=== PATIENT | female | born 1955 | race Caucasian/White ===

== ENCOUNTER 2017-05-15 13:04 | Emergency (ER) | payer MEDICARE, MEDICAID ==
--- NOTE | 2017-05-15 15:28 | RAD ---
LEFT FEMUR 2 VIEWS: Date: 05/15/17 HISTORY: Patient drank vodka and six beers and then fell on the stairs. Pain. COMPARISON: None. FINDINGS: Left hip arthroplasty. There is lucency along the lateral aspect of the cement used to affix the arth roplasty in the femoral diaphysis. Significance is uncertain. Definite fracture is not appreciated. L ucency is unchanged. Remainder of the left femur is unremarkable. IMPRESSION: No fracture. POS: [facility]
--- NOTE | 2017-05-15 15:29 | RAD ---
LEFT HIP 2 VIEWS: Date: 05/15/17 INDICATION: Injury. FINDINGS: There is a left hip prosthesis. There is a stable mild linear degree of lucency adjacent to the packi ng cement of the proximal left femur. No significant interval change identified. IMPRESSION: 1. No interval acute fracture of the postoperative left hip. 2. Stable linear density adjacent packing cement of proximal left femur. POS: [facility]
== END 2017-05-15 15:20 | disposition home or self-care (01) ==
LOC: ERS 13:04
DX: M25.552 Pain in left hip (principal); I10 Essential (primary) hypertension; F32.9 Major depressive disorder, single episode, unspecified; F41.9 Anxiety disorder, unspecified; F17.210 Nicotine dependence, cigarettes, uncomplicated; J44.9 Chronic obstructive pulmonary disease, unspecified; Z79.899 Other long term (current) drug therapy; W10.9XXA Fall (on) (from) unspecified stairs and steps, initial encounter

== ENCOUNTER 2017-06-16 16:24 | Emergency (ER) | payer MEDICARE, MEDICAID ==
--- NOTE | 2017-06-16 17:38 | RAD ---
LEFT HIP 2 VIEWS: Date: 06/16/17 HISTORY: Left hip pain. FINDINGS/IMPRESSION: Comparison made with exam of 05/15/17. A femoral head prosthesis in the left hip remains in place, in good position and alignment. No fractu re, dislocation, or bony destruction is seen. No periprosthetic lucency is noted suggest loosening. POS: [facility]
[2017-06-16 19:15] LABS: ALT (SGPT) 28 U/L (8-55); AST (SGOT) 38 U/L (5-34); Albumin 4.1 g/dL (3.4-4.8); Alkaline Phosphatase 92 U/L (40-150); Anion Gap 20 mmol/L (10-20); BUN (Urea Nitrogen) 4 mg/dL (9.8-20.1); Bilirubin, Total 0.6 mg/dL (0.2-1.2); Calc. Creatinine Clearance 0 mL/min (70-130); Calcium 9.5 mg/dL (7.8-10.44); Carbon Dioxide 18 mmol/L (23-31); Chloride 102 mmol/L (98-107); Estimated GFR-MDRD 70; Globulin 4.8 g/dL (2.4-3.5); Glucose 164 mg/dL (80-115); Protein, Total 8.9 g/dL (6.0-8.3); Sodium 136 mmol/L (136-145)
[2017-06-16 20:06] LABS: #Basophils 0.1 thou/uL (0.0-0.2); #Eosinphils 0.1 thou/uL (0.0-0.7); #Lymphocytes 4.3 thou/uL (1.20-3.40); #Monocytes 0.8 thou/uL (0.11-0.59); %Eosinophils 1.2 % (0.0-10.0); %Lymphocytes 38.1 % (21.0-51.0); %Monocytes 6.8 % (0.0-10.0); %Neutrophils 52.9 % (42.0-75.0); Hemoglobin 17.3 g/dL (12.0-16.0); Mean Corpuscular HGB CONC 35.5 g/dL (32.0-36.0); Mean Corpuscular Hemoglobin 37.1 pg (27.0-31.0); Mean Platelet Volume 6.2 fL (7.4-10.4); Platelet Count 366 thou/uL (130-400); RBC Distribution Width 13.1 % (11.5-14.5); Red Blood Cell (RBC) Count 4.65 mill/uL (4.20-5.40); White Blood Cell (WBC) Count 11.3 thou/uL (4.8-10.8)
[2017-06-16 20:17] LABS: INR-International Normal Ratio 0.9; Prothrombin Time 12.6 SEC (12.0-14.7)
[2017-06-16 20:18] LABS: PTT 29.8 SEC (22.9-36.1)
== END 2017-06-16 20:30 | disposition home or self-care (01) ==
LOC: ERS 16:24
DX: S70.02XA Contusion of left hip, initial encounter (principal); I10 Essential (primary) hypertension; J44.9 Chronic obstructive pulmonary disease, unspecified; F32.9 Major depressive disorder, single episode, unspecified; F41.9 Anxiety disorder, unspecified; F17.210 Nicotine dependence, cigarettes, uncomplicated; W10.9XXA Fall (on) (from) unspecified stairs and steps, initial encounter; Y92.009 Unspecified place in unspecified non-institutional (private) residence as the place of occurrence of the external cause
CPT/HCPCS: 36415; 80053; 85025; 85610; 85730

== ENCOUNTER 2017-10-19 15:28 | Observation (INO) | payer MEDICARE, MEDICAID ==
[2017-10-19 16:23] LABS: #Basophils 0.1 thou/uL (0.0-0.2); #Eosinphils 0.3 thou/uL (0.0-0.7); #Lymphocytes 4.4 thou/uL (1.20-3.40); #Monocytes 0.9 thou/uL (0.11-0.59); #Neutrophils 7.5 thou/uL (1.40-6.50); %Basophils 0.8 % (0.0-1.0); %Eosinophils 1.9 % (0.0-10.0); %Lymphocytes 33.4 % (21.0-51.0); %Monocytes 6.9 % (0.0-10.0); Hemoglobin 15.2 g/dL (12.0-16.0); Mean Corpuscular HGB CONC 35.8 g/dL (32.0-36.0); Mean Corpuscular Hemoglobin 38.6 pg (27.0-31.0); Mean Platelet Volume 6.9 fL (7.4-10.4); Platelet Count 305 thou/uL (130-400); Red Blood Cell (RBC) Count 3.94 mill/uL (4.20-5.40); White Blood Cell (WBC) Count 13.2 thou/uL (4.8-10.8)
[2017-10-19 16:41] LABS: ALT (SGPT) 71 U/L (8-55); AST (SGOT) 109 U/L (5-34); Albumin 3.9 g/dL (3.4-4.8); Alkaline Phosphatase 64 U/L (40-150); Anion Gap 15 mmol/L (10-20); BUN (Urea Nitrogen) 20 mg/dL (9.8-20.1); Bilirubin, Total 0.7 mg/dL (0.2-1.2); CK (CPK) 82 U/L (29-168); Calc. Creatinine Clearance 0 mL/min (70-130); Calcium 9.2 mg/dL (7.8-10.44); Carbon Dioxide 22 mmol/L (23-31); Chloride 99 mmol/L (98-107); Estimated GFR-MDRD 30; Globulin 3.4 g/dL (2.4-3.5); Glucose 103 mg/dL (80-115); Potassium 3.8 mmol/L (3.5-5.1); Protein, Total 7.3 g/dL (6.0-8.3); Sodium 132 mmol/L (136-145)
[2017-10-19 16:45] LABS: CKMB 1.8 ng/mL (0-6.6); Troponin I Less than 0.010 ng/mL (< 0.028)
[2017-10-19] MEDS ORDERED: Ondansetron ODT 4 MG TAB ONE (17:04)
--- NOTE | 2017-10-19 17:09 | RAD ---
PORTABLE CHEST ONE VIEW: 10/19/17 at 3:40 p.m. HISTORY: Left upper quadrant pain. Comparison made with exam of 02/04/17. The heart size is prominent but stable. The lungs are well expanded without confluent areas of consol idation, pneumothorax, rica pulmonary edema, or pleural effusions. IMPRESSION: No acute process. POS: [facility]
--- NOTE | 2017-10-19 17:15 | RAD ---
ABDOMEN ONE VIEW: 10/19/17 HISTORY: Left upper quadrant abdominal pain. FINDINGS/IMPRESSION: The bowel gas pattern is unremarkable. No suspicious calcifications are seen. There are degenerative changes in the spine. A left femoral head prosthesis is present. POS: [facility]
--- NOTE | 2017-10-19 19:12 | PDOC.FPRHP ---
- History of Present Illness Chief Complaint: abdominal pain, dehydration, constipation History of Present Illness: 62 yo F w/ pmh of htn, tobacco abuse, alcoholism and copd presents for evaluation of acute onset LUQ abdominal pain. She reports the pain occured suddenyl and was described as sharp. She has had a few episodes like this in the past 2 weeks; however, today the painful episodes occurred 3 times at which point she decided to present to the ED for evaluation. She denied associated pleuritic pain, sob, cp, nvd, diaphoresis, fever, chills, nights sweats. Does report some constipation, last BM was approx 2 days ago. Denies exacerbating or remitting factors. Currently reports her pain is resolved. . She reports she has not had anything to drink today although her blood alcohol level in the ED was found to be 129. Additionally, in the ed pt was found to have mild swati and transaminitis. Her ck was wnl. ED Course: NS @ 250mls/hr, zofran - Allergies/Adverse Reactions Allergies Allergy/AdvReac Type Severity Reaction Status Date / Time No Known Allergies Allergy Verified 07/14/16 21:11 - Home Medications Medication Instructions Recorded Confirmed Type Lisinopril/Hydrochlorothiazide 1 tablet PO DAILY 04/14/13 10/19/17 History [Lisinopril-Hctz 20-25 mg Tab] Amlodipine [Norvasc] 5 mg PO HS 10/19/17 10/19/17 History Gabapentin [Neurontin] 100 mg PO TID PRN 10/19/17 10/19/17 History Hydrochlorothiazide 25 mg PO DAILY 10/19/17 10/19/17 History traMADol HCl [Tramadol HCl] 50 mg PO Q4HR PRN 10/19/17 10/19/17 History - History PMHx: HTN, COPD, Depression, chronic pain, transaminitis, tobacco abuse, alcohol abuse PSHx: Lt hip ORIF w/ 2 hardware exchanges 2/2 infection FHx:NA Social: Current 1/2 ppd smoker for 38 years, 19pack year history, current everyday drinker of 4 12oz beers/day, denies drug use - Review of Systems General: denies: fever/chills, weight/appetite/sleep changes, night sweats, fatigue Eyes: denies: eye pain, vision changes ENT: denies: nasal congestion, rhinorrhea Respiratory: denies: cough, congestion, shortness of breath Cardiovascular: reports: edema. denies: chest pain, palpitation Gastrointestinal: reports: abdominal pain. denies: nausea, vomiting, diarrhea, constipation Genitourinary: denies: incontinence, dysuria, polyuria, discharge Skin: denies: rashes, jaundice Musculoskeletal: reports: pain, arthritis/arthralgias Neurological: denies: numbness, syncope, weakness - Vital signs BP: 91/57 HR: 94 RR: 18 Tmax: 98.9 Pox: 91% on RA Wt: 98 Kg - Physical Exam Constitutional: NAD, awake, alert and oriented HEENT: normocephalic and atraumatic, PERRLA, EOMI, grossly normal vision, TM's clear and intact, grossly normal hearing, MMM, oropharynx clear, other ( conjunctival injection b/l, jere complexion) Neck: supple, trachea midline, no LAD, no JVD, no thyromegaly Chest: no-tender to palpation Heart: RRR, normal S1/S2, no murmurs/rubs/gallops, pulses present, other (trace , non-pitting edema b/l LE) Lungs: no respiratory distress, good air movement, no retractions, other ( diffuse expiratory wheezes and scattered rhonchi) Abdomen: soft, non-tender, bowel sounds present, no hernias, other (protuberant abdomen) Musculoskeletal: normal tone Neurological: no focal deficit Skin: no rash/lesions, good turgor, capillary refill <2 seconds, no jaundice Heme/Lymphatic: no unusual bruising or bleeding, no petechia Psychiatric: normal mood and affect FMR H&P: Results - Labs Result Diagrams: 10/19/17 16:07 10/19/17 16:07 Lab results: WBC 13.2 thou/uL (4.8-10.8) H 10/19/17 16:07 Hgb 15.2 g/dL (12.0-16.0) 10/19/17 16:07 Hct 42.6 % (36.0-47.0) 10/19/17 16:07 MCV 108.0 fl (81.0-99.0) H 10/19/17 16:07 Plt Count 305 thou/uL (130-400) 10/19/17 16:07 Neutrophils % 57.0 % (42.0-75.0) 10/19/17 16:07 Sodium 132 mmol/L (136-145) L 10/19/17 16:07 Potassium 3.8 mmol/L (3.5-5.1) 10/19/17 16:07 Chloride 99 mmol/L (98-107) 10/19/17 16:07 Carbon Dioxide 22 mmol/L (23-31) L 10/19/17 16:07 BUN 20 mg/dL (9.8-20.1) 10/19/17 16:07 Creatinine 1.70 mg/dL (0.6-1.1) H 10/19/17 16:07 Glucose 103 mg/dL (80-115) 10/19/17 16:07 Calcium 9.2 mg/dL (7.8-10.44) 10/19/17 16:07 Total Bilirubin 0.7 mg/dL (0.2-1.2) 10/19/17 16:07 AST 109 U/L (5-34) H 10/19/17 16:07 ALT 71 U/L (8-55) H 10/19/17 16:07 Alkaline Phosphatase 64 U/L (40-150) 10/19/17 16:07 Creatine Kinase 82 U/L (29-168) 10/19/17 16:07 CK-MB (CK-2) 1.8 ng/mL (0-6.6) 10/19/17 16:07 Serum Total Protein 7.3 g/dL (6.0-8.3) 10/19/17 16:07 Albumin 3.9 g/dL (3.4-4.8) 10/19/17 16:07 - EKG Interpretation EKG: NSR, rate 94, no axis deviation - Radiology Interpretation Chest x-ray Status: report reviewed by me (No acute intratoracic process) Abdominal x-ray Status: report reviewed by me (Normal bowel gas pattern, no acute process) FMR H&P: A/P - Problem List (1) Abdominal pain Current Visit: Yes Status: Acute Code(s): R10.9 - UNSPECIFIED ABDOMINAL PAIN (2) Dehydration Current Visit: Yes Status: Acute Code(s): E86.0 - DEHYDRATION (3) SWATI (acute kidney injury) Current Visit: Yes Status: Acute Code(s): N17.9 - ACUTE KIDNEY FAILURE, UNSPECIFIED (4) Alcohol intoxication Current Visit: Yes Status: Acute (5) Constipation Current Visit: Yes Status: Acute Code(s): K59.00 - CONSTIPATION, UNSPECIFIED (6) Leukocytosis Current Visit: Yes Status: Acute Code(s): D72.829 - ELEVATED WHITE BLOOD CELL COUNT, UNSPECIFIED (7) Chronic obstructive pulmonary disease (COPD) Current Visit: No Status: Acute Qualifiers: COPD type: COPD with acute exacerbation Qualified Code(s): J44.1 - Chronic obstructive pulmonary disease with (acute) exacerbation (8) Hypertension Current Visit: No Status: Chronic Code(s): I10 - ESSENTIAL (PRIMARY) HYPERTENSION Qualifiers: Hypertension type: essential hypertension Qualified Code(s): I10 - Essential (primary) hypertension (9) Macrocytosis Current Visit: Yes Status: Acute Code(s): D75.89 - OTHER SPECIFIED DISEASES OF BLOOD AND BLOOD-FORMING ORGANS (10) Hyponatremia Current Visit: No Status: Acute Code(s): E87.1 - HYPO-OSMOLALITY AND HYPONATREMIA - Plan 1) Abd pain: Admit medical floor for observation. Pain control with prn tylenol in addition to home medications. Colace bid and miralax one time dose. Pain possibly 2/2 constipation. Exam benign and abd xray normal. 2) Dehydration: w/ associated swati. Repat am bmp and give IVF NS @ 200mls/hr. 3) SWATI: likely 2/2 #2, repeat am bmp and give IVF 4) Alcohol intoxication: ASE protocol, IVF NS @ 200mls/hr, monitor for s/s of withdraw. Last alcohol intake today. Thiamine 100mg daily. 5) Constipation: Possibly cause for #1, will give colace 100mg bid and miralax prn for constipation. If no BM by tomorrow, one time dose of miralax. 6) Leukocytosis: likely 2/2 heme concentration, repeat am cbc and continue IVF NS @ 200mls/hr 7) Hyponatremia: possibly 2/2 beer potomania, repeat am cbc, cont IVF with NS @ 200mls/hr 8) Macrocytosis: likely 2/2 malnutrition and chronic alcohol abuse. Thiamine. recommend op workup with rbc folate and b12. 9) COPD: Albuterol nebs q4hr prn in addition to duonebs q4hr prn for sob/ wheezing. currently denies any sob or wheezing. will monitor. O2 prn for sats > 90%. 10) HTN: Cont home medications, hold michael-i 2/2 swati 11) PPX: Lovenox, pepcid for dvt and GI ppx, respectively 12) Code status: Full. Pt asked about code status on admission, pt wants to be full code. Disposition/LOS: stable, </= 2 days FMR H&P: Upper Level - Pertinent history 62 yo CF with PMHx alcohol abuse, chronic transaminitis, HTN, and COPD presented to ED with c/o LUQ pain. Present intermittently over last 2 weeks with 3 episodes of pain today. Denies fever/chills. Endorses constipation with last BM 2 days ago. Pts pain resolved in ED. Pt denied alcohol use today but had blood alcohol of 129. SWATI as well so pt to be observed overnight. - Pertinent findings Gen: NAD, obese, poor hygiene, intoxicated HEENT: dry MMM CV: RRR, no m/r/g Lungs: scattered rales, diffuse expiratory wheezes, no increased WOB Abd: NT/ND Skin: Flushed complexion - Plan Date/Time: 10/19/171911 1. SWATI. Likely 2/2 dehydration. Cr 1.7 compared to baseline around 0.8. IV fluids and recheck in AM. Observation overnight with repeat BMP in AM. 2. Mild dehydration. See above. IV fluids. 3. Acute alcohol intoxication. Pt able to answer most questions appropriately although appears intoxicated with alcohol level 129. IV fluids and monitor overnight. Thiamine and multivitamin to supplement folate and pyridoxine. 4. Transaminitis. Persistent in past likely 2/2 chronic alcohol abuse. F/u outpatient in our clinic. 5. LUQ pain. Resolved. No findings on imaging. Bowel regimen in case constipation an issue. 6. Macrocytosis. F/u outpt. Likely 2/2 alcohol abuse. Vitamins. 7. HTN. Home meds. 8. Leukocytosis. Likely hemoconcentrated. No evidence of infection. I, Faisal Oconnor, have evaluated this patient and agree with findings/plan as outlined by internist medical doctor md resident. Pertinent changes/additions are listed here. Attending Addendum - Attending Addendum Date/Time: 10/19/17 3850 I personally evaluated the patient and discussed the management with Dr. Chavarria I agree with the History, Examination, Assessment and Plan documented above with any addition or exceptions noted below- Briefly this is a 62 year old female with h/o HTN, COPD presented c/o LUQ pain. States that symptoms began 2 weeks ago but increased in frequency over last 2 days. Describes pain as a sharp , catching type pain. Occurred 3 times over last 1-2 days. Denies any N/V. Last BM 2 days ago. PMH/PSH/Meds/All/ SH/ ROS reviewed and agree with resident's documentation. Afebrile P94 RR 22 BP 137/63 Exam repeated by me and agree with resident's findings. Labs: WBC 13.2 Hgb 15.2 Hct 42.6 PLt 3045 Cr 1.70 ALT 109 AST 71 ETOH 129 A/P: 1) SWATI secondary to dehydration- continue IVF; recheck BMP in AM. 2) ETOH intoxication- continue IVF; thiamine and folate. 3) Transaminitis- most likely secondary to alcohol; continue to monitor
[2017-10-19] MEDS ORDERED: Ondansetron ODT 4 MG TAB SL PRN (21:08)
[2017-10-19] MEDS ORDERED: Ondansetron HCl/PF 4 MG/2 ML Vial IVP PRN ×2 (21:08→21:50)
[2017-10-19] MEDS ORDERED: Sodium Chloride 0.9% 1,000 ML IV SCH (21:15)
[2017-10-19 21:49] VITALS: BMI 35.9
[2017-10-19] MEDS ORDERED: Acetaminophen 325 MG TAB PO PRN (21:50)
[2017-10-19] MEDS ORDERED: Ondansetron ODT 4 MG TAB PO PRN (21:50)
[2017-10-19] MEDS ORDERED: Milk Of Magnesia 30 ML UDCUP PO PRN (21:50)
[2017-10-19] MEDS ORDERED: Polyethylene Glycol 3350 17 GM Packet PO PRN (23:09)
[2017-10-19] MEDS: Sodium Chloride 0.9% 1,000 ML IV SCH (23:32)
[2017-10-19] MEDS ORDERED: Albuterol Sulfate 1.25 MG/3 ML NEB NEB PRN (23:41)
[2017-10-20] MEDS ORDERED: Gabapentin 100 MG CAP PO PRN (02:13)
[2017-10-20] MEDS ORDERED: traMADol HCl 50 MG TAB PO PRN (02:13)
[2017-10-20] MEDS: Sodium Chloride 0.9% 1,000 ML IV SCH ×3 (04:36→13:57)
[2017-10-20 05:50] LABS: #Basophils 0.1 thou/uL (0.0-0.2); #Eosinphils 0.3 thou/uL (0.0-0.7); #Lymphocytes 2.5 thou/uL (1.20-3.40); #Monocytes 0.8 thou/uL (0.11-0.59); #Neutrophils 5.7 thou/uL (1.40-6.50); %Basophils 0.8 % (0.0-1.0); %Eosinophils 3.6 % (0.0-10.0); %Lymphocytes 26.4 % (21.0-51.0); %Monocytes 8.5 % (0.0-10.0); %Neutrophils 60.7 % (42.0-75.0); Hemoglobin 13.6 g/dL (12.0-16.0); Mean Corpuscular Hemoglobin 38.4 pg (27.0-31.0); Mean Platelet Volume 7.3 fL (7.4-10.4); Platelet Count 246 thou/uL (130-400); RBC Distribution Width 12.1 % (11.5-14.5); Red Blood Cell (RBC) Count 3.54 mill/uL (4.20-5.40); White Blood Cell (WBC) Count 9.5 thou/uL (4.8-10.8)
[2017-10-20 06:05] LABS: ALT (SGPT) 57 U/L (8-55); AST (SGOT) 82 U/L (5-34); Albumin 3.3 g/dL (3.4-4.8); Alkaline Phosphatase 54 U/L (40-150); Anion Gap 9 mmol/L (10-20); BUN (Urea Nitrogen) 16 mg/dL (9.8-20.1); Bilirubin, Total 1.1 mg/dL (0.2-1.2); Calc. Creatinine Clearance 79 mL/min (70-130); Calcium 8.2 mg/dL (7.8-10.44); Carbon Dioxide 24 mmol/L (23-31); Chloride 105 mmol/L (98-107); Estimated GFR-MDRD 49; Globulin 2.8 g/dL (2.4-3.5); Glucose 97 mg/dL (80-115); Potassium 4.1 mmol/L (3.5-5.1); Protein, Total 6.1 g/dL (6.0-8.3)
[2017-10-20 06:08] LABS: Sodium 134 mmol/L (136-145)
--- NOTE | 2017-10-20 06:19 | PDOC.FM ---
- Subjective Subjective: Patient had a good night. Patient states the pain she had in her LUQ that brought her to the ED is completely resolved. She states that she is ready to go home. She is counseled on the importance of staying well hydrated as well as the importance of smoking cessation. No other complaints this morning. - Objective Vital Signs & Weight: Vital Signs (12 hours) Temp Pulse Resp BP BP Pulse Ox 10/20/17 04:15 98.4 F 83 22 H 104/53 L 96 10/20/17 00:47 83 18 95 10/20/17 00:42 98.3 F 83 20 10/19/17 23:14 98.3 F 83 20 110/56 L 95 10/19/17 21:54 97 10/19/17 20:57 98.0 F 94 22 H 137/63 96 Weight Weight 98.021 kg I&O: 10/18/17 10/19/17 10/20/17 06:59 06:59 06:59 Intake Total 1197 Output Total 800 Balance 397 Result Diagrams: 10/20/17 04:56 10/20/17 04:56 Phys Exam - Physical Examination HEENT: moist MMs Neck: no nodes Respiratory: wheezing present Cardiovascular: RRR, no significant murmur Gastrointestinal: soft, non-tender, no distention, positive bowel sounds Musculoskeletal: no edema, pulses present Neurological: non-focal, normal sensation, moves all 4 limbs Lymphatic: no nodes Psychiatric: normal affect, A&O x 3 Skin: no rash Dx/Plan (1) SWATI (acute kidney injury) Code(s): N17.9 - ACUTE KIDNEY FAILURE, UNSPECIFIED Status: Acute (2) Abdominal pain Code(s): R10.9 - UNSPECIFIED ABDOMINAL PAIN Status: Acute (3) Alcohol intoxication Status: Acute (4) Constipation Code(s): K59.00 - CONSTIPATION, UNSPECIFIED Status: Acute (5) Dehydration Code(s): E86.0 - DEHYDRATION Status: Acute (6) Leukocytosis Code(s): D72.829 - ELEVATED WHITE BLOOD CELL COUNT, UNSPECIFIED Status: Acute (7) Macrocytosis Code(s): D75.89 - OTHER SPECIFIED DISEASES OF BLOOD AND BLOOD-FORMING ORGANS Status: Acute (8) Chronic obstructive pulmonary disease (COPD) Status: Acute Qualifiers: COPD type: COPD with acute exacerbation Qualified Code(s): J44.1 - Chronic obstructive pulmonary disease with (acute) exacerbation (9) Hyponatremia Code(s): E87.1 - HYPO-OSMOLALITY AND HYPONATREMIA Status: Acute (10) Macrocytic anemia Code(s): D53.9 - NUTRITIONAL ANEMIA, UNSPECIFIED Status: Acute (11) Hypertension Code(s): I10 - ESSENTIAL (PRIMARY) HYPERTENSION Status: Chronic Qualifiers: Hypertension type: essential hypertension Qualified Code(s): I10 - Essential (primary) hypertension - Plan Plan: 1) Abdominal pain - Resolved - Likely related to GERD - Recommend outpatient follow up 2) Dehydration - Improved - IVF - Cr improved to 1.11 today 3) SWATI - Improved overnight - Encourage PO intake 4) Alcohol intoxication - ASE protocol - IVF NS @ 200mls/hr - monitor for s/s of withdraw - Last alcohol intake today - Thiamine 100mg daily. 5) Constipation - Possibly cause for #1 - Colace 100mg bid and miralax prn for constipation. - Encourage stool softener as outpatient. 6) Leukocytosis - resolved 7) Hyponatremia - Improved this AM to 134 - Could be due to beer drinking potomania - Outpatient follow up 8) Macrocytosis - likely 2/2 malnutrition and chronic alcohol abuse. - 9) COPD - Current smoking - Albuterol nebs q4hr prn in addition to duonebs q4hr prn for sob/wheezing. - currently denies any sob or wheezing. - will monitor. - O2 prn for sats >90%. 10) HTN: - Cont home medications - Will resume EMELY-inhibitor on discharge Disposition: Stable, patient is ready for discharge.
[2017-10-20] MEDS ORDERED: Enoxaparin Sodium 40 MG/0.4 ML SYRINGE SC SCH (09:00)
[2017-10-20] MEDS ORDERED: Folic Acid/Vit B Comp W-C PO SCH (09:00)
[2017-10-20] MEDS ORDERED: Famotidine 20 MG TAB PO SCH (09:00)
[2017-10-20] MEDS ORDERED: Hydrochlorothiazide 25 MG TAB PO SCH (09:00)
[2017-10-20] MEDS ORDERED: Docusate 100 MG CAP PO SCH (09:00)
[2017-10-20 11:55] LABS: HBCM Index 0.05 S/CO (0-0.79); HBSAB Concentration 0.63 mIU/mL; Hep B Surf AB Non-Reactive (NonReactive); Hep B Surf Ag Non-Reactive S/CO (NonReactive); Hep C IgG Ab Non-Reactive (NonReactive); Hep C Index 0.06 S/CO (0-0.79); Hepatitis B Core IGM Abs Non-Reactive (NonReactive)
[2017-10-20 12:11] VITALS: BP 143/74; TEMP 97.8
--- NOTE | 2017-10-20 13:07 | ADD-PRG ---
DATE OF SERVICE: 10/20/2017 This is an addendum to the note of Dr. Francesco Prince. HISTORY OF PRESENT ILLNESS: Ms. Harvey is an obese 62-year-old lady who was admitted with abdominal p ain and probable chronic alcoholism. This morning she feels much better, although she initially had some left upper quadrant abdominal pain which have since resolved. Her MCV is elevated and likely du e to her alcohol. We need to check B12 and RBC and folate levels. Also, she has slight elevations o f her liver function test and although this also may be due to alcohol, we need to check her for fatt y liver, particularly given her body habitus. These tests will be ordered and subsequent to that Ms Ethel Harvey is likely ready for discharge.
[2017-10-20] MEDS ORDERED: Amlodipine 5 MG TAB PO SCH (21:00)
--- NOTE | 2017-10-21 15:04 | DIS-2 ---
DATE OF ADMISSION: 10/19/2017 DATE OF DISCHARGE: 10/20/2017 RESIDENT: Francesco Prince M.D. ADMITTING ATTENDING: Shreya Greer M.D. DISCHARGE ATTENDING: Norman Vergara M.D. CONSULTS: None. PROCEDURES: The patient underwent a chest x-ray on 10/19/2017 that showed no acute process. The patient underwent an abdominal x-ray on 10/19/2017 that showed the bowel gas pattern is unremarkable. No suspicious calcifications are seen. There are degenerative changes in the spine. A left femoral head prosthesis is present. PRIMARY DIAGNOSES: 1. Acute kidney injury. 2. Abdominal pain. 3. Alcohol intoxication. 4. Constipation. 5. Dehydration. 6. Leukocytosis. 7. Microcytosis. 8. Macrocytic anemia. 9. Chronic obstructive pulmonary disease. 10. Hyponatremia. 11. Hypertension. DISCHARGE MEDICATIONS: 1. Lisinopril/HCTZ 20/25 mg 1 tab p.o. daily. 2. Tramadol 50 mg p.o. q.4. hour p.r.n. 3. Amlodipine 5 mg p.o. at bedtime. 4. Gabapentin 100 mg p.o. t.i.d. 5. Folic acid 1 mg p.o. daily. 6. Thiamine 100 mg p.o. daily. 7. Vitamin B12 of 2500 mcg p.o. daily. DISCONTINUED MEDICATIONS: None. HISTORY OF PRESENT ILLNESS AND HOSPITAL COURSE: This is a 62-year-old female with past medical history of hypertension, tobacco abuse, alcoholism, and COPD, who presents for evaluation of acute onset of left upper quadrant abdominal pain. She reports the pain occurred suddenly and was described as sharp. She has had a few episodes like this in the past 2 weeks; however, today the painful episodes occur 3 times, at which point she decided to present to the ED for evaluation. She denied associated pleuritic pain or shortness of breath, chest pain, nausea, vomiting, diarrhea, diaphoresis, fever, chills, night sweats. The patient does report some constipation. Last bowel movement was approximately 2 days ago. She denies exacerbating or relieving factors. Currently reports her pain is resolved. She reports that she had not had anything to drink today, although her blood alcohol level in the ED was found to be 129. Initially in the ED, the patient was found to have a mild SWATI and transaminitis. Her CK was within normal limits. In the ED, she was put on normal saline at 250 mL per hour and given Zofran. During this hospitalization, the patient had normal lab values of a creatinine of 1.7 on the day of admission, that trended down to 1.11 on day of discharge, her creatinine at baseline usually runs in the 0.8 to 0.9. She did have a sodium of 132 on admission, it trended up to 134 on day of discharge, but looking back at past records that is apparently her baseline. The patient did undergo hepatitis screening and her hepatitis B antigen was negative as well as her hepatitis C screen was negative. Patient had a slight transaminitis to AST of 109, ALT 71. It trended down to 82 and 57 respectively during hospitalization. Again, going back to her other hospitalization, she has had mild elevations of her transaminases in the past. The patient was afebrile during this hospitalization, otherwise within normal limits of vital signs and normotensive. Patient was counseled extensively on diet and exercise to improve her overall health as well as smoking cessation as the patient does smoke and current every day smoker. The patient is also counseled on alcohol cessation; however, she was not ready to quit and does not seem to be willing to quit at this time. Patient otherwise had no further complications during this hospitalization and was discharged on appropriate condition. DISPOSITION: Stable. DISCHARGE INSTRUCTIONS: 1. The patient will be discharged home in the care of herself. 2. Diet will be a heart healthy diet. 3. Activity will be as tolerated with no restrictions. 4. Follow up will be with her primary care provider, Dr. Laureano Mercado at [facility] in 3 to 7 days to further discuss her chronic conditions and treatment going forward. [facility]
[2017-10-21 15:27] LABS: Folate,Hemolysate 292.6 ng/mL (Not Estab.); Hematocrit 41.7 % (34.0-46.6); RBC Folate Test Component 702 ng/mL (>498)
== END 2017-10-20 14:27 | disposition home or self-care (01) ==
LOC: ERS 15:28 → 2SW 17:00
PROVIDERS: ADMIT Family Medicine; ATTEND Family Medicine
DX: R10.12 Left upper quadrant pain (principal); N17.9 Acute kidney failure, unspecified; F10.129 Alcohol abuse with intoxication, unspecified; K59.00 Constipation, unspecified; E86.0 Dehydration; D72.829 Elevated white blood cell count, unspecified; D53.9 Nutritional anemia, unspecified; J44.1 Chronic obstructive pulmonary disease with (acute) exacerbation; I10 Essential (primary) hypertension; E87.1 Hypo-osmolality and hyponatremia; F17.210 Nicotine dependence, cigarettes, uncomplicated; E66.9 Obesity, unspecified; Z68.36 Body mass index [BMI] 36.0-36.9, adult; Y90.6 Blood alcohol level of 120-199 mg/100 ml; Z79.899 Other long term (current) drug therapy
CPT/HCPCS: 71045; 74018; 80053 ×2; 80307; 82550; 82553; 82607; 82747; 83690; 84484; 85014; 85025 ×2; 86705; 86706; 86803; 87340; 93005; 94640 ×2; 96361 ×2; 96365; 96372; 99285; G0378; 36415; 96360; J1650; J3411; J7050; J7620; Q0162

== ENCOUNTER 2017-10-21 20:08 | Observation (INO) | payer MEDICARE, MEDICAID ==
--- NOTE | 2017-10-21 20:52 | RAD ---
CHEST ONE VIEW: 10/21/17 HISTORY: Not feeling well. Blood pressure issues. COMPARISON: Chest radiograph 10/19/17. FINDINGS: Abnormal nodular density of the peripheral aspect of the right middle lobe. Heart size is upper limit s of normal. No focal air space consolidation, pneumothorax or effusion. Moderate degenerative diseas e of the right acromioclavicular joint. IMPRESSION: Nodular density of the peripheral aspect right middle lobe. Nonemergent followup CT of the chest is recommended. Possibility exists that this is sequela of prior rib fracture. POS: [facility]
[2017-10-21 20:53] LABS: #Basophils 0.1 thou/uL (0.0-0.2); #Eosinphils 0.3 thou/uL (0.0-0.7); #Lymphocytes 2.9 thou/uL (1.20-3.40); #Neutrophils 7.9 thou/uL (1.40-6.50); %Basophils 1.1 % (0.0-1.0); %Eosinophils 2.2 % (0.0-10.0); %Lymphocytes 23.6 % (21.0-51.0); %Neutrophils 65.1 % (42.0-75.0); Hemoglobin 15.5 g/dL (12.0-16.0); Mean Corpuscular HGB CONC 35.6 g/dL (32.0-36.0); Mean Corpuscular Hemoglobin 39.1 pg (27.0-31.0); Mean Platelet Volume 7.4 fL (7.4-10.4); Platelet Count 326 thou/uL (130-400); Red Blood Cell (RBC) Count 3.97 mill/uL (4.20-5.40); White Blood Cell (WBC) Count 12.1 thou/uL (4.8-10.8)
[2017-10-21 21:17] LABS: CKMB 1.4 ng/mL (0-6.6); Troponin I Less than 0.010 ng/mL (< 0.028)
[2017-10-21 21:22] LABS: Bilirubin Negative (Negative); Blood, Urine Large (Negative); Clarity CLOUDY (Clear); Glucose, Urine (Dipstick) Negative (Negative); Leukocyte Large (Negative); Nitrite Negative (Negative); Protein, Urine (Dipstick) Negative (Neg-Trace); Specific Gravity, Urine 1.008 (1.002-1.036); Yeast-AUWi Flag 15.7 (0-25.0)
[2017-10-21 21:24] LABS: Pathc Cast-AUWi Flag 14.82 (0-2.49)
[2017-10-21 21:30] LABS: Bacteria/HPF None Seen HPF (None Seen); Transitional Epithelial 0-3 HPF (0-3)
[2017-10-21 21:31] LABS: Hyaline Casts/LPF 4-6 HYALINE CAST LPF (0-3 Hyaline); Other Microscopic Description Less than 2 mL rec'd
[2017-10-21 21:38] LABS: ALT (SGPT) 95 U/L (8-55); AST (SGOT) 141 U/L (5-34); Albumin 4.1 g/dL (3.4-4.8); Alkaline Phosphatase 67 U/L (40-150); Anion Gap 16 mmol/L (10-20); BUN (Urea Nitrogen) 8 mg/dL (9.8-20.1); Bilirubin, Total 0.9 mg/dL (0.2-1.2); CK (CPK) 76 U/L (29-168); Calc. Creatinine Clearance 0 mL/min (70-130); Calcium 9.7 mg/dL (7.8-10.44); Carbon Dioxide 23 mmol/L (23-31); Chloride 98 mmol/L (98-107); Estimated GFR-MDRD 31; Globulin 3.6 g/dL (2.4-3.5); Glucose 128 mg/dL (80-115); Lipase 95 U/L (8-78); Magnesium 2.2 mg/dL (1.6-2.6); Potassium 4.1 mmol/L (3.5-5.1); Protein, Total 7.7 g/dL (6.0-8.3); Sodium 133 mmol/L (136-145)
[2017-10-21] MEDS ORDERED: Fentanyl 100 MCG/2 ML VIAL ONE (21:44)
[2017-10-21] MEDS ORDERED: cefTRIAXone\\ROCEPHIN 2 GM VIAL ONE (21:54)
--- NOTE | 2017-10-21 23:43 | PDOC.FPRHP ---
- History of Present Illness Chief Complaint: weakness History of Present Illness: 62 yo F w/ pmh of alcohol abuse, htn, copd, tobacco abuse, transaminitis presents for cc of generalized weakness for 1 day. She was recently admitted for luq pain and at that time was found to be intoxicated and dehydrated in addition to being hemoconcentrated. Today she reports her symptoms had been present since this AM. She states she has only had 1/2 a beer today although her plasma alcohol level would indicate otherwise. She had a UA done in the ER that was concerning for a UTI and she was treated empirically, although she denies frequency, urgency, and dysuria. She has no localizing complaints other than feeling weak. She had BPs in the 80s/40s on initial presentation to the ED that responded to IV fluids. She has a slight leukocytosis, although looking at her previous labs this appears to be hemoconcentration 2/2 severe dehydration. Otherwise she denies cp, sob, nvdc. ED Course: 1g rocephin, 2 LNS - Allergies/Adverse Reactions Allergies Allergy/AdvReac Type Severity Reaction Status Date / Time No Known Allergies Allergy Verified 10/22/17 03:28 - Home Medications Medication Instructions Recorded Confirmed Type Lisinopril/Hydrochlorothiazide 1 tablet PO DAILY 04/14/13 10/22/17 History [Lisinopril-Hctz 20-25 mg Tab] Amlodipine [Norvasc] 5 mg PO HS 10/19/17 10/22/17 History Gabapentin [Neurontin] 100 mg PO TID PRN 10/19/17 10/22/17 History Hydrochlorothiazide 25 mg PO DAILY 10/19/17 10/22/17 History traMADol HCl [Tramadol HCl] 50 mg PO Q4HR PRN 10/19/17 10/22/17 History Cyanocobalamin (Vitamin B-12) 2,500 mcg PO DAILY #30 tablet 10/20/17 10/22/17 Rx [Vitamin B12] Folic Acid 1 mg PO DAILY #30 tablet 10/20/17 10/22/17 Rx Thiamine 100 mg PO DAILY #30 tab 10/20/17 10/22/17 Rx - History PMHx: Alcohol abuse, tobacco abuse, copd, htn PSHx: Left hip X4 FHx: NA Social: Current everyday drinker "4 beers/day" and 6 shots of vodka. Current ppd smoker. Denies drug use. - Review of Systems General: reports: fatigue. denies: fever/chills, weight/appetite/sleep changes Eyes: denies: eye pain, vision changes ENT: denies: nasal congestion, rhinorrhea Respiratory: denies: cough, congestion, shortness of breath Cardiovascular: denies: chest pain, palpitation, edema Gastrointestinal: denies: nausea, vomiting, diarrhea, constipation, abdominal pain Genitourinary: denies: incontinence, polyuria Skin: denies: rashes, jaundice Musculoskeletal: denies: pain, tenderness, stiffness, arthritis/arthralgias Neurological: reports: weakness. denies: numbness, syncope, seizure - Vital signs BP: 64/56 HR: 93 RR: 14 Tmax: 98.5 Pox: 93% on RA Wt: 117Kg - Physical Exam Constitutional: NAD, awake, alert and oriented HEENT: normocephalic and atraumatic, PERRLA, EOMI, grossly normal hearing, oropharynx clear, other (dry mucus membranes) Neck: supple, trachea midline, no LAD, no JVD, no thyromegaly Chest: no-tender to palpation Heart: RRR, normal S1/S2, no murmurs/rubs/gallops, pulses present Lungs: no respiratory distress, good air movement, no retractions, other ( expiratory wheezes and scattered rhonchi throughout) Abdomen: soft, bowel sounds present, other (mildly distended, no rebound/ guarding or ttp) Musculoskeletal: normal structure, ROM grossly normal Neurological: no focal deficit, normal sensation Skin: no rash/lesions, capillary refill <2 seconds, other Heme/Lymphatic: no unusual bruising or bleeding, no petechia Psychiatric: other (intoxicated, slurred speech) FMR H&P: Results - Labs Result Diagrams: 10/22/17 04:15 10/22/17 04:15 Lab results: WBC 12.1 thou/uL (4.8-10.8) H 10/21/17 20:37 Hgb 15.5 g/dL (12.0-16.0) 10/21/17 20:37 Hct 43.7 % (36.0-47.0) 10/21/17 20:37 MCV 110.0 fl (81.0-99.0) H 10/21/17 20:37 Plt Count 326 thou/uL (130-400) 10/21/17 20:37 Neutrophils % 65.1 % (42.0-75.0) 10/21/17 20:37 Sodium 133 mmol/L (136-145) L 10/21/17 20:37 Potassium 4.1 mmol/L (3.5-5.1) 10/21/17 20:37 Chloride 98 mmol/L (98-107) 10/21/17 20:37 Carbon Dioxide 23 mmol/L (23-31) 10/21/17 20:37 BUN 8 mg/dL (9.8-20.1) L 10/21/17 20:37 Creatinine 1.67 mg/dL (0.6-1.1) H 10/21/17 20:37 Glucose 128 mg/dL (80-115) H 10/21/17 20:37 Lactic Acid 2.7 mmol/L (0.5-2.2) H 10/21/17 20:29 Calcium 9.7 mg/dL (7.8-10.44) 10/21/17 20:37 Total Bilirubin 0.9 mg/dL (0.2-1.2) 10/21/17 20:37 AST 141 U/L (5-34) H 10/21/17 20:37 ALT 95 U/L (8-55) H 10/21/17 20:37 Alkaline Phosphatase 67 U/L (40-150) 10/21/17 20:37 Creatine Kinase 76 U/L (29-168) 10/21/17 20:37 CK-MB (CK-2) 1.4 ng/mL (0-6.6) 10/21/17 20:37 B-Natriuretic Peptide 40.4 pg/mL (0-100) 10/21/17 20:31 Serum Total Protein 7.7 g/dL (6.0-8.3) 10/21/17 20:37 Albumin 4.1 g/dL (3.4-4.8) 10/21/17 20:37 Lipase 95 U/L (8-78) H 10/21/17 20:37 Urine Ketones Negative mg/dL (Negative) 10/21/17 21:00 Urine Blood Large (Negative) H 10/21/17 21:00 Urine Nitrite Negative (Negative) 10/21/17 21:00 Ur Leukocyte Esterase Large (Negative) H 10/21/17 21:00 Urine RBC 11-20 HPF (0-3) H 10/21/17 21:00 Urine WBC Greater Than 50-TNTC HPF (0-3) H 10/21/17 21:00 Ur Squamous Epith Cells 7-10 HPF (0-3) H 10/21/17 21:00 Urine Bacteria None Seen HPF (None Seen) 10/21/17 21:00 - EKG Interpretation EKG: prolonged qtc, rate 94, NSR - Radiology Interpretation Chest x-ray Status: report reviewed by me (Nodular density rt perihilar region. No focal airspace consolidation/effusion.) FMR H&P: A/P - Problem List (1) Dehydration Current Visit: No Status: Acute Code(s): E86.0 - DEHYDRATION (2) SWATI (acute kidney injury) Current Visit: No Status: Acute Code(s): N17.9 - ACUTE KIDNEY FAILURE, UNSPECIFIED (3) Alcohol intoxication Current Visit: No Status: Acute (4) Chronic obstructive pulmonary disease (COPD) Current Visit: No Status: Acute Qualifiers: COPD type: COPD with acute exacerbation Qualified Code(s): J44.1 - Chronic obstructive pulmonary disease with (acute) exacerbation (5) Hyponatremia Current Visit: No Status: Acute Code(s): E87.1 - HYPO-OSMOLALITY AND HYPONATREMIA (6) Leukocytosis Current Visit: No Status: Acute Code(s): D72.829 - ELEVATED WHITE BLOOD CELL COUNT, UNSPECIFIED (7) Hypertension Current Visit: No Status: Chronic Code(s): I10 - ESSENTIAL (PRIMARY) HYPERTENSION Qualifiers: Hypertension type: essential hypertension Qualified Code(s): I10 - Essential (primary) hypertension - Plan 1) Dehydration: @LNS bpolus given in ED. Continue IVF @ 175mls/hr. Recheck @ cbc and CMP. 2) SWATI, 2/2 # 1 IVFNS @ 175, recheck am CMP 3) Leukocytosis: likely 2/2 hemoconcentration. IVF NS @ 175, repeat am CBC 4)COPD: Home meds 5) Alcohol intoxication: IVF NS @ 175. Hedis Specialist on cessation. 6) HTN: hypotensive on admission, hold home medications for now. 7) PPX: SCDs and Pepcid for dvt and GI ppx respectively 8) Code status: Full, pt wishes to be full code In regard to the sterile pyuria and + leuks on the UA, unlikely infection. Urine has been sent for culture. Will not continue treatment at this time as the pts symptoms are likely 2/2 hemoconcentration. Will give IVF and recheck am cbc/cmp. Her WBC are less than her previous admission and Her hgb and hct are slightly above previous admission. Disposition/LOS: stable, </=2 days FMR H&P: Upper Level - Pertinent history 62 yo CF with PMHx alcohol abuse, chronic transaminitis, HTN, and COPD presented to ED for feeling unwell with general weakness. Just released from hospital yesterday and has been drinking alcohol since discharge. Alcohol level 129 on admission earlier in week with IV fluids improving her SWATI. Pt states only drank can beer today but family disagrees with this and suspects heavy vodka use. Denies fever/chills. Endorses constipation although last BM yesterday. Denies any abd pain. Pts labs reflected another SWATI along with hypotension in ED. Pt to be observed overnight. - Pertinent findings Gen: NAD, obese, poor hygiene, intoxicated HEENT: dry MMM, flushed complexion CV: RRR, no m/r/g Lungs: scattered rales, diffuse expiratory wheezes, no increased WOB Abd: NT/ND - Plan Date/Time: 10/21/17 0959 1. SWATI. Likely 2/2 dehydration from decreased water intake and likely heavy alcohol abuse. Cr 1.67 compared to baseline around 0.8. Had improved to 1.11 after IV fluids earlier in week. Received 2.5L fluids in ED Continue IV fluids and recheck BMP in AM. Observation overnight. 2. Moderate dehydration. See above. Hypotensive initially with mildly elevated lactate 2/2 hypoperfusion. Heavy IV fluids. More stable after initial fluids 3. Acute alcohol intoxication. Pt able to answer most questions appropriately although appears somewhat intoxicated. Recheck alcohol level. IV fluids and monitor overnight. Thiamine and multivitamin to supplement folate and pyridoxine. Appears alcohol is contributing factor to need for recent admissions. 4. Transaminitis. Persistent in past likely 2/2 chronic alcohol abuse. F/u outpatient. 5. Euthyroid sick syndrome. TSH mildly elevated although currently hospitalized due to dehydration. Recheck in clinic. 6. Macrocytosis. F/u outpt. Likely 2/2 alcohol abuse. Vitamins. 7. HTN. Hold for hypotension. 8. Leukocytosis. Likely hemoconcentrated again. No evidence of infection. Given rocephin in ED for possible UTI although not convincing study with contamination. Pt has no urinary symptoms. Hold abx and await UCx. I, Faisal Oconnor, have evaluated this patient and agree with findings/plan as outlined by manager intern resident. Pertinent changes/additions are listed here. Attending Addendum - Attending Addendum Date/Time: 10/22/17 0634 I personally evaluated the patient and discussed the management with Dr. Smith on 10/21/17 I agree with the History, Examination, Assessment and Plan documented above with any addition or exceptions noted below- 62 yo CF with PMHx alcohol abuse, chronic transaminitis, HTN, and COPD presented to ED for feeling unwell with general weakness. Alcohol level 129 on admission earlier in week with IV fluids improving her SWATI. Pt states only drank can beer today but family disagrees with this and suspects heavy vodka use. PMH/PSH/All/Meds/SH/ROS reviewed and agree with resident's documentation. Afebrile BP112/74 P90 RR17 T98.2 Exam repeated by me and agree with resident's findings. Labs: Vu=142 K=4.1 BUN=8 Cr= 1.67 JKP=290 ALT=95 lactic acid=2.7 WvvD=628 U/A (+) blood (+) leuk esterase (- ) bacteria >50 WBC 11-20 RBC A/P: 1) SWATI secondary to dehydration- continue IVF ; recheck labs in AM, 2) Hypotension- improved with IVF; continue to monitor, 3 ) ETOH abuse- need to encourage cessation
[2017-10-21 23:47] LABS: Acetaminophen Less than 6.0 mcg/mL (10.0-30.0); Alcohol 197 mg/dL (Less than 10); Salicylate Less than 8.0 mg/dL (15.0-30.0)
[2017-10-22] MEDS ORDERED: Albuterol Sulfate 2.5 mg/3 ml Neb NEB PRN (00:37)
[2017-10-22] MEDS ORDERED: Ondansetron ODT 4 MG TAB PO PRN (00:37)
[2017-10-22] MEDS ORDERED: Ondansetron HCl/PF 4 MG/2 ML Vial IVP PRN (00:37)
[2017-10-22] MEDS ORDERED: Milk Of Magnesia 30 ML UDCUP PO PRN (00:37)
[2017-10-22 01:22] LABS: Lactic Acid 1.7 mmol/L (0.5-2.2)
[2017-10-22] MEDS: Acetaminophen 325 MG TAB PO PRN ×2 (02:56→07:19)
[2017-10-22] MEDS: Sodium Chloride 0.9% 1,000 ML IV SCH ×2 (03:04→07:21)
[2017-10-22 05:16] LABS: #Basophils 0.1 thou/uL (0.0-0.2); #Eosinphils 0.2 thou/uL (0.0-0.7); #Lymphocytes 2.9 thou/uL (1.20-3.40); #Monocytes 0.6 thou/uL (0.11-0.59); #Neutrophils 4.1 thou/uL (1.40-6.50); %Basophils 0.8 % (0.0-1.0); %Eosinophils 2.9 % (0.0-10.0); %Lymphocytes 36.7 % (21.0-51.0); %Monocytes 7.8 % (0.0-10.0); %Neutrophils 51.8 % (42.0-75.0); Hemoglobin 13.8 g/dL (12.0-16.0); Mean Corpuscular HGB CONC 34.8 g/dL (32.0-36.0); Mean Corpuscular Hemoglobin 38.3 pg (27.0-31.0); Mean Platelet Volume 7.5 fL (7.4-10.4); Platelet Count 253 thou/uL (130-400); RBC Distribution Width 12.2 % (11.5-14.5); Red Blood Cell (RBC) Count 3.59 mill/uL (4.20-5.40); White Blood Cell (WBC) Count 7.9 thou/uL (4.8-10.8)
[2017-10-22 05:27] LABS: ALT (SGPT) 77 U/L (8-55); AST (SGOT) 104 U/L (5-34); Albumin 3.6 g/dL (3.4-4.8); Alkaline Phosphatase 59 U/L (40-150); Anion Gap 12 mmol/L (10-20); BUN (Urea Nitrogen) 8 mg/dL (9.8-20.1); Bilirubin, Total 0.6 mg/dL (0.2-1.2); Calc. Creatinine Clearance 90 mL/min (70-130); Calcium 8.3 mg/dL (7.8-10.44); Carbon Dioxide 22 mmol/L (23-31); Chloride 106 mmol/L (98-107); Estimated GFR-MDRD 58; Glucose 96 mg/dL (80-115); Potassium 3.9 mmol/L (3.5-5.1); Protein, Total 6.6 g/dL (6.0-8.3); Sodium 136 mmol/L (136-145)
--- NOTE | 2017-10-22 06:11 | PDOC.FM ---
- Subjective Subjective: Patient had an OK night. She states that she has an extensive alcohol history. She also notes that since her 3 months ago that she has been drinking more heavily. She notes that she still eats, but her diet isn't great. She also notes that she has some chronic leg pain from past surgeries. She states that she isn't willing to stop drinking. She is having some increased depressive symptoms from grieving her . She is not willing to change her ways at this time. No other complaints. - Objective Vital Signs & Weight: Vital Signs (12 hours) Temp Pulse Resp BP BP Pulse Ox 10/22/17 04:21 98.1 F 92 22 H 146/72 H 96 10/22/17 02:32 98.3 F 86 22 H 146/68 H 97 Weight Weight 96.842 kg I&O: 10/20/17 10/21/17 10/22/17 06:59 06:59 06:59 Output Total 275 Balance -275 Result Diagrams: 10/22/17 04:15 10/22/17 04:15 <Francesco Prince - Last Filed: 10/22/17 07:57> - Objective Vital Signs & Weight: Vital Signs (12 hours) Temp Pulse Resp BP BP Pulse Ox 10/22/17 09:16 93 10/22/17 07:36 98.6 F 93 20 150/68 H 95 10/22/17 07:34 98.1 F 90 16 10/22/17 06:49 90 16 10/22/17 04:21 98.1 F 92 22 H 146/72 H 96 10/22/17 02:32 98.3 F 86 22 H 146/68 H 97 Weight Weight 96.842 kg I&O: 10/21/17 10/22/17 10/23/17 06:59 06:59 06:59 Intake Total 842 Output Total 775 Balance 67 Result Diagrams: 10/22/17 04:15 10/22/17 04:15 <Sheldon Epps - Last Filed: 10/22/17 10:47> Phys Exam - Physical Examination Constitutional: NAD HEENT: moist MMs Neck: no nodes Respiratory: wheezing present, clear to auscultation bilateral Cardiovascular: RRR, no significant murmur Gastrointestinal: soft, non-tender, no distention, positive bowel sounds Musculoskeletal: no edema, pulses present Neurological: non-focal, moves all 4 limbs Lymphatic: no nodes Psychiatric: normal affect, A&O x 3 Skin: no rash <Francesco Prince - Last Filed: 10/22/17 07:57> Dx/Plan (1) SWATI (acute kidney injury) Code(s): N17.9 - ACUTE KIDNEY FAILURE, UNSPECIFIED Status: Acute (2) Alcohol intoxication Status: Acute (3) Chronic obstructive pulmonary disease (COPD) Status: Acute QualifierTitle: COPD type: COPD with acute exacerbation Qualified Code(s) : J44.1 - Chronic obstructive pulmonary disease with (acute) exacerbation (4) Dehydration Code(s): E86.0 - DEHYDRATION Status: Acute (5) Hyponatremia Code(s): E87.1 - HYPO-OSMOLALITY AND HYPONATREMIA Status: Acute (6) Leukocytosis Code(s): D72.829 - ELEVATED WHITE BLOOD CELL COUNT, UNSPECIFIED Status: Acute (7) Hypertension Code(s): I10 - ESSENTIAL (PRIMARY) HYPERTENSION Status: Chronic QualifierTitle: Hypertension type: essential hypertension Qualified Code( s): I10 - Essential (primary) hypertension (8) Alcohol abuse Code(s): F10.10 - ALCOHOL ABUSE, UNCOMPLICATED Status: Acute (9) Transaminitis Code(s): R74.0 - NONSPEC ELEV OF LEVELS OF TRANSAMNS & LACTIC ACID DEHYDRGNSE Status: Acute (10) Bereavement Code(s): Z63.4 - DISAPPEARANCE AND OF FAMILY MEMBER Status: Acute - Plan Plan: (1) Dehydration - resolved s/p fluids - Continue fluids until tolerating PO - Encourage PO intake (2) SWATI (acute kidney injury) - Creatine 0.97 this AM - resolved after IVF (3) Alcohol intoxication - care home abuse - recommend cessation - May need rehab program (4) Chronic obstructive pulmonary disease (COPD) - Not in acute exacerbation - Maintaining O2 on own without supplementation - Continue home meds (5) Hyponatremia - Beer drinker's potomania - resolved this AM (6) Leukocytosis - Hemoconcentration - Resolved this AM (7) Hypertension - Will continue home meds this morning as her BP responded (8) Elevated AST & ALT - Likely secondary to Alcohol vs Fatty liver - RUQ pending - Alcohol cessation and weight loss - Outpatient follow up is appropriate as well. (9) Bereavement - Consider [facility] consult before discharge for safety plan and counseling resource. Disposition: Stable, Will encourage patient to discontinue alcohol use. <Francesco Prince - Last Filed: 10/22/17 07:57> Attending Addendum - Attending Addendum Date/Time: 10/22/17 4134 I personally evaluated the patient and discussed the management with Dr. Prince. I agree with the History, Examination, Assessment and Plan documented above with any addition or exceptions noted below. Patient here with metabolic and renal derangements as a result of her alcoholic intoxication. Her values have normalized and she is feeling well. She has reported that she "wants to be with her " who recently, and there would be concern of her alcohol consumption is part of a suicidal plan. Will constult [facility] and if they are able to clear her for discharge, she can go home today. When we specifically ask her if she has plans to harm or kill herself, she reports "no, because I've work too hard to be where I am now". <Sheldon Epps - Last Filed: 10/22/17 10:47>
[2017-10-22] MEDS: Famotidine 20 MG TAB PO SCH ×2 (07:19→07:21)
[2017-10-22] MEDS ORDERED: traMADol HCl 50 MG TAB PO PRN (08:05)
[2017-10-22] MEDS ORDERED: Gabapentin 100 MG CAP PO PRN (08:05)
[2017-10-22] MEDS ORDERED: Cyanocobalamin (Vitamin B-12) 1,000 MCG TAB PO SCH (09:00)
[2017-10-22] MEDS ORDERED: Lisinopril/Hydrochlorothiazide 20/25 mg Tablet PO SCH (09:00)
[2017-10-22] MEDS ORDERED: Folic Acid 1 MG TAB PO SCH (09:00)
[2017-10-22] MEDS ORDERED: Docusate 100 MG CAP PO SCH (09:00)
--- NOTE | 2017-10-22 09:54 | ULT ---
GALLBLADDER ULTRASOUND: HISTORY: Transaminitis. FINDINGS: The liver echotexture is increased and coarse without focal mass or extrahepatic biliary dilatation. There are shadowing gallstones without evidence of gallbladder wall thickening or pericholecystic fl uid. The common duct measures 6 mm in diameter. The pancreas is not well visualized due to overlyin g bowel gas. There is an 8 mm echogenic focus in the right kidney. No hydronephrosis is seen. No f ree fluid is seen in Morison's pouch. IMPRESSION: 1. Fatty liver. 2. Cholelithiasis. 3. Probable nonobstructing right renal calculus. POS: [facility]
[2017-10-22 12:37] VITALS: BP 164/71; TEMP 98.1
[2017-10-22] MEDS ORDERED: Amlodipine 5 MG TAB PO SCH (21:00)
[2017-10-22] MEDS ORDERED: cefTRIAXone\\ROCEPHIN 1 GM in Sodium Chloride 0.9% 100 ML IVPB SCH (22:00)
--- NOTE | 2017-10-22 23:12 | DIS-2 ---
DATE OF ADMISSION: 10/21/2017 DATE OF DISCHARGE: 10/22/2017 RESIDENT: Dr. Prince. ADMITTING ATTENDING: Dr. Greer. DISCHARGE ATTENDING: Dr. Epps. CONSULTS: [facility]. PROCEDURES: Patient underwent a chest x-ray on 10/21/2017 that showed nodular density of peripheral aspect of the right middle lobe. Nonemergent followup CT of the chest recommended possible exist dylon t the sequelae of prior rib fracture. Patient also underwent an abdominal ultrasound on 10/22/2017 that showed a fatty liver, cholelithiasi s and a probable nonobstructing right renal calculus. PRIMARY DIAGNOSES: 1. Acute kidney injury. 2. Alcohol intoxication. 3. Chronic obstructive pulmonary disease. 4. Dehydration. 5. Hyponatremia. 6. Hypertension. 7. Alcohol abuse. 8. Bereavement. 9. Fatty liver disease with transaminitis. DISCHARGE MEDICATIONS: 1. Lisinopril/hydrochlorothizide 20/25 mg 1 tab p.o. daily. 2. Tramadol 50 mg p.o. q.4 hours p.r.n. 3. Amlodipine 5 mg p.o. at bedtime. 4. Gabapentin 100 mg p.o. t.i.d. 5. Folic acid 1 mg p.o. daily. 6. Thiamine 100 mg p.o. daily. 7. Vitamin B12 of 2500 mcg p.o. daily. DISCONTINUED MEDICATIONS: Hydrochlorothiazide 25 mg p.o. daily. HISTORY OF PRESENT ILLNESS AND HOSPITAL COURSE: This is a 62-year-old female with past medical histo ry of alcohol abuse, hypertension, COPD, tobacco abuse, transaminitis presents for a chief complaint of generalized weakness for 1 day. She was recently admitted for left upper quadrant abdominal pain and at that time was found to be intoxicated and dehydrated in addition to being hemoconcentrated. T philipp, she reports the symptoms have been present since this a.m. She states she had only half a beer today, although her plasma alcohol level would indicate otherwise. She had a UA done in the ER that was concerning for UTI and she was treated empirically, although she denies frequency, urgency and d ysuria. She has no localizing complaints other than feeling weak. She had blood pressures in the 80 s/40s on initial presentation at the ED and responded to IV fluids. She has a slight leukocytosis, a lthough looking at her previous labs, this appears to be hemoconcentration secondary to severe dehydr ation. Otherwise, she denies chest pain, shortness of breath, nausea, vomiting, diarrhea, constipati on. In the ER, she was given 1 gram of Rocephin and 2 liter normal saline bolus. During this hospitalization, the patient was counseled extensively on the need to reduce her alcohol consumption with the end goal of complete alcohol cessation as now she has had a proven liver damage per ultrasound that was completed showing a fatty liver disease. Her notable lab values include an A ST ranging from 141-104 during this hospitalization as well as ALT ranged from 95-75. Patient did ortiz ve a troponin of less than 0.01. Sodium on admission of 133 and on day of discharge 136. The patien t's creatinine on day of admission was 1.67 with a GFR of 31, then improved to 0.97 and GFR 58 with I V fluids. The patient did have a urinalysis that showed urine blood, leukocyte esterase, red blood c ells, white blood cells, squamous epithelium and hyaline casts, although she has no significant clini marjorie signs or symptoms. Patient is decided that she would not clinically be treated unless she become s symptomatic. Her plasma alcohol level was 197 and previously on 10/19/2017 when she was admitted, her alcohol level was 129. Patient otherwise had no other abnormal lab values. Patient was afebrile during this hospitalization and normotensive to borderline hypertensive during her time here. She w as satting 95-99% on room air, breathing easily and no respiratory distress. The patient was counselor education professor ed extensively on the need to see a counselor to do with her grieving to decrease her alcohol consump tion and to get better control of her overall health. The patient was seen by [facility] to be cleared for safety going home by herself with good family support and they recommended that with the support sys tem at home. Otherwise, patient had no further complications in this hospitalization and was dischar ged and appropriate. DISPOSITION: Stable. DISCHARGE INSTRUCTIONS: 1. Location: The patient will be discharged home in the care of herself. 2. Diet will be a heart healthy diet. 3. Activity will be as tolerated with no restrictions. 4. Follow up will be with her primary care provider, Dr. Laureano Mercado over at [facility] in 3 days to further discuss management of her fatty liver disease as well as her bereavement.
--- NOTE | 2017-10-27 14:53 | EKG ---
Test Reason : Blood Pressure : / mmHG Vent. Rate : 094 BPM Atrial Rate : 094 BPM P-R Int : 156 ms QRS Dur : 082 ms QT Int : 386 ms P-R-T Axes : 028 038 060 degrees QTc Int : 482 ms Normal sinus rhythm Prolonged QT Abnormal ECG Confirmed by GIANFRANCO MOSQUERA M.D. ([id number]), editor index RUSTY ROBLES ([id number]) on 10/27/2017 2:52:36 PM Referred By: Confirmed By:GIANFRANCO MOSQUERA M.D.
== END 2017-10-22 13:13 | disposition home or self-care (01) ==
LOC: ERS 20:08 → INTOOBSV 22:41 → ERHOLD 22:41 → 2SW 10-22 02:58
PROVIDERS: ADMIT Family Medicine; ATTEND Family Medicine
DX: N17.9 Acute kidney failure, unspecified (principal); J44.1 Chronic obstructive pulmonary disease with (acute) exacerbation; D72.829 Elevated white blood cell count, unspecified; I10 Essential (primary) hypertension; F17.210 Nicotine dependence, cigarettes, uncomplicated; F10.129 Alcohol abuse with intoxication, unspecified; K76.0 Fatty (change of) liver, not elsewhere classified; E86.0 Dehydration; E87.1 Hypo-osmolality and hyponatremia; R74.0 Nonspecific elevation of levels of transaminase and lactic acid dehydrogenase [LDH]; Z79.899 Other long term (current) drug therapy; Z63.4 Disappearance and death of family member; Y90.6 Blood alcohol level of 120-199 mg/100 ml
CPT/HCPCS: 51701; 71045; 76705; 80053; 80307; 82550; 82553; 83605 ×2; 83690; 83735; 83880; 84484; 85025; 87040; 87086; 87149 ×2; 93005; 94640 ×2; 96361 ×2; 96365; 96374; 99285; G0378 ×2; 36415; 81003; 81015; 84443; A4216; A4353; J0696; J3010; J7620

== ENCOUNTER 2017-11-18 17:19 | Emergency (ER) | payer MEDICARE, OTHER ==
--- NOTE | 2017-11-18 18:15 | RAD ---
AP PELVIS: 11/18/17 HISTORY: Fall With injury to pelvis. COMPARISON: 07/31/16. Left hip prosthesis is again noted. Pelvis appears intact. No acute fracture identified. IMPRESSION: No evidence of acute fracture. POS: [facility]
--- NOTE | 2017-11-18 18:16 | RAD ---
RIGHT ANKLE: 11/18/17 Three views. HISTORY: Fall with injury and pain. Enthesophytes from the plantar and posterior calcaneus. Mild degenerative changes at the tibiotalar j oint. Old healed fracture of the lateral malleolus. No acute fracture identified. IMPRESSION: Chronic findings as described. No acute fracture identified. POS: [facility]
[2017-11-18 18:17] LABS: #Basophils 0.2 thou/uL (0.0-0.2); #Eosinphils 0.3 thou/uL (0.0-0.7); #Lymphocytes 4.8 thou/uL (1.20-3.40); #Monocytes 0.9 thou/uL (0.11-0.59); #Neutrophils 6.4 thou/uL (1.40-6.50); %Basophils 1.4 % (0.0-1.0); %Eosinophils 2.3 % (0.0-10.0); %Lymphocytes 38.4 % (21.0-51.0); %Monocytes 6.8 % (0.0-10.0); %Neutrophils 51.1 % (42.0-75.0); Hemoglobin 16.2 g/dL (12.0-16.0); Mean Corpuscular HGB CONC 35.7 g/dL (32.0-36.0); Mean Corpuscular Hemoglobin 38.7 pg (27.0-31.0); Mean Platelet Volume 6.9 fL (7.4-10.4); Platelet Count 321 thou/uL (130-400); RBC Distribution Width 11.3 % (11.5-14.5); Red Blood Cell (RBC) Count 4.18 mill/uL (4.20-5.40); White Blood Cell (WBC) Count 12.5 thou/uL (4.8-10.8)
--- NOTE | 2017-11-18 18:22 | RAD ---
LEFT HAND: 11/18/17 Three views. HISTORY: Fall with injury to hand. COMPARISON: 02/07/03. Narrowing of the radiocarpal joint is stable. Carpals appear unremarkable. Mild degenerative changes of the first carpometacarpal. Metacarpals and phalanges appear intact. No acute fracture identified. MCP and IP joints are unremarkable with mild degenerative change present. IMPRESSION: No acute fracture. POS: [facility]
--- NOTE | 2017-11-18 18:25 | RAD ---
LEFT ANKLE: 11/18/17 Three views. HISTORY: Fall with injury to ankle. Soft tissue swelling is noted. No acute fracture identified. Enthesophyte from the plantar calcaneus is noted. No evidence of fracture. Mild degenerative changes at the tibiotalar joint. Lucency in the talar dome along the articular surface could represent early osteochondral lesion. IMPRESSION: No acute fracture. There are degenerative changes with enthesophyte from the calcaneus. Question oste ochondral lesion of the talar dome. POS: [facility]
[2017-11-18 18:39] LABS: ALT (SGPT) 69 U/L (8-55); AST (SGOT) 75 U/L (5-34); Alkaline Phosphatase 67 U/L (40-150); Anion Gap 16 mmol/L (10-20); BUN (Urea Nitrogen) 5 mg/dL (9.8-20.1); Bilirubin, Total 0.5 mg/dL (0.2-1.2); Calc. Creatinine Clearance 0 mL/min (70-130); Calcium 9.1 mg/dL (7.8-10.44); Carbon Dioxide 21 mmol/L (23-31); Chloride 101 mmol/L (98-107); Estimated GFR-MDRD 74; Globulin 3.6 g/dL (2.4-3.5); Glucose 112 mg/dL (80-115); Potassium 4.4 mmol/L (3.5-5.1); Protein, Total 7.6 g/dL (6.0-8.3); Sodium 134 mmol/L (136-145)
--- NOTE | 2017-11-18 18:54 | RAD ---
LEFT HIP: 11/18/17 Two views. HISTORY: Fall with injury to left hip. There is a left hip prosthesis. Components are in adequate position. No evidence of fracture. IMPRESSION: No acute fracture identified. POS: [facility]
--- NOTE | 2017-11-18 19:04 | CT ---
CT HEAD WITHOUT CONTRAST: 11/18/17 Multiple axial tomograms obtained through the head without IV enhancement. INDICATIONS: Fall with injury to head. Comparison made to head CT of 03/24/16. Ventricles remain normal size and position. There are ischemic white matter changes. No evidence of a cute hemorrhage. No evidence of acute cortical infarct or mass. Sinuses and mastoids are clear. IMPRESSION: No acute abnormality identified. POS: [facility]
--- NOTE | 2017-11-18 19:33 | CT ---
CT CERVICAL SPINE: 11/18/17 Multiple axial tomograms obtained through the cervical spine with multiplanar reconstruction. INDICATIONS: Fall with injury to neck. Cervical vertebra maintain height and alignment. There are moderate degenerative changes. Prominent o steophytes are seen anteriorly at C4, C5, C6 and C7. These large anterior osteophytes impinge on the posterior esophagus. There are posterior spondylitic changes at these levels which impinge into the s sushant canal, most prominent at C4-5, C5-6, and C6-7 levels. No evidence of acute fracture identified. Incidentally noted is a tiny gas pocket in the foramina transversarium on the right at C4. This is pr esumably due to vacuum phenomenon from degenerated disc at this level with protrusion laterally. IMPRESSION: Prominent degenerative changes as described. No evidence of acute fracture. POS: [facility]
== END 2017-11-18 19:19 | disposition home or self-care (01) ==
LOC: ERS 17:19
DX: S70.02XA Contusion of left hip, initial encounter (principal); I10 Essential (primary) hypertension; G89.29 Other chronic pain; F32.9 Major depressive disorder, single episode, unspecified; F41.9 Anxiety disorder, unspecified; F17.210 Nicotine dependence, cigarettes, uncomplicated; Z79.899 Other long term (current) drug therapy; W10.9XXA Fall (on) (from) unspecified stairs and steps, initial encounter
CPT/HCPCS: 36415; 36416; 70450; 72125; 72170; 80053; 85025

== ENCOUNTER 2017-12-03 20:40 | Emergency (ER) | payer MEDICARE, MEDICAID ==
[2017-12-03 22:18] LABS: Bilirubin Negative (Negative); Blood, Urine Negative (Negative); Clarity CLOUDY (Clear); Glucose, Urine (Dipstick) Negative (Negative); Leukocyte Moderate (Negative); Nitrite Negative (Negative); Protein, Urine (Dipstick) Negative (Neg-Trace); Specific Gravity, Urine 1.011 (1.002-1.036); pH, Urine 5.5 (5.0-9.0)
[2017-12-03 22:19] LABS: #Basophils 0.1 thou/uL (0.0-0.2); #Eosinphils 0.2 thou/uL (0.0-0.7); #Lymphocytes 4.9 thou/uL (1.20-3.40); #Monocytes 0.9 thou/uL (0.11-0.59); #Neutrophils 6.6 thou/uL (1.40-6.50); %Basophils 1.1 % (0.0-1.0); %Eosinophils 1.3 % (0.0-10.0); %Lymphocytes 38.6 % (21.0-51.0); %Monocytes 7.4 % (0.0-10.0); %Neutrophils 51.6 % (42.0-75.0); Hemoglobin 16.2 g/dL (12.0-16.0); Mean Corpuscular HGB CONC 35.6 g/dL (32.0-36.0); Mean Corpuscular Hemoglobin 38.2 pg (27.0-31.0); Mean Platelet Volume 7.1 fL (7.4-10.4); Platelet Count 349 thou/uL (130-400); RBC Distribution Width 11.5 % (11.5-14.5); Red Blood Cell (RBC) Count 4.23 mill/uL (4.20-5.40); White Blood Cell (WBC) Count 12.8 thou/uL (4.8-10.8)
[2017-12-03 22:20] LABS: Bacteria/HPF None Seen HPF (None Seen); Hyaline Casts/LPF 7-10 HYALINE CAST LPF (0-3 Hyaline); Pathc Cast-AUWi Flag 1.16 (0-2.49); RBC/HPF 0-3 HPF (0-3); WBC/HPF 21-50 HPF (0-3)
[2017-12-03 22:26] LABS: BHCG - Serum Negative (NEGATIVE); Pregs Control Background? CLEAR/WHITE (CLR/WHITE); Pregs Control Bar Appear? YES (CONTROL BAR)
[2017-12-03 22:34] LABS: ALT (SGPT) 125 U/L (8-55); AST (SGOT) 165 U/L (5-34); Albumin 4.2 g/dL (3.4-4.8); Alkaline Phosphatase 69 U/L (40-150); Anion Gap 19 mmol/L (10-20); BUN (Urea Nitrogen) 8 mg/dL (9.8-20.1); Bilirubin, Total 0.9 mg/dL (0.2-1.2); Calc. Creatinine Clearance 0 mL/min (70-130); Calcium 9.3 mg/dL (7.8-10.44); Carbon Dioxide 20 mmol/L (23-31); Chloride 95 mmol/L (98-107); Estimated GFR-MDRD 25; Globulin 3.7 g/dL (2.4-3.5); Glucose 105 mg/dL (80-115); Lipase 104 U/L (8-78); Potassium 3.6 mmol/L (3.5-5.1); Protein, Total 7.9 g/dL (6.0-8.3); Sodium 130 mmol/L (136-145)
== END 2017-12-04 01:23 | disposition home or self-care (01) ==
LOC: ERS 20:40
DX: F10.129 Alcohol abuse with intoxication, unspecified (principal); Y90.7 Blood alcohol level of 200-239 mg/100 ml; N39.0 Urinary tract infection, site not specified; E86.0 Dehydration; G89.29 Other chronic pain; M25.552 Pain in left hip; I10 Essential (primary) hypertension; J44.9 Chronic obstructive pulmonary disease, unspecified; F32.9 Major depressive disorder, single episode, unspecified; F41.9 Anxiety disorder, unspecified; F17.210 Nicotine dependence, cigarettes, uncomplicated; Z79.899 Other long term (current) drug therapy
CPT/HCPCS: 51701; 80053; 80307; 81003; 81015; 83690; 84703; 85025; 96360; A4353

== ENCOUNTER 2017-12-09 13:35 | Emergency (ER) | payer MEDICARE, OTHER ==
[2017-12-09 15:23] LABS: #Basophils 0.1 thou/uL (0.0-0.2); #Eosinphils 0.3 thou/uL (0.0-0.7); #Lymphocytes 3.8 thou/uL (1.20-3.40); #Monocytes 0.7 thou/uL (0.11-0.59); #Neutrophils 5.8 thou/uL (1.40-6.50); %Basophils 1.2 % (0.0-1.0); %Lymphocytes 35.2 % (21.0-51.0); %Monocytes 6.6 % (0.0-10.0); %Neutrophils 53.9 % (42.0-75.0); Hemoglobin 16.1 g/dL (12.0-16.0); Mean Corpuscular HGB CONC 33.9 g/dL (32.0-36.0); Platelet Count 300 thou/uL (130-400); RBC Distribution Width 11.4 % (11.5-14.5); Red Blood Cell (RBC) Count 4.36 mill/uL (4.20-5.40); White Blood Cell (WBC) Count 10.8 thou/uL (4.8-10.8)
[2017-12-09 15:43] LABS: Anion Gap 19 mmol/L (10-20); BUN (Urea Nitrogen) 9 mg/dL (9.8-20.1); Calc. Creatinine Clearance 0 mL/min (70-130); Calcium 9.5 mg/dL (7.8-10.44); Carbon Dioxide 17 mmol/L (23-31); Chloride 99 mmol/L (98-107); Estimated GFR-MDRD 50; Glucose 157 mg/dL (80-115); Sodium 131 mmol/L (136-145)
== END 2017-12-09 16:40 | disposition home or self-care (01) ==
LOC: ERS 13:35
DX: E86.0 Dehydration (principal); F41.9 Anxiety disorder, unspecified; I10 Essential (primary) hypertension; F32.9 Major depressive disorder, single episode, unspecified; F17.210 Nicotine dependence, cigarettes, uncomplicated; Z79.899 Other long term (current) drug therapy
CPT/HCPCS: 80048; 85025; 96360

== ENCOUNTER 2017-12-13 16:15 | Emergency (ER) | payer MEDICARE, MEDICAID | END 2017-12-13 17:00 | disposition home or self-care (01) | LOC: ERS 16:15 | DX: M25.512 Pain in left shoulder (principal); I10 Essential (primary) hypertension; J44.9 Chronic obstructive pulmonary disease, unspecified; F32.9 Major depressive disorder, single episode, unspecified; F41.9 Anxiety disorder, unspecified; F17.210 Nicotine dependence, cigarettes, uncomplicated; Z71.6 Tobacco abuse counseling | CPT/HCPCS: 93005; 99406 ==

== ENCOUNTER 2017-12-23 07:48 | Outpatient (CLI) | payer MEDICARE, MEDICAID ==
--- NOTE | 2017-12-23 14:06 | NM ---
MYOCARDIAL PERFUSION EVALUATION: INDICATION: Chest pain. RADIOPHARMACEUTICAL: 28.3 mCi Technetium 99m sestamibi IV with stress and 10 mCi Technetium 99m sestamibi IV with rest. FINDINGS: There is normal wall motion and thickening. There was no reversible myocardial perfusion defect demo nstrated. The estimated LVEF is 83%. IMPRESSION: Normal myocardial perfusion evaluation. POS: [facility]
[2017-12-23] MEDS ORDERED: Regadenoson 0.4 MG/5 ML SYRINGE ONE (15:41)
== END 2017-12-23 07:49 | disposition home or self-care (01) ==
LOC: NM 07:48
PROVIDERS: ATTEND Family Medicine
DX: G20 Parkinson's disease (principal)
CPT/HCPCS: 78452; 93017; A9500; J2785

== ENCOUNTER 2018-01-18 19:52 | Emergency (ER) | payer MEDICARE, MEDICAID ==
--- NOTE | 2018-01-18 20:40 | RAD ---
FRONTAL VIEW CHEST: INDICATIONS: Dyspnea. COMPARISON: 10/21/2017 FINDINGS: There is no evidence of lobar consolidation, effusion, or discrete pneumothorax. There is accentuati on of the cardiac silhouette by the portable technique. Mild prominence of the pulmonary vasculature with interstitial prominence at the perihilar regions is noted. Subtle scattered densities bilateral ly may relate to callus formation due to prior injury of bilateral ribs. IMPRESSION: Findings indicate a mild degree of edema. Correlate clinically. POS: [facility]
--- NOTE | 2018-01-22 11:54 | EKG ---
Test Reason : Blood Pressure : / mmHG Vent. Rate : 093 BPM Atrial Rate : 093 BPM P-R Int : 160 ms QRS Dur : 082 ms QT Int : 382 ms P-R-T Axes : 042 032 048 degrees QTc Int : 474 ms Normal sinus rhythm Normal ECG Confirmed by PRISCILLA SCHULZ ([id number]), electronic news gathering editor EUGENE SARMIENTO ([id number]) on 01/22/2018 11:54:15 AM Referred By: Confirmed By:PRISCILLA SCHULZ
== END 2018-01-18 21:15 | disposition home or self-care (01) ==
LOC: ERS 19:52
DX: J40 Bronchitis, not specified as acute or chronic (principal); I10 Essential (primary) hypertension; J44.9 Chronic obstructive pulmonary disease, unspecified; F41.9 Anxiety disorder, unspecified; F32.9 Major depressive disorder, single episode, unspecified; F17.210 Nicotine dependence, cigarettes, uncomplicated; Z79.899 Other long term (current) drug therapy
CPT/HCPCS: 71045; 93005; J7620

== ENCOUNTER 2018-01-19 18:10 | Emergency (ER) | payer MEDICARE, MEDICAID ==
[2018-01-19] MEDS ORDERED: Ondansetron HCl/PF 4 MG/2 ML Vial ONE (18:22)
[2018-01-19 18:53] LABS: #Basophils 0.1 thou/uL (0.0-0.2); #Lymphocytes 2.4 thou/uL (1.20-3.40); #Monocytes 0.7 thou/uL (0.11-0.59); #Neutrophils 7.2 thou/uL (1.40-6.50); %Basophils 0.7 % (0.0-1.0); %Eosinophils 0.1 % (0.0-10.0); %Lymphocytes 23.5 % (21.0-51.0); %Monocytes 6.3 % (0.0-10.0); %Neutrophils 69.3 % (42.0-75.0); Hemoglobin 16.9 g/dL (12.0-16.0); Mean Corpuscular HGB CONC 35.6 g/dL (32.0-36.0); Mean Corpuscular Hemoglobin 37.9 pg (27.0-31.0); Mean Platelet Volume 6.5 fL (7.4-10.4); Platelet Count 270 thou/uL (130-400); RBC Distribution Width 11.9 % (11.5-14.5); Red Blood Cell (RBC) Count 4.46 mill/uL (4.20-5.40); White Blood Cell (WBC) Count 10.3 thou/uL (4.8-10.8)
[2018-01-19 19:19] LABS: CKMB 1.7 ng/mL (0-6.6); Troponin I Less than 0.010 ng/mL (< 0.028)
--- NOTE | 2018-01-19 19:40 | RAD ---
THREE VIEW RIGHT SHOULDER: 01/19/18 CLINICAL HISTORY: Posttraumatic right shoulder pain. FINDINGS: There is no fracture or dislocation. Mild osteoarthritis of the right AC joint. IMPRESSION: No acute osseous abnormality of the right shoulder. POS: [facility]
--- NOTE | 2018-01-19 19:42 | CT ---
CT BRAIN NONCONTRAST: 01/19/18 HISTORY: 62-year-old male status post acute head trauma after fall. Nausea, emesis, and dizziness. FINDINGS: There is no midline shift or any other mass effect. There is no evidence of acute intracranial hemor rhage, large cortical infarct, obstructive hydrocephalus, or extraaxial fluid collection. The calvar ium is intact. There is diffuse parenchymal volume loss. There are low attenuation areas in the whi te matter. These are nonspecific, but in a patient of this age, they are probably chronic ischemic w kyle matter changes due to microvascular atherosclerosis. IMPRESSION: 1) No acute intracranial findings. 2) Involutional changes and chronic ischemic white matter changes. jn [] POS: [facility]
[2018-01-19 20:11] LABS: Albumin 3.8 g/dL (3.4-4.8)
[2018-01-19 20:13] LABS: Calcium 9.2 mg/dL (7.8-10.44); Chloride 109 mmol/L (98-107); Potassium 4.1 mmol/L (3.5-5.1); Sodium 138 mmol/L (136-145)
[2018-01-19 20:14] LABS: Globulin 3.3 g/dL (2.4-3.5); Glucose 205 mg/dL (80-115); Protein, Total 7.1 g/dL (6.0-8.3)
[2018-01-19 20:15] LABS: Anion Gap 16 mmol/L (10-20); Bilirubin, Total 0.4 mg/dL (0.2-1.2); Carbon Dioxide 17 mmol/L (23-31)
[2018-01-19 20:16] LABS: Alkaline Phosphatase 58 U/L (40-150)
[2018-01-19 20:17] LABS: Calc. Creatinine Clearance 0 mL/min (70-130); Estimated GFR-MDRD 61
[2018-01-19 20:18] LABS: BUN (Urea Nitrogen) 6 mg/dL (9.8-20.1)
[2018-01-19 20:19] LABS: AST (SGOT) 47 U/L (5-34)
[2018-01-19 20:20] LABS: ALT (SGPT) 59 U/L (8-55)
== END 2018-01-19 22:07 | disposition home or self-care (01) ==
LOC: ERS 18:10
DX: E86.0 Dehydration (principal); R11.2 Nausea with vomiting, unspecified; J44.9 Chronic obstructive pulmonary disease, unspecified; I10 Essential (primary) hypertension; G89.29 Other chronic pain; M25.552 Pain in left hip; F41.9 Anxiety disorder, unspecified; F32.9 Major depressive disorder, single episode, unspecified; F17.210 Nicotine dependence, cigarettes, uncomplicated; Z79.899 Other long term (current) drug therapy
CPT/HCPCS: 36415; 70450; 80053; 82553; 84484; 85025; 93005; 96361; 96374; J2405; J7620

== ENCOUNTER 2018-02-09 12:09 | Emergency (ER) | payer MEDICARE, MEDICAID ==
[2018-02-09 12:57] LABS: Bilirubin Negative (Negative); Blood, Urine Trace (Negative); Glucose, Urine (Dipstick) Negative (Negative); Leukocyte Small (Negative); Nitrite Negative (Negative); Protein, Urine (Dipstick) Negative (Neg-Trace); Urobilinogen 0.2 mg/dL (0.2-1.0)
[2018-02-09 12:59] LABS: Clarity Clear (Clear); Specific Gravity, Urine 1.007 (1.002-1.036)
[2018-02-09 13:11] LABS: Bacteria/HPF 4+ HPF (None Seen); Hyaline Casts/LPF NONE SEEN LPF (0-3 Hyaline); RBC/HPF 0-3 HPF (0-3)
--- NOTE | 2018-02-09 13:59 | RAD ---
SINGLE VIEW OF THE PELVIS: Comparison: 11-18-17 History: Fell downstairs yesterday with pelvic pain. FINDINGS: Single view of the pelvis shows no evidence of acute fracture or dislocation. The patient is status p ost left hip arthroplasty without perihardware lucency or fracture. No degenerative changes are seen. IMPRESSION: No evidence of acute osseous abnormality. POS: [facility]
--- NOTE | 2018-02-09 14:00 | RAD ---
CHEST ONE VIEW: History: Cough. Comparison: 01-18-18 FINDINGS: Cardiac silhouette is magnified by projection. Pulmonary vasculature upper limits of normal. Mediasti num is midline. No lobar consolidation or evidence of pneumothorax. IMPRESSION: No active cardiopulmonary abnormalities are demonstrated. POS: [facility]
--- NOTE | 2018-02-09 14:01 | RAD ---
TWO VIEWS LEFT HIP: Comparison: None. History: Left hip pain after falling downstairs. FINDINGS: Two views of the left hip shows no evidence of acute fracture or dislocation. No soft tissue swelling is seen. IMPRESSION: Status post left hip arthroplasty without evidence of complication. POS: [facility]
[2018-02-09 14:05] LABS: #Basophils 0.1 thou/uL (0.0-0.2); #Eosinphils 0.1 thou/uL (0.0-0.7); #Lymphocytes 4.4 thou/uL (1.20-3.40); #Monocytes 0.7 thou/uL (0.11-0.59); #Neutrophils 5.7 thou/uL (1.40-6.50); %Basophils 1.3 % (0.0-1.0); %Eosinophils 0.6 % (0.0-10.0); %Monocytes 6.3 % (0.0-10.0); %Neutrophils 51.8 % (42.0-75.0); Hemoglobin 17.8 g/dL (12.0-16.0); Mean Corpuscular Hemoglobin 36.8 pg (27.0-31.0); Mean Platelet Volume 6.8 fL (7.4-10.4); Platelet Count 370 thou/uL (130-400); RBC Distribution Width 11.9 % (11.5-14.5); Red Blood Cell (RBC) Count 4.83 mill/uL (4.20-5.40); White Blood Cell (WBC) Count 11.1 thou/uL (4.8-10.8)
[2018-02-09] MEDS ORDERED: Acetaminophen 500 MG TAB ONE (14:12)
[2018-02-09 14:40] LABS: ALT (SGPT) 64 U/L (8-55); AST (SGOT) 60 U/L (5-34); Albumin 4.4 g/dL (3.4-4.8); Alkaline Phosphatase 71 U/L (40-150); Anion Gap 18 mmol/L (10-20); BUN (Urea Nitrogen) 8 mg/dL (9.8-20.1); Bilirubin, Total 1.7 mg/dL (0.2-1.2); Calc. Creatinine Clearance 0 mL/min (70-130); Calcium 9.4 mg/dL (7.8-10.44); Carbon Dioxide 22 mmol/L (23-31); Chloride 102 mmol/L (98-107); Estimated GFR-MDRD 71; Globulin 3.8 g/dL (2.4-3.5); Glucose 87 mg/dL (80-115); Potassium 3.8 mmol/L (3.5-5.1); Protein, Total 8.2 g/dL (6.0-8.3); Sodium 138 mmol/L (136-145)
[2018-02-09 14:43] LABS: CKMB 2.2 ng/mL (0-6.6); Troponin I Less than 0.010 ng/mL (< 0.028)
--- NOTE | 2018-02-12 21:20 | EKG ---
Test Reason : Blood Pressure : / mmHG Vent. Rate : 088 BPM Atrial Rate : 088 BPM P-R Int : 156 ms QRS Dur : 090 ms QT Int : 408 ms P-R-T Axes : 039 032 052 degrees QTc Int : 493 ms Normal sinus rhythm Anterior infarct , age undetermined Abnormal ECG Confirmed by LALO GALLEGOS DO ([id number]), editorial clerk RUSTY ROBLES ([id number]) on 02/12/2018 9:20:13 PM Referred By: Confirmed By:LALO GALLEGOS DO
== END 2018-02-09 15:39 | disposition home or self-care (01) ==
LOC: ERS 12:09
DX: N39.0 Urinary tract infection, site not specified (principal); K59.00 Constipation, unspecified; M25.552 Pain in left hip; R06.2 Wheezing; I10 Essential (primary) hypertension; J44.9 Chronic obstructive pulmonary disease, unspecified; F41.9 Anxiety disorder, unspecified; F32.9 Major depressive disorder, single episode, unspecified; F17.210 Nicotine dependence, cigarettes, uncomplicated; Z79.899 Other long term (current) drug therapy; W10.9XXA Fall (on) (from) unspecified stairs and steps, initial encounter
CPT/HCPCS: 36415; 71045; 72170; 80053; 81001; 82553; 84484; 85025; 93005; 94640

== ENCOUNTER 2018-02-18 18:12 | Emergency (ER) | payer MEDICARE, MEDICAID ==
--- NOTE | 2018-02-18 18:53 | RAD ---
PELVIS AP LATERAL STANDARD 02/18/18 HISTORY: Pain. Fall. COMPARISON: Hip radiographs from 02/09/18. FINDINGS: There is some sclerosis of the left pubic root. This may reflect a healing fracture. There is approximately 2 mm lucency along the left femoral stem. IMPRESSION: 1. Likely healing fracture of the left pubic root. 2. 2 mm lucency of the bone cement interface the left femoral stem likely reflective of loosenin g. POS: [facility]
--- NOTE | 2018-02-18 18:55 | RAD ---
LEFT HIP TWO VIEW 02/18/18 HISTORY: Fall. COMPARISON: Radiographs 02/09/18. FINDINGS: Approximately 2 mm lucency of the bone cement interface the left femoral stem. Likely a healing fract ure of the left pubic root. IMPRESSION: 1. Findings concerning for loosening of the left femoral stem. 2. Likely healing fracture of left pubic root. POS: [facility]
== END 2018-02-18 19:28 | disposition home or self-care (01) ==
LOC: ERS 18:12
DX: M25.552 Pain in left hip (principal); I10 Essential (primary) hypertension; J44.9 Chronic obstructive pulmonary disease, unspecified; F41.9 Anxiety disorder, unspecified; F32.9 Major depressive disorder, single episode, unspecified; F17.210 Nicotine dependence, cigarettes, uncomplicated; Z79.899 Other long term (current) drug therapy
CPT/HCPCS: 72170

== ENCOUNTER 2018-02-19 18:56 | Emergency (ER) | payer MEDICARE, MEDICAID ==
[2018-02-19] MEDS ORDERED: traMADol HCl 50 MG TAB ONE (19:26)
--- NOTE | 2018-02-19 19:37 | RAD ---
LEFT KNEE FOUR VIEW 02/19/18 HISTORY: Pain. COMPARISON: None. FINDINGS: Evidence of old MCL injury. No acute displaced fracture or malalignment. Minimal narrowing of the medial compartment. IMPRESSION: Chronic changes. No acute abnormality. POS: [facility]
--- NOTE | 2018-02-19 19:42 | RAD ---
LEFT ANKLE THREE VIEW 02/19/18 HISTORY: Fall. Pain. COMPARISON: None. FINDINGS: There is soft tissue thickening over the superficial aspect of the distal Achilles tendon likely bladder changer zhang in nature. Moderate dorsal and plantar calcaneal spurs. Bimalleolar soft tissue swelling. No acut e displaced fracture or malalignment. IMPRESSION: Chronic changes. No acute displaced fracture or malalignment. POS: [facility]
== END 2018-02-19 20:00 | disposition home or self-care (01) ==
LOC: ERS 18:56
DX: M25.572 Pain in left ankle and joints of left foot (principal); I10 Essential (primary) hypertension; J44.9 Chronic obstructive pulmonary disease, unspecified; F17.210 Nicotine dependence, cigarettes, uncomplicated; W18.30XA Fall on same level, unspecified, initial encounter

== ENCOUNTER 2018-03-31 15:37 | Emergency (ER) | payer MEDICARE, OTHER ==
--- NOTE | 2018-03-31 16:56 | RAD ---
LEFT HIP TWO VIEWS: 03/31/18 HISTORY: 62-year-old female with left hip injury following trauma, fall at home while walking with her walker. COMPARISON: 02/18/18. Total left hip replacement changes without dislocation or periprosthetic fracture. Bone demineralizat ion. Stable from prior study. IMPRESSION: Total left hip replacement without dislocation or periprosthetic fracture, stable from prior study. POS: [facility]
--- NOTE | 2018-03-31 17:01 | RAD ---
AP PELVIS: Date: 03/31/18 HISTORY: 62-year-old female with history of fall at home today while walking with her walker. COMPARISON: 02/18/18. FINDINGS: Total left hip replacement changes are noted. Bony demineralization. No evidence for an acute pelvic fracture. IMPRESSION: No evidence for acute pelvic fracture. Total left hip replacement. Bony demineralization. POS: [facility]
== END 2018-03-31 16:30 | disposition home or self-care (01) ==
LOC: ERS 15:37
DX: M25.552 Pain in left hip (principal); I10 Essential (primary) hypertension; J44.9 Chronic obstructive pulmonary disease, unspecified; F32.9 Major depressive disorder, single episode, unspecified; F41.9 Anxiety disorder, unspecified; F17.210 Nicotine dependence, cigarettes, uncomplicated; W01.0XXA Fall on same level from slipping, tripping and stumbling without subsequent striking against object, initial encounter; Y93.01 Activity, walking, marching and hiking
CPT/HCPCS: 72170

== ENCOUNTER 2018-04-03 07:43 | Emergency (ER) | payer MEDICARE, MEDICAID ==
--- NOTE | 2018-04-03 09:29 | RAD ---
LEFT ANKLE 3 VIEWS: Date: 04/03/18 HISTORY: Left ankle pain. Comparison made to recent ankle films of 02/19/18. FINDINGS: Soft tissue swelling is noted around the ankle medially and laterally, similar to the prior study. Th ere is no evidence of fracture. Enthesophyte from the calcaneus again noted. Osseous structures show no interval change. IMPRESSION: No acute osseous abnormality. POS: [facility]
--- NOTE | 2018-04-03 09:31 | CT ---
CT BRAIN: Date: 04/03/18 PROVIDED CLINICAL HISTORY: Fall. FINDINGS: Comparison made with the study dated 01/19/18. The ventricular system appears normal in size and morphology. There is no evidence for intracranial h emorrhage or mass effect. Chronic microvascular ischemic changes appear similar to the prior study. T he extracranial soft tissues and osseous structures demonstrate an unremarkable CT appearance. IMPRESSION: No evidence for intracranial hemorrhage or mass effect. POS: [facility]
--- NOTE | 2018-04-03 10:11 | CT ---
CT CERVICAL SPINE: Date: 04/03/18 PROVIDED CLINICAL HISTORY: Fall. FINDINGS: Comparison made with the study dated 11/18/17. There is no evidence for fracture or traumatic subluxation. Advanced cervical degenerative changes ar e redemonstrated. There is no prevertebral soft tissue swelling apparent. The visualized lung apices appear clear. There is conspicuous vascular calcification involving both internal carotid arteries wi th areas of potentially severe narrowing. IMPRESSION: 1. No evidence for fracture or traumatic subluxation. 2. Conspicuous carotid calcification with potential for severe stenosis. Nonemergent follow-up carot id Doppler or CT angiogram of the great vessels of the neck recommended. POS: [facility]
== END 2018-04-03 09:13 | disposition home or self-care (01) ==
LOC: ERS 07:43
DX: S93.402A Sprain of unspecified ligament of left ankle, initial encounter (principal); S00.01XA Abrasion of scalp, initial encounter; F32.9 Major depressive disorder, single episode, unspecified; F41.9 Anxiety disorder, unspecified; F17.210 Nicotine dependence, cigarettes, uncomplicated; J44.9 Chronic obstructive pulmonary disease, unspecified; I10 Essential (primary) hypertension; W19.XXXA Unspecified fall, initial encounter
CPT/HCPCS: 70450; 72125

== ENCOUNTER 2018-04-10 16:57 | Emergency (ER) | payer MEDICARE, OTHER ==
--- NOTE | 2018-04-10 17:49 | RAD ---
AP VIEW PELVIS: 04/10/2018 HISTORY: Fall with pain. COMPARISON: 03/31/2018 FINDINGS: AP view pelvis demonstrates a left hip arthroplasty again seen. No evidence of acute fractures, subluxations, or bony lesions seen. IMPRESSION: Unremarkable anterior-posterior view pelvis. POS: [facility]
--- NOTE | 2018-04-10 18:17 | CT ---
CT BRAIN: HISTORY: A 62-year-old with a history of a fall, hitting her head. COMPARISON: 04/03/2018 TECHNIQUE: Noncontrast enhanced CT images of the brain were obtained. FINDINGS: Noncontrast enhanced CT images of the brain demonstrate no evidence of acute intracranial masses, hem orrhages, strokes, or contusions. Ventricles are of normal size. The calvarium is unremarkable with out evidence of acute fractures. IMPRESSION: Normal CT brain. POS: [facility]
== END 2018-04-10 18:04 | disposition home or self-care (01) ==
LOC: ERS 16:57
DX: S00.83XA Contusion of other part of head, initial encounter (principal); G89.29 Other chronic pain; M25.552 Pain in left hip; I10 Essential (primary) hypertension; J44.9 Chronic obstructive pulmonary disease, unspecified; F41.9 Anxiety disorder, unspecified; F32.9 Major depressive disorder, single episode, unspecified; F17.210 Nicotine dependence, cigarettes, uncomplicated; W18.30XA Fall on same level, unspecified, initial encounter
CPT/HCPCS: 70450; 72170

== ENCOUNTER 2018-04-12 15:19 | Outpatient (CLI) | payer MEDICARE, MEDICAID ==
--- NOTE | 2018-04-12 17:41 | ULT ---
VENOUS DOPPLER ULTRASOUND OF THE LEFT LOWER EXTREMITY: Date: 04/12/18 HISTORY: 62-year-old female with left lower extremity edema. HISTORY: Bilateral lower extremity swelling. TECHNIQUE: Coley scale ultrasound with color flow and spectral Doppler imaging of the deep venous system of the l eft lower extremity is performed. FINDINGS: There is good flow, compression, and augmentation noted in the left common femoral, femoral, deep fem oral, popliteal, posterior tibial, and greater saphenous veins. IMPRESSION: No evidence of deep venous thrombosis in the left lower extremity. POS: [facility]
== END 2018-04-12 15:20 | disposition home or self-care (01) ==
LOC: ULT 15:19
PROVIDERS: ATTEND Internal Medicine Hospice and Palliative Medicine
DX: M79.89 Other specified soft tissue disorders (principal)

== ENCOUNTER 2018-04-21 16:29 | Emergency (ER) | payer MEDICARE, OTHER ==
--- NOTE | 2018-04-21 19:24 | CT ---
CT BRAIN 04/21/18 HISTORY: Patient with fall and head trauma. Noncontrast enhanced CT images of the brain is obtained on 04/21/18. Comparison made to previous exam from 04/10/18. CT brain demonstrates the calvarium to be unremarkable but no evidence of calvarial fractures. The sinuses are well aerated. No evidence of acute intracranial masses, hemorrhages or strokes seen. IMPRESSION: Normal CT brain. POS: [facility]
--- NOTE | 2018-04-21 19:39 | CT ---
CT CERVICAL SPINE 04/21/18 HISTORY: Fall. Trauma. Neck pain. Axial images are obtained with coronal and sagittal reconstructions. CT images demonstrate disc space height loss with anterior posterior osteophyte at C4-5, C5-6, and C6 -7. There is also moderate bilateral C5-6 and C6-7 neural foraminal narrowing due to uncovertebral os teophyte hypertrophy. No evidence of acute cervical spine fractures seen. Atherosclerotic calcifications seen in the right and left distal most aspect of the common carotid ar teries as well as the right and left internal carotid arteries proximally. IMPRESSION: Mid level changes of spondylosis. No evidence of acute cervical spine fractures seen. POS: [facility]
== END 2018-04-21 19:23 | disposition home or self-care (01) ==
LOC: ERS 16:29
DX: M54.2 Cervicalgia (principal); I10 Essential (primary) hypertension; J44.9 Chronic obstructive pulmonary disease, unspecified; F32.9 Major depressive disorder, single episode, unspecified; F41.9 Anxiety disorder, unspecified; F17.210 Nicotine dependence, cigarettes, uncomplicated; Z72.89 Other problems related to lifestyle; W01.0XXA Fall on same level from slipping, tripping and stumbling without subsequent striking against object, initial encounter; Y92.090 Kitchen in other non-institutional residence as the place of occurrence of the external cause
CPT/HCPCS: 70450; 72125

== ENCOUNTER 2018-06-09 17:03 | Emergency (ER) | payer MEDICARE, MEDICAID ==
--- NOTE | 2018-06-09 19:02 | RAD ---
LEFT KNEE FOUR VIEWS: 06/09/18 HISTORY: 62-year-old female with history of left knee pain, alcohol ingestion, prior falls. COMPARISON: 02/19/18. FINDINGS: Heterogeneous bone demineralization. There is some arthrosis changes involving the knee joint. No acu te fracture or dislocation. IMPRESSION: Heterogeneous bone demineralization. Degenerative changes without acute fracture or dislocation. POS: [facility]
== END 2018-06-09 18:30 | disposition home or self-care (01) ==
LOC: ERS 17:03
DX: M25.562 Pain in left knee (principal); Z71.6 Tobacco abuse counseling; I10 Essential (primary) hypertension; J44.9 Chronic obstructive pulmonary disease, unspecified; F41.9 Anxiety disorder, unspecified; F32.9 Major depressive disorder, single episode, unspecified; F17.210 Nicotine dependence, cigarettes, uncomplicated; Z79.899 Other long term (current) drug therapy; W19.XXXA Unspecified fall, initial encounter
CPT/HCPCS: 99406

== ENCOUNTER 2018-06-30 13:53 | Emergency (ER) | payer MEDICARE, MEDICAID | END 2018-06-30 15:35 | disposition left against medical advice (07) | LOC: ERS 13:53 | DX: Z53.21 Procedure and treatment not carried out due to patient leaving prior to being seen by health care provider (principal) ==

== ENCOUNTER 2018-07-09 19:11 | Emergency (ER) | payer MEDICARE, MEDICAID ==
--- NOTE | 2018-07-09 20:16 | CT ---
BRAIN CT WITHOUT IV CONTRAST: 07/09/18 HISTORY: Head injury following a fall five days ago with neck and back pain. There is no focal mass or midline shift. No intra or extra-axial hemorrhage. Sinuses demonstrate some mucosal disease. The mastoids are clear. IMPRESSION: No mass, bleed or other significant acute intracranial process. Sinus mucosal disease. POS: [facility]
--- NOTE | 2018-07-09 20:20 | CT ---
CERVICAL SPINE CT SCAN WITHOUT IV CONTRAST: 07/09/18 HISTORY: Pain following an injury, fall five days ago. COMPARISON: 04/21/18. There is extensive disc osteophytosis particularly at C4-C5, C5-C6 and C6-C7 with some variable sever ity up to severe canal and lateral recess stenosis but showing no significant change from a prior study. There is no evidence for acute fracture or dislocation. IMPRESSION: No acute fracture or dislocation. Cervical spondylosis with extensive disc osteophytosis with variabl e severity up to severe canal stenosis, particularly at C4-C5 and C5-C6 but stable from prior CT. POS: [facility]
[2018-07-09] MEDS ORDERED: Acetaminophen 500 MG TAB ONE (20:49)
[2018-07-09] MEDS ORDERED: Metoclopramide HCl 10 MG/2 ML VIAL ONE (20:50)
[2018-07-09] MEDS ORDERED: diphenhydrAMINE 50 MG/ML VIAL ONE (20:51)
== END 2018-07-09 22:25 | disposition home or self-care (01) ==
LOC: ERS 19:11
DX: S00.03XA Contusion of scalp, initial encounter (principal); M54.2 Cervicalgia; J44.9 Chronic obstructive pulmonary disease, unspecified; F41.9 Anxiety disorder, unspecified; F32.9 Major depressive disorder, single episode, unspecified; F17.210 Nicotine dependence, cigarettes, uncomplicated; Z79.899 Other long term (current) drug therapy; W18.2XXA Fall in (into) shower or empty bathtub, initial encounter
CPT/HCPCS: 70450; 72125; 96365; 96375; J1200; J2765

== ENCOUNTER 2018-09-19 12:46 | Emergency (ER) | payer MEDICARE, MEDICAID ==
[2018-09-19 13:23] LABS: #Basophils 0.1 thou/uL (0.0-0.2); #Eosinphils 0.1 thou/uL (0.0-0.7); #Lymphocytes 3.6 thou/uL (1.20-3.40); #Monocytes 0.7 thou/uL (0.11-0.59); #Neutrophils 8.5 thou/uL (1.40-6.50); %Basophils 0.5 % (0.0-1.0); %Eosinophils 0.5 % (0.0-10.0); %Monocytes 5.1 % (0.0-10.0); %Neutrophils 65.9 % (42.0-75.0); Hemoglobin 16.3 g/dL (12.0-16.0); Mean Corpuscular HGB CONC 33.4 g/dL (32.0-36.0); Mean Corpuscular Hemoglobin 33.7 pg (27.0-31.0); Mean Platelet Volume 6.9 fL (7.4-10.4); Platelet Count 343 thou/uL (130-400); RBC Distribution Width 11.1 % (11.5-14.5); Red Blood Cell (RBC) Count 4.82 mill/uL (4.20-5.40); White Blood Cell (WBC) Count 12.9 thou/uL (4.8-10.8)
--- NOTE | 2018-09-19 13:27 | RAD ---
EXAM: Single view of the chest HISTORY: Shortness of breath COMPARISON: 02/09/2018 FINDINGS: Single view of the chest shows a normal sized cardiomediastinal silhouette. There is no candelario dence of consolidation, mass, or pleural effusion. The bones are unremarkable. IMPRESSION: No evidence of acute cardiopulmonary disease
[2018-09-19 13:47] LABS: ALT (SGPT) 17 U/L (8-55); AST (SGOT) 25 U/L (5-34); Albumin 4.3 g/dL (3.4-4.8); Alkaline Phosphatase 78 U/L (40-150); Anion Gap 18 mmol/L (10-20); BUN (Urea Nitrogen) 10 mg/dL (9.8-20.1); Bilirubin, Total 1.5 mg/dL (0.2-1.2); Calc. Creatinine Clearance 0 mL/min (70-130); Calcium 9.5 mg/dL (7.8-10.44); Carbon Dioxide 22 mmol/L (23-31); Chloride 94 mmol/L (98-107); Estimated GFR-MDRD 80; Globulin 3.7 g/dL (2.4-3.5); Glucose 93 mg/dL (80-115); Lipase 38 U/L (8-78); Sodium 130 mmol/L (136-145)
== END 2018-09-19 14:29 | disposition home or self-care (01) ==
LOC: ERS 12:46
DX: R06.00 Dyspnea, unspecified (principal); I10 Essential (primary) hypertension; J44.9 Chronic obstructive pulmonary disease, unspecified; F41.9 Anxiety disorder, unspecified; F32.9 Major depressive disorder, single episode, unspecified; Z79.899 Other long term (current) drug therapy; Z79.891 Long term (current) use of opiate analgesic; F17.210 Nicotine dependence, cigarettes, uncomplicated
CPT/HCPCS: 36415; 71045; 80053; 83690; 83880; 84484; 85025; 93005

== ENCOUNTER 2018-09-21 19:52 | Emergency (ER) | payer MEDICARE, MEDICAID ==
[2018-09-21 20:12] LABS: #Basophils 0.1 thou/uL (0.0-0.2); #Eosinphils 0.2 thou/uL (0.0-0.7); #Lymphocytes 4.8 thou/uL (1.20-3.40); #Monocytes 0.8 thou/uL (0.11-0.59); #Neutrophils 8.4 thou/uL (1.40-6.50); %Basophils 0.7 % (0.0-1.0); %Eosinophils 1.4 % (0.0-10.0); %Lymphocytes 33.6 % (21.0-51.0); %Monocytes 5.6 % (0.0-10.0); %Neutrophils 58.7 % (42.0-75.0); Hemoglobin 16.5 g/dL (12.0-16.0); Mean Corpuscular HGB CONC 35.4 g/dL (32.0-36.0); Mean Corpuscular Hemoglobin 35.2 pg (27.0-31.0); Mean Corpuscular Volume 99.4 fL (78.0-98.0); Mean Platelet Volume 6.8 fL (7.4-10.4); Platelet Count 339 thou/uL (130-400); RBC Distribution Width 11.3 % (11.5-14.5); Red Blood Cell (RBC) Count 4.68 mill/uL (4.20-5.40); White Blood Cell (WBC) Count 14.3 thou/uL (4.8-10.8)
[2018-09-21 20:34] LABS: Bilirubin Negative (Negative); Blood, Urine Negative (Negative); Clarity CLEAR (Clear); Glucose, Urine (Dipstick) Negative (Negative); Leukocyte Negative (Negative); Nitrite Negative (Negative); Protein, Urine (Dipstick) Negative (Neg-Trace); Specific Gravity, Urine 1.004 (1.002-1.036); Urobilinogen 0.2 mg/dL (0.2-1.0)
[2018-09-21 20:35] LABS: ALT (SGPT) 21 U/L (8-55); AST (SGOT) 21 U/L (5-34); Acetaminophen Less than 6.0 mcg/mL (10.0-30.0); Albumin 4.2 g/dL (3.4-4.8); Alcohol 172 mg/dL (Less than 10); Alkaline Phosphatase 73 U/L (40-150); Anion Gap 17 mmol/L (10-20); BUN (Urea Nitrogen) 11 mg/dL (9.8-20.1); Bilirubin, Total 0.6 mg/dL (0.2-1.2); Calc. Creatinine Clearance 0 mL/min (70-130); Calcium 9.7 mg/dL (7.8-10.44); Carbon Dioxide 22 mmol/L (23-31); Chloride 101 mmol/L (98-107); Estimated GFR-MDRD 70; Globulin 3.6 g/dL (2.4-3.5); Glucose 112 mg/dL (80-115); Potassium 3.8 mmol/L (3.5-5.1); Protein, Total 7.8 g/dL (6.0-8.3); Salicylate Less than 8.0 mg/dL (15.0-30.0); Sodium 136 mmol/L (136-145)
[2018-09-21 20:44] LABS: Medtox Reader # READER 4
[2018-09-21 20:45] LABS: Amphetamine Not Detected (NotDetected); Barbiturates Screen Not Detected (NotDetected); Benzodiazepine Screen Not Detected (NotDetected); Cocaine Metabolite Screen Not Detected (NotDetected); Medtox Control Line Valid? VALID (VALID); Methadone Not Detected (NotDetected); Methamphetamine Not Detected (NotDetected); Opiate Screen Not Detected (NotDetected); Oxycodone Screen Not Detected (NotDetected); Phencyclidine (PCP) Not Detected (NotDetected); THC/Cannabinoid Screen Not Detected (NotDetected); Tricyclic Screen Not Detected (NotDetected)
[2018-09-22] MEDS ORDERED: Ibuprofen 200 MG TAB ONE (11:40)
[2018-09-22] MEDS ORDERED: Lisinopril 10 MG TAB ONE (11:49)
[2018-09-22] MEDS ORDERED: Gabapentin 300 MG CAP PO SCH (12:00)
== END 2018-09-22 12:03 ==
LOC: ERS 19:52
DX: F32.9 Major depressive disorder, single episode, unspecified (principal); J44.9 Chronic obstructive pulmonary disease, unspecified; F17.210 Nicotine dependence, cigarettes, uncomplicated; Z79.899 Other long term (current) drug therapy
CPT/HCPCS: 36415; 80053; 80306; 80307; 81003; 84443; 85025; 93005

== ENCOUNTER 2018-11-11 18:35 | Observation (INO) | payer MEDICARE, MEDICAID ==
[~2018-11-11 18:35] MED LIST: ISOVUE-370 76%-LOCM 1 ML ONE
[2018-11-11] MEDS ORDERED: Albuterol Sulfate 2.5 mg/3 ml Neb ONE (19:24)
[2018-11-11] MEDS ORDERED: methylPREDNISolone Sod Succ/PF 125 MG/2 ML VIAL ONE (19:48)
[2018-11-11 20:05] LABS: #Lymphocytes 3.2 thou/uL (1.20-3.40); #Monocytes 0.5 thou/uL (0.11-0.59); #Neutrophils 8.4 thou/uL (1.40-6.50); %Basophils 0.3 % (0.0-1.0); %Eosinophils 0.3 % (0.0-10.0); %Lymphocytes 26.5 % (21.0-51.0); %Monocytes 4.3 % (0.0-10.0); %Neutrophils 68.7 % (42.0-75.0); Hemoglobin 15.5 g/dL (12.0-16.0); Mean Corpuscular HGB CONC 35.2 g/dL (32.0-36.0); Mean Corpuscular Hemoglobin 34.9 pg (27.0-31.0); Mean Corpuscular Volume 99.3 fL (78.0-98.0); Mean Platelet Volume 6.6 fL (7.4-10.4); Platelet Count 344 thou/uL (130-400); RBC Distribution Width 11.5 % (11.5-14.5); Red Blood Cell (RBC) Count 4.44 mill/uL (4.20-5.40); White Blood Cell (WBC) Count 12.2 thou/uL (4.8-10.8)
[2018-11-11 20:23] LABS: ALT (SGPT) 24 U/L (8-55); AST (SGOT) 20 U/L (5-34); Alkaline Phosphatase 70 U/L (40-150); Anion Gap 20 mmol/L (10-20); BUN (Urea Nitrogen) 12 mg/dL (9.8-20.1); Bilirubin, Total 0.6 mg/dL (0.2-1.2); Calc. Creatinine Clearance 0 mL/min (70-130); Calcium 9.1 mg/dL (7.8-10.44); Carbon Dioxide 20 mmol/L (23-31); Chloride 100 mmol/L (98-107); Estimated GFR-MDRD 72; Globulin 3.2 g/dL (2.4-3.5); Glucose 113 mg/dL (80-115); Potassium 3.8 mmol/L (3.5-5.1); Protein, Total 7.2 g/dL (6.0-8.3); Sodium 136 mmol/L (136-145)
--- NOTE | 2018-11-11 20:24 | RAD ---
RADIOGRAPH CHEST 2 VIEWS: DATE: 11/11/2018 HISTORY: 63-year-old female with dyspnea FINDINGS: There is no airspace density, pulmonary edema, pleural effusion, pneumothorax, or cardiomegaly. IMPRESSION: 1. No acute cardiopulmonary findings. 2. Large number of old, traumatic, displaced left lateral rib fracture deformities.
--- NOTE | 2018-11-11 22:54 | CT ---
CT angiogram thorax with contrast: (CTA pulmonary angiogram) HISTORY: 63-year-old female with chest pain TECHNIQUE: IV injection of iodinated contrast. Scan acquisition timing attempted to coincide with iodinated contrast bolus reaching maximal density in pulmonary arteries. 3-D MIP reconstructions. FINDINGS: Pulmonary thromboembolism: None. Lungs: No consolidation or edema. Clear. Pneumothorax: None. Pleural effusion: None. Thoracic aorta: No aneurysm or dissection. Mediastinal or hilar lymphadenopathy: None Trachea and major bronchi: Patent Skeletal: Left rib cage indented and deformed by large number of old, healed left lateral rib fractur es. IMPRESSION: 1. No pulmonary thromboembolism. 2. Multiple old, healed, traumatic left rib fracture deformities.
[2018-11-11] MEDS ORDERED: Aspirin Chewable 81 MG TAB ONE (23:13)
--- NOTE | 2018-11-12 00:11 | PDOC.FPRHP ---
- History of Present Illness Chief Complaint: SOB History of Present Illness: The patient is a 63YOF with a PMH significant for COPD not on any home maintenance therapy or O2, HTN & chronic hip pain who presented to the ED with a CC of shortness of breath that has been ongoing for the last 2-3 days. The patient reports that about 3 nights ago she began having coughing fits while laying down at night that were so severe she has had to sleep propped up. She also endorse increased SOB with exertion stating she now cannot even make it from her bedroom to the kitchen without having to stop and rest to catch her breath. She says she finally decided to come to the ED tonight because when she tried to lay down to go to bed around 17:00 she began coughing and could not stop and no one else was at home to help her so she dialed 911. The patient reports an associated cough and feels like phlegm needs to come up but says it gets stuck in her throat. She denies any fever/chills, chest pain, nasal congestion or postnasal drip or recent sick contacts. ED Course: 162mg ASA, Duonebs x2, 125mg IV solumedrol - Allergies/Adverse Reactions Allergies Allergy/AdvReac Type Severity Reaction Status Date / Time No Known Allergies Allergy Verified 11/12/18 01:15 - Home Medications Medication Instructions Recorded Confirmed Type Lisinopril/Hydrochlorothiazide 1 tablet PO DAILY 04/14/13 11/12/18 History [Lisinopril-Hctz 20-25 mg Tab] Gabapentin [Neurontin] 100 mg PO TID PRN 10/19/17 11/12/18 History traMADol HCl [Tramadol HCl] 50 mg PO Q4HR PRN 10/19/17 11/12/18 History - History PMHx: COPD, HTN, chronic hip pain PSHx: C/S x3 & left hip sx x4 FHx: non-contributory Social: Endorses an ~40 pack year smoking history. Cut down to 5-6cigs/day about 5-6 months ago. Reports drinking about 4 12oz. beers/day. Denies any drug use. - Review of Systems General: denies: fever/chills, weight/appetite/sleep changes Eyes: denies: eye pain, vision changes ENT: denies: nasal congestion, rhinorrhea Respiratory: reports: cough, shortness of breath Cardiovascular: reports: orthopnea. denies: chest pain, edema, paroxysmal nocturnal dyspnea Gastrointestinal: denies: nausea, vomiting Genitourinary: denies: dysuria, polyuria Skin: denies: rashes, lesions Musculoskeletal: reports: pain, arthritis/arthralgias Neurological: denies: syncope, weakness Psychological: reports: anxiety, depression - Vital signs BP: 151/105 HR: 117 RR: 22 Tmax: 98.7F Pox: 100% on RA Wt: 94.12 kg - Physical Exam Constitutional: NAD, awake, alert and oriented, other (appears older than stated age) HEENT: normocephalic and atraumatic, grossly normal vision, grossly normal hearing, MMM, oropharynx clear Neck: supple, FROM Heart: normal S1/S2, no murmurs/rubs/gallops, pulses present, other ( tachycardic with regular rhythm; trace non-pitting edema in LLE around ankle) Lungs: no respiratory distress, no wheezing, no retractions, other (coarse rhonchi on expiration heard throughout) Musculoskeletal: normal structure, other (decreased ROM in LLE 2/2 pain both chronic & from a recent fracture) Neurological: no focal deficit, CN II-XII intact (grossly) Skin: no rash/lesions, good turgor Heme/Lymphatic: other (scattered purpura noted on arms) Psychiatric: normal mood and affect, good judgment and insight, intact recent and remote memory FMR H&P: Results - Labs Result Diagrams: 11/11/18 19:42 11/11/18 19:25 Lab results: WBC 12.2 thou/uL (4.8-10.8) H 11/11/18 19:42 Hgb 15.5 g/dL (12.0-16.0) 11/11/18 19:42 Hct 44.1 % (36.0-47.0) 11/11/18 19:42 MCV 99.3 fL (78.0-98.0) H 11/11/18 19:42 Plt Count 344 thou/uL (130-400) 11/11/18 19:42 Neutrophils % 68.7 % (42.0-75.0) 11/11/18 19:42 Sodium 136 mmol/L (136-145) 11/11/18 19:25 Potassium 3.8 mmol/L (3.5-5.1) 11/11/18 19:25 Chloride 100 mmol/L (98-107) 11/11/18 19:25 Carbon Dioxide 20 mmol/L (23-31) L 11/11/18 19:25 BUN 12 mg/dL (9.8-20.1) 11/11/18 19:25 Creatinine 0.80 mg/dL (0.6-1.1) 11/11/18 19:25 Glucose 113 mg/dL (80-115) 11/11/18 19:25 Calcium 9.1 mg/dL (7.8-10.44) 11/11/18 19:25 Total Bilirubin 0.6 mg/dL (0.2-1.2) 11/11/18 19:25 AST 20 U/L (5-34) 11/11/18 19:25 ALT 24 U/L (8-55) 11/11/18 19:25 Alkaline Phosphatase 70 U/L (40-150) 11/11/18 19:25 B-Natriuretic Peptide 15.4 pg/mL (0-100) 11/11/18 19:43 Serum Total Protein 7.2 g/dL (6.0-8.3) 11/11/18 19:25 Albumin 4.0 g/dL (3.4-4.8) 11/11/18 19:25 - EKG Interpretation EKG: sinus tachycardia - Radiology Interpretation CT scan - chest Status: report reviewed by me (no evidence of PE) Chest x-ray Status: image reviewed by me, report reviewed by me (no acute cardiopulmonary process) FMR H&P: A/P - Problem List (1) COPD exacerbation Current Visit: Yes Status: Acute Code(s): J44.1 - CHRONIC OBSTRUCTIVE PULMONARY DISEASE W (ACUTE) EXACERBATION (2) Tobacco abuse Current Visit: Yes Status: Chronic Code(s): Z72.0 - TOBACCO USE (3) Chronic left hip pain Current Visit: Yes Status: Chronic Code(s): M25.552 - PAIN IN LEFT HIP; G89.29 - OTHER CHRONIC PAIN (4) Chronic obstructive pulmonary disease (COPD) Current Visit: No Status: Chronic Qualifiers: COPD type: COPD with acute exacerbation Qualified Code(s): J44.1 - Chronic obstructive pulmonary disease with (acute) exacerbation (5) Leukocytosis Current Visit: No Status: Acute Code(s): D72.829 - ELEVATED WHITE BLOOD CELL COUNT, UNSPECIFIED (6) Hypertension Current Visit: No Status: Chronic Code(s): I10 - ESSENTIAL (PRIMARY) HYPERTENSION Qualifiers: Hypertension type: essential hypertension Qualified Code(s): I10 - Essential (primary) hypertension - Plan 63YOF with a PMH significant for COPD, HTN, and tobacco use who presented to the ED with a CC of increased SOB with exertion and with laying down flat that has been ongoing for the last 3 days. Acute on chronic COPD exacerbation - Patient presented to the ED and was reportedly tachypnic and tachycardic. Is s /p Duonebs x2 & IV solumedrol in the ED with some relief. Still slightly tachypnic but maintaining sats on RA. CXR negative for any focal consolidation or effusion and CTA ruled out PE. However, WBC slightly elevated at 12.2 which could be 2/2 a viral illness vs. chronic inflammation from tobacco use. - Will continue BASIL Duonebs Q4H w/ Q2H PRN & transition to PO steroids. Will also add BASIL mucinex for chest congestion. - Will have PRN oxygen available should patient become unable to maintain sats > 90% on RA. - Will continue to monitor respiratory status closely & wean duonebs as tolerated by the patient. COPD - Patient not on any home meds. Would likely benefit from a rescue inhaler and maintenance therapy to prevent frequent recurrent hospitalizations. Will initiate upon discharge. HTN - Patient reports only taking 1 BP medication but 2 are documented on chart review. Will resume lisinopril-HCTZ and add more meds PRN based on BP control while in the hospital. chronic hip pain - Will resume home tramadol & gabapentin. Tobacco use - Patient refused nicotine patch. Will encourage smoking cessation. EtOH use - Patient reports drinking only 4 beers/day but has been previously hospitalized for EtOH intoxication. - ASE protocol initiated. Will encourage cessation. Dispo: Will admit for observation and continued breathing treatments overnight. Anticipated LOS < 2 midnights pending clinical course. Abx: Azithromycin (11/12) IVFs: none DVT PPX: lovenox GI PPx: none FMR H&P: Upper Level - Pertinent history 63F presenting to ED with several day hx of SOB and wheezing. She has been coughing as well, which is exacerbated by laying flat. Cough is non productive and she denies fever/chills, new skin rash, n/v/d, chest pain. She endorses LOZOYA but no episodes of lightheadedness or syncope. Patient admits to not taking any controller medications despite encouragement from PCP. Review of hospital records shows she has been admitted for EtOH related issues and has not been admitted for COPD related issues in over a year. - Pertinent findings 162/93 mmHg 109bpm 20RR 100% on RA 98.7F Gen: A&Ox3; no acute distress CV: tachycardic; no murmurs Pulm: coarse rhonchi globally Abd: sof; nonTTP; no guarding MSK: pain with movement of left hip Ext: no cyanosis or edema WBC: 12.2 H/H: 15.5/44.1 MCV: 99.3 D-dimer: 0.93 CMP and BNP within normal limits - Plan Date/Time: 11/12/18 0011 IJohnny, have evaluated this patient and agree with findings/plan as outlined by lab intern resident. Pertinent changes/additions are listed here. COPD exacerbation: patient has received duoneb and solumedrol in ED. She is now moving more air and in no distress and saturating 100% on RA. Will continue Duonebs q4h BASIL with albuterol nebs q2h PRN. Will transition to PO steroids for five days. Begin abx coverage with azithromycin. CXR normal. CTA chest with no sign of PE. EtOH use: ASE protocol and encourage cessation.
[2018-11-12] MEDS ORDERED: Gabapentin 300 MG CAP PO PRN (00:43)
[2018-11-12] MEDS ORDERED: traMADol HCl 50 MG TAB PO PRN (00:43)
[2018-11-12 00:47] LABS: Troponin I Less than 0.010 ng/mL (< 0.028)
[2018-11-12] MEDS ORDERED: Albuterol Sulfate 2.5 mg/3 ml Neb NEB PRN (01:09)
[2018-11-12] MEDS ORDERED: Ondansetron ODT 4 MG TAB SL PRN (01:09)
[2018-11-12] MEDS ORDERED: Ondansetron PF 4 MG/2 ML Vial IVP PRN (01:09)
[2018-11-12] MEDS ORDERED: Acetaminophen 325 MG TAB PO PRN (01:09)
[2018-11-12 01:11] VITALS: BMI 33.5
[2018-11-12] MEDS ORDERED: Nicotine 14 MG PATCH TD SCH (02:00)
[2018-11-12 03:07] LABS: #Lymphocytes 0.5 thou/uL (1.20-3.40); #Neutrophils 9.5 thou/uL (1.40-6.50); %Basophils 0.1 % (0.0-1.0); %Eosinophils 0.1 % (0.0-10.0); %Lymphocytes 4.9 % (21.0-51.0); %Monocytes 0.3 % (0.0-10.0); %Neutrophils 94.6 % (42.0-75.0); Hemoglobin 14.6 g/dL (12.0-16.0); Mean Corpuscular HGB CONC 35.4 g/dL (32.0-36.0); Mean Corpuscular Hemoglobin 35.4 pg (27.0-31.0); Mean Platelet Volume 6.7 fL (7.4-10.4); Platelet Count 272 thou/uL (130-400); RBC Distribution Width 11.6 % (11.5-14.5); Red Blood Cell (RBC) Count 4.12 mill/uL (4.20-5.40); White Blood Cell (WBC) Count 10.1 thou/uL (4.8-10.8)
[2018-11-12 03:30] LABS: Troponin I Less than 0.010 ng/mL (< 0.028)
[2018-11-12] MEDS ORDERED: predniSONE 20 MG TAB PO SCH (08:00)
[2018-11-12] MEDS ORDERED: guaiFENesin/DM ER PO SCH (09:00)
[2018-11-12] MEDS ORDERED: Lisinopril/Hydrochlorothiazide 20/25 mg Tablet PO SCH (09:00)
[2018-11-12] MEDS ORDERED: Azithromycin 250 MG TAB PO SCH (09:00)
[2018-11-12] MEDS ORDERED: Enoxaparin Sodium 40 MG/0.4 ML SYRINGE SC SCH (09:00)
[2018-11-12 09:24] LABS: Folate (Folic Acid) 4.8 ng/mL (7.0-31.4)
[2018-11-12 12:37] VITALS: TEMP 98.4
[2018-11-12 14:44] VITALS: BP 172/73
--- NOTE | 2018-11-13 02:48 | DIS ---
DATE OF ADMISSION: 11/11/2018 DATE OF DISCHARGE: 11/12/2018 ADMITTING ATTENDING: Parminder Pguh MD. DISCHARGE ATTENDING: Parminder Pugh MD CONSULTS: None. PROCEDURES AND IMAGIN. Chest x-ray: No acute cardiopulmonary findings. Large number of old traumatic displaced left lateral rib fracture deformities. 2. Thorax CTA: Negative for PE. PRIMARY DIAGNOSIS: Acute on chronic obstructive pulmonary disease exacerbation. SECONDARY DIAGNOSES: 1. Tobacco abuse. 2. Chronic hip pain. 3. Hypertension. 4. Chronic obstructive pulmonary disease. 5. Alcohol use. DISCHARGE MEDICATIONS: New home medications: 1. Spiriva 18 mcg inhaled daily. 2. Prednisone 40 mg p.o. q.a.m. with meals for 4 days. 3. Mucinex DM two tablets p.o. q.12 hours p.r.n. for cough, congestion. 4. Zithromax 250 mg p.o. daily for 4 days. 5. Ventolin 5 mg neb q.2 hours p.r.n. for short of breath or wheezing. Resumed home medication: 1. DuoNeb 3 mL neb q.4 hours p.r.n. for short of breath or wheezing. 2. Gabapentin 100 mg p.o. t.i.d. p.r.n. for pain. 3. Tramadol 50 mg p.o. q.4 hours p.r.n. for pain. 4. Lisinopril HCTZ 20/25 one tablet p.o. daily. HOSPITAL COURSE: Ms. Rosa Harvey is a 63-year-old female with COPD, not on home O2, who came in for short of breath that has been worsening for the past 2-3 days. She explains that she has been having increasing cough with difficulty lying down. She denies fevers or chills. In the ER, she was not hypoxic and due to concern for short of breath, imaging was obtained. CTA was negative for PE. Chest x-ray was negative for development of infiltrate. The patient was afebrile with stable vital signs. White count mildly elevated at 12.2, no bands. The patient was admitted for acute on chronic COPD exacerbation and started on steroids, antibiotics, and breathing treatments. Clinically, she improved rapidly with DuoNeb. She ran out of her DuoNeb prescription, and that had not been able to use it for at least the past couple of days. She tells us that she typically experiences exacerbations every couple of months, relieved with DuoNeb. She has never had a prior previous hospitalization for this. In the afternoon, when I checked on the patient, she appeared to be doing much better. Thought she felt ready to go home, back to baseline. It was instructed that we will be changing her COPD medications and importance of continuing outpatient followup to consider outpatient testing. DISCHARGE CONDITION: Stable. DISCHARGE INSTRUCTIONS: 1. Location: Home. 2. Diet: Heart healthy. 3. Activity: Ad anmol as tolerated. 4. Please follow up with PCP, Dr. Laureano Mercado at [facility] in 2 days. 5. Consider obtaining pulmonary function test in order to stage her COPD. 6. Please follow up with Dr. Hu to continue following for planning of hip surgery in January. Job ID: [id number]
[2018-11-13] MEDS ORDERED: Azithromycin 250 MG TAB PO SCH (09:00)
--- NOTE | 2018-11-14 13:56 | HP ---
ADDENDUM: Please see the history and physical done by Dr. Quispe, for which I agree. The patient was seen, evaluated, discussed, and examined with the residents by bedside. HISTORY OF PRESENT ILLNESS: This is a 63-year-old with a history of COPD, has home nebulizers. It sounds like she does not need it that often. It sounds like she is wheelchair bound from chronic hip problems for the last couple of years. She came in with increasing shortness of breath and basically a COPD exacerbation. It sounds like this has been going on for about 3 days. After steroids and more frequent nebulizers, she is actually already doing a lot better this morning. ALLERGIES, HOME MEDICINES, PAST MEDICAL HISTORY, PAST SURGICAL HISTORY, FAMILY HISTORY, SOCIAL HISTORY, REVIEW OF SYSTEMS: All per the residents history and physical, which I agree. PHYSICAL EXAMINATION: VITAL SIGNS: Blood pressure was a little bit elevated. Oxygen level is actually fine and appeared to be in severe respiratory distress. Able to talk in long sentences. Looks older than stated age of 63. ENT: Conjunctiva, not pale. Sclerae anicteric. Moist mucosa. CHEST: Slight decreased breath sounds, but overall no major crackles or wheezes. HEART: Regular rate and rhythm. EXTREMITIES: No edema. She is in a wheelchair. LABORATORY DATA: Labs for the most part noncontributory, other than white count being slightly elevated at 12.2. ASSESSMENT: Chronic obstructive pulmonary disease exacerbation. PLAN: Steroids nebulizers q.i.d. We will hopefully get her set up for Spiriva daily. Probably can go home today as long as she continues to improve as she does seem very drastically improved from her ER presentation. Job ID: [id number]
== END 2018-11-12 15:19 | disposition home or self-care (01) ==
LOC: ERS 18:35 → 2SW 23:47
PROVIDERS: ADMIT Family Medicine; ATTEND Family Medicine
DX: J44.1 Chronic obstructive pulmonary disease with (acute) exacerbation (principal); I10 Essential (primary) hypertension; M25.552 Pain in left hip; G89.29 Other chronic pain; D72.829 Elevated white blood cell count, unspecified; F41.8 Other specified anxiety disorders; F17.210 Nicotine dependence, cigarettes, uncomplicated; Z72.89 Other problems related to lifestyle; Z79.2 Long term (current) use of antibiotics; Z79.899 Other long term (current) drug therapy
CPT/HCPCS: 71046; 71275; 80053; 82607; 82746; 83880; 84484 ×3; 85025 ×2; 85379; 93005; 94640 ×3; 96361; 96372; 96374; 97139; 99285; G0378 ×2; 36415; J1650; J2930; J7512; J7611; J7620

== ENCOUNTER 2018-11-26 21:42 | Emergency (ER) | payer MEDICARE, MEDICAID ==
[2018-11-26] MEDS ORDERED: Adenosine 6 MG/2 ML VIAL ONE ×2 (21:46→21:57)
[2018-11-26] MEDS ORDERED: methylPREDNISolone Sod Succ/PF 125 MG/2 ML VIAL ONE ×2 (21:58→22:01)
[2018-11-26 22:01] LABS: #Basophils 0.1 thou/uL (0.0-0.2); #Eosinphils 0.1 thou/uL (0.0-0.7); #Lymphocytes 4.5 thou/uL (1.20-3.40); %Basophils 0.5 % (0.0-1.0); %Eosinophils 0.5 % (0.0-10.0); %Lymphocytes 24.3 % (21.0-51.0); %Monocytes 5.1 % (0.0-10.0); %Neutrophils 69.7 % (42.0-75.0); Hemoglobin 16.6 g/dL (12.0-16.0); Mean Corpuscular HGB CONC 34.4 g/dL (32.0-36.0); Mean Corpuscular Hemoglobin 35.6 pg (27.0-31.0); Mean Platelet Volume 6.8 fL (7.4-10.4); Platelet Count 394 thou/uL (130-400); RBC Distribution Width 12.6 % (11.5-14.5); Red Blood Cell (RBC) Count 4.67 mill/uL (4.20-5.40); White Blood Cell (WBC) Count 18.6 thou/uL (4.8-10.8)
--- NOTE | 2018-11-26 22:06 | RAD ---
XR Chest 1 View Portable History: Chest pain Comparison: Chest x-ray September 19, 2018 Findings: Lungs are clear. No pneumothorax. No effusion. No acute osseous abnormality. Cardiac silhou ette and mediastinal contours are similar. Impression: No acute intrathoracic abnormality.
[2018-11-26 22:20] LABS: ALT (SGPT) 19 U/L (8-55); AST (SGOT) 15 U/L (5-34); Albumin 4.1 g/dL (3.4-4.8); Alkaline Phosphatase 82 U/L (40-150); Anion Gap 15 mmol/L (10-20); BUN (Urea Nitrogen) 5 mg/dL (9.8-20.1); Bilirubin, Total 0.4 mg/dL (0.2-1.2); Calc. Creatinine Clearance 0 mL/min (70-130); Calcium 9.3 mg/dL (7.8-10.44); Carbon Dioxide 23 mmol/L (23-31); Chloride 98 mmol/L (98-107); Estimated GFR-MDRD 73; Globulin 3.5 g/dL (2.4-3.5); Glucose 136 mg/dL (80-115); Potassium 4.2 mmol/L (3.5-5.1); Protein, Total 7.6 g/dL (6.0-8.3); Sodium 132 mmol/L (136-145)
== END 2018-11-26 23:53 | disposition home or self-care (01) ==
LOC: ERS 21:42
DX: I47.1 Supraventricular tachycardia (principal); I10 Essential (primary) hypertension; F17.210 Nicotine dependence, cigarettes, uncomplicated; J44.9 Chronic obstructive pulmonary disease, unspecified; Z79.899 Other long term (current) drug therapy
CPT/HCPCS: 71045; 80053; 84484; 85025; 93005; 94640; 96361; 96374; 96375; J0153; J2930; J7620

== ENCOUNTER 2018-11-29 13:36 | Observation (INO) | payer MEDICARE, MEDICAID ==
[2018-11-29 14:45] LABS: Bilirubin Negative (Negative); Blood, Urine Negative (Negative); Clarity Clear (Clear); Glucose, Urine (Dipstick) Negative (Negative); Leukocyte Trace (Negative); Nitrite Negative (Negative); Protein, Urine (Dipstick) Negative (Neg-Trace); Urobilinogen 0.2 mg/dL (0.2-1.0)
[2018-11-29 14:48] LABS: Bacteria/HPF None Seen HPF (None Seen); Hyaline Casts/LPF NONE SEEN LPF (0-3 Hyaline); RBC/HPF None Seen HPF (0-3); Squamous Epithelial 0-3 HPF (0-3); WBC/HPF 0-3 HPF (0-3)
[2018-11-29 14:59] LABS: Analyzer IN Cardio ER; CO2 Tension 35.6 mmHg (35.0-45.0); Calcium, Ionized 1.16 mmol/L (1.12-1.30); Carboxyhemoglobin (COHb) 3.6 gm% (0.0-3.0); Hemoglobin (Hb) 16.5 g/dL (12.0-16.0); O2 Tension (PaO2) 77.2 mmHg (> 80.0); Potassium - ABG Lab 3.82 mmol/L (3.70-5.30); pH, Arterial 7.41 (7.35-7.45)
[2018-11-29 15:01] LABS: Puncture Site L.R.
--- NOTE | 2018-11-29 15:01 | CT ---
CT BRAIN WITHOUT CONTRAST: Date: 11/29/18 HISTORY: Altered mental status. FINDINGS: Comparison made with exam of 07/09/18. No evidence of infarct, hemorrhage, midline shift, or abnormal extra-axial fluid collections are seen . Changes of chronic small vessel ischemic disease are again noted in the periventricular white matte r. The ventricular size is appropriate and the basilar cisterns are patent. The bony calvarium is int act. There is mild mucosal disease in the paranasal sinuses. IMPRESSION: No CT evidence of acute intracranial process. POS: OFF
--- NOTE | 2018-11-29 15:09 | RAD ---
PORTABLE CHEST ONE VIEW: 11/29/18 at 2:46 p.m. HISTORY: Altered mental status. FINDINGS: Comparison is made with exam of 11/26/16. The heart size is normal. The lungs are expanded without focal areas of consolidation, pneumothoraces , or pleural effusions. IMPRESSION: No radiographic evidence of acute cardiopulmonary process. POS: OFF
[2018-11-29 15:32] LABS: #Basophils 0.1 thou/uL (0.0-0.2); #Eosinphils 0.1 thou/uL (0.0-0.7); #Lymphocytes 4.3 thou/uL (1.20-3.40); #Monocytes 0.6 thou/uL (0.11-0.59); %Basophils 0.4 % (0.0-1.0); %Eosinophils 0.5 % (0.0-10.0); %Lymphocytes 30.9 % (21.0-51.0); %Monocytes 4.1 % (0.0-10.0); %Neutrophils 64.1 % (42.0-75.0); Hemoglobin 15.5 g/dL (12.0-16.0); Mean Corpuscular HGB CONC 34.1 g/dL (32.0-36.0); Mean Platelet Volume 6.9 fL (7.4-10.4); Platelet Count 377 thou/uL (130-400); RBC Distribution Width 12.7 % (11.5-14.5); Red Blood Cell (RBC) Count 4.44 mill/uL (4.20-5.40)
[2018-11-29 15:46] LABS: ALT (SGPT) 19 U/L (8-55); AST (SGOT) 19 U/L (5-34); Albumin 3.8 g/dL (3.4-4.8); Alkaline Phosphatase 74 U/L (40-150); Anion Gap 16 mmol/L (10-20); BUN (Urea Nitrogen) 7 mg/dL (9.8-20.1); Bilirubin, Total 0.3 mg/dL (0.2-1.2); Calc. Creatinine Clearance 0 mL/min (70-130); Calcium 9.3 mg/dL (7.8-10.44); Carbon Dioxide 23 mmol/L (23-31); Chloride 102 mmol/L (98-107); Estimated GFR-MDRD 83; Globulin 3.4 g/dL (2.4-3.5); Glucose 100 mg/dL (80-115); Magnesium 2.6 mg/dL (1.6-2.6); Potassium 4.3 mmol/L (3.5-5.1); Protein, Total 7.2 g/dL (6.0-8.3); Sodium 137 mmol/L (136-145)
[2018-11-29 15:47] LABS: Acetaminophen Less than 6.0 mcg/mL (10.0-30.0); Alcohol 196 mg/dL (Less than 10); CK (CPK) 15 U/L (29-168); Salicylate Less than 8.0 mg/dL (15.0-30.0)
[2018-11-29 16:15] LABS: CKMB 1.1 ng/mL (0-6.6)
[2018-11-29 16:21] LABS: Amphetamine Not Detected (NotDetected); Barbiturates Screen Not Detected (NotDetected); Benzodiazepine Screen Not Detected (NotDetected); Cocaine Metabolite Screen Not Detected (NotDetected); Medtox Control Line Valid? VALID (VALID); Medtox Reader # READER 4; Methadone Not Detected (NotDetected); Methamphetamine Not Detected (NotDetected); Opiate Screen Not Detected (NotDetected); Oxycodone Screen Not Detected (NotDetected); Phencyclidine (PCP) Not Detected (NotDetected); THC/Cannabinoid Screen Not Detected (NotDetected); Tricyclic Screen Not Detected (NotDetected)
--- NOTE | 2018-11-29 18:41 | PDOC.FPRHP ---
- History of Present Illness History of Present Illness: 63YOF with a PMH significant for COPD and ETOH abuse & chronic hip pain who presented to the ED with a CC AMS for 1d. History provided from ED physician and chart. Pt;s family states she has been stating peculiar words and has been incoherent. When asking pt how much she drinks she states "a few swallow" and that she "has to drink everyday". She is having no pain of discomfort or SOB. She denies any fever/chills, chest pain, nasal congestion or postnasal drip or recent sick contacts.Banana Bag and Duoneb given in ED. - Allergies/Adverse Reactions Allergies Allergy/AdvReac Type Severity Reaction Status Date / Time No Known Allergies Allergy Verified 11/12/18 01:15 - Home Medications Medication Instructions Recorded Confirmed Type Lisinopril/Hydrochlorothiazide 1 tablet PO DAILY 04/14/13 11/29/18 History [Lisinopril-Hctz 20-25 mg Tab] Gabapentin [Neurontin] 100 mg PO TID PRN 10/19/17 11/29/18 History traMADol HCl [Tramadol HCl] 50 mg PO Q4HR PRN 10/19/17 11/29/18 History ALButerol Sulfate [Ventolin Neb] 5 mg NEB Q2H PRN 3 Days #1 neb 11/12/18 Rx Ipratropium/Albuterol Sulfate 3 ml NEB Q4HR #1 box 11/12/18 11/29/18 Rx [Duoneb] Tiotropium [Spiriva Handihaler] 18 mcg INH DAILY #1 box 11/12/18 11/29/18 Rx guaiFENesin/DM ER [Mucinex DM] 2 tab PO Q12HR tab 11/12/18 11/29/18 Rx predniSONE 40 mg PO QAM-WM #4 tab 11/12/18 11/29/18 Rx - History PMHx: COPD, HTN, chronic hip pain PSHx: C/S x3 & left hip sx x4 FHx: non-contributory Social: ~40 pack year smoking history. Cut down to 5-6cigs/day about 5-6 months ago. Reports drinking about 4 12oz. beers/day. Denies any drug use. - Review of Systems General: denies: fever/chills, weight/appetite/sleep changes ENT: denies: nasal congestion, rhinorrhea Respiratory: denies: cough, congestion, shortness of breath Cardiovascular: denies: chest pain, palpitation Gastrointestinal: denies: nausea, vomiting, diarrhea Musculoskeletal: denies: pain, tenderness, stiffness Neurological: denies: numbness, syncope, seizure, weakness Psychological: denies: anxiety, depression - Vital signs 114/72, Pulse: 84, Resp: 16, Temp: 98.3 (Oral), Pain: 0, O2 sat: 94 on Room Air - Physical Exam Constitutional: NAD, awake, alert and oriented HEENT: normocephalic and atraumatic, PERRLA, EOMI Neck: supple, FROM, trachea midline Heart: RRR, normal S1/S2, no murmurs/rubs/gallops, pulses present Lungs: no respiratory distress, good air movement, no rales/rhonchi (mild diffuse expiratory wheezes) Abdomen: soft, non-tender, bowel sounds present Neurological: no focal deficit, CN II-XII intact Skin: no rash/lesions, good turgor, capillary refill <2 seconds Psychiatric: normal mood and affect, good judgment and insight FMR H&P: Results - Labs Result Diagrams: 11/29/18 15:06 11/29/18 15:06 Lab results: WBC 14.0 thou/uL (4.8-10.8) H 11/29/18 15:06 Hgb 15.5 g/dL (12.0-16.0) 11/29/18 15:06 Hct 45.6 % (36.0-47.0) 11/29/18 15:06 MCV 103.0 fL (78.0-98.0) H 11/29/18 15:06 Plt Count 377 thou/uL (130-400) 11/29/18 15:06 Neutrophils % 64.1 % (42.0-75.0) 11/29/18 15:06 ABG pH 7.41 (7.35-7.45) 11/29/18 14:53 ABG pCO2 35.6 mmHg (35.0-45.0) 11/29/18 14:53 ABG pO2 77.2 mmHg (> 80.0) 11/29/18 14:53 Sodium 137 mmol/L (136-145) 11/29/18 15:06 Potassium 4.3 mmol/L (3.5-5.1) 11/29/18 15:06 Chloride 102 mmol/L (98-107) 11/29/18 15:06 Carbon Dioxide 23 mmol/L (23-31) 11/29/18 15:06 BUN 7 mg/dL (9.8-20.1) L 11/29/18 15:06 Creatinine 0.71 mg/dL (0.6-1.1) 11/29/18 15:06 Glucose 100 mg/dL (80-115) 11/29/18 15:06 Calcium 9.3 mg/dL (7.8-10.44) 11/29/18 15:06 Total Bilirubin 0.3 mg/dL (0.2-1.2) 11/29/18 15:06 AST 19 U/L (5-34) 11/29/18 15:06 ALT 19 U/L (8-55) 11/29/18 15:06 Alkaline Phosphatase 74 U/L (40-150) 11/29/18 15:06 Ammonia 41 umol/L (18-72) 11/29/18 15:06 Creatine Kinase 15 U/L (29-168) L 11/29/18 15:06 CK-MB (CK-2) 1.1 ng/mL (0-6.6) 11/29/18 15:06 B-Natriuretic Peptide 16.9 pg/mL (0-100) 11/29/18 15:06 Serum Total Protein 7.2 g/dL (6.0-8.3) 11/29/18 15:06 Albumin 3.8 g/dL (3.4-4.8) 11/29/18 15:06 Urine Ketones Negative mg/dL (Negative) 11/29/18 14:32 Urine Blood Negative (Negative) 11/29/18 14:32 Urine Nitrite Negative (Negative) 11/29/18 14:32 Ur Leukocyte Esterase Trace (Negative) H 11/29/18 14:32 Urine RBC None Seen HPF (0-3) 11/29/18 14:32 Urine WBC 0-3 HPF (0-3) 11/29/18 14:32 Ur Squamous Epith Cells 0-3 HPF (0-3) 11/29/18 14:32 Urine Bacteria None Seen HPF (None Seen) 11/29/18 14:32 FMR H&P: A/P - Problem List (1) Alcohol abuse Current Visit: No Status: Acute Code(s): F10.10 - ALCOHOL ABUSE, UNCOMPLICATED (2) Alcohol intoxication Current Visit: No Status: Acute (3) Leukocytosis Current Visit: No Status: Acute Code(s): D72.829 - ELEVATED WHITE BLOOD CELL COUNT, UNSPECIFIED (4) Chronic obstructive pulmonary disease (COPD) Current Visit: No Status: Chronic Qualifiers: COPD type: COPD with acute exacerbation Qualified Code(s): J44.1 - Chronic obstructive pulmonary disease with (acute) exacerbation (5) Hypertension Current Visit: No Status: Chronic Code(s): I10 - ESSENTIAL (PRIMARY) HYPERTENSION Qualifiers: Hypertension type: essential hypertension Qualified Code(s): I10 - Essential (primary) hypertension (6) Tobacco abuse Current Visit: No Status: Chronic Code(s): Z72.0 - TOBACCO USE - Plan 63YOF with a PMH significant for COPD, HTN, and tobacco use admitted for Encephalopathy. Encephalopathy- 2/[address] head WNL w/o other metabolic cause noted in labs. Will check ammonia level. Banana bag given and will continue IVF. ASE protocol. Continue to monitor closely overnight. ASE protocol. Elevated Troponins- Likely 2/2 demand, no EKG ST changes and no CP, SOB or complaints per patient. Follow troponins overnight. Leukocytosis- Likely reactive. Have decreased from 22 on 3d ago--> 14 today. Afebrile w/o additional evidence of infection. Recheck in AM. COPD - S/p 1 treatment in ED, will continue breathing treatments, but does not take maintenance medications at home. Not Hypoxic or symptomatic. HTN - Slightly elevated; Will resume lisinopril-HCTZ and continue to monitor. Chronic hip pain - Hold tramadol & gabapentin and resume if mental status improves. Tobacco use- Encourage smoking cessation. EtOH use - consult for possible rehab as she has had multiple hospitalizations for intoxication. Dispo: Admit to obs, anticipate d/c in 1-2 days Full code Addendum - Attending - Attending Attestation Date/Time: 11/29/18 3745 I personally evaluated the patient and discussed the management with Dr. De La Rosa. I agree with the History, Examination, Assessment and Plan documented above with any addition or exceptions noted below. Patient here with concerns for altered mentation though she is at her mental baseline at the time of our exam. She was noted to have positive alcohol level on admission. Labs overall baseline and/or improved from previous admission with exception of mild indeterminate troponin that has now downtrended. Patient does not complain of chest pain. Exam is benign. Patient will be placed in obs status, check ammonia level, and ensure mentation remains at baseline. Anticipate this is due to alcohol but do basic workup to ensure no other serious cause of encephalopathy. ASE Protocol. Trops have downtrended and so ACS has been ruled out.
[2018-11-29 19:24] LABS: Troponin I 0.016 ng/mL (< 0.028)
[2018-11-29 21:22] VITALS: BMI 34.2
[2018-11-29] MEDS ORDERED: Ondansetron ODT 4 MG TAB PO PRN (21:30)
[2018-11-29] MEDS ORDERED: Acetaminophen 325 MG TAB PO PRN (21:30)
[2018-11-29] MEDS ORDERED: Nitroglycerin 0.4 MG TAB (25 Tab Bottle) PO PRN (21:30)
[2018-11-29 22:25] LABS: Troponin I Less than 0.010 ng/mL (< 0.028)
[2018-11-30 05:32] LABS: #Basophils 0.1 thou/uL (0.0-0.2); #Lymphocytes 2.7 thou/uL (1.20-3.40); #Monocytes 0.8 thou/uL (0.11-0.59); #Neutrophils 8.7 thou/uL (1.40-6.50); %Basophils 0.4 % (0.0-1.0); %Eosinophils 0.3 % (0.0-10.0); %Monocytes 6.4 % (0.0-10.0); %Neutrophils 70.9 % (42.0-75.0); Hemoglobin 14.2 g/dL (12.0-16.0); Mean Corpuscular Hemoglobin 35.2 pg (27.0-31.0); Mean Platelet Volume 6.8 fL (7.4-10.4); Platelet Count 322 thou/uL (130-400); RBC Distribution Width 12.4 % (11.5-14.5); Red Blood Cell (RBC) Count 4.04 mill/uL (4.20-5.40); White Blood Cell (WBC) Count 12.2 thou/uL (4.8-10.8)
[2018-11-30 06:01] LABS: ALT (SGPT) 17 U/L (8-55); AST (SGOT) 13 U/L (5-34); Albumin 3.4 g/dL (3.4-4.8); Alcohol Less than 10 mg/dL (Less than 10); Alkaline Phosphatase 67 U/L (40-150); Anion Gap 11 mmol/L (10-20); BUN (Urea Nitrogen) 9 mg/dL (9.8-20.1); Bilirubin, Total 0.8 mg/dL (0.2-1.2); Calc. Creatinine Clearance 116 mL/min (70-130); Calcium 8.4 mg/dL (7.8-10.44); Carbon Dioxide 28 mmol/L (23-31); Chloride 100 mmol/L (98-107); Estimated GFR-MDRD 83; Globulin 2.6 g/dL (2.4-3.5); Glucose 83 mg/dL (80-115); Potassium 3.8 mmol/L (3.5-5.1); Sodium 135 mmol/L (136-145)
--- NOTE | 2018-11-30 07:57 | PDOC.FM ---
- Subjective Subjective: Pt is sitting up in chair. Denies any acute events overnight. Denies any chest pain or SOB. Denies any dizziness or lightheadness. Denies any vision changes. Denies any n/v/d/c. Pt reports doing well. No other questions or concerns at this time. - Objective MAR Reviewed: Yes Vital Signs & Weight: Vital Signs (12 hours) Temp Pulse Resp BP Pulse Ox 11/30/18 07:18 80 14 11/30/18 03:47 98.4 F 94 20 159/70 H 96 11/30/18 02:26 20 92 L 11/29/18 23:47 97.9 F 101 H 20 147/87 H 96 11/29/18 22:45 111 H 20 93 L 11/29/18 21:23 98.4 F 91 21 H 145/89 H 94 L Weight Weight 93.395 kg I&O: 11/29/18 11/30/18 12/01/18 06:59 06:59 06:59 Intake Total 775 Output Total 250 Balance 525 Result Diagrams: 11/30/18 05:05 11/30/18 05:05 EKG Reviewed by me: Yes Radiology Reviewed by me: Yes Radiology: Brain CT: No acute intracranial process CXR: No acute cardiopulmonary process Phys Exam - Physical Examination Constitutional: NAD HEENT: PERRLA, moist MMs, oral pharynx no lesions Neck: no nodes, no JVD, supple, full ROM Respiratory: no wheezing, no rales, no rhonchi, clear to auscultation bilateral Cardiovascular: RRR, no significant murmur, no rub Gastrointestinal: soft, non-tender, no distention, positive bowel sounds Musculoskeletal: no edema, pulses present Neurological: non-focal, moves all 4 limbs Skin: no rash, normal turgor, cap refill <2 seconds Dx/Plan (1) Alcohol abuse Code(s): F10.10 - ALCOHOL ABUSE, UNCOMPLICATED Status: Acute (2) Alcohol intoxication Status: Acute (3) Chronic obstructive pulmonary disease (COPD) Status: Chronic Qualifiers: COPD type: COPD with acute exacerbation Qualified Code(s): J44.1 - Chronic obstructive pulmonary disease with (acute) exacerbation (4) Hypertension Code(s): I10 - ESSENTIAL (PRIMARY) HYPERTENSION Status: Chronic Qualifiers: Hypertension type: essential hypertension Qualified Code(s): I10 - Essential (primary) hypertension (5) Tobacco abuse Code(s): Z72.0 - TOBACCO USE Status: Chronic - Plan Plan: 63YOF with a PMH significant for COPD, HTN, and tobacco use admitted for Encephalopathy. Encephalopathy- 2/[address] head WNL w/o other metabolic cause noted in labs. Ammonia level normal. Banana bag given and will continue IVF. ASE protocol. Pt doing well. A&Ox3 Elevated Troponins- Likely 2/2 demand, no EKG ST changes and no CP, SOB or complaints per patient. Troponins trended down to normal at night. Leukocytosis- Likely reactive. Have decreased from 22 on 3d ago--> 14 --> 12.2. Afebrile w/o additional evidence of infection. No fevers overnight. will continue to monitor COPD - S/p 1 treatment in ED, will continue breathing treatments, but does not take maintenance medications at home. Not Hypoxic or symptomatic. HTN - Slightly elevated; Will resume lisinopril-HCTZ and continue to monitor. Chronic hip pain - Hold tramadol & gabapentin. Will continue outpt once pt is more with it. Tobacco use- Encourage smoking cessation. EtOH use - CM consult for possible rehab as she has had multiple hospitalizations for intoxication. Addendum - Attending - Attending Attestation Date/Time: 11/30/18 1043 I personally evaluated the patient and discussed the management with Dr. Naqvi I agree with the History, Examination, Assessment and Plan documented above with any addition or exceptions noted below. 63 yo female with history of alcohol abuse admitted for acute intoxication. Now resolved. Feeling better. Less shakey feeling than earlier this morning. Reports she has met with her sponsor in the hospital and plans to meet with them again today. Encouraged her to keep meeting regularly and ask for help when needed. Will restart BP meds. Stop ASA. Continue MVI. No evidence of ACS or arrhythmias on monitoring. Encouraged patient to follow up closely with PCP to make sure all preventative screening was up to date. Patient stable for d/c. Josy
[2018-11-30] MEDS ORDERED: predniSONE 20 MG TAB PO SCH (08:00)
[2018-11-30] MEDS ORDERED: Multivitamins, Adult 10 ML, Thiamine HCl 100 MG, Folic Acid 1 MG in Dextrose 5 %-0.45 %... IV SCH (09:00)
[2018-11-30] MEDS ORDERED: Spiriva 18 MCG CAP (Box of 5 Caps) INH SCH (09:00)
[2018-11-30] MEDS ORDERED: Aspirin 325 mg Enteric Coated Tablet PO SCH (09:00)
[2018-11-30] MEDS ORDERED: Enoxaparin Sodium 40 MG/0.4 ML SYRINGE SC SCH (09:00)
[2018-11-30 09:04] VITALS: BP 188/85; TEMP 98
--- NOTE | 2018-12-01 09:35 | DIS ---
DATE OF ADMISSION: 11/29/2018 DATE OF DISCHARGE: 11/30/2018 CONSULTS: None. PROCEDURES: None. IMAGIN. On 11/28/2018, chest x-ray showed no radiographic evidence of cardiopulmonary process. 2. On 11/28/2018, brain CT showed no CT evidence of acute intracranial process. PROBLEMS: 1. Encephalopathy secondary to acute alcohol intoxication. 2. Elevated troponins. 3. Leukocytosis. 4. Chronic obstructive pulmonary disease. 5. Hypertension. 6. Chronic hip pain. 7. Tobacco use. 8. Alcohol abuse. DISCHARGE MEDICATIONS: 1. DuoNeb 3 mL nebulizer q.4 hours as needed for shortness of breath. 2. Prednisone 40 mg p.o. tablet q.a.m. for 2 more days. 3. Albuterol sulfate 5 mg nebulizer q.2 hours as needed for shortness of breath. 4. Gabapentin 100 mg p.o. t.i.d. 5. Mucinex DM 2 tablets p.o. q.12 hours as needed for nasal congestion. 6. Lisinopril hydrochlorothiazide 20/25 mg tablet one tablet p.o. daily. 7. Spiriva HandiHaler 18 mcg inhaler daily. 8. Tramadol 50 mg p.o. q.4 hours as needed for pain. HISTORY OF PRESENT ILLNESS AND BRIEF HOSPITAL COURSE: This is a 63-year-old lady who was brought in with concern for altered mental status. When she came in, it was found that her alcohol level was 196. She did have a white blood cell count of 14.0, it would trend down to 12.2 on day of discharge. Her chemistries were overall normal. She did have a little bit troponin, it was 0.031, but that would trend down to 0.16 down to 0.010, which we attribute just to being from intoxication and some demand ischemia. The patient never complained of chest pain, never complained of any shortness of breath or any concern for any cardiac event. We would put the patient on IV fluids to keep her overnight, but she would sober up through the night. In the morning, she reports doing well. Denied any chest pain, shortness of breath, nausea, vomiting, or diarrhea. Denied any abdominal pain. Reported doing well. Reports that she only had drank a few drinks every day and reports that she does have a sponsor talked with her about getting back in touch with her sponsor. With her elevated white blood cell count, apparently a few weeks ago, it was elevated to 22. She is on prednisone assuming for COPD exacerbation, but it did trend down. She never did have any fever, chills, or any sign of infection. The patient is stable. DISPOSITION: Stable. DISCHARGE LOCATION: Home. ACTIVITY: As tolerated. DIET RESTRICTION: Heart healthy diet. FOLLOWUP: She will need to follow up with primary care physician within 7-14 days for hospital followup visit. Job ID: [id number]
== END 2018-11-30 11:15 | disposition home or self-care (01) ==
LOC: ERS 13:36 → 2SW 21:10
PROVIDERS: ADMIT Student in an Organized Health Care Education/Training Program; ATTEND Student in an Organized Health Care Education/Training Program
DX: F10.129 Alcohol abuse with intoxication, unspecified (principal); G31.2 Degeneration of nervous system due to alcohol; R79.89 Other specified abnormal findings of blood chemistry; D72.829 Elevated white blood cell count, unspecified; J44.1 Chronic obstructive pulmonary disease with (acute) exacerbation; I10 Essential (primary) hypertension; G89.29 Other chronic pain; M25.559 Pain in unspecified hip; F17.210 Nicotine dependence, cigarettes, uncomplicated; Z79.899 Other long term (current) drug therapy; Z98.890 Other specified postprocedural states; Y90.6 Blood alcohol level of 120-199 mg/100 ml
CPT/HCPCS: 70450; 71045; 80053; 80306; 80307 ×2; 82140; 82550; 82553; 82805; 83735; 83880; 84484 ×2; 85025; 93005; 94640 ×2; 96365; 96366 ×3; 96372; 99285; G0378 ×2; 36415; 81003; 81015; 84443; J1650; J3411; J7042; J7512; J7620

== ENCOUNTER 2019-02-11 18:36 | Emergency (ER) | payer MEDICARE, OTHER ==
[2019-02-11 18:59] LABS: #Basophils 0.1 thou/uL (0.0-0.2); #Eosinphils 0.1 thou/uL (0.0-0.7); #Lymphocytes 4.6 thou/uL (1.20-3.40); #Monocytes 1.1 thou/uL (0.11-0.59); #Neutrophils 8.2 thou/uL (1.40-6.50); %Eosinophils 1.1 % (0.0-10.0); %Lymphocytes 32.3 % (21.0-51.0); %Monocytes 7.5 % (0.0-10.0); %Neutrophils 58.1 % (42.0-75.0); Hemoglobin 16.1 g/dL (12.0-16.0); Mean Corpuscular HGB CONC 34.9 g/dL (32.0-36.0); Mean Platelet Volume 6.8 fL (7.4-10.4); Platelet Count 402 thou/uL (130-400); RBC Distribution Width 12.5 % (11.5-14.5); Red Blood Cell (RBC) Count 4.25 mill/uL (4.20-5.40); White Blood Cell (WBC) Count 14.1 thou/uL (4.8-10.8)
[2019-02-11 19:20] LABS: ALT (SGPT) 39 U/L (8-55); AST (SGOT) 36 U/L (5-34); Albumin 3.9 g/dL (3.4-4.8); Alkaline Phosphatase 69 U/L (40-150); Anion Gap 17 mmol/L (10-20); BUN (Urea Nitrogen) 9 mg/dL (9.8-20.1); Bilirubin, Total 0.2 mg/dL (0.2-1.2); CK (CPK) 35 U/L (29-168); Calc. Creatinine Clearance 0 mL/min (70-130); Carbon Dioxide 21 mmol/L (23-31); Chloride 105 mmol/L (98-107); Estimated GFR-MDRD 64; Glucose 134 mg/dL (80-115); Potassium 3.8 mmol/L (3.5-5.1); Protein, Total 6.9 g/dL (6.0-8.3); Sodium 139 mmol/L (136-145)
--- NOTE | 2019-02-11 19:23 | RAD ---
EXAM: Single view of the chest HISTORY: Chest pain COMPARISON: 11/29/2018 FINDINGS: Single view of the chest shows a normal sized cardiomediastinal silhouette. There is no candelario dence of consolidation, mass, or pleural effusion. The bones are unremarkable. IMPRESSION: No evidence of acute cardiopulmonary disease
== END 2019-02-11 19:52 | disposition home or self-care (01) ==
LOC: ERS 18:36
DX: R07.89 Other chest pain (principal); F10.10 Alcohol abuse, uncomplicated; J44.9 Chronic obstructive pulmonary disease, unspecified; F41.9 Anxiety disorder, unspecified; F32.9 Major depressive disorder, single episode, unspecified; F17.210 Nicotine dependence, cigarettes, uncomplicated; Z79.899 Other long term (current) drug therapy
CPT/HCPCS: 36415; 71045; 80053; 82550; 84484; 85025; 93005

== ENCOUNTER 2019-02-23 08:56 | Emergency (ER) | payer MEDICARE, MEDICAID ==
[2019-02-23 09:31] LABS: #Basophils 0.1 thou/uL (0.0-0.2); #Eosinphils 0.1 thou/uL (0.0-0.7); #Lymphocytes 2.4 thou/uL (1.20-3.40); #Monocytes 0.8 thou/uL (0.11-0.59); #Neutrophils 8.4 thou/uL (1.40-6.50); %Basophils 0.5 % (0.0-1.0); %Eosinophils 0.9 % (0.0-10.0); %Lymphocytes 20.2 % (21.0-51.0); %Monocytes 6.5 % (0.0-10.0); Hemoglobin 16.1 g/dL (12.0-16.0); Mean Corpuscular HGB CONC 33.3 g/dL (32.0-36.0); Mean Corpuscular Hemoglobin 35.8 pg (27.0-31.0); Mean Platelet Volume 7.3 fL (7.4-10.4); Platelet Count 272 thou/uL (130-400); RBC Distribution Width 12.3 % (11.5-14.5); White Blood Cell (WBC) Count 11.7 thou/uL (4.8-10.8)
[2019-02-23 09:50] LABS: PTT 26.3 SEC (22.9-36.1)
[2019-02-23 09:51] LABS: INR-International Normal Ratio 0.9; Prothrombin Time 11.9 SEC (12.0-14.7)
[2019-02-23 10:32] LABS: ALT (SGPT) 21 U/L (8-55); AST (SGOT) 33 U/L (5-34); Albumin 4.2 g/dL (3.4-4.8); Alkaline Phosphatase 63 U/L (40-150); Anion Gap 10 mmol/L (10-20); BUN (Urea Nitrogen) 8 mg/dL (9.8-20.1); Bilirubin, Total 1.1 mg/dL (0.2-1.2); Calc. Creatinine Clearance 0 mL/min (70-130); Calcium 9.4 mg/dL (7.8-10.44); Carbon Dioxide 30 mmol/L (23-31); Chloride 100 mmol/L (98-107); Estimated GFR-MDRD 78; Globulin 3.5 g/dL (2.4-3.5); Glucose 89 mg/dL (80-115); Potassium 4.6 mmol/L (3.5-5.1); Protein, Total 7.7 g/dL (6.0-8.3); Sodium 135 mmol/L (136-145)
[2019-02-23] MEDS ORDERED: Pantoprazole 40 MG VIAL ONE (10:45)
== END 2019-02-23 11:45 | disposition home or self-care (01) ==
LOC: ERS 08:56
DX: K92.2 Gastrointestinal hemorrhage, unspecified (principal); I10 Essential (primary) hypertension; J44.9 Chronic obstructive pulmonary disease, unspecified; F41.9 Anxiety disorder, unspecified; F32.9 Major depressive disorder, single episode, unspecified; F17.210 Nicotine dependence, cigarettes, uncomplicated
CPT/HCPCS: 36415; 80053; 82274; 85025; 85610; 85730; 86850; 86900; 86901; 96361; 96374; C9113

== ENCOUNTER 2019-03-29 13:31 | Outpatient (CLI) | payer MEDICARE, MEDICAID ==
--- NOTE | 2019-03-29 15:54 | MRI ---
MRI LUMBAR SPINE WITHOUT CONTRAST: 03/29/19 INDICATIONS: Lumbar radiculopathy. FINDINGS: Lumbar vertebrae maintain height and alignment. There are degenerative changes noted. Spurring from t he vertebral bodies. End plate deformities seen at multiple levels consistent with Schmorl's nodes. N o evidence of vertebral body edema or acute compression. Disc spaces are relatively well preserved th roughout although degenerative disc signal changes are noted. At L1-2, minimal disc bulge. Moderate facet and ligamentous hypertrophy. Mild central canal stenosis. At L2-3, mild broad based disc bulge. Moderate facet and ligamentous hypertrophy. Moderate central ca nal stenosis at this level. At L3-4, broad based disc bulge flattens the thecal sac. Prominent facet and ligamentous hypertrophy. Moderate central canal stenosis. At L4-5, small annular fissure. Broad based disc bulge. Facet and ligamentous hypertrophy. Mild to mo derate central canal stenosis. At L5-S1, small central disc protrusion. Congenitally smaller thecal sac. Facet hypertrophy without s ignificant central canal stenosis. Mild foraminal narrowing. IMPRESSION: Small pedicle distance results in a congenitally smaller spinal canal. This exacerbates central canal stenosis which is noted at multiple levels as described above. POS: TPC
== END 2019-03-29 13:32 | disposition home or self-care (01) ==
LOC: BICMRI 13:31
PROVIDERS: ATTEND Orthopaedic Surgery
DX: M54.16 Radiculopathy, lumbar region (principal); M48.061 Spinal stenosis, lumbar region without neurogenic claudication
CPT/HCPCS: 72148

== ENCOUNTER 2019-06-10 16:16 | Emergency (ER) | payer MEDICARE, OTHER | END 2019-06-10 17:26 | disposition home or self-care (01) | LOC: ERS 16:16 | DX: M79.662 Pain in left lower leg (principal); M79.661 Pain in right lower leg; Z76.0 Encounter for issue of repeat prescription; J44.9 Chronic obstructive pulmonary disease, unspecified; I10 Essential (primary) hypertension; F32.9 Major depressive disorder, single episode, unspecified; F41.9 Anxiety disorder, unspecified; F17.210 Nicotine dependence, cigarettes, uncomplicated | CPT/HCPCS: 99281 ==

== ENCOUNTER 2019-09-02 13:27 | Emergency (ER) | payer MEDICARE ==
[2019-09-02] MEDS ORDERED: Albuterol Sulfate 2.5 mg/3 ml Neb ONE (13:58)
--- NOTE | 2019-09-02 14:20 | RAD ---
EXAM: CHEST ONE VIEW HISTORY: Dyspnea COMPARISON: 02/11/2019 FINDINGS: Cardiac silhouette and pulmonary vasculature are within normal limits for the portable technique of t he study. The lungs are clear. Mild degenerative changes are again seen in the spine. IMPRESSION: No acute cardiopulmonary process.
[2019-09-02] MEDS ORDERED: predniSONE 20 MG TAB ONE (14:26)
[2019-09-02 14:46] LABS: Base Excess-Venous -0.8 mmol/L (-2.0 to 3.0); Bicarbonate (HCO3v) 22.7 mmol/L (22.0-28.0); CO2 Tension (PvCO2) 33.5 mmHg (40.0-50.0); Chloride 99 mmol/L (98-107); Hemoglobin - Calc 14.1 g/dL (12.0-16.0); Potassium 4.2 mmol/L (3.5-5.1); Sodium 132 mmol/L (138-145); T. Carbon Dioxide 23.8 mmol/L (22.0-28.0); vO2 Saturation-calc 90.1 % (60.0-85.0)
[2019-09-02 14:52] LABS: #Basophils 0.1 thou/uL (0.0-0.2); #Eosinphils 0.2 thou/uL (0.0-0.7); #Lymphocytes 3.3 thou/uL (1.20-3.40); #Monocytes 0.7 thou/uL (0.11-0.59); #Neutrophils 6.4 thou/uL (1.40-6.50); %Basophils 0.7 % (0.0-1.0); %Eosinophils 2.2 % (0.0-10.0); %Lymphocytes 30.6 % (21.0-51.0); %Monocytes 6.8 % (0.0-10.0); %Neutrophils 59.8 % (42.0-75.0); Hemoglobin 13.9 g/dL (12.0-16.0); Mean Corpuscular HGB CONC 34.1 g/dL (32.0-36.0); Mean Corpuscular Hemoglobin 36.2 pg (27.0-31.0); Mean Platelet Volume 6.8 fL (7.4-10.4); Platelet Count 297 thou/uL (130-400); RBC Distribution Width 13.5 % (11.5-14.5); Red Blood Cell (RBC) Count 3.85 mill/uL (4.20-5.40); White Blood Cell (WBC) Count 10.7 thou/uL (4.8-10.8)
[2019-09-02 15:13] LABS: ALT (SGPT) 26 U/L (8-55); AST (SGOT) 43 U/L (5-34); Albumin 3.4 g/dL (3.4-4.8); Alkaline Phosphatase 76 U/L (40-110); Anion Gap 16 mmol/L (10-20); BUN (Urea Nitrogen) 5 mg/dL (9.8-20.1); Calc. Creatinine Clearance 0 mL/min (70-130); Calcium 8.2 mg/dL (7.8-10.44); Carbon Dioxide 25 mmol/L (23-31); Chloride 97 mmol/L (98-107); Estimated GFR-MDRD 90; Globulin 2.9 g/dL (2.4-3.5); Glucose 102 mg/dL (80-115); Potassium 4.2 mmol/L (3.5-5.1); Protein, Total 6.3 g/dL (6.0-8.3); Sodium 134 mmol/L (136-145)
[2019-09-02 15:57] LABS: MDiff Complete? YES; Macrocytosis SLIGHT = 6-15 cells (100X) (0-5/hpf); Platelet Morphology Comment Appears Adequate; Polychromasia MODERATE = 3-4 cells (100X) (0-2/hpf)
== END 2019-09-02 16:27 | disposition home or self-care (01) ==
LOC: ERS 13:27
DX: L03.114 Cellulitis of left upper limb (principal); J44.1 Chronic obstructive pulmonary disease with (acute) exacerbation; I10 Essential (primary) hypertension; F41.9 Anxiety disorder, unspecified; F32.9 Major depressive disorder, single episode, unspecified; F17.210 Nicotine dependence, cigarettes, uncomplicated; Z79.899 Other long term (current) drug therapy
CPT/HCPCS: 36415; 71045; 80053; 82330; 82803; 85025; 94644; J7512; J7611; J7620

== ENCOUNTER 2019-11-01 14:13 | Inpatient (IN) | payer MEDICARE ==
[2019-11-01 14:45] LABS: #Basophils 0.1 thou/uL (0.0-0.2); #Eosinphils 0.2 thou/uL (0.0-0.7); #Lymphocytes 2.2 thou/uL (1.20-3.40); #Neutrophils 9.4 thou/uL (1.40-6.50); %Basophils 0.8 % (0.0-1.0); %Eosinophils 1.5 % (0.0-10.0); %Lymphocytes 16.8 % (21.0-51.0); %Monocytes 7.5 % (0.0-10.0); %Neutrophils 73.4 % (42.0-75.0); Hemoglobin 14.8 g/dL (12.0-16.0); Mean Corpuscular HGB CONC 32.7 g/dL (32.0-36.0); Mean Corpuscular Hemoglobin 37.8 pg (27.0-31.0); Mean Platelet Volume 7.1 fL (7.4-10.4); Platelet Count 343 thou/uL (130-400); RBC Distribution Width 13.3 % (11.5-14.5); Red Blood Cell (RBC) Count 3.91 mill/uL (4.20-5.40); White Blood Cell (WBC) Count 12.8 thou/uL (4.8-10.8)
[2019-11-01 15:03] LABS: ALT (SGPT) 28 U/L (8-55); AST (SGOT) 51 U/L (5-34); Albumin 3.6 g/dL (3.4-4.8); Alkaline Phosphatase 118 U/L (40-110); Anion Gap 16 mmol/L (10-20); BUN (Urea Nitrogen) Less than 4 mg/dL (9.8-20.1); Bilirubin, Total 0.6 mg/dL (0.2-1.2); Calc. Creatinine Clearance 0 mL/min (70-130); Calcium 8.7 mg/dL (7.8-10.44); Carbon Dioxide 27 mmol/L (23-31); Chloride 97 mmol/L (98-107); Estimated GFR-MDRD 76; Globulin 3.8 g/dL (2.4-3.5); Glucose 136 mg/dL (80-115); Potassium 3.7 mmol/L (3.5-5.1); Protein, Total 7.4 g/dL (6.0-8.3); Sodium 136 mmol/L (136-145)
[2019-11-01 15:06] LABS: MDiff Complete? YES; Macrocytosis MODERATE=16-30 cells (100X) (0-5/hpf); Platelet Morphology Comment Appears Adequate; Polychromasia SLIGHT = 2-3 cells (100X) (0-2/hpf)
[2019-11-01] MEDS ORDERED: Magnesium 2 GM/50 ML BAG (IN WATER) ONE (15:48)
[2019-11-01] MEDS ORDERED: cefTRIAXone\\ROCEPHIN 2 GM VIAL ONE (15:48)
[2019-11-01] MEDS ORDERED: Furosemide 40 MG/4 ML VIAL ONE (15:48)
[2019-11-01] MEDS ORDERED: Azithromycin 500 MG VIAL ONE (15:48)
[2019-11-01] MEDS ORDERED: methylPREDNISolone Sod Succ/PF 125 MG/2 ML VIAL ONE (15:48)
--- NOTE | 2019-11-01 16:38 | RAD ---
SINGLE VIEW OF THE CHEST: 11/01/19 COMPARISON: 09/02/19 HISTORY: COPD exacerbation and shortness of breath for three to four days. FINDINGS: Single view of the chest shows an enlarged but stable cardiomediastinal silhouette. There is a small area of air space opacity in the left lower lobe which may represent atelectasis or an infiltrate. No pleural effusion is seen. IMPRESSION: Left lower lobe atelectasis versus infiltrate. POS: EAA
[2019-11-01] MEDS ORDERED: Morphine 4 MG/ML VIAL ONE (17:25)
[2019-11-01] MEDS ORDERED: hydrALAZINE 20 MG/ML VIAL ONE (18:37)
--- NOTE | 2019-11-01 19:13 | PDOC.FPRHP ---
- History of Present Illness Chief Complaint: generalized swelling History of Present Illness: 64 y/o F with a pmhx of COPD, etoh abuse and HTN presents to the ED for gradual onset of generalized edema. Pt states the swelling started off in her hands after "spider bites" about 3 months ago. Has progressed to LE's and now abdomen. This is new for her. She c/o pain in abdomen due to the tenseness. Pt c/o sob and cough that is no worse than her baseline respiratory status. Denies CP, palpitations, PND and orthopnea. Pt admits to chronic urinary incontinence and frequency. Urinating every "20 minutes throughout the night." Denies dysuria. She was seen at pain managment clinic this AM and told to come and be evaluated in the ER for her edema. Pt admits to drinking a 30 pack of 12 oz beer and intermittent liquor use a week for the past 45 years. She is currently down to 2, 12 oz beer a day. Smokes 3 ppd for years and now down to 1/2 ppd. denies any tylenol use. PCP [facility] ED Course: Given: 80 mg IV lasix azithro and rocephin duonebs morphine magnesium CXR: LLL infiltrate vs atelectasis WBC 12.8, LA 3.9 BNP 37, trop neg, Cr 0.76 AST 51 - Allergies/Adverse Reactions Allergies Allergy/AdvReac Type Severity Reaction Status Date / Time No Known Allergies Allergy Verified 08/26/19 09:18 - Home Medications Medication Instructions Recorded Confirmed Type Lisinopril/Hydrochlorothiazide 1 tablet PO DAILY 04/14/13 11/01/19 History [Lisinopril-Hctz 20-25 mg Tab] traMADol HCl [Tramadol HCl] 50 - 100 mg PO Q8HR 10/19/17 11/02/19 History Furosemide 20 mg PO QAM 11/02/19 11/02/19 History Gabapentin 300 mg PO TID 11/02/19 11/02/19 History Umeclidinium Marquez [Incruse 1 puff PO DAILY 11/02/19 11/02/19 History Ellipta] - History PMHx: COPD, HTN, chronic L hip pain PSHx: C/S x4 & left hip sx x4 FHx: Mother of old age in 80's, no known family medical problems. Social: ~50 pack year smoking history. Cut down to 1/2 ppd, from 3 ppd use at highest. Reports drinking about 2 12oz beers/day, previous 30 pack beer a week with liquor use occasionally. Denies drug use. Lives at home with ex-. - Review of Systems General: denies: fever/chills, weight/appetite/sleep changes ENT: denies: nasal congestion Respiratory: reports: cough, shortness of breath. denies: congestion Cardiovascular: reports: edema. denies: chest pain, palpitation, paroxysmal nocturnal dyspnea, orthopnea Gastrointestinal: reports: abdominal pain. denies: nausea, vomiting, diarrhea, GI bleeding Genitourinary: reports: incontinence, polyuria. denies: dysuria, discharge Skin: reports: rashes (B hands, "spider bites") Musculoskeletal: reports: pain (LLE), swelling (diffuse) Neurological: reports: weakness Psychological: reports: anxiety - Vital signs BP: 170/87 HR: 99 RR: 24 Tmax: 98.2 Pox: 95% on ra Wt: 126 kg - Physical Exam Constitutional: NAD, awake, alert and oriented HEENT: normocephalic and atraumatic, PERRLA, conjunctiva clear, grossly normal vision, grossly normal hearing, MMM Neck: supple, FROM, trachea midline, other (JVD present) Heart: normal S1/S2, pulses present, other (tachycardic) -Heart: pitting edema up to chest Lungs: good air movement, other (diffuse wheezing bibasilar crackles L>R tachypneia) Abdomen: bowel sounds present -Abdomen: tense abdomen no fluid wave stretch smith present over lower abdomen Musculoskeletal: normal structure, normal tone, ROM grossly normal Neurological: no focal deficit, normal sensation -Skin: erythematous and waxy skin overlying LE's meeks erythema B Heme/Lymphatic: no petechia Psychiatric: normal mood and affect FMR H&P: Results - Labs Result Diagrams: 11/01/19 14:25 11/01/19 14:25 Lab results: WBC 12.8 thou/uL (4.8-10.8) H 11/01/19 14:25 Hgb 14.8 g/dL (12.0-16.0) 11/01/19 14: Hct 45.3 % (36.0-47.0) 11/01/19 14:25 MCV 116.0 fL (78.0-98.0) H 11/01/19 14:25 Plt Count 343 thou/uL (130-400) 11/01/19 14:25 Neutrophils % 73.4 % (42.0-75.0) 11/01/19 14:25 Sodium 136 mmol/L (136-145) 11/01/19 14:25 Potassium 3.7 mmol/L (3.5-5.1) 11/01/19 14:25 Chloride 97 mmol/L (98-107) L 11/01/19 14:25 Carbon Dioxide 27 mmol/L (23-31) 11/01/19 14:25 BUN Less than 4 mg/dL (9.8-20.1) L 11/01/19 14:25 Creatinine 0.76 mg/dL (0.6-1.1) 11/01/19 14:25 Glucose 136 mg/dL (80-115) H 11/01/19 14:25 Lactic Acid 3.9 mmol/L (0.5-2.2) H 11/01/19 16:09 Calcium 8.7 mg/dL (7.8-10.44) 11/01/19 14:25 Total Bilirubin 0.6 mg/dL (0.2-1.2) 11/01/19 14:25 AST 51 U/L (5-34) H 11/01/19 14:25 ALT 28 U/L (8-55) 11/01/19 14:25 Alkaline Phosphatase 118 U/L (40-110) H 11/01/19 14:25 B-Natriuretic Peptide 37.5 pg/mL (0-100) 11/01/19 14:25 Serum Total Protein 7.4 g/dL (6.0-8.3) 11/01/19 14:25 Albumin 3.6 g/dL (3.4-4.8) 11/01/19 14:25 - EKG Interpretation EKG: rate 97 NSR - Radiology Interpretation Chest x-ray Status: image reviewed by me (LLL infiltrate vs atelectasis.), report reviewed by me FMR H&P: A/P - Problem List (1) Community acquired pneumonia of left lower lobe of lung Current Visit: Yes Status: Acute Code(s): J18.9 - PNEUMONIA, UNSPECIFIED ORGANISM (2) Anasarca Current Visit: Yes Status: Acute Code(s): R60.1 - GENERALIZED EDEMA (3) Elevated AST (SGOT) Current Visit: Yes Status: Acute Code(s): R74.0 - NONSPEC ELEV OF LEVELS OF TRANSAMNS & LACTIC ACID DEHYDRGNSE (4) Tobacco abuse disorder Current Visit: Yes Status: Chronic Code(s): Z72.0 - TOBACCO USE (5) Alcohol abuse Current Visit: No Status: Chronic Code(s): F10.10 - ALCOHOL ABUSE, UNCOMPLICATED (6) Chronic obstructive pulmonary disease (COPD) Current Visit: Yes Status: Chronic Qualifiers: COPD type: COPD with acute exacerbation Qualified Code(s): J44.1 - Chronic obstructive pulmonary disease with (acute) exacerbation (7) Hypertension Current Visit: Yes Status: Chronic Code(s): I10 - ESSENTIAL (PRIMARY) HYPERTENSION Qualifiers: Hypertension type: essential hypertension Qualified Code(s): I10 - Essential (primary) hypertension - Plan 64 y/o F admitted to inpt for LLL pna and new onset anasarca. 1. LLL Pneumonia - continue rocephin and azithromycin - cxr showed LLL infiltrate vs atelectasis - clinical presentation consistent with pneumonia, most likely community acquired. 2. Anasarca - DDX: r sided HF 2/2 Cor Pulmonale, Liver dysfunction 2/2 long time etoh abuse , protein malnutrition - RUQ abd sono and TTE ordered - consider paracentesis pending sono - Ordered Pre-Albumin - Cr and BNP wnl. - Given Lasix 80 mg IV in ED, had over 3.5L urine output. Strict I/O. - Continue lasix bid 3. Elevated AST and Alk Phos - Ordered INR - RUQ sono pending. 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 COPD - continue spiriva and duonebs - consider starting prednisone for 5 days if respiratory status worses. - however, pt is at her baseline respiratory status and not in exacerbation 5. ETOH abuse d/o - ASE protocol, f/u closely on scores and give lorazepam if necessary - currently drink 2, 12 oz beer daily. 6. hx of HTN - continue home lisinopril/hctz - PRN BP control if > sys 180 Code status: full code diet: HH dvt px: lovenox dispo: stable, admit for LLL pneumonia and further workup for new onset anasarca FMR H&P: Upper Level - Plan Date/Time: 11/01/191912 I, Francesco Prince MD, have evaluated this patient and agree with findings/ plan as outlined by music industry intern resident. Pertinent changes/additions are listed here. CAP - Evidence on CXR - No O2 requirement at this time - Continue Rocephin and Azithromycin COPD - Continue Duonebs - Consider continuing steroids Anasarca - Will order RUQ US to evaluate for cirrhosis - Will order ECHO to rule out CHF cause - Will order pre-albumin to consider nutritional deficiencies - s/p 80 mg Lasix - Monitor urine output and continue lasix as tolerated Alcohol abuse - Down to 2 beers daily - ASE protocol - Benzodiazepines as needed - Recommend complete cessation All other chronic conditions reviewed and medications to be restarted as appropriate PCP: BERNARD Naqvi CODE STATUS: FULL CODE Disposition: Stable, will admit to inpatient medical for further evaluation and treatment. Addendum - Attending - Attending Attestation Date/Time: 11/02/19 0464 I personally evaluated the patient and discussed the management with Dr. Low last night. I agree with the History, Examination, Assessment and Plan documented above with any addition or exceptions noted below.
[2019-11-01 19:17] LABS: Lactic Acid 3.9 mmol/L (0.5-2.2)
[2019-11-01] MEDS ORDERED: Acetaminophen 325 MG TAB PO PRN (19:34)
[2019-11-01] MEDS ORDERED: Ondansetron ODT 4 MG TAB PO PRN (19:34)
[2019-11-01] MEDS ORDERED: Ondansetron PF 4 MG/2 ML Vial IVP PRN (20:00)
[2019-11-01] MEDS ORDERED: Ondansetron ODT 4 MG TAB SL PRN (20:00)
[2019-11-01 20:59] LABS: INR-International Normal Ratio 0.9; PTT 26.9 sec (22.9-36.1); Prothrombin Time 12.6 sec (12.0-14.7)
[2019-11-01] MEDS ORDERED: hydrALAZINE 20 MG/ML VIAL SLOW IVP PRN (21:37)
[2019-11-01 21:43] VITALS: BMI 44.9
[2019-11-01] MEDS ORDERED: Gabapentin 100 MG CAP PO PRN (23:36)
[2019-11-01] MEDS ORDERED: Albuterol Sulfate 2.5 mg/3 ml Neb NEB PRN (23:36)
[2019-11-02] MEDS ORDERED: Gabapentin 300 MG CAP PO PRN (00:30)
[2019-11-02] MEDS: Ipratropium Bromide 2.5 ml Neb NEB SCH ×5 (00:52→23:10)
[2019-11-02] MEDS ORDERED: traMADol HCl 50 MG TAB PO SCH (02:45)
[2019-11-02 05:06] LABS: ALT (SGPT) 25 U/L (8-55); AST (SGOT) 39 U/L (5-34); Albumin 3.4 g/dL (3.4-4.8); Alkaline Phosphatase 107 U/L (40-110); Anion Gap 17 mmol/L (10-20); BUN (Urea Nitrogen) 6 mg/dL (9.8-20.1); Bilirubin, Total 0.5 mg/dL (0.2-1.2); Calc. Creatinine Clearance 125 mL/min (70-130); Calcium 8.2 mg/dL (7.8-10.44); Carbon Dioxide 27 mmol/L (23-31); Chloride 95 mmol/L (98-107); Estimated GFR-MDRD 64; Globulin 3.7 g/dL (2.4-3.5); Glucose 218 mg/dL (80-115); Potassium 3.9 mmol/L (3.5-5.1); Protein, Total 7.1 g/dL (6.0-8.3); Sodium 135 mmol/L (136-145)
[2019-11-02 05:15] LABS: #Monocytes 0.4 thou/uL (0.11-0.59); #Neutrophils 15.1 thou/uL (1.40-6.50); %Basophils 0.1 % (0.0-1.0); %Eosinophils 0.2 % (0.0-10.0); %Lymphocytes 5.8 % (21.0-51.0); %Monocytes 2.3 % (0.0-10.0); %Neutrophils 91.6 % (42.0-75.0); Hemoglobin 14.3 g/dL (12.0-16.0); Mean Corpuscular HGB CONC 32.5 g/dL (32.0-36.0); Mean Corpuscular Hemoglobin 37.7 pg (27.0-31.0); Mean Platelet Volume 7.2 fL (7.4-10.4); Platelet Count 286 thou/uL (130-400); RBC Distribution Width 13.5 % (11.5-14.5); White Blood Cell (WBC) Count 16.5 thou/uL (4.8-10.8)
[2019-11-02 05:26] LABS: PTT 25.8 sec (22.9-36.1); Prothrombin Time 12.8 sec (12.0-14.7)
[2019-11-02] MEDS ORDERED: Lorazepam 2 MG/ML VIAL SLOW IVP PRN (05:40)
--- NOTE | 2019-11-02 05:51 | PDOC.FM ---
- Subjective Subjective: She says her breathing is her baseline. She states the swelling has improved. - Objective MAR Reviewed: Yes Vital Signs & Weight: Vital Signs (12 hours) Temp Pulse Resp BP BP Pulse Ox 11/02/19 04:21 98 11/02/19 04:07 132/77 11/02/19 03:52 97.9 F 105 H 18 132/77 92 L 11/02/19 00:52 106 H 20 97 11/02/19 00:00 98.0 F 109 H 18 132/67 92 L 11/01/19 22:35 94 L 11/01/19 22:21 97 20 98 11/01/19 19:48 98.3 F 110 H 24 H 192/98 H 94 L Weight Weight 126.235 kg I&O: 10/31/19 11/01/19 11/02/19 06:59 06:59 06:59 Intake Total 360 Output Total 400 Balance -40 Result Diagrams: 11/02/19 04:41 11/02/19 04:41 Phys Exam - Physical Examination Constitutional: NAD HEENT: moist MMs, oral pharynx no lesions Neck: no nodes, supple Respiratory: wheezing present Cardiovascular: RRR, no significant murmur, no rub Gastrointestinal: soft, positive bowel sounds Distended with generalized abdominal pain Musculoskeletal: pulses present Trace edema Neurological: moves all 4 limbs Psychiatric: normal affect Skin: no rash, normal turgor Dx/Plan (1) Community acquired pneumonia of left lower lobe of lung Code(s): J18.9 - PNEUMONIA, UNSPECIFIED ORGANISM Status: Acute (2) Elevated AST (SGOT) Code(s): R74.0 - NONSPEC ELEV OF LEVELS OF TRANSAMNS & LACTIC ACID DEHYDRGNSE Status: Acute (3) Hypertension Code(s): I10 - ESSENTIAL (PRIMARY) HYPERTENSION Status: Chronic Qualifiers: Hypertension type: essential hypertension Qualified Code(s): I10 - Essential (primary) hypertension (4) Macrocytosis Code(s): D75.89 - OTHER SPECIFIED DISEASES OF BLOOD AND BLOOD-FORMING ORGANS Status: Acute (5) Alcohol abuse Code(s): F10.10 - ALCOHOL ABUSE, UNCOMPLICATED Status: Chronic (6) Anxiety Code(s): F41.9 - ANXIETY DISORDER, UNSPECIFIED Status: Chronic (7) Chronic left hip pain Code(s): M25.552 - PAIN IN LEFT HIP; G89.29 - OTHER CHRONIC PAIN Status: Chronic (8) Tobacco abuse Code(s): Z72.0 - TOBACCO USE Status: Chronic - Plan Plan: 64 y/o F admitted to inpt for LLL pna and new onset anasarca. 1. CAP Tachypneic, Tachycardic with SOB * CXR: LLL atelectasis vs infiltrate * Received rocephin and azithromycin in the ED, will continue * Clinical presentation consistent with pneumonia, most likely community acquired. * No O2 requirement 2. Anasarca DDX: R sided HF 2/2 Cor Pulmonale, Liver dysfunction 2/2 long time etoh abuse, protein malnutrition * Abd US & ECHO ordered * Consider paracentesis pending US * Albumin: 3.4, TP: 7.1, Pre-albumin: 15 * Cr and BNP wnl * Given Lasix 80 mg IV in ED, had over 3.5L urine output. Strict I/O. * Continue lasix 40 mg IV bid 3. 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 COPD Continue spiriva and duonebs * Received Mag & Methylpred in the ED * Consider starting prednisone for 5 days if respiratory status worses. * Pt is at her baseline respiratory status and not in exacerbation 5. ETOH abuse d/o Currently: Drinking 2-12 oz beers daily, previously 30-12 oz beers * ASE protocol * f/u closely on scores and give lorazepam if necessary * Recommended complete cessation 6. Hx of HTN Continue home medication: Lisinopril/Hctz * PRN BP control if > sys 180 Code status: Full Diet: HH Dvt PPx: Lovenox PCP: FANTASMA Naqvi Dispo: Med inpt, will await results of ECHO & RUQ US & treat CAP with Abx. LOS > 48H. Addendum - Attending - Attending Attestation Date/Time: 11/02/19 1457 I personally evaluated the patient and discussed the management with Dr. Bradshaw. I agree with the History, Examination, Assessment and Plan documented above with any addition or exceptions noted below. Patient here with what I suspect is more COPD with exacerbation and we will treat her as such. Low suspicion for bacterial pneumonia. Needs med modulation for outpatient COPD regimen. Doing basic workup for her diffuse edema.
[2019-11-02] MEDS: traMADol HCl 50 MG TAB PO SCH ×3 (05:58→21:33)
[2019-11-02] MEDS: Furosemide 40 MG/4 ML VIAL SLOW IVP SCH ×2 (06:07→15:07)
--- NOTE | 2019-11-02 07:40 | ULT ---
RIGHT UPPER QUADRANT ULTRASOUND: DATE: 11/01/2019. COMPARISON: None. HISTORY: Alcohol abuse, abdominal bloating. TECHNIQUE: Multiplanar, bae scale sonographic imaging of the right upper quadrant provided. FINDINGS: Pancreas is obscured by bowel gas. The hepatic parenchyma is heterogeneous and echogenic, limiting a ssessment for a focal lesion and biliary dilatation. Findings suggest hepatocellular disease, such a s steatosis or cirrhotic change. There is a 2.3 cm shadowing stone within the gallbladder lumen. No gallbladder wall thickening or pericholecystic fluid. However, the glycerine plant operator reports a positive M urphy's sign. Right kidney measures approximately 9.5 cm. No obvious stone, hydronephrosis, or mass. Detailed ass essment of the right kidney is technically limited. The common bile duct could not be visualized. IMPRESSION: 1. Heterogeneous echogenic hepatic parenchyma as detailed above. 2. Cholelithiasis. It Systems Engineer reports a positive Campos's sign, and, thus, acute cholecystitis can not be fully excluded. However, no gallbladder wall thickening or pericholecystic fluid is seen. POS: SETVEN
[2019-11-02] MEDS ORDERED: Non-Formulary Item 1 EACH (Umeclidinium Bromide [Incruse Ellipta] 1 PUFF) PO SCH (09:00)
[2019-11-02] MEDS: Lisinopril/Hydrochlorothiazide 20/25 mg Tablet PO SCH (09:00)
[2019-11-02] MEDS: Gabapentin 300 MG CAP PO SCH ×3 (09:00→21:33)
[2019-11-02] MEDS ORDERED: Non-Formulary Item 1 EACH (Tiotropium [Spiriva Handihaler] 18 MCG) INH SCH (09:00)
[2019-11-02] MEDS ORDERED: guaiFENesin/DM ER PO SCH (09:00)
[2019-11-02] MEDS: Enoxaparin Sodium 40 MG/0.4 ML SYRINGE SC SCH (09:01)
[2019-11-02 12:05] LABS: Bacteria/HPF None Seen HPF (None Seen); Bilirubin Negative (Negative); Blood, Urine Negative (Negative); Clarity Clear (Clear); Glucose, Urine (Dipstick) Normal (Negative); Leukocyte Negative Leu/uL (Negative); Nitrite Negative (Negative); Protein, Urine (Dipstick) Negative (Neg-Trace); RBC/HPF 0-3 HPF (0-3); Squamous Epithelial 0-3 HPF (0-3); Urobilinogen Normal mg/dL (Less than 2); WBC/HPF 0-3 HPF (0-3)
[2019-11-02] MEDS ORDERED: cefTRIAXone\\ROCEPHIN 2 GM in Sodium Chloride 0.9% 100 ML IVPB SCH (17:00)
[2019-11-02] MEDS ORDERED: Azithromycin 250 MG in Sodium Chloride 0.9% 250 ML 250 ML IVPB SCH (18:00)
[2019-11-02] MEDS: Budesonide 0.5 MG/2 ML NEB INH SCH (18:24)
[2019-11-03 04:30] LABS: Band 2 % (5-11); Eosinophils 1 % (0-10); Hemoglobin 13.7 g/dL (12.0-16.0); Lymphocytes 17 % (21-51); MDiff Complete? YES; Mean Corpuscular HGB CONC 32.6 g/dL (32.0-36.0); Mean Corpuscular Hemoglobin 38.1 pg (27.0-31.0); Mean Platelet Volume 7.1 fL (7.4-10.4); Monocytes 7 % (0-10); Neutrophil 73 % (42-75); Platelet Count 274 thou/uL (130-400); Platelet Morphology Comment Appears Adequate; RBC Distribution Width 13.4 % (11.5-14.5); Red Blood Cell (RBC) Count 3.61 mill/uL (4.20-5.40); White Blood Cell (WBC) Count 13.8 thou/uL (4.8-10.8)
[2019-11-03 04:50] LABS: ALT (SGPT) 24 U/L (8-55); AST (SGOT) 61 U/L (5-34); Albumin 3.3 g/dL (3.4-4.8); Alkaline Phosphatase 89 U/L (40-110); Anion Gap 14 mmol/L (10-20); BUN (Urea Nitrogen) 10 mg/dL (9.8-20.1); Bilirubin, Total 0.5 mg/dL (0.2-1.2); Calc. Creatinine Clearance 145 mL/min (70-130); Carbon Dioxide 29 mmol/L (23-31); Chloride 95 mmol/L (98-107); Estimated GFR-MDRD 76; Globulin 3.5 g/dL (2.4-3.5); Glucose 107 mg/dL (80-115); Potassium 3.8 mmol/L (3.5-5.1); Protein, Total 6.8 g/dL (6.0-8.3); Sodium 134 mmol/L (136-145)
--- NOTE | 2019-11-03 06:01 | PDOC.FM ---
- Subjective Subjective: She says the swelling is improved. She states she is breathing well. - Objective MAR Reviewed: Yes Vital Signs & Weight: Vital Signs (12 hours) Temp Pulse Resp BP Pulse Ox 11/02/19 23:10 88 20 93 L 11/02/19 19:39 97.7 F 89 22 H 131/66 94 L 11/02/19 18:22 90 20 98 Weight Weight 126.235 kg I&O: 11/01/19 11/02/19 11/03/19 06:59 06:59 06:59 Intake Total 360 1270 Output Total 400 1250 Balance -40 20 Result Diagrams: 11/03/19 04:17 11/03/19 04:17 Phys Exam - Physical Examination Constitutional: NAD HEENT: moist MMs, sclera anicteric, oral pharynx no lesions Neck: no nodes, supple Respiratory: wheezing present Cardiovascular: RRR, no significant murmur, no rub Gastrointestinal: soft, non-tender, positive bowel sounds Musculoskeletal: pulses present Trace edema Neurological: moves all 4 limbs Lymphatic: no nodes Psychiatric: normal affect Skin: no rash, normal turgor Dx/Plan (1) Community acquired pneumonia of left lower lobe of lung Code(s): J18.9 - PNEUMONIA, UNSPECIFIED ORGANISM Status: Acute (2) Elevated AST (SGOT) Code(s): R74.0 - NONSPEC ELEV OF LEVELS OF TRANSAMNS & LACTIC ACID DEHYDRGNSE Status: Acute (3) Hypertension Code(s): I10 - ESSENTIAL (PRIMARY) HYPERTENSION Status: Chronic Qualifiers: Hypertension type: essential hypertension Qualified Code(s): I10 - Essential (primary) hypertension (4) Macrocytosis Code(s): D75.89 - OTHER SPECIFIED DISEASES OF BLOOD AND BLOOD-FORMING ORGANS Status: Acute (5) Alcohol abuse Code(s): F10.10 - ALCOHOL ABUSE, UNCOMPLICATED Status: Chronic (6) Anxiety Code(s): F41.9 - ANXIETY DISORDER, UNSPECIFIED Status: Chronic (7) Chronic left hip pain Code(s): M25.552 - PAIN IN LEFT HIP; G89.29 - OTHER CHRONIC PAIN Status: Chronic (8) Tobacco abuse Code(s): Z72.0 - TOBACCO USE Status: Chronic - Plan Plan: 64 y/o F admitted to inpt for LLL pna and new onset anasarca. 1. CAP Tachypneic, Tachycardic with SOB * CXR: LLL atelectasis vs infiltrate * Received rocephin and azithromycin in the ED * Rocephin stopped yesterday * Clinical presentation consistent with pneumonia, most likely community acquired. * No O2 requirement 2. Anasarca DDX: R sided HF 2/2 Cor Pulmonale, Liver dysfunction 2/2 long time etoh abuse, protein malnutrition * Abd US: cholelithiasis and cirrhosis vs steatosis * ECHO: EF 60-65% with mild MR & TR * UA: No protein * Albumin: 3.4, TP: 7.1, Pre-albumin: 15 * Cr and BNP wnl * Given Lasix 80 mg IV in ED, had over 3.5L urine output. Strict I/O. * Will transition to oral Lasix at d/c 3. 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 COPD Continue spiriva and duonebs, Pulmicort was added yesterday * Received Mag & Methylpred in the ED * Consider starting prednisone for 5 days if respiratory status worses. * Pt is at her baseline respiratory status and not in exacerbation 5. ETOH abuse d/o Currently: Drinking 2-12 oz beers daily, previously 30-12 oz beers * ASE protocol * f/u closely on scores and give lorazepam if necessary * Recommended complete cessation 6. Hx of HTN Continue home medication: Lisinopril/Hctz * PRN BP control if > sys 180 Code status: Full Diet: HH Dvt PPx: Lovenox PCP: FANTASMA Naqvi Dispo: Med inpt, likely d/c today. LOS > 48H. Addendum - Attending - Attending Attestation Date/Time: 11/03/19 3054 I personally evaluated the patient and discussed the management with Dr. Bradshaw. I agree with the History, Examination, Assessment and Plan documented above with any addition or exceptions noted below. Patient reports breathing back to baseline. We are modulating her outpatient COPD regimen to improve compliance. Possible dc later today with steroid taper.
[2019-11-03] MEDS: traMADol HCl 50 MG TAB PO SCH ×2 (06:24→16:16)
[2019-11-03] MEDS: Furosemide 40 MG/4 ML VIAL SLOW IVP SCH ×2 (06:24→15:20)
[2019-11-03] MEDS: Ipratropium Bromide 2.5 ml Neb NEB SCH ×2 (06:30→13:13)
[2019-11-03] MEDS: Budesonide 0.5 MG/2 ML NEB INH SCH (06:30)
[2019-11-03 08:27] VITALS: BP 133/83; TEMP 97.9
[2019-11-03] MEDS ORDERED: Senokot S 8.6-50 MG TAB PO SCH (09:45)
[2019-11-03] MEDS: Gabapentin 300 MG CAP PO SCH ×2 (10:19→15:20)
[2019-11-03] MEDS: Enoxaparin Sodium 40 MG/0.4 ML SYRINGE SC SCH (10:19)
[2019-11-03] MEDS: Lisinopril/Hydrochlorothiazide 20/25 mg Tablet PO SCH (10:20)
--- NOTE | 2019-11-03 12:26 | PQF ---
DATE: 11-03-19 ATTN: DR. BIJAN WINCHESTER Please exercise your independent, professional judgment in responding to the clarification form. Clinical indicators are provided on the bottom of this form for your review Please check appropriate box(s) to clarify if the following diagnosis has been ruled in or ruled out: SEPSIS [ ] Ruled in diagnosis [ ] Continue to treat [ ] Resolved [ x ] Ruled out diagnosis [ ] Other diagnosis [ ] Unable to determine In addition, please specify: Present on Admission (POA): [ x ] Yes [ ] No [ ] Unable to determine For continuity of documentation, please document condition throughout progress notes and discharge summary. Thank You. CLINICAL INDICATORS - SIGNS / SYMPTOMS / LABS / RESULTS AND LOCATION IN MR: ER DX 11-01-19: POSSIBLE PNEUMONIA, ANASARCA, COPD EXACERBATION, SEPSIS H&P 11-01-19: ACUTE COMMUNITY ACQUIRED PNEUMONIA, ANASARCA, ALCOHOL ABUSE PULSE: 11-01-19: 110 11-02-19: 109, 106, 105, 102, 105 RR: 11-01-19: 24 11-02-19: 22, 24, 22 WBC: 11-01-19: 12.8 11-02-19: 16.5 11-03-19: 13.8 LACTIC ACID: 11-01-19: 3.9, 3.9 RISK FACTORS / RESULTS AND LOCATION IN MR: ER DX 11-01-19: POSSIBLE PNEUMONIA, ANASARCA, COPD EXACERBATION, SEPSIS H&P 11-01-19: ACUTE COMMUNITY ACQUIRED PNEUMONIA, ANASARCA, ALCOHOL ABUSE TREATMENTS / RESULTS AND LOCATION IN MR: ER NOTES 11-01-19: AZITHROMYCIN IV, CEFTRIAXONE IV, LASIX IV, METHYLPREDNISOLONE IV, MAGNESIUM SULFATE IV (This form is maintained as a part of the permanent medical record) 2014 [employer]. All Rights Reserved [email or web address]
--- NOTE | 2019-11-04 00:43 | DIS ---
DATE OF ADMISSION: 11/01/2019 DATE OF DISCHARGE: 11/03/2019 ADMITTING ATTENDING: Eulogio Brito MD DISCHARGE ATTENDING: Sheldon Epps MD RESIDENT: Nicko Bradshaw MD CONSULTS: None. PROCEDURES: * Chest x-ray on 10/31 shows left lower lobe atelectasis versus infiltrate. * Abdominal ultrasound on 11/01/2019, heterogeneous echogenic hepatic parenchyma , cholelithiasis, positive Campos. No gallbladder wall thickening or pericholecystic fluid. Echo on 11/02/2019 shows an EF of 60% to 65%, grade 1/3 diastolic dysfunction, mild mitral regurg, and tricuspid regurg. PRIMARY DIAGNOSIS: 1. Chronic obstructive pulmonary disease exacerbation. SECONDARY DIAGNOSES: 1. Community-acquired pneumonia 2. Anasarca 3. Elevated AST and alkaline phosphatase 4. Alcohol abuse 5. History of hypertension. DISCHARGE MEDICATIONS: 1. Albuterol 2.5 mg nebs q.4 hours p.r.n. for wheezing. 2. Lasix 40 mg b.i.d. 3. Gabapentin 300 mg p.o. t.i.d. 4. Lisinopril/hydrochlorothiazide 20/25 daily. 5. Tramadol 100 mg q.8 hours. 6. Azithromycin 250 mg for 2 days. 7. Budesonide 2 mg inhaled q.6 hours. 8. Formoterol 20 mcg b.i.d. 9. DuoNeb 3 mL q.4 hours nebulizer machine. DISCONTINUED MEDICATIONS: 1. Ellipta. 2. Spiriva. HISTORY OF PRESENT ILLNESS: The patient is a 64-year-old female with past medical history of COPD, alcohol abuse, and hypertension, who presents to the ED for gradual onset of generalized edema. The patient states the swellings are off in her hands with a spider bite around three months ago. She has progressed to the lower extremity and now abdomen edema. This is new for her. She complains of pain in abdomen due to tenseness. The patient complains of shortness of breath and cough that is now worse than her baseline respiratory status. Denies chest pain , palpitations, PND, and orthopnea. The patient admits chronic urinary incontinence and frequency urinating every 20 minutes throughout the night. Denies dysuria. She [facility] morning and told to come to the ER to be evaluated for the edema. The patient admits drinking 30 pack of 12-ounce beers daily for the past 45 years. She is currently down to 2 of 12-ounce beers a day, although she still drinks nonalcoholic beer with that. She smokes three packs per day for years and now down to half a pack per day. Denies any Tylenol use. HOSPITAL COURSE: 1. COPD exacerbation. Continue azithromycin. * She should go home on Pulmicort nebulizer, albuterol nebulizer, DuoNeb nebulizer, and formoterol nebulizer. * Discussed mixing formoterol with the budesonide before administering. * She received Mag and methylprednisone in the ED. 2. Community-acquired pneumonia Tachypnea, tachycardia with shortness of breath. * Chest x-ray shows lower left lobe atelectasis versus infiltrate. * Continue azithromycin. * Received azithromycin and Rocephin in the ED. * Currently on room air. * Never required oxygen during hospitalization. 3. Anasarca. Abdominal ultrasound showed cholelithiasis and cirrhosis versus steatosis. * Most likely nonalcoholic fatty liver disease versus alcoholic liver disease. * Echo shows EF is 60% to 65%. No concerns with the heart at this time. * UA shows no protein. * Albumin 3.4, total protein 7.1, and prealbumin 15. * Will discharge on 40 mg p.o. b.i.d. of Lasix. 4. Elevated AST and alkaline phosphatase. Coag panel was within normal limits. * Abdominal ultrasound as noted above, likely secondary to cirrhosis. 5. Alcohol abuse. Recommended cessation * ASE protocol was in place and Ativan was prn, but no Ativan was given. 6. History of hypertension. Continue home medication of lisinopril/hydrochlorothiazide. DISCHARGE INSTRUCTIONS: 1. Location: Home. 2. Activity: As tolerated. 3. Diet: Heart healthy, low-sodium. 4. Followup: Follow up with Dr. Naqvi at [facility] within 7 days of discharge. Job ID: [id number] [facility]
== END 2019-11-03 16:42 | disposition home or self-care (01) | DRG 190 ==
LOC: ERS 14:13 → ONC 20:07
PROVIDERS: ADMIT Family Medicine; ATTEND Family Medicine
DX: J44.1 Chronic obstructive pulmonary disease with (acute) exacerbation (principal); J18.9 Pneumonia, unspecified organism; J44.0 Chronic obstructive pulmonary disease with (acute) lower respiratory infection; K80.20 Calculus of gallbladder without cholecystitis without obstruction; F10.10 Alcohol abuse, uncomplicated; I10 Essential (primary) hypertension; I08.1 Rheumatic disorders of both mitral and tricuspid valves; R60.1 Generalized edema; F17.210 Nicotine dependence, cigarettes, uncomplicated; G89.29 Other chronic pain; M25.552 Pain in left hip; K70.30 Alcoholic cirrhosis of liver without ascites; D75.89 Other specified diseases of blood and blood-forming organs; F41.9 Anxiety disorder, unspecified; Z71.41 Alcohol abuse counseling and surveillance of alcoholic
CPT/HCPCS: 36415; 71045; 76705; 80053; 81001; 82607; 82746; 83605; 83880; 84134; 84145; 84484; 85025; 85610; 85730; 87040; 93005; 93306; 94640; 96365; 96367; 96375; J0360; J0456; J0696; J1650; J1940; J2270; J2930; J3475; J7050; J7620; J7626

== ENCOUNTER 2019-12-04 14:56 | Inpatient (IN) | payer MEDICARE, MEDICAID, OTHER ==
[~2019-12-04 14:56] MED LIST changes: -ISOVUE-370 76%-LOCM 1 ML ONE; +Iopamidol-370 76% 500 ML 1 ML ONE
--- NOTE | 2019-12-04 15:32 | RAD ---
EXAM: CHEST ONE VIEW HISTORY: Chest pain and shortness of breath. Upper and lower extremity swelling. COMPARISON: 11/01/2019 FINDINGS: Cardiac silhouette is magnified by projection but stable in size. Pulmonary vasculature is within nor mal limits for the portable technique. The linear and mild patchy parenchymal density in the region of the lingula is again seen which again may be related to either area of atelectasis or pneumonia. T here does appear to be slight blunting of each lateral costophrenic angle probably attributable to overlying soft tissue density. However, this does limit evaluation for pleural effusions. Remote bila teral rib fractures are again seen with deformity of lateral left-sided ribs again present. IMPRESSION: Persistent linear and patchy parenchymal density in the expected location of the lingula which could be related to persistent atelectasis, but pneumonia is also a differential consideration. Follow-up to resolution is recommended.
[2019-12-04] MEDS ORDERED: PROVENTIL INHALER 6.7 G (200 INHALATIONS) ONE (15:34)
[2019-12-04] MEDS ORDERED: Albuterol 200 PUFF (6.7GM INHALER) ONE (15:39)
[2019-12-04 15:55] LABS: Bilirubin 1+ (Negative); Blood, Urine Negative (Negative); Clarity Extra Turbid (Clear); Glucose, Urine (Dipstick) Normal (Negative); Ketone, Urine Negative (Negative); Leukocyte Negative Leu/uL (Negative); Mucous/LPF Rare LPF (<2+); Nitrite Negative (Negative); Protein, Urine (Dipstick) 100 mg/dL (Neg-Trace); RBC/HPF 0-3 HPF (0-3); Specific Gravity, Urine 1.025 (1.002-1.036); Squamous Epithelial 0-3 HPF (0-3); Urobilinogen 12 mg/dL (Less than 2)
[2019-12-04 16:03] LABS: Bacteria/HPF Rare-Few HPF (None Seen)
[2019-12-04 16:04] LABS: Hemoglobin 13.6 g/dL (12.0-16.0); Mean Corpuscular HGB CONC 31.9 g/dL (32.0-36.0); Mean Corpuscular Hemoglobin 37.6 pg (27.0-31.0); Mean Platelet Volume 7.2 fL (7.4-10.4); Platelet Count 409 thou/uL (130-400); RBC Distribution Width 13.8 % (11.5-14.5); Red Blood Cell (RBC) Count 3.62 mill/uL (4.20-5.40); White Blood Cell (WBC) Count 21.2 thou/uL (4.8-10.8)
[2019-12-04 16:18] LABS: ALT (SGPT) 25 U/L (8-55); AST (SGOT) 78 U/L (5-34); Albumin 3.2 g/dL (3.4-4.8); Alkaline Phosphatase 192 U/L (40-110); Anion Gap 17 mmol/L (10-20); BUN (Urea Nitrogen) 4 mg/dL (9.8-20.1); Bilirubin, Total 1.3 mg/dL (0.2-1.2); Calc. Creatinine Clearance 0 mL/min (70-130); Calcium 8.2 mg/dL (7.8-10.44); Carbon Dioxide 25 mmol/L (23-31); Chloride 93 mmol/L (98-107); Estimated GFR-MDRD Greater than 90; Globulin 3.9 g/dL (2.4-3.5); Glucose 115 mg/dL (80-115); Potassium 4.7 mmol/L (3.5-5.1); Protein, Total 7.1 g/dL (6.0-8.3); Sodium 130 mmol/L (136-145)
[2019-12-04] MEDS ORDERED: Morphine 4 MG/ML VIAL ONE (16:21)
[2019-12-04 16:22] LABS: Band 8 % (5-11); Lymphocytes 13 % (21-51); MDiff Complete? YES; Macrocytosis SLIGHT = 6-15 cells (100X) (0-5/hpf); Monocytes 4 % (0-10); Neutrophil 73 % (42-75); Platelet Morphology Comment Appears Increased
[2019-12-04] MEDS ORDERED: cefTRIAXone\\ROCEPHIN 2 GM VIAL ONE (16:23)
[2019-12-04] MEDS ORDERED: Azithromycin 500 MG VIAL ONE (16:23)
--- NOTE | 2019-12-04 16:43 | PDOC.FPRHP ---
- History of Present Illness Chief Complaint: Shortness of Breath History of Present Illness: Patient reports SOB and swelling to abdomen/BUE/BLE for "a long time - 2-3 weeks." Patient talking in single words d/t difficulty breathing. 85% on RA in triage. Taken straight back to room and care started immediately. ED Course: azithromycin 500mg, Rocephin 2g, 4 mg morphine, proventil inhaler - Allergies/Adverse Reactions Allergies Allergy/AdvReac Type Severity Reaction Status Date / Time No Known Allergies Allergy Verified 08/26/19 09:18 - Home Medications Medication Instructions Recorded Confirmed Type Lisinopril/Hydrochlorothiazide 1 tablet PO DAILY 04/14/13 11/01/19 History [Lisinopril-Hctz 20-25 mg Tab] traMADol HCl [Tramadol HCl] 50 - 100 mg PO Q8HR 10/19/17 11/02/19 History Gabapentin 300 mg PO TID 11/02/19 11/02/19 History ALButerol Sulfate [Ventolin Neb] 2.5 mg NEB Q4H PRN 30 Days #90 neb 11/03/19 Rx Azithromycin 250 mg PO DAILY 2 Days #2 tablet 11/03/19 Rx Budesonide [Pulmicort Neb Solution] 2 mg INH Q6H 30 Days #240 ampule 11/03/19 Rx Formoterol Fumarate [Perforomist] 20 mcg IH BID 30 Days #60 vial 11/03/19 Rx Ipratropium/Albuterol Sulfate 3 ml NEB Q4H PRN 30 Days #180 neb 11/03/19 Rx [DuoNeb] Nebulizer [Compact Compressor 1 unit MC ASDIR 1 Days #1 kit 11/03/19 Rx Nebulizer] - History PMHx: COPD, HTN, chronic L hip pain PSHx: C/S x4 & left hip sx x4 FHx: Mother of old age in 80's, no known family medical problems. Social: ~50 pack year smoking history. Cut down to 1/2 ppd, from 3 ppd use at highest. Reports drinking about 2 12oz beers/day, previous 30 pack beer a week with liquor use occasionally. Denies drug use. Lives at home with ex-. - Vital signs BP: 182/104 HR: 100 RR: 26 Tmax: 98.6 Pox: 94% on RA Wt: 132kg FMR H&P: Results - Labs Result Diagrams: 12/04/19 15:21 12/04/19 15:21 Lab results: WBC 21.2 thou/uL (4.8-10.8) H 12/04/19 15:21 Hgb 13.6 g/dL (12.0-16.0) 12/04/19 15:21 Hct 42.7 % (36.0-47.0) 12/04/19 15:21 MCV 118.0 fL (78.0-98.0) H 12/04/19 15:21 Plt Count 409 thou/uL (130-400) H 12/04/19 15:21 Band Neuts % (Manual) 8 % (5-11) 12/04/19 15:21 Sodium 130 mmol/L (136-145) L 12/04/19 15:21 Potassium 4.7 mmol/L (3.5-5.1) 12/04/19 15:21 Chloride 93 mmol/L (98-107) L 12/04/19 15:21 Carbon Dioxide 25 mmol/L (23-31) 12/04/19 15:21 BUN 4 mg/dL (9.8-20.1) L 12/04/19 15:21 Creatinine 0.62 mg/dL (0.6-1.1) 12/04/19 15:21 Glucose 115 mg/dL (80-115) 12/04/19 15:21 Lactic Acid 4.6 mmol/L (0.5-2.2) H* 12/04/19 15:21 Calcium 8.2 mg/dL (7.8-10.44) 12/04/19 15:21 Total Bilirubin 1.3 mg/dL (0.2-1.2) H 12/04/19 15:21 AST 78 U/L (5-34) H 12/04/19 15:21 ALT 25 U/L (8-55) 12/04/19 15:21 Alkaline Phosphatase 192 U/L (40-110) H 12/04/19 15:21 Ammonia 53 umol/L (18-72) 12/04/19 15:18 B-Natriuretic Peptide 73.3 pg/mL (0-100) 12/04/19 15:21 Serum Total Protein 7.1 g/dL (6.0-8.3) 12/04/19 15:21 Albumin 3.2 g/dL (3.4-4.8) L 12/04/19 15:21 Urine Ketones Negative mg/dL (Negative) 12/04/19 15:18 Urine Blood Negative (Negative) 12/04/19 15:18 Urine Nitrite Negative (Negative) 12/04/19 15:18 Ur Leukocyte Esterase Negative Brenda/uL (Negative) 12/04/19 15:18 Urine RBC 0-3 HPF (0-3) 12/04/19 15:18 Urine WBC 4-6 HPF (0-3) A 12/04/19 15:18 Ur Squamous Epith Cells 0-3 HPF (0-3) 12/04/19 15:18 Urine Bacteria Rare-Few HPF (None Seen) 12/04/19 15:18 - EKG Interpretation EKG: Normal sinus rhythm with a rate of 95 normal [place] interval QRS duration. Low voltage QRS complex. Normal axis. No ST changes no T wave inversions. Impression normal sinus rhythm low voltage. - Radiology Interpretation Chest x-ray Status: image reviewed by me, report reviewed by me Additional comment: IMPRESSION: Persistent linear and patchy parenchymal density in the expected location of the lingula which could be related to persistent atelectasis, but pneumonia is also a differential consideration. Follow-up to resolution is recommended. FMR H&P: Upper Level - Plan Date/Time: 12/04/19 [id number] I, [], have evaluated this patient and agree with findings/plan as outlined by food and beverage intern resident. Pertinent changes/additions are listed here.
[2019-12-04] MEDS ORDERED: diphenhydrAMINE 50 MG/ML VIAL ONE (16:55)
[2019-12-04] MEDS ORDERED: Dexamethasone 10 MG/ML VIAL ONE (16:57)
[2019-12-04] MEDS ORDERED: Ketamine 50 MG/ML (10ML VIAL) ONE (17:05)
[2019-12-04] MEDS ORDERED: Rocuronium Bromide 50 MG/5 ML VIAL ONE ×2 (17:05→18:37)
[2019-12-04] MEDS ORDERED: Fentanyl 100 MCG/2 ML VIAL ONE ×2 (17:28→17:52)
[2019-12-04] MEDS ORDERED: Magnesium 2 GM/50 ML BAG (IN WATER) ONE (17:51)
[2019-12-04] MEDS ORDERED: Nitroglycerin 2% Ointment 1 INCH/1 GM Packet ONE (17:52)
[2019-12-04 18:03] LABS: Actual Bicarbonate (HCO3a) 31.3 mEq/L (22-28); Analyzer IN Cardio ER; Base Excess (BEa) 4.5 mEq/L (-2.0 to +3.0); CO2 Tension 55.6 mmHg (35.0-45.0); Calcium, Ionized (arterial) 1.05 mmol/L (1.12-1.30); Carboxyhemoglobin (COHb) 3.4 gm% (0.0-3.0); Hemoglobin (Hb) 14.6 g/dL (12.0-16.0); O2 Tension (PaO2), arterial 103.4 mmHg (> 80.0); Potassium - ABG Lab 4.12 mmol/L (3.70-5.30); pH, Arterial 7.37 (7.35-7.45)
[2019-12-04 18:06] LABS: Puncture Site LRA
[2019-12-04] MEDS ORDERED: Propofol 1,000 MG/100 ML VIAL IV ONE ×2 (18:13→20:25)
--- NOTE | 2019-12-04 18:19 | RAD ---
CHEST ONE VIEW: History: Status post intubation. Comparison: 12-04-2019 at 2:43 p.m. FINDINGS: Interval placement of endotracheal tube. Nasogastric tube is identified but does not appear to extend beyond the diaphragm. Additional imaging is recommended. Stable cardiac silhouette. Diffuse lung parenchymal changes. No pneumothorax on the supine projection . IMPRESSION: Endotracheal and nasogastric tube as described above. Incomplete evaluation of the nasogastric tube. Additional imaging is recommended. POS: PPP
[2019-12-04] MEDS ORDERED: Furosemide 40 MG/4 ML VIAL ONE (18:44)
[2019-12-04] MEDS ORDERED: Albuterol Sulfate 2.5 mg/0.5 ml Neb ONE ×2 (18:52→18:53)
--- NOTE | 2019-12-04 19:13 | RAD ---
XR Chest 1 View Portable History: Intubated patient Comparison: Radiograph same day Findings: Enteric tube is in place with tip below diaphragm although out of field of view. Endotrache al tube tip felt to be just below the level of the clavicles although not well seen. Peripheral pleural thickening as well as airspace opacities are similar. Numerous left-sided rib frac tures. Small effusions. Impression: Enteric tube tip below diaphragm although out of field of view. Remainder the findings ar e similar.
--- NOTE | 2019-12-04 19:37 | PDOC.FPRHP ---
- History of Present Illness Chief Complaint: SOB History of Present Illness: Unable to obtain history due to patient intubated. Per ED chart review, patient complained of progressively worsening SOB, bilateral upper extremity edema and bilateral lower extremity edema for the past 2-3 weeks. She also reported wheezing, abdominal distention and unspecified pain rated an 8/10. She was recently discharged from the hospital on 11/01/19 with ddx of COPD exacerbation 2 /2 CAP. In the ED, patient was noted to have worsening acute hypoxic respiratory failure that required intubation. BP ranged 230s/110s so nitro-bid was administered. ED Course: See HPI for details - Allergies/Adverse Reactions Allergies Allergy/AdvReac Type Severity Reaction Status Date / Time No Known Allergies Allergy Verified 08/26/19 09:18 - Home Medications Medication Instructions Recorded Confirmed Type Lisinopril/Hydrochlorothiazide 1 tablet PO DAILY 04/14/13 11/01/19 History [Lisinopril-Hctz 20-25 mg Tab] traMADol HCl [Tramadol HCl] 50 - 100 mg PO Q8HR 10/19/17 11/02/19 History Gabapentin 300 mg PO TID 11/02/19 11/02/19 History ALButerol Sulfate [Ventolin Neb] 2.5 mg NEB Q4H PRN 30 Days #90 neb 11/03/19 Rx Azithromycin 250 mg PO DAILY 2 Days #2 tablet 11/03/19 Rx Budesonide [Pulmicort Neb Solution] 2 mg INH Q6H 30 Days #240 ampule 11/03/19 Rx Formoterol Fumarate [Perforomist] 20 mcg IH BID 30 Days #60 vial 11/03/19 Rx Ipratropium/Albuterol Sulfate 3 ml NEB Q4H PRN 30 Days #180 neb 11/03/19 Rx [DuoNeb] Nebulizer [Compact Compressor 1 unit MC ASDIR 1 Days #1 kit 11/03/19 Rx Nebulizer] - History PMHx: COPD, HTN, diastolic dysfunction, mitral regurgitation, tricuspid regurgitation, morbid obesity, liver dysfunction, protein malnutrition, chronic hip and back pain, anxiety, depression PSHx: x 3, L hip replacement FHx: Unable to obtain Social: Hx of smoking 1 ppd, ETOH abuse - Vital signs BP: [146/71] HR: [81] RR: [16] Tmax: [98.6] Pox: [97]% on [vent] Wt: [132kg] - Physical Exam -Constitutional: Patient intubated and sedated HEENT: normocephalic and atraumatic Neck: supple, trachea midline Heart: RRR, normal S1/S2, no murmurs/rubs/gallops, pulses present -Heart: +1 pitting edema, lower extremities -Lungs: Inspiratory crackles diffuse through lung tolentino, expiratory wheezes bilaterally Abdomen: soft, bowel sounds present -Abdomen: Abdominal distention -Musculoskeletal: No gross deformities -Neurological: Sedated Skin: no rash/lesions Heme/Lymphatic: no unusual bruising or bleeding FMR H&P: Results - Labs Result Diagrams: 12/04/19 15:21 12/04/19 15:21 Lab results: WBC 21.2 thou/uL (4.8-10.8) H 12/04/19 15:21 Hgb 13.6 g/dL (12.0-16.0) 12/04/19 15:21 Hct 42.7 % (36.0-47.0) 12/04/19 15:21 MCV 118.0 fL (78.0-98.0) H 12/04/19 15:21 Plt Count 409 thou/uL (130-400) H 12/04/19 15:21 Band Neuts % (Manual) 8 % (5-11) 12/04/19 15:21 ABG pH 7.37 (7.35-7.45) 12/04/19 17:55 ABG pCO2 55.6 mmHg (35.0-45.0) H 12/04/19 17:55 ABG pO2 103.4 mmHg (> 80.0) H 12/04/19 17:55 Sodium 130 mmol/L (136-145) L 12/04/19 15:21 Potassium 4.7 mmol/L (3.5-5.1) 12/04/19 15:21 Chloride 93 mmol/L (98-107) L 12/04/19 15:21 Carbon Dioxide 25 mmol/L (23-31) 12/04/19 15:21 BUN 4 mg/dL (9.8-20.1) L 12/04/19 15:21 Creatinine 0.62 mg/dL (0.6-1.1) 12/04/19 15:21 Glucose 115 mg/dL (80-115) 12/04/19 15:21 Lactic Acid 4.6 mmol/L (0.5-2.2) H* 12/04/19 15:21 Calcium 8.2 mg/dL (7.8-10.44) 12/04/19 15:21 Total Bilirubin 1.3 mg/dL (0.2-1.2) H 12/04/19 15:21 AST 78 U/L (5-34) H 12/04/19 15:21 ALT 25 U/L (8-55) 12/04/19 15:21 Alkaline Phosphatase 192 U/L (40-110) H 12/04/19 15:21 Ammonia 53 umol/L (18-72) 12/04/19 15:18 C-Reactive Protein 6.08 mg/dL (= or < 0.5) H 12/04/19 15:21 B-Natriuretic Peptide 73.3 pg/mL (0-100) 12/04/19 15:21 Serum Total Protein 7.1 g/dL (6.0-8.3) 12/04/19 15:21 Albumin 3.2 g/dL (3.4-4.8) L 12/04/19 15:21 Urine Ketones Negative mg/dL (Negative) 12/04/19 15:18 Urine Blood Negative (Negative) 12/04/19 15:18 Urine Nitrite Negative (Negative) 12/04/19 15:18 Ur Leukocyte Esterase Negative Brenda/uL (Negative) 12/04/19 15:18 Urine RBC 0-3 HPF (0-3) 12/04/19 15:18 Urine WBC 4-6 HPF (0-3) A 12/04/19 15:18 Ur Squamous Epith Cells 0-3 HPF (0-3) 12/04/19 15:18 Urine Bacteria Rare-Few HPF (None Seen) 12/04/19 15:18 - EKG Interpretation EKG: Rate 95. NSR FMR H&P: A/P - Problem List (1) Acute hypoxemic respiratory failure Current Visit: No Status: Acute Code(s): J96.01 - ACUTE RESPIRATORY FAILURE WITH HYPOXIA (2) Community acquired bacterial pneumonia Current Visit: No Status: Acute Code(s): J15.9 - UNSPECIFIED BACTERIAL PNEUMONIA (3) COPD exacerbation Current Visit: No Status: Acute Code(s): J44.1 - CHRONIC OBSTRUCTIVE PULMONARY DISEASE W (ACUTE) EXACERBATION (4) Morbid obesity with alveolar hypoventilation Current Visit: No Status: Acute Code(s): E66.2 - MORBID (SEVERE) OBESITY WITH ALVEOLAR HYPOVENTILATION (5) Hypertension Current Visit: No Status: Chronic Code(s): I10 - ESSENTIAL (PRIMARY) HYPERTENSION Qualifiers: Hypertension type: essential hypertension Qualified Code(s): I10 - Essential (primary) hypertension (6) Anasarca Current Visit: No Status: Acute Code(s): R60.1 - GENERALIZED EDEMA (7) Hyponatremia Current Visit: No Status: Acute Code(s): E87.1 - HYPO-OSMOLALITY AND HYPONATREMIA (8) Elevated AST (SGOT) Current Visit: No Status: Acute Code(s): R74.0 - NONSPEC ELEV OF LEVELS OF TRANSAMNS & LACTIC ACID DEHYDRGNSE (9) Alcohol abuse Current Visit: No Status: Chronic Code(s): F10.10 - ALCOHOL ABUSE, UNCOMPLICATED (10) Macrocytic anemia Current Visit: No Status: Acute Code(s): D53.9 - NUTRITIONAL ANEMIA, UNSPECIFIED - Plan 1. Acute hypoxic respiratory failure 2/2 CAP, COPD exacerbation, morbid obesity hypoventilation In the ED, patient noted to have inspiratory crackles and expiratory wheezing bilaterally. WBC 21.1. LDH 314. D-dimer 3.65. Procal 0.28. ABG showed CO2 55.6 with pH of 7.37. CXR showed density at lingula. CT Chest was ordered to evaluate possible PE. Patient required intubation due to worsening respiratory status in the ED. -Follow pulm recs -F/u COVID results -F/u CT Chest results -Trend lactic acid to assess volume status -Ceftriaxone 1g IV daily -Azithromycin 500mg IV daily -Prednisone 40mg daily -Duoneb Q6H 2. HTN Patient has a history of HTN. BP ranged 230s/110s in the ED. Given nitro-bid. -Continue lisinopril/hydrochlorothiazide 20/25 daily -Hydralazine 10mg/mL PRN if systolic > 180 or diastolic > 100 3. Anasarca Patient has history of generalized edema. Echo completed on 11/02/19 showed diastolic dysfunction with MR and TR. BMP is 73.3 in ED. Cause likely hx of liver dysfunction and protein malnutrition. -Hold Lasix 40 mg BID 3. Hyponatremia Na+ was 130 in the ED. Likely due history of malnutrition. -Continue to monitor daily 4. Alcohol abuse Patient has a history of consuming 5 drinks per day, per chart review. MCV elevated at 118. -ASE protocol -Start multivitamin once tolerating PO FMR H&P: Upper Level - Plan Date/Time: 12/04/191934 I, Andrea Bowden [email or web address], have evaluated this patient and agree with findings/plan as outlined by internet application developer resident. Pertinent changes/additions are listed here. Subjective: 64yo F presents for edema after recently being DCd for COPDex and CAP. She quickly decompensated in ED and was intubated. Pt unable to give any Hx so most of h&p was gained from chart review. Pt was intubated and started on propofol and fentanyl. Given azithro and rocephin. Given one dose lasix. Objective: SBP 200s, O2 sats in 90s with pt intubated with RR22, fio2 100%. hear RRR, Lungs have bilateral inspiratory crackles diffusely and expiratory wheezing. Labs and imaging findings listed below Assesment/Plan: Acute hypoxic respiratory failure 2/2 COPD exacerbation, CAP, and obesity hypoventialation disorder A- Pt is intubated and stable with propofol and fentanyl for sedation. CXR showing atelectasis vs. infiltrate. Considering ABG showing respiratory acidosis with metabolic compensation I believe this is multifactoral with some component of obesity hypoventilation. Will treat for above etiologies. P- solucortef 50mg QID -duonebs BASIL -f/u Chest CTA -pulm consulted, appreciate recs/vent mgmt -continue azithro/rocephin -vent mgmt per pulm HTN urgency A- SBP in 200s in ED, pt was not properly sedated at the time and agitated, fighting vent. She also received ketamin in ED. Likely 2/2 to these reasons P- Will admit to CCU and properly sedate pt with propofol and fentanyl -f/u on BPs in an hour or two, consider adding precedex if elevated still -restart home meds per NG tube -hydralazine prn Hyponatremia A- pt seems to be a little volume overloaded, suspect hypervolemic P- will give additional dose of lasix IV and recheck in AM Anasarca A: likely 2/2 Liver dysfunction 2/2 long time etoh abuse, protein malnutrition. On recent imaging/labs -->Abd US: cholelithiasis and cirrhosis vs steatosis. ECHO: EF 60-65% with mild MR & TR. Albumin: 3.4, TP: 7.1, Pre-albumin: 15 Cr and BNP wnl. Given Lasix 40 mg IV in ED P- will give lasix 40mg IV now and re-asses volume status in morning -hold home lasix for now Elevated AST and Alk Phos A- Abd US: cholelithiasis and cirrhosis vs steatosis. 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 Avalos/Kal. I agree with the History, Examination, Assessment and Plan documented above with any addition or exceptions noted below. See my dictated H&P for details.
[2019-12-04 19:50] LABS: Lactic Acid 1.6 mmol/L (0.5-2.2)
[2019-12-04] MEDS ORDERED: Midazolam HCl 5 mg/ml Vial ONE (19:55)
--- NOTE | 2019-12-04 20:17 | CT ---
CTA Angio Chest W WO Con History: Dyspnea Comparison: Radiograph same day Findings: CT angiogram chest performed after the intravenous administration of contrast. 3-D renderin g provided. Evaluation for embolism is limited due to the delayed phase of contrast as well as habitus. No proxim al segmental pulmonary arterial filling defect is appreciated. Large bilateral pleural effusions. Passive atelectasis in both lung bases as well as left upper lobe collapse with endobronchial debris with the left upper lobe. Aortic contour is nonaneurysmal. Endotracheal tube tip is above the devin. Enteric tube tip below di aphragm. There is hepatomegaly with hepatic steatosis. Multiple old bilateral rib fractures involving nearly e very rib. No acute thoracic spine compression deformity. Impression: 1. Within the limits of this exam no proximal segmental pulmonary arterial filling defect. 2. Large bilateral layering pleural effusions. 3. Partial collapse left upper lobe with endobronchial debris. Endoscopy may be beneficial. Endobronc hial mass is felt less likely. 4. Passive atelectasis within both lower lobes, greatest in the left lower lobe. 5. Numerous bilateral old rib fractures.
[2019-12-04] MEDS ORDERED: Dextrose 50% Abboject 50 ML SYRINGE ONE (20:25)
[2019-12-04] MEDS ORDERED: Propofol 1,000 MG/100 ML VIAL IV PRN (20:54)
[2019-12-04] MEDS ORDERED: Ventilator Sedation Protocol 1 EACH FS SCH (21:00)
[2019-12-04] MEDS ORDERED: DISCONTINUE PREVIOUS NARCOTIC PAIN MEDICATIONS AND BENZODIAZEPINES FS SCH (21:08)
[2019-12-04] MEDS ORDERED: Morphine 2 MG/ML SYRINGE SLOW IVP PRN (21:08)
[2019-12-04] MEDS ORDERED: Fentanyl BOLUS 250 ML IVPB PRN (21:08)
[2019-12-04] MEDS ORDERED: Propofol BOLUS 1,000 MG/100 ML VIAL IV PRN (21:08)
[2019-12-04] MEDS: Propofol 1,000 MG/100 ML VIAL IV PRN (23:19)
[2019-12-04] MEDS ORDERED: Midazolam HCl 2 mg/2 ml Vial SLOW IVP SCH ×2 (23:30→23:39)
[2019-12-04] MEDS ORDERED: Furosemide 40 MG/4 ML VIAL SLOW IVP SCH (23:30)
--- NOTE | 2019-12-04 23:46 | HP ---
TIME OF SERVICE: 1930 hours. CHIEF COMPLAINT: Shortness of breath. HISTORY OF PRESENT ILLNESS: I reviewed all documentation and discussed the care and management of this patient with Dr. Bowden and Robbie. I agree with all documentation of the history and physical unless otherwise stated in the following attestation. In summary, Ms. Harvey is a 64-year-old woman with a known past medical history of hypertension, hyperlipidemia, COPD and a long history of alcohol abuse. She also has an extensive smoking history. She presented to the ER today with a chief complaint of worsening shortness of breath. She was found to be saturating low to mid 90s on room air. However, during IV antibiotic infusion, she acutely decompensated and required intubation and mechanical ventilation. At the time of my examination, the patient was intubated and sedated. She would wake up with physical stimulation, but was unable to provide additional history. History obtained from ER report. ER COURSE: In the ER, she received albuterol nebulizer, Lasix 40 mg, was intubated and sedated. She received magnesium sulfate IV, azithromycin, Rocephin, dexamethasone, and diphenhydramine. She was also swabbed for COVID. Please see the resident note for past medical, surgical, social, and family history. PHYSICAL EXAMINATION: VITAL SIGNS: Blood pressure 237/117, pulse 105, respiratory rate is 20 on mechanical ventilator, T-max 98.6. Ventilator settings, SIMV with a rate of 20, FiO2 100%, PEEP 10 cm of water, inspiratory pressure support 10 cm of water, her peak and plateau pressures were consistently in the high 30s. GENERAL: Intubated, sedated, but would open eyes to physical stimulation, was not following commands, but would withdraw with localized pain. CARDIOVASCULAR: Tachycardic, regular rhythm. No murmurs appreciated. PULMONARY: Coarse breath sounds throughout. ABDOMEN: Soft, nontender. EXTREMITIES: Diffuse anasarca. Per report, this has been a chronic problem. PERTINENT LABORATORY FINDINGS: WBC 21.2, MCV 118, platelets 409. D-dimer 3.65. Blood gas: pH 7.3, pCO2 55.6, pO2 103.4, bicarb 31. Sodium 130, lactic acid 4.6, bilirubin 1.3, AST 878, ALT 25, alkaline phosphatase 192. Troponin 0.21. BMP 73, procalcitonin 0.28. UA remarkable for protein, 4-6 white blood cells, 7-10 hyaline casts, rare bacteria. IMAGIN. Chest x-ray, right lower lobe infiltrate. ET tube is in appropriate position. OG tube goes below the diaphragm. 2. CTA of the chest, report reviewed by me. No PE. Large bilateral layering pleural effusions. Partial collapse of left upper lobe with endobronchial debris, passive atelectasis in bilateral lower lobes, bilateral old rib fractures. 3. EKG normal sinus rhythm, normal intervals. ASSESSMENT AND PLAN: Ms. Harvey is a 64-year-old female with past history of chronic obstructive pulmonary disease, alcohol abuse and hypertension. She presented with shortness of breath and decompensated in the ER requiring intubation of mechanical ventilation. 1. Acute hypoxic hypercapnic respiratory failure secondary to likely chronic obstructive pulmonary disease exacerbation versus severe mucous plugging of the left lung. Pulmonology has been consulted and will be notified of the CTA findings. She may need an urgent bronchoscopy to address mucus plugging. I will defer that to pulmonology's discretion. Continue ventilatory support, IV steroids, antibiotics, and duonebs. The patient is a COVID person under investigation at this time and will continue contact and airborne precautions. Scheduled nebulized treatments ordered. 2. Lactic acidosis, this is resolved with fluids. 3. History of anasarca. This appears to be chronic. 4. See resident note for chronic problem management. DISPOSITION: Inpatient, ICU greater than two midnights. Approximately 35 minutes of critical care time were spent by me with the patient. Job ID: [id number] [id number]
[2019-12-05] MEDS: Hydrocortisone Sod Succ/PF 100 mg/2 ml Vial IVP SCH ×4 (00:45→17:59)
[2019-12-05] MEDS: Propofol 1,000 MG/100 ML VIAL IV PRN ×6 (02:43→22:29)
[2019-12-05 03:54] LABS: Band 7 % (5-11); Hemoglobin 12.9 g/dL (12.0-16.0); Lymphocytes 5 % (21-51); MDiff Complete? YES; Mean Corpuscular HGB CONC 32.7 g/dL (32.0-36.0); Mean Corpuscular Hemoglobin 39.3 pg (27.0-31.0); Mean Platelet Volume 8.1 fL (7.4-10.4); Neutrophil 88 % (42-75); Platelet Count 233 thou/uL (130-400); Platelet Morphology Comment Appears Adequate; RBC Distribution Width 13.9 % (11.5-14.5); Red Blood Cell (RBC) Count 3.27 mill/uL (4.20-5.40); White Blood Cell (WBC) Count 18.4 thou/uL (4.8-10.8)
--- NOTE | 2019-12-05 05:53 | PDOC.FM ---
- Subjective Subjective: NAEO. Patient sedated and on the vent. Responds to stimuli. No concerns per nursing. - Objective MAR Reviewed: Yes Vital Signs & Weight: Vital Signs (12 hours) Pulse Resp BP Pulse Ox 12/05/19 04:00 16 12/05/19 03:01 85 121/62 12/05/19 02:00 16 12/05/19 01:07 88 12/05/19 00:41 95 12/05/19 00:00 16 12/04/19 22:52 97 12/04/19 20:56 81 146/74 H Weight Weight 133.3 kg Most Recent Monitor Data Heart Rate from ECG 86 NIBP 157/70 NIBP BP-Mean 99 Respiration from ECG 23 SpO2 93 I&O: 12/03/19 12/04/19 12/05/19 06:59 06:59 06:59 Output Total 1325 Balance -1325 Result Diagrams: 12/05/19 03:20 12/05/19 06:12 Phys Exam - Physical Examination Constitutional: NAD HEENT: moist MMs Neck: supple insp/exp wheezes bilaterally; diminished lung sounds on the L Cardiovascular: RRR, no significant murmur, no rub Gastrointestinal: soft diffuse anasarca ventilated, sedated, responds to pain Deviation from normal: abdominal stria Dx/Plan (1) Acute hypoxemic respiratory failure Code(s): J96.01 - ACUTE RESPIRATORY FAILURE WITH HYPOXIA Status: Acute (2) Anasarca Code(s): R60.1 - GENERALIZED EDEMA Status: Acute (3) Hyponatremia Code(s): E87.1 - HYPO-OSMOLALITY AND HYPONATREMIA Status: Acute (4) Morbid obesity with alveolar hypoventilation Code(s): E66.2 - MORBID (SEVERE) OBESITY WITH ALVEOLAR HYPOVENTILATION Status : Acute (5) Alcohol abuse Code(s): F10.10 - ALCOHOL ABUSE, UNCOMPLICATED Status: Chronic (6) Chronic obstructive pulmonary disease (COPD) Status: Chronic Qualifiers: COPD type: COPD with acute exacerbation Qualified Code(s): J44.1 - Chronic obstructive pulmonary disease with (acute) exacerbation (7) Hypertension Code(s): I10 - ESSENTIAL (PRIMARY) HYPERTENSION Status: Chronic Qualifiers: Hypertension type: essential hypertension Qualified Code(s): I10 - Essential (primary) hypertension - Plan Plan: Acute hypoxic respiratory failure 2/2 COPD exacerbation, CAP, and obesity hypoventialation disorder Pt is intubated and stable with propofol and fentanyl for sedation. CXR showing atelectasis vs. infiltrate. ABG with respiratory acidosis with metabolic compensation likely multifactoral with component of obesity hypoventilation syndrome - COVID swab due to resp distress, no known exposure. LDH, CRP and D dimer elevated. - Procal 0.28 - abx coverage with azithro and rocephin. Will trend procal. - Solucortef 50mg QID - Freda [facility] - Chest CTA: large bilateral laying pleural effusions, partial collapse left upper lobe with endobronchial debris. Passive atelectasis within both lower lobes L>R. Pulm aware, may f/u with a bronch. - Pulm consulted, appreciate recs/vent mgmt. Current settings: SIMV, TV 500, FiO2 90, Peep 10, RR 16. Sedated. COVID PUI - Swab pending - Droplet precautions - IV steroids, azithro/rocephin HTN urgency, improving SBP in 200s in ED, pt was not properly sedated at the time and agitated, fighting vent. She also received ketamine in ED. Likely 2/2 to these reasons. - BPs improved overnight, will continue to monitor - Restart home meds per NG tube - Hydralazine prn Hyponatremia Na 130 on admission. Likely hypovolemic. - s/p 2 doses of lasix. Na up to 132. - Can consider additional dose today. Anasarca likely 2/2 Liver dysfunction 2/2 long time etoh abuse, protein malnutrition. On recent imaging/labs -->Abd US: cholelithiasis and cirrhosis vs steatosis. ECHO: EF 60-65% with mild MR & TR. Albumin: 3.4, TP: 7.1, Pre-albumin: 15. Cr and BNP wnl. Given Lasix 40 mg IV in ED. Elevated AST and Alk Phos Previous Abd US: cholelithiasis and cirrhosis vs steatosis. Likely multifactoral fatty liver and cirrhosis due to [facility] etoh abuse (30 pack beer a week since 16 y/o). - Avoid medications cleared by liver COPD - per plan above EtOH abuse Hx - ASE protocol CODE: FULL, discussed with family IVF: KVO PPx: SCDs, protonix Diet: NPO, will consider tube feeds if remains intubated Case discussed with Dr. Greer Addendum - Attending - Attending Attestation Date/Time: 12/05/19 0766 I personally evaluated the patient and discussed the management with Dr. Galeana I agree with the History, Examination, Assessment and Plan documented above with any addition or exceptions noted below- Patient intubated and sedated. Afebrile VSS. A/P: 1) Acute hypoxic hypercaneic resp failure secondary to COPD exacerbation versus pneumonia vs mucous plugging- continue vent support; pulmonary consulted and plan for bronchoscopy. COVID negative. Continue abx, steroids and nebs. 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 3) HTN- continue home meds.
[2019-12-05 06:26] LABS: Albumin 2.8 g/dL (3.4-4.8)
[2019-12-05 06:27] LABS: Chloride 95 mmol/L (98-107); Potassium 4.5 mmol/L (3.5-5.1); Sodium 132 mmol/L (136-145)
[2019-12-05 06:28] LABS: Glucose 177 mg/dL (80-115)
[2019-12-05 06:29] LABS: Globulin 3.9 g/dL (2.4-3.5); Protein, Total 6.7 g/dL (6.0-8.3)
[2019-12-05 06:30] LABS: Anion Gap 16 mmol/L (10-20); Carbon Dioxide 26 mmol/L (23-31)
[2019-12-05 06:31] LABS: Alkaline Phosphatase 158 U/L (40-110); Phosphorus 2.5 mg/dL (2.3-4.7)
[2019-12-05 06:32] LABS: BUN (Urea Nitrogen) 5 mg/dL (9.8-20.1); Calc. Creatinine Clearance 155 mL/min (70-130); Estimated GFR-MDRD 77
[2019-12-05 06:33] LABS: AST (SGOT) 54 U/L (5-34); Magnesium 2.2 mg/dL (1.6-2.6)
[2019-12-05 06:34] LABS: ALT (SGPT) 21 U/L (8-55)
[2019-12-05] MEDS: Famotidine/PF 20 mg/2ml Vial SLOW IVP SCH ×2 (07:27→21:07)
--- NOTE | 2019-12-05 07:54 | RAD ---
EXAM: CHEST ONE VIEW HISTORY: There are follow-up evaluation. Patient on ventilator. COMPARISON: 12/04/2019 FINDINGS: Endotracheal tube and nasogastric tube remain in place. Cardiac silhouette is magnified by projection . Bilateral pleural effusions are again seen. There is hazy opacity seen at the right lung base which may represent volume loss. This also increased opacity at the left lung base may be related to volume loss as well, but pneumonia at either lung base cannot be entirely excluded. Pleural thickening along the left lateral chest is again suggested. Remote left-sided rib fractures are again seen. No other interval change. IMPRESSION: Given differences in technique, chest is overall stable.
[2019-12-05] MEDS ORDERED: predniSONE 20 MG TAB PO SCH (08:00)
[2019-12-05] MEDS: fentaNYL Citrate/PF 2,000 MCG in Sodium Chloride 0.9% 60 ML IV SCH (08:09)
[2019-12-05 08:36] LABS: Actual Bicarbonate (HCO3a) 32.2 mEq/L (22-28); Base Excess (BEa) 6.8 mEq/L (-2.0 to +3.0); CO2 Tension 48.8 mmHg (35.0-45.0); Calcium, Ionized (arterial) 1.05 mmol/L (1.12-1.30); Carboxyhemoglobin (COHb) 0.3 gm% (0.0-3.0); Hemoglobin (Hb) 13.7 g/dL (12.0-16.0); O2 Tension (PaO2), arterial 77.8 mmHg (> 80.0); Potassium - ABG Lab 4.46 mmol/L (3.70-5.30); pH, Arterial 7.44 (7.35-7.45)
[2019-12-05 08:37] LABS: Puncture Site RR
[2019-12-05] MEDS ORDERED: Enoxaparin Sodium 40 MG/0.4 ML SYRINGE SC SCH (09:00)
[2019-12-05] MEDS ORDERED: Pantoprazole 40 MG VIAL IVP SCH (09:30)
[2019-12-05] MEDS: Lisinopril/Hydrochlorothiazide 20/25 mg Tablet PO SCH (09:31)
[2019-12-05] MEDS: Lorazepam 2 MG/ML VIAL SLOW IVP PRN ×4 (09:33→21:07)
[2019-12-05 12:26] LABS: SARS-CoV-2 MS2 Positive; SARS-CoV-2 N Gene Negative; SARS-CoV-2 S Gene Negative; SARS-CoV-2 orf1ab Negative
[2019-12-05] MEDS: cefTRIAXone\\ROCEPHIN 1 GM in Sodium Chloride 0.9% 100 ML IVPB SCH (13:51)
[2019-12-05] MEDS ORDERED: Azithromycin 500 MG in Sodium Chloride 0.9% 250 ML 250 ML IVPB SCH (15:00)
--- NOTE | 2019-12-05 20:38 | PRG ---
DATE OF SERVICE: 12/05/2019 SUBJECTIVE: Rosa Harvey' COVID screen was negative. She is still sedated for ventilation. Hemodynamics have been stable. OBJECTIVE: PULMONARY: She is no longer wheezing. Her breath sounds are distant. HEART: Regular rhythm. Abdomen: Soft. EXTREMITIES: Without edema. IMAGING STUDIES: Chest radiograph shows almost complete inflation of the left lung. LABORATORY DATA: White count 18.4, hemoglobin 12.9, and platelets 233. Electrolytes are normal. IMPRESSION: 1. Respiratory failure associated with chronic obstructive pulmonary disease exacerbation. 2. Aspiration most likely radiographs improved. 3. Bilateral pleural effusions on CT, most likely secondary to diastolic dysfunction. PLAN: Continue supportive care, slow weaning. CRITICAL CARE TIME: 30 minutes. Job ID: [id number]
[2019-12-05] MEDS ORDERED: Prevnar 13-Val Conj/PF 0.5 ML SYRINGE IM ONE (21:00)
[2019-12-05] MEDS: Enoxaparin Sodium 40 MG/0.4 ML SYRINGE SC SCH (21:07)
--- NOTE | 2019-12-05 22:10 | CON ---
DATE OF CONSULTATION: 12/04/2019 TIME OF CONSULTATION: 8:30 p.m. HISTORY OF PRESENT ILLNESS: Ms. Harvey is referred for respiratory failure. She apparently was in the emergency room with respiratory distress. She was observed for the majority of the day. When the night physician came on, he felt she needed to be intubated. This was subsequently done. I was consulted because of an abnormal CT and respiratory failure. In reviewing chest radiograph, she has bilateral inflation of both lungs with some patchy atelectasis, but no other obvious abnormalities. She had a CT pulmonary angiogram done for it and she was transferred to Critical Care and was noted to have atelectasis of her left lung. She appears to have debris in her left mainstem bronchus. There is no report of vomiting with intubation. She is unable to give history. She was admitted in [facility] for some reason. She had on her chest radiograph, no infiltrates. On her chest CT, no infiltrate suggestive of a COVID pneumonia. PAST MEDICAL HISTORY: Remarkable for a long history of multiple admissions for chronic obstructive pulmonary disease. She was actually discharged from the hospital a month prior. Looking back through records, she was in the hospital in November, October, August, June, February, and November of last year. Past medical history is otherwise remarkable for; 1. History of alcohol abuse. 2. History of COPD. 3. History of hypertension. 4. Reported history of arthritis in her hip. 5. History of multiple hip surgeries. 6. History of multiple C-sections. SOCIAL HISTORY: She is reportedly a daily drinker and a daily smoker. REVIEW OF SYSTEMS: Not obtainable. PHYSICAL EXAMINATION: GENERAL: She is admitted. She was sedated for mechanical ventilation. VITAL SIGNS: Blood pressure is in the 150s. Heart rate is 100, respiratory rate is per mechanical ventilation. HEENT: Sclerae are anicteric. Pupils are reactive. LUNGS: Remarkable for coarse wheezes. HEART: Regular rhythm. ABDOMEN: Soft. EXTREMITIES: Without asymmetry. NEUROLOGIC: Could not be assessed. DIAGNOSTIC STUDIES: Chest radiograph as mentioned showed inflation of both lungs both before and after intubation and atelectasis with debris in her left mainstem bronchus when she had her CT, there is no evidence of thromboembolic disease. IMPRESSION: 1. Respiratory failure. 2. ? aspiration with intubation. 3. Long history of tobacco use and alcohol abuse. 4. History of hypertension. 5. Obesity. 6. Presumed deconditioning. PLAN: Mechanical ventilation. I doubt her COVID screen will be positive. We will follow along with the other physicians caring for her. CRITICAL CARE TIME: 30 minutes. Job ID: [id number]
[2019-12-06] MEDS: Hydrocortisone Sod Succ/PF 100 mg/2 ml Vial IVP SCH ×2 (00:03→06:26)
[2019-12-06] MEDS: fentaNYL Citrate/PF 2,000 MCG in Sodium Chloride 0.9% 60 ML IV SCH ×2 (02:19→17:14)
[2019-12-06] MEDS: Propofol 1,000 MG/100 ML VIAL IV PRN ×4 (02:53→12:41)
[2019-12-06 04:09] LABS: Band 4 % (5-11); MDiff Complete? YES; Mean Corpuscular HGB CONC 32.7 g/dL (32.0-36.0); Mean Corpuscular Hemoglobin 37.8 pg (27.0-31.0); Mean Platelet Volume 7.7 fL (7.4-10.4); Monocytes 6 % (0-10); Neutrophil 90 % (42-75); Platelet Count 350 thou/uL (130-400); Platelet Morphology Comment Appears Adequate; RBC Distribution Width 14.1 % (11.5-14.5); RBC Morphology Normal; Red Blood Cell (RBC) Count 3.17 mill/uL (4.20-5.40)
--- NOTE | 2019-12-06 05:42 | PDOC.FM ---
- Subjective Subjective: Overnight, patient had a K order entered in error and was given 40mEq IV. Patient's K 4.5. NO EKG changes. Patient remains intubated and sedated. Per nursing, patient has been weeping, has had minimal urine output. - Objective MAR Reviewed: Yes Vital Signs & Weight: Vital Signs (12 hours) Pulse Resp Pulse Ox 12/06/19 04:00 20 12/06/19 02:00 18 12/06/19 00:04 83 16 94 L 12/06/19 00:00 19 12/05/19 22:00 16 12/05/19 19:49 16 12/05/19 18:58 83 16 94 L Weight Admit Weight 133.3 kg Weight 132.3 kg Most Recent Monitor Data Heart Rate from ECG 85 NIBP 179/91 NIBP BP-Mean 120 Respiration from ECG 14 SpO2 96 I&O: 12/04/19 12/05/19 12/06/19 06:59 06:59 06:59 Intake Total 1602 Output Total 1400 586 Balance -1400 1016 Result Diagrams: 12/06/19 03:21 12/06/19 12:50 Phys Exam - Physical Examination Constitutional: NAD intubated, sedated HEENT: moist MMs (a) insp/exp wheezes, diminished on the L Cardiovascular: RRR, no significant murmur, no rub Gastrointestinal: soft diffuse swelling, 1+ edema diffusely responds to pain, sedated on the vent Deviation from normal: diffuse anasarca Dx/Plan (1) Acute hypoxemic respiratory failure Code(s): J96.01 - ACUTE RESPIRATORY FAILURE WITH HYPOXIA Status: Acute (2) Anasarca Code(s): R60.1 - GENERALIZED EDEMA Status: Acute (3) Hyponatremia Code(s): E87.1 - HYPO-OSMOLALITY AND HYPONATREMIA Status: Acute (4) Morbid obesity with alveolar hypoventilation Code(s): E66.2 - MORBID (SEVERE) OBESITY WITH ALVEOLAR HYPOVENTILATION Status : Acute (5) Alcohol abuse Code(s): F10.10 - ALCOHOL ABUSE, UNCOMPLICATED Status: Chronic (6) Chronic obstructive pulmonary disease (COPD) Status: Chronic Qualifiers: COPD type: COPD with acute exacerbation Qualified Code(s): J44.1 - Chronic obstructive pulmonary disease with (acute) exacerbation (7) Hypertension Code(s): I10 - ESSENTIAL (PRIMARY) HYPERTENSION Status: Chronic Qualifiers: Hypertension type: essential hypertension Qualified Code(s): I10 - Essential (primary) hypertension - Plan Plan: Acute hypoxic respiratory failure 2/2 COPD exacerbation, CAP, and obesity hypoventialation disorder Pt is intubated and stable with propofol and fentanyl for sedation. CXR showing atelectasis vs. infiltrate. ABG with respiratory acidosis with metabolic compensation likely multifactoral with component of obesity hypoventilation syndrome - COVID swab NEG - Abx coverage with azithro and rocephin. Will trend procal. - Solucortef 50mg QID - [facility]a [facility] - Chest CTA: large bilateral laying pleural effusions, partial collapse left upper lobe with endobronchial debris. Passive atelectasis within both lower lobes L>R. Pulm aware, may f/u with a bronch. - I/O: 1016ml - will give additional dose of lasix - Pulm consulted, appreciate recs/vent mgmt. Current settings: SIMV, TV 500, FiO2 60, Peep 10, RR 16. Sedated. Will ween off vent slowly. HTN urgency, improving SBP in 200s in ED, pt was not properly sedated at the time and agitated, fighting vent. She also received ketamine in ED. Likely 2/2 to these reasons. - BPs improved overnight, will continue to monitor - Restart home meds per NG tube - Hydralazine prn Hyponatremia Na 130 on admission. Likely hypovolemic. - s/p 2 doses of lasix. Na up to 132. - Will give dose of lasix today Anasarca likely 2/2 Liver dysfunction 2/2 long time etoh abuse, protein malnutrition. On recent imaging/labs -->Abd US: cholelithiasis and cirrhosis vs steatosis. ECHO: EF 60-65% with mild MR & TR. Albumin: 3.4, TP: 7.1, Pre-albumin: 15. Cr and BNP wnl. Given Lasix 40 mg IV in ED. - Will give dose of lasix today with albumin Elevated AST and Alk Phos Previous Abd US: cholelithiasis and cirrhosis vs steatosis. Likely multifactoral fatty liver and cirrhosis due to [facility] etoh abuse (30 pack beer a week since 16 y/o). - Avoid medications cleared by liver COPD - per plan above EtOH abuse Hx - ASE protocol CODE: FULL, discussed with family IVF: KVO PPx: lovenox BID, protonix Diet: NPO, will consider tube feeds if remains intubated Case discussed with Dr. Greer Addendum - Attending - Attending Attestation Date/Time: 12/06/19 2511 I personally evaluated the patient and discussed the management with Dr. Galeana I agree with the History, Examination, Assessment and Plan documented above with any addition or exceptions noted below - Patient intubated; denies any complaints. Afebrile VSS. A/P: 1) Acute hypoxic resp failure secondary to CAP and COPD- continue vent support; plans as per pulmonary for weaning. 2) COPD- continue nebs, steroids. 3) CAP- Continue abx. 4) Anasarca- continue lasix; monitor I/Os; dose of albumin given today.
[2019-12-06] MEDS ORDERED: Furosemide 40 MG/4 ML VIAL SLOW IVP SCH (06:00)
[2019-12-06] MEDS ORDERED: Potassium Chloride 20 MEQ TAB PO SCH (06:00)
[2019-12-06 07:44] LABS: Actual Bicarbonate (HCO3a) 27.3 mEq/L (22-28); Base Excess (BEa) 2.7 mEq/L (-2.0 to +3.0); Calcium, Ionized (arterial) 1.04 mmol/L (1.12-1.30); Carboxyhemoglobin (COHb) 0.3 gm% (0.0-3.0); O2 Tension (PaO2), arterial 64.9 mmHg (> 80.0); Potassium - ABG Lab 3.88 mmol/L (3.70-5.30); pH, Arterial 7.43 (7.35-7.45)
[2019-12-06 07:45] LABS: Puncture Site LRA
[2019-12-06] MEDS ORDERED: Albumin 25% 25 GM/100 ML BOT IVPB SCH (07:45)
[2019-12-06 07:50] LABS: Chloride 96 mmol/L (98-107); Potassium 4.7 mmol/L (3.5-5.1); Sodium 132 mmol/L (136-145)
[2019-12-06 07:51] LABS: Calcium 8.1 mg/dL (7.8-10.44)
[2019-12-06 07:52] LABS: Globulin 4.1 g/dL (2.4-3.5); Glucose 151 mg/dL (80-115); Protein, Total 7.1 g/dL (6.0-8.3)
[2019-12-06 07:53] LABS: Anion Gap 17 mmol/L (10-20); Bilirubin, Total 0.9 mg/dL (0.2-1.2); Carbon Dioxide 24 mmol/L (23-31)
[2019-12-06 07:54] LABS: Alkaline Phosphatase 138 U/L (40-110)
[2019-12-06 07:55] LABS: Calc. Creatinine Clearance 133 mL/min (70-130); Estimated GFR-MDRD 65
[2019-12-06 07:56] LABS: BUN (Urea Nitrogen) 10 mg/dL (9.8-20.1)
[2019-12-06 07:57] LABS: AST (SGOT) 63 U/L (5-34)
[2019-12-06 07:58] LABS: ALT (SGPT) 19 U/L (8-55)
--- NOTE | 2019-12-06 08:14 | RAD ---
EXAM: CHEST ONE VIEW HISTORY: Patient on ventilator. There are follow-up evaluation. COMPARISON: 12/05/2019 FINDINGS: Endotracheal tube and nasogastric tube remain in place and unchanged in position. Cardiac silhouette is magnified by projection but does appear mildly enlarged. Parenchymal airspace opacities are again seen at each lung base and in the left midlung zone which could be related to areas of volume l oss versus pneumonitis. Viral pneumonitis in the correct clinical scenario is a possibility. There is suggestion of a small left pleural effusion. Pleural-based density along the left lateral chest is again seen. Multiple remote left-sided rib fractures are seen with few remote right-sided rib fractures. IMPRESSION: 1. Bilateral parenchymal airspace opacities at each lung base and in the left midlung zone. Findings could be related to volume loss, but multifocal pneumonia is a possibility. Viral pneumonitis in the correct clinical scenario is a possibility as well. Continued follow-up is recommended. 2. Small left pleural effusion. 3. Endotracheal tube and nasogastric tube unchanged in position.
[2019-12-06] MEDS: Lisinopril/Hydrochlorothiazide 20/25 mg Tablet PO SCH (08:36)
[2019-12-06] MEDS: Famotidine/PF 20 mg/2ml Vial SLOW IVP SCH (08:38)
[2019-12-06] MEDS: Enoxaparin Sodium 40 MG/0.4 ML SYRINGE SC SCH (08:43)
[2019-12-06] MEDS ORDERED: Pantoprazole 40 MG VIAL IVP SCH (09:00)
[2019-12-06] MEDS ORDERED: Furosemide 100 MG/10 ML VIAL SLOW IVP SCH (09:37)
--- NOTE | 2019-12-06 11:55 | PQF ---
CLINICAL DOCUMENTATION IMPROVEMENT CLARIFICATION FORM: ICD-10 Updated PLEASE DO AN ADDENDUM TO THE PROGRESS NOTE WITH ANY DOCUMENTATION UPDATES OR ADDITIONS AND CARRY THROUGH TO DC SUMMARY. THANK YOU. DATE: 12/06/19 ATTN : DR. PEREZ Please exercise your independent, professional judgment in responding to the clarification form. Clinical indicators are provided on the bottom of this form for your review Please check appropriate box(es): [x ] Sepsis due to: _CAP Due to: [ ] Device (please specify) [ ] Implant [ ] Graft [ ] Infusion Due to: [ ] Procedure (please specify) [ ] Severe sepsis with associated acute organ dysfunction: [ x] Acute Respiratory Failure [ ] Acute Kidney injury w/o ATN [ ] Acute Kidney Injury w ATN [ ] Additional/Other: please specify: __ [ ] Localized infection without sepsis [ ] SIRS due to non-infectious process (please specify etiology) [ ] with organ dysfunction [ ] without organ dysfunction [ ] Other diagnosis [ ] Unable to determine In addition, please specify: Present on Admission (POA): [ x ] Yes [ ] No [ ] Unable to determine For continuity of documentation, please document condition throughout progress notes and discharge summary. Thank You. CLINICAL INDICATORS - SIGNS / SYMPTOMS / LABS / RESULTS AND LOCATION IN MR ER NOTE: "SEPSIS" BP 240/140 PULSE 106 RR 35 WBC 12/03: 21.2 LACTIC ACID 12/03: 4.6 RISKS: ACUTE RESPIRATORY FAILURE (H&P) COPD EXACERBATION (H&P) TREATMENT: IV AZITHROMYCIN (ER-12/04) IV ROCEPHIN (12/04-PRESENT) BLOOD AND URINE CULTURES 12/03 INTUBATION WITH MECHANICAL VENTILATION CRITICAL CARE MONITORING (This form is maintained as a part of the permanent medical record) 2014 [employer] All Rights Reserved [email or web address]
[2019-12-06] MEDS ORDERED: methylPREDNISolone Sod Succ/PF 125 MG/2 ML VIAL IVP SCH (12:00)
--- NOTE | 2019-12-06 12:18 | PQF ---
CLINICAL DOCUMENTATION IMPROVEMENT CLARIFICATION FORM: ICD-10 Updated PLEASE DO AN ADDENDUM TO THE PROGRESS NOTE WITH ANY DOCUMENTATION UPDATES OR ADDITIONS AND CARRY THROUGH TO DC SUMMARY. THANK YOU. DATE: 12/06/19 ATTN: DR. PEREZ Please exercise your independent, professional judgment in responding to the clarification form. Clinical indicators are provided on the bottom of this form for your review Please check appropriate box(s) to clarify if the following diagnosis has been ruled in or ruled out: PNEUMONIA [ x ] Ruled in diagnosis [ x] Continue to treat [ ] Resolved [ ] Ruled out diagnosis [ ] Improving [ ] Cannot rule out diagnosis [ ] Other diagnosis [ ] Unable to determine In addition, please specify: Present on Admission (POA): [ x ] Yes [ ] No [ ] Unable to determine For continuity of documentation, please document condition throughout progress notes and discharge summary. Thank You. CLINICAL INDICATORS - SIGNS / SYMPTOMS / LABS / RESULTS AND LOCATION IN MR ER NOTE: "PNEUMONIA" CHEST XRAY 12/03: "PNEUMONIA IS A DIFFERENTIAL CONSIDERATION" PN 12/05: CXR SHOWING ATELECTASIS VS INFILTRATE" WBC 12/03: 21.2 LACTIC ACID 12/03: 4.6 RISKS: H/O COPD (H&P) TREATMENT IV AZITHROMYCIN (ER-12/04) IV ROCEPHIN (12/04-PRESENT) BLOOD AND URINE CULTURES 12/03 INTUBATION WITH MECHANICAL VENTILATION CRITICAL CARE MONITORING (This form is maintained as a part of the permanent medical record) 2014 [employer] All Rights Reserved HALIE [email or web address]
[2019-12-06] MEDS: methylPREDNISolone Sod Succ 40 MG VIAL IVP SCH ×2 (12:41→17:22)
[2019-12-06 13:10] LABS: Potassium 4.9 mmol/L (3.5-5.1)
[2019-12-06] MEDS: cefTRIAXone\\ROCEPHIN 1 GM in Sodium Chloride 0.9% 100 ML IVPB SCH (15:12)
[2019-12-06] MEDS: Lorazepam 2 MG/ML VIAL SLOW IVP PRN (17:45)
--- NOTE | 2019-12-06 18:57 | PRG ---
DATE OF SERVICE: 12/06/2019 SUBJECTIVE: Ms. Harvey is hemodynamically stable. OBJECTIVE: VITAL SIGNS: Heart rate is in the 80s, blood pressure in 150s, respiratory rates in the teens, oximetry is in the low 90s to mid 90s. FiO2 is at 60%. LUNGS: Remarkable for coarse wheezes. HEART: Regular rhythm. ABDOMEN: Soft. EXTREMITIES: Without edema. LABORATORY DATA: White count 17.0, hemoglobin 12.0, and platelets 350. Sodium 132, potassium 4.7, chloride 96, bicarb 24, BUN 10, creatinine 0.87, glucose 151, AST 63, ALT 19, alkaline phosphatase 138. Chest x-ray shows some atelectasis at the left base. IMPRESSION AND PLAN: 1. Chronic obstructive pulmonary disease exacerbation with respiratory failure. 2. Diastolic dysfunction leading to bilateral pleural effusions. 3. Left lung atelectasis on CT, that is improved on chest x-ray, most likely the result of aspiration after or during intubation, although there is no record of this. She could vomit after intubation just prior to intubation, this would have been ventilated down into a broad base. In either case, it is a nonissue. She will continue with supportive care. Bronchoscopy is not indicated at this time, given her degree of bronchospasm. CRITICAL CARE TIME: 30 minutes. Job ID: [id number]
[2019-12-07] MEDS: Enoxaparin Sodium 40 MG/0.4 ML SYRINGE SC SCH ×3 (00:43→20:32)
[2019-12-07] MEDS: Famotidine/PF 20 mg/2ml Vial SLOW IVP SCH ×3 (00:43→20:32)
[2019-12-07] MEDS: hydrALAZINE 20 MG/ML VIAL SLOW IVP PRN ×3 (01:44→19:39)
[2019-12-07] MEDS: Propofol 1,000 MG/100 ML VIAL IV PRN ×6 (01:53→23:17)
[2019-12-07] MEDS: methylPREDNISolone Sod Succ 40 MG VIAL IVP SCH ×5 (03:33→23:03)
[2019-12-07 03:41] LABS: Band 14 % (5-11); Hemoglobin 12.5 g/dL (12.0-16.0); Lymphocytes 5 % (21-51); MDiff Complete? YES; Mean Corpuscular HGB CONC 33.3 g/dL (32.0-36.0); Mean Corpuscular Hemoglobin 38.3 pg (27.0-31.0); Mean Platelet Volume 8.5 fL (7.4-10.4); Neutrophil 81 % (42-75); Platelet Clumps SLIGHT; Platelet Morphology Comment PLT clumps seen-ADEQ; RBC Distribution Width 13.9 % (11.5-14.5); Red Blood Cell (RBC) Count 3.27 mill/uL (4.20-5.40)
[2019-12-07 04:52] LABS: ALT (SGPT) 17 U/L (8-55); AST (SGOT) 61 U/L (5-34); Albumin 3.2 g/dL (3.4-4.8); Alkaline Phosphatase 117 U/L (40-110); Anion Gap 16 mmol/L (10-20); BUN (Urea Nitrogen) 17 mg/dL (9.8-20.1); Bilirubin, Total 1.1 mg/dL (0.2-1.2); Calc. Creatinine Clearance 123 mL/min (70-130); Calcium 7.6 mg/dL (7.8-10.44); Carbon Dioxide 26 mmol/L (23-31); Chloride 94 mmol/L (98-107); Estimated GFR-MDRD 60; Globulin 3.4 g/dL (2.4-3.5); Glucose 166 mg/dL (80-115); Potassium 3.8 mmol/L (3.5-5.1); Protein, Total 6.6 g/dL (6.0-8.3); Sodium 132 mmol/L (136-145)
--- NOTE | 2019-12-07 06:01 | PDOC.FM ---
- Subjective Subjective: NAEO. Patient remains on the vent and sedated. No concerns per nursing. - Objective MAR Reviewed: Yes Vital Signs & Weight: Vital Signs (12 hours) Temp Pulse Resp BP 12/07/19 04:00 16 12/07/19 02:30 85 163/82 H 12/07/19 02:00 16 12/07/19 01:44 70 172/78 H 12/07/19 00:00 97.5 F L 18 12/06/19 22:00 22 H 12/06/19 21:58 70 172/78 H 12/06/19 20:57 19 12/06/19 20:00 18 12/06/19 18:00 16 Weight Admit Weight 133.3 kg Weight 133 kg Most Recent Monitor Data Heart Rate from ECG 81 NIBP 169/101 NIBP BP-Mean 123 Respiration from ECG 14 SpO2 95 I&O: 12/05/19 12/06/19 12/07/19 06:59 06:59 06:59 Intake Total 1602 1664.9 Output Total 3257 183 5504 Balance -1400 1001 89.9 Result Diagrams: 12/07/19 03:20 12/07/19 04:23 Phys Exam - Physical Examination Constitutional: NAD morbid obesity HEENT: moist MMs Neck: supple diffuse audible wheeze on insp/exp, worse on R Cardiovascular: RRR, no significant murmur, no rub Gastrointestinal: soft diffuse swelling in all extremities Neurological: non-focal ventilated/sedated, responds to painful stimuli more on L vs R Deviation from normal: diffuse anasarca Dx/Plan (1) Acute hypoxemic respiratory failure Code(s): J96.01 - ACUTE RESPIRATORY FAILURE WITH HYPOXIA Status: Acute (2) Anasarca Code(s): R60.1 - GENERALIZED EDEMA Status: Acute (3) Hyponatremia Code(s): E87.1 - HYPO-OSMOLALITY AND HYPONATREMIA Status: Acute (4) Morbid obesity with alveolar hypoventilation Code(s): E66.2 - MORBID (SEVERE) OBESITY WITH ALVEOLAR HYPOVENTILATION Status : Acute (5) Alcohol abuse Code(s): F10.10 - ALCOHOL ABUSE, UNCOMPLICATED Status: Chronic (6) Chronic obstructive pulmonary disease (COPD) Status: Chronic Qualifiers: COPD type: COPD with acute exacerbation Qualified Code(s): J44.1 - Chronic obstructive pulmonary disease with (acute) exacerbation (7) Hypertension Code(s): I10 - ESSENTIAL (PRIMARY) HYPERTENSION Status: Chronic Qualifiers: Hypertension type: essential hypertension Qualified Code(s): I10 - Essential (primary) hypertension - Plan Plan: Acute hypoxic respiratory failure 2/2 COPD exacerbation, CAP, and obesity hypoventialation disorder Pt is intubated and stable with propofol and fentanyl for sedation. CXR showing atelectasis vs. infiltrate. ABG with respiratory acidosis with metabolic compensation likely multifactoral with component of obesity hypoventilation syndrome. Chest CTA: large bilateral laying pleural effusions, partial collapse left upper lobe with endobronchial debris. Passive atelectasis within both lower lobes L>R. - COVID swab NEG - Abx coverage with azithro and rocephin. Procal downtrending. - Solucortef 50mg QID - [facility] - CXR improving, continue to monitor. Bronch contraindicated at this time per pulm. - Pulm consulted, appreciate recs/vent mgmt. Current settings: SIMV, TV 500, FiO2 60, Peep 10, RR 16. Sedated. Will ween off vent slowly. HTN urgency, improving SBP in 200s in ED, pt was not properly sedated at the time and agitated, fighting vent. She also received ketamine in ED. Likely 2/2 to these reasons. - Restart home meds per NG tube - Hydralazine prn, Hyponatremia Na 130 on admission. Likely hypovolemic. - s/p 2 doses of lasix. Na up to 132. - Continue to monitor. Will give lasix Anasarca likely 2/2 Liver dysfunction 2/2 long time etoh abuse, protein malnutrition. On recent imaging/labs -->Abd US: cholelithiasis and cirrhosis vs steatosis. ECHO: EF 60-65% with mild MR & TR. Albumin: 3.4, TP: 7.1, Pre-albumin: 15. Cr and BNP wnl. Given Lasix 40 mg IV in ED. - Will give dose of lasix, I/O: +89.9 Elevated AST and Alk Phos Previous Abd US: cholelithiasis and cirrhosis vs steatosis. Likely multifactoral fatty liver and cirrhosis due to residential etoh abuse (30 pack beer a week since 16 y/o). - Avoid medications cleared by liver COPD - per plan above EtOH abuse Hx - ASE protocol CODE: FULL, discussed with family IVF: KVO PPx: lovenox BID, protonix Diet: NPO, will consider tube feeds if remains intubated Dispo: pending clinical course Case discussed with Dr. Greer Addendum - Attending - Attending Attestation Date/Time: 12/07/19 5000 I personally evaluated the patient and discussed the management with Dr. Galeana I agree with the History, Examination, Assessment and Plan documented above with any addition or exceptions noted below - Patient intubated and sedated. Afebrile VSS. A/P: 1) Acute hypoxic resp failure secondary to COPD and CAP - continue vent support and wean as tolerated; continue nebs, steroids. 2) CAP- continue abx, steroids, nebs. 3) HTN- continue home meds and prn meds as needed
[2019-12-07] MEDS: fentaNYL Citrate/PF 2,000 MCG in Sodium Chloride 0.9% 60 ML IV SCH ×2 (06:09→23:02)
[2019-12-07] MEDS: Lorazepam 2 MG/ML VIAL SLOW IVP PRN ×7 (07:22→23:03)
[2019-12-07] MEDS ORDERED: Furosemide 40 MG/4 ML VIAL SLOW IVP SCH ×2 (08:15→09:00)
[2019-12-07] MEDS ORDERED: Furosemide 100 MG/10 ML VIAL SLOW IVP SCH (08:15)
--- NOTE | 2019-12-07 08:28 | RAD ---
PORTABLE CHEST 1 VIEW: DATE: 12/07/2019. TIME: 4:34 AM. HISTORY: Respiratory failure. FINDINGS/IMPRESSION: Allowing for differences in technique, no significant interval changes are seen. POS: DIMITRY
[2019-12-07] MEDS: Lisinopril/Hydrochlorothiazide 20/25 mg Tablet PO SCH (08:37)
--- NOTE | 2019-12-07 10:07 | PRG ---
DATE OF SERVICE: 12/07/2019 SUBJECTIVE: Rosa Harvey remains mechanically ventilated. OBJECTIVE: VITAL SIGNS: Blood pressure 150/104, heart rate 70. She is afebrile. Respiratory rate in the teens, decreased her tidal volume, her FiO2, and her PEEP slightly. LUNGS: Clear anteriorly with the exception of wheezes diffusely as before. HEART: Regular rhythm. ABDOMEN: Soft. LABORATORY STUDIES: White count 17, hemoglobin 12.5, platelets are not quantitated. She has 14% bands on her peripheral smear. Sodium 132, potassium 3.8, chloride 94, bicarb 26, BUN 17, creatinine 0.94. Chest radiograph shows bilateral increased interstitial markings, but the film is grossly underpenetrated. IMPRESSION: 1. Respiratory failure secondary to chronic obstructive pulmonary disease exacerbation. 2. Left lung atelectasis, improved? secondary to aspiration. 3. Obesity. 4. History of frequent hospitalizations. 5. Long history of heavy tobacco use. 6. History of multiple hospitalizations at [facility]. 7. Zteov-dj-maeumzu renal dysfunction. 8. History of heavy alcohol use with admissions for intoxication in the past. 9. Hypertension. PLAN: Continue supportive care with slow weaning. Prognosis is quite poor. Critical care time 30 min. Job ID: [id number] MTDD
[2019-12-07] MEDS: cefTRIAXone\\ROCEPHIN 1 GM in Sodium Chloride 0.9% 100 ML IVPB SCH (14:53)
[2019-12-08] MEDS: Propofol 1,000 MG/100 ML VIAL IV PRN ×4 (03:08→23:53)
[2019-12-08] MEDS ORDERED: Lactated Ringer's 500 ML IV SCH (03:30)
--- NOTE | 2019-12-08 03:53 | PDOC.BPN ---
- Brief Progress Note Nurse called to report anuria for past hour. On exam, pt is intubated and sedated. She is very edematous over entire body. Lung auscultation revealed wheezing and rhonchi bilaterally. Vitals: BP 120/72, HR 90, RR 14 on vent Best was checked and patent. Added 500ml NS at 200ml/hr.
[2019-12-08] MEDS ORDERED: Sodium Chloride 0.9% 1,000 ML IV SCH ×2 (04:00→12:00)
[2019-12-08] MEDS ORDERED: Sodium Chloride 0.9% 500 ML IV SCH (04:15)
[2019-12-08 04:45] LABS: ALT (SGPT) 20 U/L (8-55); AST (SGOT) 75 U/L (5-34); Albumin 3.1 g/dL (3.4-4.8); Alkaline Phosphatase 105 U/L (40-110); Anion Gap 16 mmol/L (10-20); BUN (Urea Nitrogen) 32 mg/dL (9.8-20.1); Bilirubin, Total 1.2 mg/dL (0.2-1.2); Calc. Creatinine Clearance 62 mL/min (70-130); Calcium 7.4 mg/dL (7.8-10.44); Carbon Dioxide 24 mmol/L (23-31); Chloride 95 mmol/L (98-107); Estimated GFR-MDRD 27; Globulin 3.7 g/dL (2.4-3.5); Glucose 151 mg/dL (80-115); Potassium 4.2 mmol/L (3.5-5.1); Protein, Total 6.8 g/dL (6.0-8.3); Sodium 131 mmol/L (136-145)
[2019-12-08 05:04] LABS: Band 4 % (5-11); Hemoglobin 11.6 g/dL (12.0-16.0); Lymphocytes 3 % (21-51); MDiff Complete? YES; Mean Corpuscular HGB CONC 34.3 g/dL (32.0-36.0); Mean Corpuscular Hemoglobin 39.2 pg (27.0-31.0); Monocytes 6 % (0-10); Neutrophil 87 % (42-75); Platelet Count 347 thou/uL (130-400); RBC Distribution Width 13.8 % (11.5-14.5); Red Blood Cell (RBC) Count 2.95 mill/uL (4.20-5.40); White Blood Cell (WBC) Count 19.6 thou/uL (4.8-10.8)
--- NOTE | 2019-12-08 05:50 | PDOC.FM ---
- Subjective Subjective: Overnight, patient with dec urine output and given small bolus. Otherwise, no concerns per nursing. Patient remains sedated on mechanical ventilation. - Objective MAR Reviewed: Yes Vital Signs & Weight: Vital Signs (12 hours) Temp Pulse Resp Pulse Ox 12/08/19 04:00 14 12/08/19 02:21 86 13 96 12/08/19 02:00 14 12/08/19 00:00 13 12/07/19 22:01 88 13 95 12/07/19 22:00 16 12/07/19 20:00 97.8 F 13 12/07/19 19:39 85 12/07/19 18:35 85 14 95 12/07/19 18:00 16 Weight Admit Weight 133.3 kg Weight 133 kg Most Recent Monitor Data Heart Rate from ECG 90 NIBP 103/54 NIBP BP-Mean 70 Respiration from ECG 13 SpO2 96 I&O: 12/06/19 12/07/19 12/08/19 06:59 06:59 06:59 Intake Total 1602 1742.0 1613.7 Output Total 601 1605 590 Balance 1001 137.0 1023.7 Result Diagrams: 12/08/19 04:10 12/08/19 04:10 Phys Exam - Physical Examination Constitutional: NAD HEENT: moist MMs Neck: supple diffuse wheezes worse on R>L Cardiovascular: RRR, no significant murmur, no rub Gastrointestinal: soft diffuse anasarca responds to painful stimulil - more on L than right; sedated Skin: no rash Dx/Plan (1) Acute hypoxemic respiratory failure Code(s): J96.01 - ACUTE RESPIRATORY FAILURE WITH HYPOXIA Status: Acute (2) Anasarca Code(s): R60.1 - GENERALIZED EDEMA Status: Acute (3) Hyponatremia Code(s): E87.1 - HYPO-OSMOLALITY AND HYPONATREMIA Status: Acute (4) Morbid obesity with alveolar hypoventilation Code(s): E66.2 - MORBID (SEVERE) OBESITY WITH ALVEOLAR HYPOVENTILATION Status : Acute (5) Alcohol abuse Code(s): F10.10 - ALCOHOL ABUSE, UNCOMPLICATED Status: Chronic (6) Chronic obstructive pulmonary disease (COPD) Status: Chronic Qualifiers: COPD type: COPD with acute exacerbation Qualified Code(s): J44.1 - Chronic obstructive pulmonary disease with (acute) exacerbation (7) Hypertension Code(s): I10 - ESSENTIAL (PRIMARY) HYPERTENSION Status: Chronic Qualifiers: Hypertension type: essential hypertension Qualified Code(s): I10 - Essential (primary) hypertension - Plan Plan: Acute hypoxic respiratory failure 2/2 COPD exacerbation, CAP, and obesity hypoventialation disorder Pt is intubated and stable with propofol and fentanyl for sedation. CXR showing atelectasis vs. infiltrate. ABG with respiratory acidosis with metabolic compensation likely multifactoral with component of obesity hypoventilation syndrome. Chest CTA: large bilateral laying pleural effusions, partial collapse left upper lobe with endobronchial debris. Passive atelectasis within both lower lobes L>R. - COVID swab NEG - Abx coverage with azithro and rocephin. Procal downtrending. - Solucortef 50mg QID - Duonebs BASIL - CXR improving, continue to monitor. L atelectasis likely due to aspiration. Bronch contraindicated at this time per pulm. - Pulm consulted, appreciate recs/vent mgmt. Current settings: SIMV, TV 450, FiO2 50, Peep 8, RR 12. Sedated. Will ween off vent slowly. Prognosis poor. - Start tube feeds - Will consult palliative care due to poor prognosis. Anuria BUN/Cr bumped from baseline. 32/1.87. - Given small bolus overnight. Will give bolus today. Will continue to monitor. Consider nephro consult if continued no/low urine output. HTN urgency, improving SBP in 200s in ED, pt was not properly sedated at the time and agitated, fighting vent. She also received ketamine in ED. Likely 2/2 to these reasons. - Restart home meds per NG tube - Hydralazine prn. Hyponatremia Na 130 on admission. Likely hypovolemic. - s/p 2 doses of lasix. - Continue to monitor. Will give lasix Anasarca likely 2/2 Liver dysfunction 2/2 long time etoh abuse, protein malnutrition. On recent imaging/labs -->Abd US: cholelithiasis and cirrhosis vs steatosis. ECHO: EF 60-65% with mild MR & TR. Albumin: 3.4, TP: 7.1, Pre-albumin: 15. Cr and BNP wnl. Given Lasix 40 mg IV in ED. Elevated AST and Alk Phos Previous Abd US: cholelithiasis and cirrhosis vs steatosis. Likely multifactoral fatty liver and cirrhosis due to meterman etoh abuse (30 pack beer a week since 16 y/o). - Avoid medications cleared by liver COPD - per plan above EtOH abuse Hx - ASE protocol CODE: FULL, discussed with family IVF: KVO PPx: lovenox BID, protonix Dispo: pending clinical course, remains in ICU - ventilated/sedated, palliative care consulted Case discussed with Dr. Greer Addendum - Attending - Attending Attestation Date/Time: 12/08/19 8515 I personally evaluated the patient and discussed the management with Dr. Galeana I agree with the History, Examination, Assessment and Plan documented above with any addition or exceptions noted below - Pateint intubated; opens eyes to touch. Afebrile VSS. A/P: 1) Acute hypoxic resp failure secondary to COPD exacerbation - continue vent support; wean as tolerated and as per pulmonary, 2 ) COPD exacerbation- continue nebs, steroids, abx, 3) Anuria- Cr elevated today ; small fluid bolus given yesterday and urine output improved minimally; consider renal consult if poor urine output continues. Cotninue IVF. May need albumin to improve intravascular fluid status.
[2019-12-08] MEDS: methylPREDNISolone Sod Succ 40 MG VIAL IVP SCH ×4 (06:12→23:14)
--- NOTE | 2019-12-08 08:19 | RAD ---
PORTABLE CHEST: DATE: 12/08/2019. PROVIDED CLINICAL HISTORY: Respiratory insufficiency. FINDINGS: Comparison 12/07/2019. Evaluation is limited by patient body habitus. Development of a small focal ar ea of airspace disease involving the right mid lung zone. Additional significant interval change wit h respect to the prior examination is not apparent. IMPRESSION: As above. POS: BHARGAV
[2019-12-08] MEDS: Famotidine/PF 20 mg/2ml Vial SLOW IVP SCH ×2 (09:48→21:26)
[2019-12-08] MEDS: Enoxaparin Sodium 40 MG/0.4 ML SYRINGE SC SCH ×2 (09:48→21:27)
[2019-12-08] MEDS: Lisinopril/Hydrochlorothiazide 20/25 mg Tablet PO SCH (09:49)
[2019-12-08] MEDS: Sodium Chloride 0.45% 1,000 ML IV SCH (12:07)
--- NOTE | 2019-12-08 13:09 | PRG ---
DATE OF SERVICE: 12/08/2019 SUBJECTIVE: Rosa Harvey is mechanically ventilated. OBJECTIVE: VITAL SIGNS: Heart rate in the 90s. Blood pressure in the 120s, her last blood pressure was 124/66. Respiratory rates per mechanical ventilation. HEAD AND NECK: Unchanged. LUNGS: She still has tight wheezes diffusely. HEART: Regular rhythm. ABDOMEN: Soft. EXTREMITIES: Less edema. LABORATORY DATA: Urine output has dropped today. White count 19.6, hemoglobin 11.6, platelets 347. Sodium 131, chloride 95, bicarb 24, BUN 32, creatinine1.87 and yesterday it was 0.94. IMPRESSION AND PLAN: 1. Respiratory failure secondary to chronic obstructive pulmonary disease exacerbation. 2. Slightly positive fluid balance, may need more intravascular volume, given her probable pulmonary hypertension and sleep apnea and chronic obstructive pulmonary disease. She was given a liter of fluid this morning, IV fluids, which have been restarted, renal function will be monitored closely. Her prognosis, given her obstructive lung disease, obesity, and deconditioning, is extremely guarded. 3. There is no change in her chest radiograph today. 4. There is no clinical indication for bronchoscopy at this time. Critical care time 30 min. Job ID: [id number] MTDD
[2019-12-08] MEDS: cefTRIAXone\\ROCEPHIN 1 GM in Sodium Chloride 0.9% 100 ML IVPB SCH (17:51)
--- NOTE | 2019-12-08 17:54 | PDOC.OP ---
Addendum entered and electronically signed by Sarah Ahuja MD 12/09/19 04:55 : Catheter confirmed to be intralumen in femoral vein on ultrasound Original Note: Operative Note - Operative Note Operative Note: INDICATION:No IV access PROCEDURE RIGGING FOREMAN: Sarah Ahuja MD PGY-3 ATTENDING PHYSICIAN: Elie Shelby MD Ultrasound Used: Yes CONSENT: Consent was obtained. Indications, risks, and benefits were explained at length. PROCEDURE SUMMARY: Surgical cap, mask with protective eyewear, sterile gown and sterile gloves were worn throughout the procedure. The RIGHT inguinal region was prepped using chlorhexidine scrub and draped in sterile fashion using a full drape and sterile probe cover employed. The femoral pulse was identified. Anesthesia was achieved using 1% lidocaine and the patient was also intubated and sedated. Using ultrasound guidance, the introducer needle was inserted medial to the femoral artery, inferior to the inguinal crease and into the femoral vein. Venous blood was withdrawn. The syringe was removed and a guidewire was advanced into the introducer needle. A small incision was made at the skin surface with a scalpel and the introducer needle was exchanged for a dilator over the guidewire. After appropriate dilation was obtained, the dilator was exchanged over the wire for a 3 lumen central venous catheter. There was noted kink in the wire not allowing catheter to pass smoothly over. Wire was removed, pressure applied and the above steps were repeated with successful catheter placement. The wire was removed and the catheter was sutured in place. A sterile dressing was placed over the catheter at the insertion site. The patient tolerated the procedure without any hemodynamic compromise. At time of procedure completion, all ports aspirated and flushed properly. Estimated blood loss is 10ml. Addendum - Attending - Attending Attestation Date/Time: 12/11/19 0467 I was present for the entire procedure. 2 attempts. Successful placement of sono guided fem CVC. No immediate complications.
[2019-12-08] MEDS: fentaNYL Citrate/PF 2,000 MCG in Sodium Chloride 0.9% 60 ML IV SCH (19:13)
[2019-12-09] MEDS: Sodium Chloride 0.45% 1,000 ML IV SCH ×2 (01:29→11:05)
[2019-12-09 03:33] LABS: Band 7 % (5-11); Hemoglobin 11.1 g/dL (12.0-16.0); Lymphocytes 4 % (21-51); MDiff Complete? YES; Mean Corpuscular HGB CONC 31.9 g/dL (32.0-36.0); Mean Corpuscular Hemoglobin 36.6 pg (27.0-31.0); Mean Platelet Volume 7.2 fL (7.4-10.4); Metamyelocyte 1 % (0-0); Monocytes 6 % (0-10); Neutrophil 82 % (42-75); Platelet Count 336 thou/uL (130-400); Platelet Morphology Comment Appears Adequate; RBC Distribution Width 13.8 % (11.5-14.5); Red Blood Cell (RBC) Count 3.03 mill/uL (4.20-5.40); White Blood Cell (WBC) Count 17.8 thou/uL (4.8-10.8)
[2019-12-09 03:49] LABS: ALT (SGPT) 24 U/L (8-55); AST (SGOT) 85 U/L (5-34); Albumin 3.2 g/dL (3.4-4.8); Alkaline Phosphatase 93 U/L (40-110); Anion Gap 16 mmol/L (10-20); BUN (Urea Nitrogen) 49 mg/dL (9.8-20.1); Bilirubin, Total 1.6 mg/dL (0.2-1.2); Calc. Creatinine Clearance 41 mL/min (70-130); Carbon Dioxide 24 mmol/L (23-31); Chloride 94 mmol/L (98-107); Estimated GFR-MDRD 16; Globulin 3.2 g/dL (2.4-3.5); Glucose 147 mg/dL (80-115); Potassium 4.4 mmol/L (3.5-5.1); Protein, Total 6.4 g/dL (6.0-8.3); Sodium 130 mmol/L (136-145)
--- NOTE | 2019-12-09 04:57 | PDOC.FM ---
- Subjective Subjective: No overnight events. 120ml urine outpt in the last 24hrs. She has new myoclonus bilaterally. - Objective MAR Reviewed: Yes Vital Signs & Weight: Vital Signs (12 hours) Temp Pulse Resp Pulse Ox 12/09/19 04:00 98.9 F 14 12/09/19 03:25 82 13 96 12/09/19 02:00 16 12/09/19 00:00 98.9 F 14 12/08/19 22:27 79 12 93 L 12/08/19 22:00 14 12/08/19 21:00 99.1 F 12/08/19 20:00 14 12/08/19 19:22 82 16 96 12/08/19 17:00 99.4 F Weight Admit Weight 133.3 kg Weight 137 kg Most Recent Monitor Data Heart Rate from ECG 79 NIBP 143/73 NIBP BP-Mean 96 Respiration from ECG 0 SpO2 96 I&O: 12/07/19 12/08/19 12/09/19 06:59 06:59 06:59 Intake Total 1742.0 1841.9 3583.9 Output Total 1605 590 132 Balance 137.0 1251.9 3451.9 Result Diagrams: 12/09/19 02:55 12/09/19 02:55 Phys Exam - Physical Examination Intubated and sedated Diffuse wheezing Cardiovascular: RRR Gastrointestinal: soft Diffuse pitting edema bilateral myoclonus Dx/Plan - Plan Plan: Acute hypoxic respiratory failure 2/2 COPD exacerbation, CAP, and obesity hypoventialation disorder Pt is intubated. Propofol/fentanyl for sedation. CXR: atelectasis vs. infiltrate. ABG with respiratory acidosis with metabolic compensation likely multifactoral with component of obesity hypoventilation syndrome. Chest CTA: large bilateral laying pleural effusions, partial collapse left upper lobe with endobronchial debris. Passive atelectasis within both lower lobes L>R. - COVID swab NEG - Abx coverage with Ceftriaxone. Procal downtrending. - Solucortef 50mg QID, Duonebs BASIL - CXR improving, continue to monitor. L atelectasis likely due to aspiration. Bronch contraindicated at this time per pulm. - Pulm consulted, appreciate recs/vent mgmt. Current settings: SIMV, TV 450, FiO2 40, Peep 8, RR 12. Sedated. Will ween off vent slowly. Prognosis poor. - Continue tube feeds - Palliative care consulted Anuria Worsening SWATI - Will give albumin, ordered Renal US. Check CK to eval for rhabdo. - Consulted Nephrology, Dr Maldonado HTN urgency, improving - Home meds through NG - Hydralazine PRN Hyponatremia - 129, Continue to monitor. Anasarca likely 2/2 Liver dysfunction 2/2 long time etoh abuse, protein malnutrition. Abd US: cholelithiasis and cirrhosis vs steatosis. ECHO: EF 60-65% with mild MR & TR. - Ordered albumin Transaminitis Abd US: cholelithiasis & cirrhosis vs steatosis. Likely multifactoral fatty liver and cirrhosis due to fdc etoh abuse - Avoid medications cleared by liver COPD EtOH abuse Hx - ASE protocol CODE: FULL PPx: lovenox BID, protonix Dispo: pending clinical course, remains in ICU - ventilated/sedated, palliative care consulted Case discussed with Dr. Hills Addendum - Attending - Attending Attestation Date/Time: 12/09/19 0431 I personally evaluated the patient and discussed the management with Dr. Ahuja I agree with the History, Examination, Assessment and Plan documented above with any addition or exceptions noted below.Patient remains critically ill questionable decline in Mental status and she has become anuric Nephrology to be consulted appreciate Pulmonary Critical Care recommendation. Will try albumin to mobilize fluids consider cardiorenal and ATN.
[2019-12-09] MEDS: methylPREDNISolone Sod Succ 40 MG VIAL IVP SCH ×4 (06:11→23:42)
[2019-12-09] MEDS: Propofol 1,000 MG/100 ML VIAL IV PRN (06:32)
--- NOTE | 2019-12-09 08:43 | RAD ---
PORTABLE CHEST: DAET: 12/09/2019. PROVIDED CLINICAL HISTORY: Respiratory insufficiency. FINDINGS: Comparison 12/08/2019. Increased airspace disease is present in the right mid and lower lung zones. S upport apparatus appears stable. Additional significant interval change with respect to prior examin ation is not apparent. IMPRESSION: Increased right hemithoracic airspace disease. POS: BHARGAV
[2019-12-09] MEDS: Lisinopril/Hydrochlorothiazide 20/25 mg Tablet PO SCH (08:45)
[2019-12-09] MEDS: Famotidine/PF 20 mg/2ml Vial SLOW IVP SCH (08:45)
[2019-12-09] MEDS: Enoxaparin Sodium 40 MG/0.4 ML SYRINGE SC SCH ×2 (08:45→21:19)
[2019-12-09] MEDS ORDERED: Albumin 25% 25 GM/100 ML BOT IVPB SCH ×2 (10:32→21:00)
[2019-12-09 12:24] LABS: Bilirubin Negative (Negative); Blood, Urine 2+ (Negative); Clarity Turbid (Clear); Glucose, Urine (Dipstick) 30 mg/dL (Negative); Ketone, Urine Negative (Negative); Leukocyte Negative Leu/uL (Negative); Nitrite Negative (Negative); Protein, Urine (Dipstick) 300 mg/dL (Neg-Trace); Specific Gravity, Urine 1.023 (1.002-1.036); Urobilinogen Normal mg/dL (Less than 2)
[2019-12-09 12:25] LABS: Creatinine, Urine 140.27 mg/dL (47-110)
[2019-12-09 12:30] LABS: WBC/HPF 0-3 HPF (0-3)
[2019-12-09 12:31] LABS: Bacteria/HPF Rare-Few HPF (None Seen); Transitional Epithelial 0-3 HPF (None Seen); Yeast-Budding 1+ HPF (None Seen)
[2019-12-09 12:32] LABS: Urine Culture Reflex No No
--- NOTE | 2019-12-09 13:07 | ULT ---
RENAL ULTRASOUND: DATE: 12/09/2019. PROVIDED CLINICAL HISTORY: Acute renal failure. FINDINGS: The right and left kidneys are not visualized. The bladder is decompressed. IMPRESSION: Nondiagnostic examination. POS: BHARGAV
[2019-12-09] MEDS: cefTRIAXone\\ROCEPHIN 1 GM in Sodium Chloride 0.9% 100 ML IVPB SCH (15:30)
[2019-12-09] MEDS ORDERED: Furosemide 100 MG/10 ML VIAL SLOW IVP SCH (16:00)
[2019-12-09] MEDS ORDERED: Metolazone 5 MG TAB PO SCH (16:00)
--- NOTE | 2019-12-09 18:39 | CON ---
DATE OF CONSULTATION: 12/09/2019 SERVICE: Nephrology. REASON FOR CONSULTATION: Elevated creatinine and worsening edema. REQUESTING PHYSICIAN: Sarah Ahuja MD HISTORY OF PRESENT ILLNESS: A 64-year-old female with known history of obesity, COPD exacerbation, chronic alcohol abuse, as well as recurrent hospitalization, who was admitted since December 03 due to acute worsening shortness of breath and difficulty breathing. Please note that the history was obtained from review of medical record as the patient is currently intubated. The patient reportedly presented to the ER due to worsening shortness of breath and edema. She was subsequently intubated and admitted to the ICU. The patient did receive diuretics since admission until two days ago, however, noticed that since yesterday, creatinine is trending up, associated with decreasing urine quantity. Creatinine went up overnight from 1.87 to 2.90, and the patient has not made much urine, necessitating Nephrology consult. The patient, who is intubated, also is noted to have generalized edema involving the body and all the limbs. The patient also is on tube feeding and is currently receiving half-normal saline at 100 mL/hour. PAST MEDICAL HISTORY: 1. Obesity. 2. COPD. 3. Chronic alcohol abuse. 4. Hypertension. 5. Hyperlipidemia. 6. Tobacco abuse disorder. PAST SURGICAL HISTORY: 1. CS x4. 2. Left hip surgery. FAMILY HISTORY: No known family medical problems. There is no history of premature cardiac disease. Mother reportedly of old age in the 80s. SOCIAL HISTORY: The patient has more than 50-pack year. She states smokes several packs of cigarettes, reportedly down from three packs per day to half pack per day. Drinks about 2 to 12 beers per day, which is lower than 30-pack beer a week previously. The patient lives at home with ex-. ALLERGIES: NO KNOWN DRUG ALLERGIES REPORTED. PRIOR TO HOSPITAL MEDICATIONS: 1. Tramadol 50 mg tablets 50 to 100 q.8 hours p.r.n. 2. Furosemide 40 mg p.o. b.i.d. 3. Gabapentin 300 mg p.o. t.i.d. 4. Lisinopril/hydrochlorothiazide 20/25 one tablet p.o. daily. 5. Albuterol nebulization 2.5 mg q.4 hours p.r.n. 6. Budesonide 2 mg per inhalation every 6 hours p.r.n. 7. Perforomist 20 mcg inhalation b.i.d. 8. DuoNeb q.4 hours p.r.n. REVIEW OF SYSTEMS: Could not be performed due to the patient's condition. PHYSICAL EXAMINATION: VITAL SIGNS: Temperature 99.4, pulse 91, respiratory rate 15, and SpO2 of 97% on 40% FiO2 via the ventilator and blood pressure is 156/78. I and O in the last 24 hours showed total intake of 3860 with total output of 132 mL of urine. GENERAL: Morbidly obese female, intubated, and mechanically ventilated. Afebrile. HEENT: Normocephalic and atraumatic. Oral mucosa is moist. ET tube and NG tubes are in place. NECK: Short thick neck with excess soft tissue. No JVD discernible. CARDIOVASCULAR: Regular rhythm and rate with normal heart sounds one and two. RESPIRATORY: Ventilator transmitted breath sounds heard in all lung zones with scattered rhonchi. GI: Morbidly obese, soft with hypoactive bowel sounds. UROGENITAL: Best catheter is in place draining little or no urine. MUSCULOSKELETAL/EXTREMITIES: Moderate edema of the limbs noted as well as the trunk. SKIN: No obvious rash or erythema appreciated. 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 DIAGNOSTIC DATA: CBC today showed WBC count of 17.8, hemoglobin of 11.1, platelets of 336, and MCV of 115. CMP earlier today showed sodium 130, potassium 4.4, chloride 94, CO2 of 24, BUN 49, creatinine 2.90, glucose 147, calcium 7.0, total bilirubin 1.6, AST 85, ALT 24, alkaline phosphatase 93, total protein 6.4, and albumin 3.2. CPK is 436. Of note, on presentation to the hospital on December 03, chemistry showed sodium 130, potassium 4.7, chloride 93, CO2 of 25, BUN 4, creatinine 0.6, glucose 115, calcium 8.2, total bilirubin 1.3, AST 78, ALT 25, alkaline phosphatase 192, and albumin 3.2. Initial lactic acid on presentation was 4.6, which improved to 1.6 subsequently. Chest x-ray earlier today showed increased airspace disease present in the right and lower lung zones when compared to x-ray of yesterday December 08, 2019. Renal ultrasound performed earlier today was nondiagnostic as the right and left kidneys were not visualized and bladder was decompressed. ASSESSMENT: 1. Acute renal failure: ATN is a concern. Review of medical record showed that the patient has been on diuretics up until December 06. She also had a CT scan of the chest on presentation on December 03, making a case for contrast-induced nephropathy. The patient also has been receiving lisinopril and hydrochlorothiazide since admission, actually received a dose earlier today. The patient is currently oligoanuric with urine of 130 in the last 24 hours and pretty much not in so far. 2. Hyponatremia: Due to hypotonic solution. The patient is getting half-normal saline at 100 mL. However, on presentation, sodium was 130, making a case for SIADH given prior history of COPD. Review of medical records showed that the patient has had intermittent hyponatremia chronically dating back to 2012. 3. Anasarca: Due to hypoalbuminemia as well as right heart failure. Right heart failure most likely due to cor pulmonale from advanced COPD and possibly obesity hypoventilation. Obstructive sleep apnea is likely in this patient as well as chronic thromboembolism. Pulmonary hypertension cannot be ruled out. 4. Ryloy-ec-ksilhsc respiratory failure requiring intubation. 5. Obesity with obesity hypoventilation. 6. Hypocalcemia. 7. Abnormal liver function tests: Query sepsis and/or congestive hepatopathy. PLAN: 1. Agree with colloid therapy to expand intravascular space and help with third space fluid mobilization. We will also give another albumin bolus as well as diuretic to see if we could improve urine output. We will give Lasix 80 mg x1 as well as metolazone 5 mg x1. 2. We will discontinue hypotonic solution. 3. We will also get urine electrolytes, urine protein, as well as plasma and urine osmolality. 4. We will monitor urine output as well as renal function tests. The patient may benefit from dialytic therapy to help with fluid management if urine output and renal function do not improve in the next day or so. Further treatment to follow depending on hospital course. Job ID: [id number]
--- NOTE | 2019-12-09 20:25 | PRG ---
DATE OF SERVICE: 12/09/2019 SUBJECTIVE: Rosa Harvey is clinically unchanged. Her hemodynamics are stable. She had a central line placed yesterday respiratory rates in the teens and blood pressure 140/71. Intake and outputs, positive 3728. Urine output was only 132 mL in the last 24 hours. OBJECTIVE: LUNGS: Still remarkable for coarse wheezes. HEART: Regular rhythm. ABDOMEN: Soft and massive. EXTREMITIES: Without asymmetry. Chronic stasis changes and edema is noted and unchanged. IMAGING: Chest x-ray is essentially unchanged. LABORATORY DATA: White count 17.8, hemoglobin 11.1, and platelets 336,000. Sodium 130, potassium 4.4, chloride 94, bicarb 24, BUN 49, and creatinine 2.9. IMPRESSION AND PLAN: 1. Chronic obstructive pulmonary disease exacerbation with respiratory failure. 2. Acute renal failure. 3. Probable pulmonary hypertension associated with chronic obstructive pulmonary disease and untreated sleep apnea. She had an echocardiogram in October. It showed diastolic dysfunction. I suspect this explains her bilateral effusions greater on the right than on the left on presentation. Positive fluid balance. Probably would not be tolerating much longer from a Pulmonary standpoint. I suspect she will end up needing dialysis. It is highly likely she will need a tracheostomy to facilitate weaning from ventilation at some point. It is a little early in the hospitalization for that. Her prognosis is extremely guarded. Critical care time 30 min. Job ID: [id number] MTDD
[2019-12-10 03:16] LABS: Band 4 % (5-11); Hemoglobin 11.6 g/dL (12.0-16.0); Lymphocytes 3 % (21-51); MDiff Complete? YES; Mean Corpuscular HGB CONC 32.7 g/dL (32.0-36.0); Mean Corpuscular Hemoglobin 37.2 pg (27.0-31.0); Mean Platelet Volume 7.3 fL (7.4-10.4); Monocytes 6 % (0-10); Neutrophil 87 % (42-75); Platelet Count 338 thou/uL (130-400); RBC Distribution Width 13.9 % (11.5-14.5); Red Blood Cell (RBC) Count 3.12 mill/uL (4.20-5.40); White Blood Cell (WBC) Count 18.6 thou/uL (4.8-10.8)
[2019-12-10 03:24] LABS: ALT (SGPT) 32 U/L (8-55); AST (SGOT) 81 U/L (5-34); Albumin 3.6 g/dL (3.4-4.8); Alkaline Phosphatase 79 U/L (40-110); Anion Gap 17 mmol/L (10-20); BUN (Urea Nitrogen) 72 mg/dL (9.8-20.1); Bilirubin, Total 2.2 mg/dL (0.2-1.2); Calc. Creatinine Clearance 32 mL/min (70-130); Carbon Dioxide 25 mmol/L (23-31); Chloride 92 mmol/L (98-107); Estimated GFR-MDRD 12; Globulin 2.9 g/dL (2.4-3.5); Glucose 166 mg/dL (80-115); Potassium 4.9 mmol/L (3.5-5.1); Protein, Total 6.5 g/dL (6.0-8.3); Sodium 129 mmol/L (136-145)
[2019-12-10] MEDS ORDERED: Adenosine 6 MG/2 ML VIAL ONE (04:11)
[2019-12-10] MEDS ORDERED: Adenosine 6 MG/2 ML VIAL IVP SCH (04:30)
[2019-12-10 05:07] LABS: Magnesium 2.7 mg/dL (1.6-2.6)
[2019-12-10 05:13] LABS: Troponin I 0.126 ng/mL (< 0.028)
--- NOTE | 2019-12-10 05:59 | PDOC.BPN ---
- Brief Progress Note Paged by nurse for persistent tachycardia in the 130s. EKG showed SVT with t wave inversions. BP stable. AM labs drawn early, added TSH, trop, mag, phos, ABG. Since SVT persistent adenosine 6mg administered with resolution of tachycardia. Rate now in 80s with EKG NSR.
--- NOTE | 2019-12-10 06:00 | PDOC.FM ---
- Subjective Subjective: Overnight pt in SVT, was given Adenosine 6mg with resolution. Now NSR in 80s. Appears pt has not had a BM in many days. Was seen by Nephrology yesterday for worsening renal function. - Objective MAR Reviewed: Yes Vital Signs & Weight: Vital Signs (12 hours) Pulse Resp BP Pulse Ox 12/10/19 04:00 20 12/10/19 02:54 134 H 95 12/10/19 02:00 18 12/10/19 00:00 20 12/09/19 23:09 78 149/78 H 12/09/19 23:08 95 12/09/19 22:00 16 12/09/19 20:00 18 96 12/09/19 18:00 16 Weight Admit Weight 133.3 kg Weight 137.4 kg Most Recent Monitor Data Heart Rate from ECG 136 NIBP 160/92 NIBP BP-Mean 114 Respiration from ECG 21 SpO2 96 I&O: 12/08/19 12/09/19 12/10/19 06:59 06:59 06:59 Intake Total 1841.9 3860.5 2230 Output Total 590 132 208 Balance 1251.9 3728.5 2021 Result Diagrams: 12/12/19 02:50 12/12/19 02:50 Phys Exam - Physical Examination Intubated, sedated NG tube place diffuse wheezing Cardiovascular: RRR Gastrointestinal: positive bowel sounds diffuse 2+ pitting edema Skin: no rash Dx/Plan - Plan Plan: Acute hypoxic respiratory failure 2/2 COPD exacerbation, CAP, and obesity hypoventialation disorder Intubated. Propofol/fentanyl for sedation. CXR: atelectasis vs. infiltrate. ABG with respiratory acidosis w/ metabolic compensation likely multifactoral with component of obesity hypoventilation syndrome. Chest CTA: large bilateral laying pleural effusions, partial collapse left upper lobe with endobronchial debris. Passive atelectasis within both lower lobes L>R. - COVID swab NEG - Abx coverage with Ceftriaxone. Procal downtrending. - Solucortef 50mg QID, Duonebs BASIL - CXR improving, continue to monitor. L atelectasis likely due to aspiration. Bronch contraindicated at this time per pulm. - Pulm consulted, appreciate recs/vent mgmt. Current settings: SIMV, TV 450, FiO2 40, Peep 8, RR 12. Sedated. Will ween off vent slowly. Prognosis poor. - Continue tube feeds - Palliative care consulted Anuria Worsening SWATI - s/p Albumin x2 yesterday, renal US with kidneys not visualized. CK 436. - D/c'ed lasix/HCTZ - Consulted Nephrology, Dr Maldonado, apprec recs - Received Lasix 80mg + Metolazone yesterday with 208mls output and Cr 2.9 -> 3.73. - FeNa 0.4%, prerenal, nephrology suspects ATN SVT, resolved - NSR this AM s/p Adenosine 6mg HTN urgency, improving - Home meds through NG - Hydralazine PRN Hyponatremia - 129, Continue to monitor. Anasarca likely 2/2 Liver dysfunction 2/2 long time etoh abuse, protein malnutrition. Abd US: cholelithiasis and cirrhosis vs steatosis. ECHO: EF 60-65% with mild MR & TR. - Ordered albumin Transaminitis Abd US: cholelithiasis & cirrhosis vs steatosis. Likely multifactoral fatty liver and cirrhosis due to shelter etoh abuse - Avoid medications cleared by liver COPD EtOH abuse Hx - ASE protocol CODE: FULL PPx: lovenox BID, protonix Dispo: pending clinical course, remains in ICU - ventilated/sedated, palliative care consulted Case discussed with Dr. Hills Addendum - Attending - Attending Attestation Date/Time: 12/12/19 1415 I personally evaluated the patient and discussed the management with Dr. Ahuja I agree with the History, Examination, Assessment and Plan documented above with any addition or exceptions noted below.
[2019-12-10] MEDS ORDERED: Milk Of Magnesia 30 ML UDCUP PO SCH (06:15)
[2019-12-10] MEDS: methylPREDNISolone Sod Succ 40 MG VIAL IVP SCH ×4 (06:25→23:04)
[2019-12-10 08:01] LABS: Base Excess (BEa) -3.8 mEq/L (-2.0 to +3.0); CO2 Tension 37.2 mmHg (35.0-45.0); Calcium, Ionized (arterial) 0.96 mmol/L (1.12-1.30); Carboxyhemoglobin (COHb) 0.6 gm% (0.0-3.0); Hemoglobin (Hb) 12.3 g/dL (12.0-16.0); O2 Tension (PaO2), arterial 68.6 mmHg (> 80.0); Potassium - ABG Lab 4.98 mmol/L (3.70-5.30); pH, Arterial 7.37 (7.35-7.45)
[2019-12-10 08:09] LABS: Puncture Site RRAD
[2019-12-10] MEDS: Albumin 25% 25 GM/100 ML BOT IVPB SCH ×3 (08:21→22:04)
[2019-12-10] MEDS: Famotidine/PF 20 mg/2ml Vial SLOW IVP SCH (08:21)
--- NOTE | 2019-12-10 08:50 | RAD ---
PORTABLE CHEST: DATE: 12/10/2019. PROVIDED CLINICAL HISTORY: Respiratory insufficiency. FINDINGS: Comparison 12/09/2019. Significant interval change with respect to the prior examination is not appare nt. IMPRESSION: As above. POS: BHARGAV
[2019-12-10] MEDS: Enoxaparin Sodium 40 MG/0.4 ML SYRINGE SC SCH (11:43)
[2019-12-10] MEDS: Polyethylene Glycol 3350 17 GM Packet PER TUBE SCH (11:43)
--- NOTE | 2019-12-10 11:55 | PDOC.BPN ---
- Brief Progress Note TRANSITION OF CARE NOTE: This is an unfortunate 64yo F who presented to [facility] ER on 12/04/19 with a CC of worsening SOB and worsening extremity edema over the last 2 weeks. She has a hx of COPD and anasarca and was recently discharged on 11/01/19 for a COPD exacerbation 2/2 CAP. In the ER the patient was intubated due to acute hypoxic respiratory failure. Of note - the patient was found to have a white count of 21.1, BG of 409 with no anion gap, and Na of 130. The patient was swabbed for COVID due to her symptoms. CXR did show a density at the lingula which was thought possibly to be some sort of obstruction vs aspiration. CTA showed large bilateral pleural effusions, partial collapse left upper lobe with endobronchial debri. The patient was admitted to the ICU with pulmonology consulted. The patient was continued on azithromycin and rocephin to cover for any CAP as well as started on steroids and duonebs. Her COVID swab came back NEGATIVE. Pulmonology recommended against a bronchoscopy. They have been trying to adjust her vent throughout the week, but her prognosis is poor and weening will be slow. She is getting tube feeds, but will need to consider Trach/Peg moving forward. As for her anasarca. The patient has a chronic history of this. Echo completed on 11/02/19 showed diastolic dysfunction with MR and TR. She has been given some lasix throughout her stay as well as albumin as it is thought be may be intravascularly depleted. On 12/08/19, the patient became anuric with worsening kidney function. Nephrology was consulted (Dr. Maldonado). Renal US normal. Suspect ATN. Overnight on 12/08 the patient had a run of SVT that resolved with adenosine x 1. Moving forward, we are still working to ween the patient off of the vent. Will need trach/peg soon. Poor prognosis. Palliative care is consulted to help discuss goals of care with family. Thank you for allowing me to take care of Ms. Harvey. If you have any questions, I'd be happy to help however I can.
--- NOTE | 2019-12-10 12:55 | PRG ---
DATE OF SERVICE: 12/10/2019 SERVICE: Nephrology. SUBJECTIVE: A 64-year-old morbidly obese female with COPD and diastolic heart failure, admitted due to worsening shortness of breath. Nephrology is seeing the patient for acute renal failure and anasarca. Urine output improved to 20 mL per hour. The patient however is still grossly swollen. Still intubated and mechanically ventilated. OBJECTIVE: VITAL SIGNS: Temperature 99.9, pulse 78, respiratory rate 14, SpO2 of 95% on ventilator, FiO2 40%. Blood pressure is 144/75. I and O in the last 24 hours showed total intake of 2894 with total output of 318. GENERAL: Obese female, sedated and mechanically ventilated. HEENT: Normocephalic and atraumatic. ET and NG tubes are in place. NECK: Short, thick neck with excess subcutaneous tissue. CARDIOVASCULAR: Regular rhythm and rate with normal heart sounds one and two. RESPIRATORY: Ventilator transmitted breath sounds heard in all lung zones with some rhonchi. GI: Obese, soft with hypoactive bowel sounds. UROGENITAL: Best catheter is in place draining some urine. MUSCULOSKELETAL: [id number] edema of all the extremities and trunk noted. No erythema appreciated. TERMITE CONTROL SERVICER: The patient is sedated. DIAGNOSTIC DATA: CBC showed WBC count of 18.6, hemoglobin of 11.6, and platelets of 338. Arterial blood gas this morning showed pH of 7.37, pCO2 of 37.2, pO2 of 68.6, ionized calcium of 0.96. Chemistry shows sodium 129, potassium 4.9, chloride 92, CO2 of 25, BUN 72, creatinine 3.73, glucose 166, calcium 7.0, phosphorus 8.0, magnesium 2.7, total protein 2.2, AST 81, ALT 32, alkaline phosphatase 79, total protein 6.5, albumin 3.6. Urinalysis yesterday showed turbid urine with pH of 6.0, specific gravity of 1.023, positive protein, negative ketone, positive blood, negative nitrite, bilirubin, and leukocyte esterase. Random protein was 381 mg/dL with urine creatinine of 140.27 with urine protein creatinine ratio of 2.2 g/g of creatinine. Urine electrolytes showed sodium , urea nitrogen 171 and creatinine 140 with fractional excretion of sodium of 0.3 and fractional excretion of urea of 16% all pointing to prerenal etiology. Chest x-ray done earlier today showed no interval change compared to study of yesterday. ASSESSMENT: 1. Acute renal failure: Most likely due to hemodynamic factors related to intravascular contraction and use of EMELY inhibitor. Some component of cardiorenal cannot be ruled out. Fractional excretion of urea and sodium are consistent with prerenal etiology. Some superimposed ATN cannot be ruled out. BUN and creatinine continued to trend up. Urine output, however, improved with diuretics and albumin of yesterday. 2. Hyponatremia: Due to excess free water intake and poor excretion. 3. Hypocalcemia. 4. Hyperphosphatemia. 5. Anasarca. 6. Chronic diastolic heart failure. 7. Possible cor pulmonale. 8. Chronic obstructive pulmonary disease with acute exacerbation. PLAN: 1. We will expand the intravascular space with albumin today and monitor urine output. We will plan on dialyzing the patient later on to see with expanded intravascular space that if renal function will improve. If however renal function continued to worsen, we will talk to family about dialytic treatment to help with both renal replacement and volume management. 2. We will get vitamin D to rule out deficiency in view of hypocalcemia. 3. We will also start calcium supplementation. 4. Further treatment to follow depending on hospital course. Job ID: [id number]
--- NOTE | 2019-12-10 14:13 | PRG ---
DATE OF SERVICE: 12/10/2019 Ms. Harvey is still quite bronchospastic. PHYSICAL EXAMINATION: VITAL SIGNS: Respiratory rates in the 20s, FiO2 is at 40, heart rates in 80s, blood pressure 179/83. HEAD AND NECK: Unchanged. LUNGS: Remarkable for diffuse coarse wheezes. HEART: Regular rhythm. S1, S2 are normal. ABDOMEN: Soft and nontender. : Bladder temperatures have been recorded at 100.2, which is afebrile. Her peak pressure is 34. Plateau pressure is 32. LABORATORY STUDIES: White count is 18.6, hemoglobin 11.6, platelets 338. Sodium 129, potassium 4.9, chloride 92, bicarb 25, BUN 72, creatinine 3.73. Blood gas: 7.37, CO2 37, PO2 68. Intake and outputs remarkable for a positive fluid balance of 2576. Chest x-ray is unchanged. Her fluid balance is positive 8.5 L since the 05 of December. Her weight is up to 307 pounds. IMPRESSION: 1. Respiratory failure associated with chronic obstructive pulmonary disease exacerbation. 2. Left lung atelectasis, radiographically resolved, most likely secondary to aspiration or mucus plug. 3. Acute renal failure. 4. Volume overload. 5. Hyponatremia, it is mild. 6. History of diastolic dysfunction. 7. Bilateral pleural effusions. 8. I will see any way around dialysis just from a volume removal standpoint. 9. Nephrology is following. Job ID: [id number]
[2019-12-10] MEDS: Lorazepam 2 MG/ML VIAL SLOW IVP PRN ×2 (14:58→20:03)
[2019-12-10] MEDS: cefTRIAXone\\ROCEPHIN 1 GM in Sodium Chloride 0.9% 100 ML IVPB SCH (15:03)
[2019-12-10] MEDS: Sevelamer Carbonate 800 MG TAB PO SCH ×2 (15:04→20:03)
[2019-12-10] MEDS: Carvedilol 6.25 MG TAB PO SCH (15:04)
[2019-12-10] MEDS: Morphine 2 MG/ML VIAL SLOW IVP PRN ×2 (15:10→20:14)
[2019-12-10] MEDS: hydrALAZINE 20 MG/ML VIAL SLOW IVP PRN (22:04)
[2019-12-11] MEDS: Morphine 2 MG/ML VIAL SLOW IVP PRN ×3 (02:22→22:08)
[2019-12-11] MEDS: Lorazepam 2 MG/ML VIAL SLOW IVP PRN ×2 (02:22→07:40)
[2019-12-11 04:53] LABS: ALT (SGPT) 36 U/L (8-55); AST (SGOT) 66 U/L (5-34); Alkaline Phosphatase 67 U/L (40-110); Anion Gap 19 mmol/L (10-20); BUN (Urea Nitrogen) 106 mg/dL (9.8-20.1); Bilirubin, Total 1.9 mg/dL (0.2-1.2); Calc. Creatinine Clearance 27 mL/min (70-130); Calcium 7.4 mg/dL (7.8-10.44); Carbon Dioxide 25 mmol/L (23-31); Chloride 93 mmol/L (98-107); Estimated GFR-MDRD 10; Globulin 2.5 g/dL (2.4-3.5); Glucose 158 mg/dL (80-115); Protein, Total 6.5 g/dL (6.0-8.3); Sodium 131 mmol/L (136-145)
[2019-12-11 05:02] LABS: Band 1 % (5-11); Hemoglobin 11.4 g/dL (12.0-16.0); Lymphocytes 4 % (21-51); MDiff Complete? YES; Macrocytosis SLIGHT = 6-15 cells (100X) (0-5/hpf); Mean Corpuscular Hemoglobin 36.9 pg (27.0-31.0); Mean Platelet Volume 7.9 fL (7.4-10.4); Monocytes 8 % (0-10); Myelocyte 1 % (0-0); Neutrophil 86 % (42-75); Platelet Count 341 thou/uL (130-400); RBC Distribution Width 14.2 % (11.5-14.5); White Blood Cell (WBC) Count 18.9 thou/uL (4.8-10.8)
[2019-12-11] MEDS ORDERED: Calcium Gluconate 4.6 MEQ in Sodium Chloride 0.9% 100 ML IVPB SCH (06:03)
[2019-12-11] MEDS: Albumin 25% 25 GM/100 ML BOT IVPB SCH (06:06)
[2019-12-11] MEDS: methylPREDNISolone Sod Succ 40 MG VIAL IVP SCH ×4 (06:06→22:09)
[2019-12-11] MEDS ORDERED: Dextrose 50% Abboject 50 ML SYRINGE SLOW IVP SCH (06:15)
[2019-12-11] MEDS ORDERED: Insulin Regular 300 UNITS/3 ML VIAL IVP SCH (06:15)
[2019-12-11] MEDS ORDERED: Furosemide 100 MG/10 ML VIAL SLOW IVP SCH (06:15)
[2019-12-11 06:53] LABS: Actual Bicarbonate (HCO3a) 20.4 mEq/L (22-28); Base Excess (BEa) -4.6 mEq/L (-2.0 to +3.0); CO2 Tension 37.8 mmHg (35.0-45.0); Calcium, Ionized (arterial) 0.95 mmol/L (1.12-1.30); Carboxyhemoglobin (COHb) 0.3 gm% (0.0-3.0); Hemoglobin (Hb) 11.9 g/dL (12.0-16.0); O2 Tension (PaO2), arterial 80.6 mmHg (> 80.0); Potassium - ABG Lab 5.24 mmol/L (3.70-5.30); pH, Arterial 7.35 (7.35-7.45)
[2019-12-11 07:02] LABS: Puncture Site RR
[2019-12-11] MEDS: Carvedilol 6.25 MG TAB PO SCH ×2 (07:40→18:20)
--- NOTE | 2019-12-11 07:55 | PDOC.FM ---
- Subjective Subjective: Patient intubated and sedated. No major events overnight per nursing staff. Nephrology planning to start dialysis soon. - Objective MAR Reviewed: Yes Vital Signs & Weight: Vital Signs (12 hours) Temp Pulse Resp BP Pulse Ox 12/11/19 07:45 71 120/63 12/11/19 07:40 120/63 12/11/19 07:00 100.3 F H 12/11/19 06:00 29 H 12/11/19 05:00 99.4 F 12/11/19 04:00 100.2 F H 31 H 12/11/19 02:32 69 30 H 93 L 12/11/19 02:00 31 H 12/11/19 00:00 28 H 12/10/19 23:00 99.9 F H 12/10/19 22:40 69 30 H 94 L 12/10/19 22:04 66 181/70 H 12/10/19 22:00 29 H 12/10/19 20:00 34 H 94 L Weight Admit Weight 133.3 kg Weight 138.9 kg Most Recent Monitor Data Heart Rate from ECG 69 NIBP 120/63 NIBP BP-Mean 82 Respiration from ECG 32 SpO2 95 I&O: 12/10/19 12/11/19 12/12/19 06:59 06:59 06:59 Intake Total 2894.5 2307.3 Output Total 318 314 0 Balance 2576.5 1993.3 0 Result Diagrams: 12/11/19 03:25 12/11/19 03:25 Phys Exam - Physical Examination Constitutional: NAD (intubated, sedated) HEENT: moist MMs thick and short Respiratory: no rhonchi ventilator breath sounds throughout Cardiovascular: RRR, no significant murmur Gastrointestinal: positive bowel sounds distended and tight 2-3+ edema throughout Deviation from normal: sedated with Precedex Skin: no rash, normal turgor Dx/Plan (1) SWATI (acute kidney injury) Code(s): N17.9 - ACUTE KIDNEY FAILURE, UNSPECIFIED Status: Acute (2) Acute hypoxemic respiratory failure Code(s): J96.01 - ACUTE RESPIRATORY FAILURE WITH HYPOXIA Status: Acute (3) Anasarca Code(s): R60.1 - GENERALIZED EDEMA Status: Acute (4) COPD exacerbation Code(s): J44.1 - CHRONIC OBSTRUCTIVE PULMONARY DISEASE W (ACUTE) EXACERBATION Status: Acute (5) Community acquired pneumonia of left lower lobe of lung Code(s): J18.9 - PNEUMONIA, UNSPECIFIED ORGANISM Status: Acute (6) Morbid obesity with alveolar hypoventilation Code(s): E66.2 - MORBID (SEVERE) OBESITY WITH ALVEOLAR HYPOVENTILATION Status : Acute - Plan Plan: Patient is a 64 yo female who presents with SOB is intubated in ED and admitted for respiratory failure: Acute hypoxic respiratory failure 2/2 COPD exacerbation, CAP, and obesity hypoventialation disorder -Intubated. Propofol/fentanyl & Precedex for sedation. CXR: atelectasis vs. infiltrate. ABG with respiratory acidosis w/ metabolic compensation likely multifactoral with component of obesity hypoventilation syndrome. Chest CTA: large bilateral laying pleural effusions, partial collapse left upper lobe with endobronchial debris. Passive atelectasis within both lower lobes L>R. - COVID swab NEG - Abx coverage with Ceftriaxone. Procal downtrending. - Solucortef 50mg QID, Freda [facility] - CXR improving, continue to monitor. L atelectasis likely due to aspiration. Bronch contraindicated at this time per pulm. - Pulm consulted, appreciate recs/vent mgmt. Current settings: SIMV, TV 450, FiO2 40, Peep 8, RR 12. Sedated. Will attempt to ween off vent slowly. Prognosis poor. - Continue tube feeds - Palliative care consulted Anuria Worsening SWATI, suspect ATN - s/p Albumin x2 yesterday, renal US with kidneys not visualized. CK 436. - D/c'ed lasix/HCTZ - Consulted Nephrology, Dr Maldonado, apprec recs -plan to give Albumin, start Calcium -check Vitamin D level -plan to start dialysis pending discussion with family members - Received Lasix 80mg + Metolazone yesterday with 208mls output and Cr 2.9 -> 3.73. - FeNa 0.4%, prerenal, nephrology suspects ATN SVT, resolved - NSR this AM, s/p Adenosine 6mg on 12/09 HTN urgency, improving - Home meds through NG - Hydralazine PRN Hyponatremia - 129, Continue to monitor. Anasarca likely 2/2 Liver dysfunction 2/2 long time etoh abuse, protein malnutrition - Abd US: cholelithiasis and cirrhosis vs steatosis. - ECHO: EF 60-65% with mild MR & TR. - Albumin given x 2 Transaminitis Abd US: cholelithiasis & cirrhosis vs steatosis. 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 Will likely need trach/peg soon. CODE: FULL PPx: lovenox BID, protonix Diet: Tube feeds Tubes: ETT since 12/03 Lines: RIGHT femoral placed 12/07 Drips: Precedex for sedation Dispo: Guarded. Pending clinical course, remains in ICU - ventilated/sedated, palliative care, Nephro, & Pulm all consulted, appreciate recs. Addendum - Attending - Attending Attestation Date/Time: 12/11/19 0142 I personally evaluated the patient and discussed the management with Dr. Fernandez. I agree with the History, Examination, Assessment and Plan documented above with any addition or exceptions noted below. Patient continues to be critically ill. Continues to have worsening renal function thought due to ATN. Not improved with albumin or Lasix. She is getting progressively volume overloaded and now hyperkalemic which will likely push her to HD. Hopefully volume removal will help with vent weaning. She will otherwise need to move to Trach/PEG. Palliative care on board. She is otherwise stable and vent mgmt per Pulm.
--- NOTE | 2019-12-11 08:30 | RAD ---
PORTABLE CHEST 1 VIEW: Date: 12/11/2019 Time: 0515 hours HISTORY: Respiratory failure. COMPARISON: Previous day. FINDINGS/IMPRESSION: Endotracheal and nasogastric tubes remain in place. The heart size is stable. There is mild pulmonary vascular congestion with patchy opacities seen in the lungs bilaterally. No pneumothoraces or large effusions are seen. POS: [facility]
[2019-12-11] MEDS: Enoxaparin Sodium 40 MG/0.4 ML SYRINGE SC SCH (08:43)
[2019-12-11] MEDS: Famotidine/PF 20 mg/2ml Vial SLOW IVP SCH (08:43)
[2019-12-11] MEDS: Sevelamer Carbonate 800 MG TAB PO SCH ×3 (08:43→20:22)
[2019-12-11] MEDS: Polyethylene Glycol 3350 17 GM Packet PER TUBE SCH (08:44)
[2019-12-11] MEDS ORDERED: Diazepam 10 MG/2 ML SYRINGE IVP PRN (09:15)
[2019-12-11] MEDS ORDERED: Heparin 10,000 UNITS/ 10 ML VIAL ONE (09:28)
--- NOTE | 2019-12-11 11:24 | PRG ---
DATE OF SERVICE: 12/11/2019 SERVICE: Nephrology. SUBJECTIVE: A 64-year-old female seen in followup for acute kidney injury and anasarca. The patient is still intubated and mechanically ventilated. Urine output has remained very poor. OBJECTIVE: VITAL SIGNS: Temperature 99.4, pulse 68, respiratory rate 30, SpO2 of 92% on ventilator with FiO2 40%, blood pressure is 116/55. I and O in the last 24 hours showed total intake of 2307 with total output of 314, being urine obtained via indwelling Best catheter. GENERAL: Obese female on the ventilator. HEENT: Normocephalic, atraumatic. ET and NG tubes are in place. NECK: Short and thick neck with excess subcutaneous tissue. CARDIOVASCULAR: Regular rhythm and rate with normal heart sounds 1 and 2. RESPIRATORY: Ventilator transmitted breath sounds heard in all lung zones. GI: Obese, soft, with abdominal wall edema. UROGENITAL: Best catheter is in place draining little or no urine. MUSCULOSKELETAL: Pxjcidho-gz-oovzhe edema of all the extremities as well as dependent lower back noted. No erythema appreciated. MANAGER NUCLEAR: The patient is sedated. DIAGNOSTIC DATA: CBC showed WBC count of 18.9, hemoglobin of 11.4, platelet of 341. Arterial blood gas showed pH of 7.35, pCO2 of 37.8, pO2 of 80.6, ionized calcium of 0.95. Chemistry showed sodium 131, potassium 6.0, chloride 93, CO2 of 25, BUN 106, creatinine 4.48, glucose 158, calcium 7.4, total bilirubin 1.9, AST 66, ALT 36, alkaline phosphatase 67, total protein 6.5, albumin 4.0. Vitamin D level is 8.5. ASSESSMENT: 1. Hyperkalemia: Increased risk of cardiac decompensation due to arrhythmia. 2. Acute renal failure with acute tubular necrosis. Creatinine and BUN continued to trend up despite intravascular space expansion with albumin. 3. Anasarca. 4. Acute on chronic respiratory failure. 5. Morbid obesity. 6. Chronic obstructive pulmonary disease with exacerbation. 7. Hypocalcemia. 8. Vitamin D deficiency. PLAN: We will get EKG stat. We will also treat the patient with insulin dextrose as well as calcium gluconate and a dose of Lasix. We will dialyze the patient as soon as possible. I have discussed with the patient's relative on the need for hemodialysis and they verbalized understanding and in agreement to proceed with hemodialysis. We will also consult General Surgery for temporary dialysis access. The patient remained critically ill with guarded prognosis. Hemodialysis Procedure note. Seen and reevaluated during hemodialysis initiation. Hemodynamically stable. HD order: 2hours treatment with UF as tolerated.@ k bath, Na 137, Hco3 35. Qb 250, Qd 500. Access Temp groin dialysis catheter. Job ID: [id number] [facility] SYSTEMElba
--- NOTE | 2019-12-11 11:29 | PRG ---
DATE OF SERVICE: 12/11/2019 SUBJECTIVE: Rosa Harvey is worse from a pulmonary compliance standpoint. Her peak airway pressure is 42. Her plateau is 38. Her hemodynamics remained stable. OBJECTIVE: LUNGS: Remarkable for diffuse wheezes. HEART: Regular rhythm. ABDOMEN: Massive and distended. Intake and outputs, positive. LABORATORY DATA: Have been reviewed. IMPRESSION: 1. Chronic obstructive pulmonary disease exacerbation. She will need a tracheostomy at some point along the way this week. 2. Renal failure. She needs dialysis. She is horribly volume overloaded at this point. 3. Diastolic heart failure. 4. Tobacco abuse. 5. History of alcohol abuse. 6. Morbid obesity, was life-threatening. It is unclear at this point whether she can survive this. I truly doubt she will, just because of the multiple comorbidities. Critical care time 30 min. Job ID: [id number] MTDD
[2019-12-11 12:14] LABS: HBSAB Concentration 1.69 mIU/mL; HBSAg Index 0.14 S/CO (0-0.99); Hep B Core Total Ab Non-Reactive (NonReactive); Hep B Core Total Index 0.05 S/CO (0-0.79); Hep B Surf AB Non-Reactive (NonReactive); Hep B Surf Ag Non-Reactive S/CO (NonReactive); Hep C IgG Ab Non-Reactive (NonReactive); Hep C Index 0.03 S/CO (0-0.79)
[2019-12-11 12:16] LABS: HBSAB Concentration 0.54 mIU/mL; Hep B Core Total Ab Non-Reactive (NonReactive); Hep B Core Total Index 0.05 S/CO (0-0.79); Hep B Surf AB Non-Reactive (NonReactive); Hep B Surf Ag Non-Reactive S/CO (NonReactive); Hep C IgG Ab Non-Reactive (NonReactive); Hep C Index 0.03 S/CO (0-0.79)
--- NOTE | 2019-12-11 14:27 | EKG ---
Test Reason : STAT Blood Pressure : / mmHG Vent. Rate : 132 BPM Atrial Rate : 115 BPM P-R Int : 000 ms QRS Dur : 064 ms QT Int : 304 ms P-R-T Axes : 000 041 163 degrees QTc Int : 450 ms Supraventricular tachycardia Low voltage QRS Cannot rule out Anteroseptal infarct (cited on or before 01-NOV-2019) Abnormal ECG When compared with ECG of 04-DEC-2019 15:14, (Unconfirmed) Nonspecific T wave abnormality now evident in Inferior leads Nonspecific T wave abnormality now evident in Lateral leads Confirmed by CLIFTON MONTOYA (2) on 12/11/2019 2:27:16 PM Referred By: Ramon PETER Confirmed By:CLIFTON MONTOYA
--- NOTE | 2019-12-11 14:28 | EKG ---
Test Reason : RYTHM CHANGE Blood Pressure : / mmHG Vent. Rate : 081 BPM Atrial Rate : 081 BPM P-R Int : 162 ms QRS Dur : 066 ms QT Int : 374 ms P-R-T Axes : 038 041 021 degrees QTc Int : 434 ms Normal sinus rhythm Low voltage QRS Septal infarct (cited on or before 01-NOV-2019) Abnormal ECG When compared with ECG of 10-DEC-2019 02:40, (Unconfirmed) Vent. rate has decreased BY 51 BPM Questionable change in initial forces of Anterior leads Nonspecific T wave abnormality, improved in Inferior leads Nonspecific T wave abnormality no longer evident in Lateral leads Confirmed by CLIFTON MONTOYA (2) on 12/11/2019 2:27:27 PM Referred By: BRITTANI Confirmed By:CLIFTON MONTOYA
[2019-12-11] MEDS: cefTRIAXone\\ROCEPHIN 1 GM in Sodium Chloride 0.9% 100 ML IVPB SCH (15:31)
--- NOTE | 2019-12-11 15:59 | PDOC.PALCO ---
Palliative Care Consult - Consult Details Requesting Physician: Dr Luis Fernandez Reason for Consult: goals of care, advance directives assistance, assistance with communication prognosis/disease Family Members Present: Spoke to by phone - Pertinent HPI Ms Harvey has had multiple admissions in the past 7 months, this being the 5th with most recent discharge end of October 2019. She experienced an onset of shortness of breath, increase in edema, wheezing and abdominal distention over the past 2 weeks with no specific triggers or mitigating factors. In emergency room subsequent intubation secondary acute hypoxic respiratory failure and hypertensive emergency. Admitted to CCU with continued respiratory failure requiring mechanical ventilation, poor urine output. - Pertinent PMH COPD, Heart Failure, diastolic, mitral regurg, liver dysfunction, protein malnutrition, chronic pain, Obesity, - Social History Smoking Status: Current every day smoker Smoking: greater than 1 pack/day Alcohol Use: daily Drug Use History: none Living Situation: independent - Medications MAR Reviewed: Yes - Allergies Allergies/Adverse Reactions: Allergies Allergy/AdvReac Type Severity Reaction Status Date / Time No Known Allergies Allergy Verified 08/26/19 09:18 - Subjective Mechanical ventilation, sedated - ROS Non Response: due to endotracheal tube, due to mental status - Objective Vital Signs: Vital Signs - Most Recent Temp Pulse Resp BP Pulse Ox 99.6 F 70 26 H 106/57 L 94 L 12/11/19 15:00 12/11/19 15:27 12/11/19 14:00 12/11/19 12:46 12/11/19 08:00 Palliative Performance Scale: 20 - Physical Exam Constitutional: encephalitic, ill appearing HEENT: moist MMs Respiratory: diminished lung sound, wheezing present Deviation from normal: mechanical ventilation Cardiovascular: RRR Gastrointestinal: soft Deviation from normal: obese Genitourinary: escoto catheter Musculoskeletal: edema present, diffuse muscle atrophy Deviation from normal: sedated Deviation from normal: encephalopathic and sedated - Problem List (1) Palliative care encounter Code(s): Z51.5 - ENCOUNTER FOR PALLIATIVE CARE Current Visit: Yes Status: Acute (2) SWATI (acute kidney injury) Code(s): N17.9 - ACUTE KIDNEY FAILURE, UNSPECIFIED Current Visit: No Status : Acute (3) Acute hypoxemic respiratory failure Code(s): J96.01 - ACUTE RESPIRATORY FAILURE WITH HYPOXIA Current Visit: No Status: Acute (4) Alcohol withdrawal Code(s): F10.239 - ALCOHOL DEPENDENCE WITH WITHDRAWAL, UNSPECIFIED Current Visit: No Status: Acute Qualifiers: Complication of substance-induced condition: with delirium Qualified Code(s ): F10.231 - Alcohol dependence with withdrawal delirium (5) COPD exacerbation Code(s): J44.1 - CHRONIC OBSTRUCTIVE PULMONARY DISEASE W (ACUTE) EXACERBATION Current Visit: No Status: Acute (6) Morbid obesity with alveolar hypoventilation Code(s): E66.2 - MORBID (SEVERE) OBESITY WITH ALVEOLAR HYPOVENTILATION Current Visit: No Status: Acute (7) Tobacco abuse Code(s): Z72.0 - TOBACCO USE Current Visit: No Status: Chronic - Plan/Recommendations Plan: Patient assessed, communicated with patient son and daughter Erma. Introduced Palliative Care. family meeting established for 12/11 at 9;30 to discuss goal of care as well as addressing resuscitation status. Will discuss consideration of Trach/Peg as patient currently not able to tolerate being weaned from vent. Will assist family in determining what Ms Harvey would desire for her Goal of care in relation to Dialysis, Trach/Peg Family meeting established at 9:30 Dr Vianca Fernandez aware, will communicated with other providers. Please also refer to Elba Hernandez RNdairy equipment repairer notes in note section. Will also ensure Spiritual Care consult place for additional family support. [] minutes spent on this encounter with >50% of the time in counseling and coordination of care. Thank you for this very appropriate consult.
--- NOTE | 2019-12-11 16:11 | OP ---
DATE OF PROCEDURE: 12/11/2019 PREOPERATIVE DIAGNOSES: 1. Acute renal failure. 2. Fluid overload. 3. Acute respiratory failure secondary to acute renal failure and fluid overload. POSTOPERATIVE DIAGNOSES: 1. Acute renal failure. 2. Fluid overload. 3. Acute respiratory failure secondary to acute renal failure and fluid overload. PROCEDURE PERFORMED: Left femoral vein triple-lumen Trialysis catheter for hemodialysis. DESCRIPTION OF PROCEDURE: Informed consent was obtained from the patient's family. The patient was placed in supine position. Left groin was sterilely prepped and draped in usual fashion. Left femoral artery was palpated and the skin medial to this was anesthetized with 1% lidocaine. The left femoral vein was cannulated with an 18-gauge introducer needle returning dark venous blood. Guidewire was passed through the needle and advanced into the left femoral vein without resistance. Needle was withdrawn over the guidewire. A stab incision was made adjacent to the guidewire using 11 scalpel. Dilator was passed over the guidewire dilating the subcutaneous tissues. Dilator was removed, and triple-lumen Trialysis catheter advanced over the guidewire and placed in the left femoral vein without resistance down to the hub. Guidewire was removed. Dark venous blood was aspirated from all 3 ports, which were individually flushed with saline followed by heparin. Catheter was secured to her left groin using 3-0 nylon suture at 2 points. Sterile dressings were applied. The patient tolerated this procedure without any apparent complications and remains hemodynamically stable following completion of procedure. Job ID: [id number]
[2019-12-11] MEDS: hydrALAZINE 20 MG/ML VIAL SLOW IVP PRN (22:08)
[2019-12-12 03:10] LABS: Band 2 % (5-11); Hemoglobin 11.1 g/dL (12.0-16.0); Lymphocytes 4 % (21-51); MDiff Complete? YES; Mean Corpuscular HGB CONC 34.3 g/dL (32.0-36.0); Mean Platelet Volume 7.2 fL (7.4-10.4); Monocytes 2 % (0-10); Neutrophil 92 % (42-75); Platelet Count 348 thou/uL (130-400); RBC Distribution Width 13.9 % (11.5-14.5); Red Blood Cell (RBC) Count 2.91 mill/uL (4.20-5.40); White Blood Cell (WBC) Count 19.8 thou/uL (4.8-10.8)
[2019-12-12 03:45] LABS: ALT (SGPT) 40 U/L (8-55); AST (SGOT) 59 U/L (5-34); Albumin 3.9 g/dL (3.4-4.8); Alkaline Phosphatase 59 U/L (40-110); Anion Gap 19 mmol/L (10-20); BUN (Urea Nitrogen) 105 mg/dL (9.8-20.1); Bilirubin, Total 1.7 mg/dL (0.2-1.2); Calc. Creatinine Clearance 27 mL/min (70-130); Calcium 7.8 mg/dL (7.8-10.44); Carbon Dioxide 25 mmol/L (23-31); Chloride 96 mmol/L (98-107); Estimated GFR-MDRD 10; Globulin 2.3 g/dL (2.4-3.5); Glucose 153 mg/dL (80-115); Potassium 5.6 mmol/L (3.5-5.1); Protein, Total 6.2 g/dL (6.0-8.3); Sodium 134 mmol/L (136-145)
[2019-12-12] MEDS: methylPREDNISolone Sod Succ 40 MG VIAL IVP SCH ×3 (05:21→16:59)
--- NOTE | 2019-12-12 05:43 | PDOC.FM ---
- Subjective Subjective: Intubated and sedated. No major events overnight. Hemodialysis started yesterday , got about 2.5 L taken off. No urine output per escoto since 1930 on 12/10. Plan for family meeting today with Palliative Care Team. - Objective MAR Reviewed: Yes Vital Signs & Weight: Vital Signs (12 hours) Temp Pulse Resp BP Pulse Ox 12/12/19 03:00 97.6 F 12/12/19 02:28 74 31 H 97 12/11/19 23:00 97.6 F 12/11/19 22:08 77 12/11/19 22:06 77 28 H 99 12/11/19 21:13 32 H 12/11/19 19:00 97.4 F L 12/11/19 18:56 70 26 H 100 12/11/19 18:20 127/51 L 12/11/19 18:00 26 H Weight Admit Weight 133.3 kg Weight 138.2 kg Most Recent Monitor Data Heart Rate from ECG 73 NIBP 127/56 NIBP BP-Mean 79 Respiration from ECG 27 SpO2 98 I&O: 12/10/19 12/11/19 12/12/19 06:59 06:59 06:59 Intake Total 2894.5 2307.3 1510.3 Output Total 318 314 188 Balance 2576.5 1993.3 1322.3 Result Diagrams: 12/12/19 02:50 12/12/19 02:50 Phys Exam - Physical Examination intubated, sedated with versed HEENT: moist MMs Neck: supple neck short and thickened wheezing hear throughout with ventilated breath sounds Cardiovascular: RRR, no significant murmur tight and distended Musculoskeletal: pulses present generalized edema present throughout extremities Deviation from normal: sedated Skin: no rash Dx/Plan (1) SWATI (acute kidney injury) Code(s): N17.9 - ACUTE KIDNEY FAILURE, UNSPECIFIED Status: Acute (2) Acute hypoxemic respiratory failure Code(s): J96.01 - ACUTE RESPIRATORY FAILURE WITH HYPOXIA Status: Acute (3) Anasarca Code(s): R60.1 - GENERALIZED EDEMA Status: Acute (4) COPD exacerbation Code(s): J44.1 - CHRONIC OBSTRUCTIVE PULMONARY DISEASE W (ACUTE) EXACERBATION Status: Acute (5) Community acquired pneumonia of left lower lobe of lung Code(s): J18.9 - PNEUMONIA, UNSPECIFIED ORGANISM Status: Acute (6) Morbid obesity with alveolar hypoventilation Code(s): E66.2 - MORBID (SEVERE) OBESITY WITH ALVEOLAR HYPOVENTILATION Status : Acute - Plan Plan: Patient is a 64 yo female who presents with SOB is intubated in ED and admitted for respiratory failure: Acute hypoxic respiratory failure 2/2 COPD exacerbation, CAP, and obesity hypoventilation disorder -Intubated. Propofol/fentanyl & Precedex for sedation. CXR: atelectasis vs. infiltrate. ABG with respiratory acidosis w/ metabolic compensation likely multifactoral with component of obesity hypoventilation syndrome. Chest CTA: large bilateral laying pleural effusions, partial collapse left upper lobe with endobronchial debris. Passive atelectasis within both lower lobes L>R. - COVID swab NEG - Abx coverage with Ceftriaxone. Procal downtrending. - Solucortef 50mg QID, Duonebs BASIL - CXR improving, continue to monitor. L atelectasis likely due to aspiration. Bronch contraindicated at this time per pulm. - Pulm consulted, appreciate recs/vent mgmt. Current settings: SIMV, TV 450, FiO2 40, Peep 8, RR 12. Sedated. Will attempt to ween off vent slowly. Prognosis poor. ->Will need trach & peg some time this week, discuss in family meeting today - Continue tube feeds - Palliative care consulted -Family meeting @ 0930 today, plan to discuss goals of care Anuria Worsening SWATI, suspect ATN - s/p Albumin x2 on 12/09, renal US with kidneys not visualized. CK 436. - D/c'ed lasix/HCTZ - Consulted Nephrology, Dr Maldonado, apprec recs -given Albumin & Lasix with no improvement -start Calcium -Vitamin D level 8.5 (low) -hemodialysis initiated on 12/10 - FeNa 0.4%, prerenal, nephrology suspects ATN - no output by Escoto cath since 1930 on 12/10 SVT, resolved - NSR this AM, s/p Adenosine 6mg on 12/09 HTN urgency, improving - Home meds through NG - Hydralazine PRN Hyponatremia - 129, Continue to monitor. Anasarca likely 2/2 Liver dysfunction 2/2 long time etoh abuse, protein malnutrition - Abd US: cholelithiasis and cirrhosis vs steatosis. - ECHO: EF 60-65% with mild MR & TR. - Albumin given x 2 Transaminitis Abd US: cholelithiasis & cirrhosis vs steatosis. 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 Will likely need trach/peg this week. CODE: FULL PPx: lovenox BID, protonix Diet: Tube feeds Tubes: ETT since 12/03 Lines: RIGHT femoral placed 12/07 Drips: Precedex for sedation Dispo: Guarded. Pending clinical course, remains in ICU - ventilated/sedated, palliative care, Nephro, & Pulm all consulted, appreciate recs. Addendum - Attending - Attending Attestation Date/Time: 12/12/19 2338 I personally evaluated the patient and discussed the management with Dr. Fernandez. I agree with the History, Examination, Assessment and Plan documented above with any addition or exceptions noted below. Patient overall stable. Family meeting today and code status changed to DNAR. They will also contemplate compassionate extubation versus trach/PEG in the next day. She is still vent dependent and will likely remain that way until she is less volume overloaded and uremic. S/p HD yesterday, anticipate will happen again today. Nephro and Pulm on board. Renal function has not improved and UOP has diminished to anuria.
--- NOTE | 2019-12-12 07:50 | RAD ---
EXAM: CHEST ONE VIEW HISTORY: Respiratory failure, COPD, on ventilator. COMPARISON: 12/11/2019 FINDINGS: Endotracheal tube and nasogastric tubes remain in place. The nasogastric tube appears to have been wi thdrawn when compared to prior study with tip overlying the lower mediastinum and overlying the region of the distal esophagus. Nasogastric tube should be advanced. Airspace opacities are again see n within the midlung zones bilaterally with persistent pulmonary vascular congestion. No other interval change. IMPRESSION: 1. Nasogastric tube has been withdrawn with the tip now overlying the expected location of the distal esophagus. Nasogastric tube should be advanced. 2. Persistent airspace opacities midlung zones bilaterally which could be related to bilateral pneumo javier. Follow-up to resolution is recommended. 3. Persistent mild pulmonary vascular congestion.
[2019-12-12] MEDS: Carvedilol 6.25 MG TAB PO SCH ×2 (08:04→16:59)
[2019-12-12] MEDS: Enoxaparin Sodium 30 MG/0.3 ML SYRINGE SC SCH (08:04)
[2019-12-12] MEDS: Polyethylene Glycol 3350 17 GM Packet PER TUBE SCH (08:05)
[2019-12-12] MEDS: Sevelamer Carbonate 800 MG TAB PO SCH ×3 (08:05→20:51)
[2019-12-12] MEDS: Famotidine/PF 20 mg/2ml Vial SLOW IVP SCH (08:05)
[2019-12-12] MEDS ORDERED: Heparin 10,000 UNITS/ 10 ML VIAL ONE (09:26)
--- NOTE | 2019-12-12 09:55 | PRG ---
DATE OF SERVICE: 12/12/2019 SUBJECTIVE: A 64-year-old female seen in followup for acute renal failure and anasarca. The patient is still intubated and mechanically ventilated. She had hemodialysis initiation yesterday, which was well tolerated. Urine output is still very poor. OBJECTIVE: VITAL SIGNS: Temperature 98.6, pulse 80, respiratory rate 32, SpO2 of 99% on 40% FiO2, blood pressure 185/81. I and O in the last 24 hours showed total intake of 1526 with total output of 2533 with urine contributing only 38 mL and 2350 from ultrafiltration. GENERAL: Obese female, in no obvious distress. The patient is somnolent. HEENT: Normocephalic, atraumatic. Oral mucosa is moist. ET and NG tubes are in place. NECK: Short thick neck with excess subcutaneous tissue. CARDIOVASCULAR: Regular rhythm and rate with normal heart sounds 1 and 2. RESPIRATORY: Ventilator transmitted breath sounds noted. GI: Obese, soft, nontender, nondistended. Bowel sound is hypoactive. EXTREMITIES: Hrusydvl-fi-kvcvmn edema of the extremities especially upper limbs with some weeping noted. UROGENITAL: Best catheter is in place draining some clear urine. MISSING PERSONS INVESTIGATOR: The patient is somnolent. Sedatives have been discontinued earlier this morning. DIAGNOSTIC DATA: CBC showed WBC count of 19.8, hemoglobin of 11.1, platelet of 348. Chemistry showed sodium 134, potassium 5.6, chloride 96, CO2 of 25, BUN 105, creatinine 4.53, glucose 153, calcium 7.8, total bilirubin 1.7, AST is 59, ALT 40, alkaline phosphatase 59, total protein 6.2, albumin 3.9. Vitamin D level yesterday was 8.5. ASSESSMENT: 1. Acute renal failure with oliguria due to acute tubular necrosis. 2. Hyperkalemia, improved with hemodialysis. 3. Anasarca. 4. Vitamin D deficiency. 5. Hyponatremia, due to free water excess and poor excretion via the kidneys. 6. Marked azotemia with BUN of 105. 7. Hypertension, most likely due to volume overload. PLAN: 1. We will dialyze the patient again today for 3 hours with UF as tolerated. We will also start vitamin D supplementation. 2. We will continue to monitor urine output. Further treatment to follow depending on hospital course. Job ID: [id number]
--- NOTE | 2019-12-12 10:14 | PDOC.FMACP ---
Advance Care Planning - Problem (1) Palliative care encounter Status: Acute Code(s): Z51.5 - ENCOUNTER FOR PALLIATIVE CARE (2) SWATI (acute kidney injury) Status: Acute Code(s): N17.9 - ACUTE KIDNEY FAILURE, UNSPECIFIED (3) Acute hypoxemic respiratory failure Status: Acute Code(s): J96.01 - ACUTE RESPIRATORY FAILURE WITH HYPOXIA (4) Alcohol withdrawal Status: Acute Code(s): F10.239 - ALCOHOL DEPENDENCE WITH WITHDRAWAL, UNSPECIFIED Qualifiers: Complication of substance-induced condition: with delirium Qualified Code(s ): F10.231 - Alcohol dependence with withdrawal delirium (5) COPD exacerbation Status: Acute Code(s): J44.1 - CHRONIC OBSTRUCTIVE PULMONARY DISEASE W (ACUTE ) EXACERBATION (6) Morbid obesity with alveolar hypoventilation Status: Acute Code(s): E66.2 - MORBID (SEVERE) OBESITY WITH ALVEOLAR HYPOVENTILATION (7) Tobacco abuse Status: Chronic Code(s): Z72.0 - TOBACCO USE - Note Participants: family, palliative care Summary: Palliative Care introduced Advanced Care Planning to patient brother and three daughters, allowed an oppertunity to decline. The diagnosis, prognosis and goals of care were discussed. Appropriate forms and documentation to accomplish the goals of care were discussed. All questions were answered. The family is discussing "what the patient would want" and states that they know she would not desire a trach or peg. They shared she likes "to be on the go". The Palliative Care Team will continue to assist with completion of any outstanding forms that are needed or identified as family acts as surrogate decision maker for Ms. Staples. Please also refer to Elba Hernandez RN notes in note section. Dr Fernandez also present for family meeting. Family to bedside. Time Spent (mins): 45
[2019-12-12] MEDS: hydrALAZINE 20 MG/ML VIAL SLOW IVP PRN ×2 (10:25→16:47)
[2019-12-12] MEDS: Lorazepam 2 MG/ML VIAL SLOW IVP PRN ×2 (10:38→20:52)
--- NOTE | 2019-12-12 15:44 | PRG ---
DATE OF SERVICE: 12/12/2019 SUBJECTIVE: Rosa Harvey is not overall improved much. OBJECTIVE: VITAL SIGNS: Heart rate 70, blood pressure 137/50, respiratory rates in the high 20s. LUNGS: Remarkable for diffuse wheezes. HEART: Regular rhythm. ABDOMEN: Soft. EXTREMITIES: With edema. LABORATORY DATA: White count 19.8, hemoglobin 11.1, platelets 348. Sodium 134, potassium 5.6, chloride 96, bicarb 25, BUN 105, and creatinine 4.53. Intake and outputs, positive 1338 with only 188 mL of urine output. IMPRESSION: 1. Respiratory failure. 2. Chronic obstructive pulmonary disease. 3. Life-threatening obesity. 4. Acute renal failure. 5. Extreme deconditioning. PLAN: 1. I do not see how she can survive this without a tracheostomy. She is probably going to need a tunneled dialysis catheter. 2. Long-term IV access is also an issue. She will also need, at some point, a feeding tube. 3. We will continue to follow. I have consulted Surgery for this. Critical care time 30 min. Job ID: [id number] MTDD
[2019-12-12] MEDS: cefTRIAXone\\ROCEPHIN 1 GM in Sodium Chloride 0.9% 100 ML IVPB SCH (15:48)
[2019-12-12] MEDS: Morphine 2 MG/ML VIAL SLOW IVP PRN (20:52)
[2019-12-13] MEDS: methylPREDNISolone Sod Succ 40 MG VIAL IVP SCH ×5 (00:21→22:42)
[2019-12-13 02:13] LABS: Hemoglobin 11.9 g/dL (12.0-16.0); Mean Corpuscular HGB CONC 32.9 g/dL (32.0-36.0); Mean Corpuscular Hemoglobin 36.8 pg (27.0-31.0); Mean Platelet Volume 7.6 fL (7.4-10.4); Platelet Count 351 thou/uL (130-400); RBC Distribution Width 13.9 % (11.5-14.5); Red Blood Cell (RBC) Count 3.22 mill/uL (4.20-5.40); White Blood Cell (WBC) Count 16.3 thou/uL (4.8-10.8)
[2019-12-13] MEDS: Morphine 2 MG/ML VIAL SLOW IVP PRN ×2 (02:18→22:43)
[2019-12-13] MEDS: Lorazepam 2 MG/ML VIAL SLOW IVP PRN ×3 (02:18→22:43)
[2019-12-13 02:39] LABS: ALT (SGPT) 55 U/L (8-55); AST (SGOT) 76 U/L (5-34); Albumin 3.9 g/dL (3.4-4.8); Alkaline Phosphatase 62 U/L (40-110); Anion Gap 19 mmol/L (10-20); BUN (Urea Nitrogen) 80 mg/dL (9.8-20.1); Bilirubin, Total 1.7 mg/dL (0.2-1.2); Calc. Creatinine Clearance 33 mL/min (70-130); Calcium 8.2 mg/dL (7.8-10.44); Carbon Dioxide 26 mmol/L (23-31); Chloride 93 mmol/L (98-107); Estimated GFR-MDRD 12; Globulin 2.6 g/dL (2.4-3.5); Glucose 136 mg/dL (80-115); Potassium 4.6 mmol/L (3.5-5.1); Protein, Total 6.5 g/dL (6.0-8.3); Sodium 133 mmol/L (136-145)
[2019-12-13 02:59] LABS: Band 4 % (5-11); Lymphocytes 5 % (21-51); MDiff Complete? YES; Macrocytosis SLIGHT = 6-15 cells (100X) (0-5/hpf); Monocytes 3 % (0-10); Neutrophil 88 % (42-75)
--- NOTE | 2019-12-13 06:00 | PDOC.FM ---
- Subjective Subjective: Patient intubated & sedated. Had hemodialysis again yesterday with about 3.5L taken off, will receive dialysis again today. Urine output by escoto 188 mL. Had family meeting yesterday with 3 daughters and 1 brother. Made decision to change code status to DNR. Long discussion had regarding future care goals including decision to place trach/peg. Family members wanted more time to decide and should hear back from them today via Palliative Team. - Objective MAR Reviewed: Yes Vital Signs & Weight: Vital Signs (12 hours) Temp Pulse Resp Pulse Ox 12/13/19 03:01 63 21 H 99 12/13/19 00:00 98.4 F 12/12/19 23:20 61 23 H 99 12/12/19 19:00 97.6 F 12/12/19 18:48 65 30 H 99 12/12/19 18:00 29 H Weight Admit Weight 133.3 kg Weight 138.5 kg Most Recent Monitor Data Heart Rate from ECG 60 NIBP 171/83 NIBP BP-Mean 112 Respiration from ECG 25 SpO2 97 I&O: 12/11/19 12/12/19 12/13/19 06:59 06:59 06:59 Intake Total 2307.3 1526.3 1865 Output Total 314 188 110 Balance 1993.3 1338.3 1755 Result Diagrams: 12/13/19 01:50 12/13/19 01:50 Phys Exam - Physical Examination intubated, sedated HEENT: moist MMs Neck: supple shortened and thick diffuse wheezing with ventilated breath sounds throughout Cardiovascular: RRR, no significant murmur Gastrointestinal: positive bowel sounds distended and tight, somewhat less than yesterday Musculoskeletal: pulses present generalized edema present Deviation from normal: sedated Skin: no rash Dx/Plan (1) SWATI (acute kidney injury) Code(s): N17.9 - ACUTE KIDNEY FAILURE, UNSPECIFIED Status: Acute (2) Acute hypoxemic respiratory failure Code(s): J96.01 - ACUTE RESPIRATORY FAILURE WITH HYPOXIA Status: Acute (3) Anasarca Code(s): R60.1 - GENERALIZED EDEMA Status: Acute (4) COPD exacerbation Code(s): J44.1 - CHRONIC OBSTRUCTIVE PULMONARY DISEASE W (ACUTE) EXACERBATION Status: Acute (5) Community acquired pneumonia of left lower lobe of lung Code(s): J18.9 - PNEUMONIA, UNSPECIFIED ORGANISM Status: Acute (6) Morbid obesity with alveolar hypoventilation Code(s): E66.2 - MORBID (SEVERE) OBESITY WITH ALVEOLAR HYPOVENTILATION Status : Acute - Plan Plan: Patient is a 64 yo female who presents with SOB is intubated in ED and admitted for respiratory failure: Acute hypoxic respiratory failure 2/2 COPD exacerbation, CAP, and obesity hypoventilation disorder -Intubated. Propofol/fentanyl & Precedex for sedation. CXR: atelectasis vs. infiltrate. ABG with respiratory acidosis w/ metabolic compensation likely multifactoral with component of obesity hypoventilation syndrome. Chest CTA: large bilateral laying pleural effusions, partial collapse left upper lobe with endobronchial debris. Passive atelectasis within both lower lobes L>R. - COVID swab NEG - Abx coverage with Ceftriaxone. Procal downtrending. - Solucortef 50mg QID, Duonebs BASIL - CXR stable, continue to monitor. L atelectasis likely due to aspiration. Bronch contraindicated at this time per pulm. - Pulm consulted, appreciate recs/vent mgmt. Current settings: SIMV, TV 450, FiO2 40, Peep 8, RR 12. Sedated. Will attempt to ween off vent slowly. Prognosis poor. ->Will need trach & peg some time this week, discussed in family meeting on , will reach out for final decision today -if decide to pursue surgery, then has been scheduled for 12/13 with Jorge - Continue tube feeds - Palliative care consulted -Family meeting @ 0930 on 12/11, discussed goals of care & code status was changed to DNR -son, Max to visit hospital today Anuria Worsening SWATI, suspect ATN - s/p Albumin x2 on 12/09, renal US with kidneys not visualized. CK 436. - D/c'ed lasix/HCTZ - Consulted Nephrology, Dr Maldonado, apprec recs -given Albumin & Lasix with no improvement -start Calcium -Vitamin D level 8.5 (low), supplementation started -hemodialysis initiated on 12/10, has continued daily since - FeNa 0.4%, prerenal, nephrology suspects ATN - no output by Escoto cath since 1930 on 12/10 SVT, resolved - NSR this AM, s/p Adenosine 6mg on 7/5 HTN urgency, improving - Home meds through NG - Hydralazine PRN Hyponatremia - 129 on admission, Continue to monitor. Anasarca likely 2/2 Liver dysfunction 2/2 long time etoh abuse, protein malnutrition - Abd US: cholelithiasis and cirrhosis vs steatosis. - ECHO: EF 60-65% with mild MR & TR. - Albumin given x 2 Transaminitis Abd US: cholelithiasis & cirrhosis vs steatosis. 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 Will need trach/peg this week. CODE: DNAR PPx: lovenox BID, protonix Diet: Tube feeds Tubes: ETT since 12/03 Lines: RIGHT femoral placed 12/07 Drips: Precedex for sedation Dispo: Guarded. Pending clinical course, remains in ICU - ventilated/sedated, palliative care, Nephro, & Pulm all consulted, appreciate recs. Addendum - Attending - Attending Attestation Date/Time: 12/13/19 5957 I personally evaluated the patient and discussed the management with Dr. Fernandez. I agree with the History, Examination, Assessment and Plan documented above with any addition or exceptions noted below. Patient overall stable. She continues to be extremely volume overloaded. Likely HD today. Family making decision today on extubation versus Trach/PEG. Further mgmt pending that result.
[2019-12-13] MEDS: Famotidine/PF 20 mg/2ml Vial SLOW IVP SCH (08:00)
[2019-12-13] MEDS: Enoxaparin Sodium 30 MG/0.3 ML SYRINGE SC SCH (08:00)
[2019-12-13] MEDS: Carvedilol 6.25 MG TAB PO SCH ×2 (08:00→17:39)
[2019-12-13] MEDS: Sevelamer Carbonate 800 MG TAB PO SCH ×3 (08:01→20:28)
--- NOTE | 2019-12-13 08:18 | RAD ---
EXAM: CHEST ONE VIEW HISTORY: Respiratory failure, COPD, on ventilator. COMPARISON: 12/12/2019 FINDINGS: Endotracheal tube and nasogastric tube remain in place. The nasogastric tube has been advanced which courses into the abdomen. Cardiac silhouette appears enlarged. Airspace opacities are again seen within the midlung zones bilaterally not significantly changed when compared to prior exam. Pulmonary vasculature is at the upper limits of normal but does appear improved compared to prior study. No other interval change. IMPRESSION: 1. Interval advancement of the nasogastric tube which now courses into the upper abdomen. Endotrachea l tube remains in place. 2. Persistent airspace opacities within the midlung zones bilaterally which again may be related to b ilateral pneumonia and continued follow-up to resolution is recommended.
[2019-12-13] MEDS: Polyethylene Glycol 3350 17 GM Packet PER TUBE SCH (08:29)
[2019-12-13] MEDS ORDERED: Amlodipine 5 MG TAB PO SCH ×2 (09:00→13:00)
--- NOTE | 2019-12-13 10:11 | PRG ---
DATE OF SERVICE: SERVICE: Nephrology. SUBJECTIVE: A 64-year-old obese female seen in followup for anasarca and acute renal failure requiring hemodialysis. The patient is still markedly volume overloaded. She is also still somnolent despite discontinuation of sedatives since yesterday morning. Still getting tube feeding. OBJECTIVE: VITAL SIGNS: Temperature 98.4, pulse 64, respiratory rate 23, SpO2 of 99, blood pressure is 171/79. I and O in the last 24 hours showed total intake of 1865 with total output of 3710 with urine contributing only 110 and ultrafiltration 3600. GENERAL: Obese, somnolent female, in no obvious distress noted. Afebrile. HEENT: ET tube is in place. CARDIOVASCULAR: Regular rhythm and rate with normal heart sounds 1 and 2. RESPIRATORY: Ventilator transmitted breath sounds heard in all lung zones. GI: Obese, enlarged with abdominal wall edema. Bowel sound is hypoactive. EXTREMITIES: Moderate edema of the extremities noted. UROGENITAL: Best catheter is in place draining little or no urine. 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 Winces with painful stimulus. DIAGNOSTIC DATA: CBC showed WBC count of 16.3, hemoglobin of 11.9, platelets of 351. Chemistry showed sodium 133, potassium 4.6, chloride 93, CO2 of 26, BUN 80, creatinine 3.69, glucose 136, calcium 8.2, total bilirubin 1.7, AST 76, ALT 55, alkaline phosphatase 62, total protein 6.5, albumin 3.9. ASSESSMENT: 1. Hyperkalemia: Resolved with hemodialysis. 2. Acute renal failure with acute tubular necrosis. Hemodialysis dependent. Has received hemodialysis in the last 2 days. 3. Anasarca: Urine output is still or nothing. Etiology is unclear what seems to be related to diastolic heart failure. Possible liver pathology and acute renal failure. 4. Hypertension: Blood pressure is consistently above 150 in the last 24 hours. 5. Acute encephalopathy: Most likely due to acute renal failure with possible congestive hepatopathy leading to persistence of sedatives. PLAN: 1. We will dialyze the patient today for 4 hours with UF as tolerated. See dialysis order for details. 2. We will also start antihypertensives, amlodipine for this patient to get better BP control. 3. 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 4. We will also start calcium supplementation on this patient. We will also start vitamin D supplementation due to severe vitamin D deficiency. Job ID: [id number]
[2019-12-13] MEDS: hydrALAZINE 20 MG/ML VIAL SLOW IVP PRN ×2 (10:18→14:14)
[2019-12-13 12:09] VITALS: BMI 46.4
--- NOTE | 2019-12-13 16:05 | PRG ---
DATE OF SERVICE: 12/13/2019 SUBJECTIVE: Rosa Harvey is unchanged. OBJECTIVE: VITAL SIGNS: Heart rates in the 60s, blood pressure 187/75, respiratory rates in the 20s. Her static compliance is still poor. LUNGS: Clear laterally, but she still has audible anterior wheezes. HEART: Regular rhythm. ABDOMEN: Soft. EXTREMITIES: Without any change. LABORATORY DATA: White count 16.3, hemoglobin 11.9, platelets 351, and 4% bands on peripheral smear. Sodium 133, potassium 4.6, chloride 93, bicarb 26, BUN 80, creatinine 3.69. We were no longer doing daily blood gases. IMPRESSION: 1. Respiratory failure. 2. Advanced obstructive lung disease. 3. Chronic obstructive pulmonary disease exacerbation. 4. Morbid obesity. 5. Diastolic heart failure. 6. Acute renal failure. We will continue with dialysis and supportive care. Awaiting tracheostomy and placement of a tunneled catheter as well as a feeding tube. I am told that her family is undecided about these aggressive measures. She is a do not resuscitate patient now. I relayed to the nurses that if the family calls, they need to be reminded they need to try to make a decision about this today, so we can make plans for the rest of the week. Critical care time 30 min. Job ID: [id number] MTDD
--- NOTE | 2019-12-13 16:59 | PDOC.BPN ---
- Brief Progress Note Spoke with patient's daughters multiple times this afternoon. Continued discussion of pursing trach/peg versus compassionate extubation. Daughter Millie is spokesperson for family, spoke with other daughter Erma on speaker phone. Millie states patient's children in agreement with plan to perform compassionate extubation tomorrow. Palliative Care Team notified of decision and will arrange time for family to be at hospital when this is performed.
[2019-12-13] MEDS: cefTRIAXone\\ROCEPHIN 1 GM in Sodium Chloride 0.9% 100 ML IVPB SCH (17:39)
[2019-12-14 05:44] LABS: ALT (SGPT) 170 U/L (8-55); AST (SGOT) 184 U/L (5-34); Albumin 3.5 g/dL (3.4-4.8); Alkaline Phosphatase 69 U/L (40-110); Anion Gap 17 mmol/L (10-20); BUN (Urea Nitrogen) 64 mg/dL (9.8-20.1); Calc. Creatinine Clearance 35 mL/min (70-130); Calcium 8.2 mg/dL (7.8-10.44); Carbon Dioxide 26 mmol/L (23-31); Chloride 93 mmol/L (98-107); Estimated GFR-MDRD 14; Globulin 2.5 g/dL (2.4-3.5); Glucose 134 mg/dL (80-115); Potassium 4.7 mmol/L (3.5-5.1); Sodium 131 mmol/L (136-145)
[2019-12-14 06:37] LABS: Hemoglobin 11.7 g/dL (12.0-16.0); Mean Corpuscular HGB CONC 32.2 g/dL (32.0-36.0); Mean Corpuscular Hemoglobin 35.6 pg (27.0-31.0); Mean Platelet Volume 7.9 fL (7.4-10.4); Platelet Count 358 thou/uL (130-400); RBC Distribution Width 13.9 % (11.5-14.5); White Blood Cell (WBC) Count 19.7 thou/uL (4.8-10.8)
[2019-12-14 06:44] LABS: Band 8 % (5-11); Lymphocytes 8 % (21-51); MDiff Complete? YES; Monocytes 3 % (0-10); Neutrophil 81 % (42-75)
[2019-12-14] MEDS: methylPREDNISolone Sod Succ 40 MG VIAL IVP SCH (08:18)
[2019-12-14] MEDS: Polyethylene Glycol 3350 17 GM Packet PER TUBE SCH (08:24)
[2019-12-14] MEDS: Carvedilol 6.25 MG TAB PO SCH (08:25)
[2019-12-14] MEDS: Enoxaparin Sodium 30 MG/0.3 ML SYRINGE SC SCH (08:29)
[2019-12-14] MEDS: Famotidine/PF 20 mg/2ml Vial SLOW IVP SCH (08:29)
[2019-12-14] MEDS: Sevelamer Carbonate 800 MG TAB PO SCH (08:30)
--- NOTE | 2019-12-14 08:48 | PDOC.FM ---
- Subjective Subjective: Patient intubated & sedated. Had hemodialysis again yesterday with about 7.5L taken off, will receive dialysis again today. Urine output by escoto 90 mL last 24 hrs. Spoke with family members yesterday and made decision not to pursue trach/peg placement. Per Palliative Care Team, family will be coming to hospital today at approx. 1100 with plan for compassionate extubation at at that time. - Objective MAR Reviewed: Yes Vital Signs & Weight: Vital Signs (12 hours) Temp Pulse Resp BP Pulse Ox 12/14/19 08:28 73 123/94 H 12/14/19 08:25 123/94 H 12/14/19 04:00 97.7 F 12/14/19 03:10 61 24 H 98 12/14/19 00:00 97.5 F L 12/13/19 21:34 71 28 H 98 Weight Admit Weight 133.3 kg Weight 130.7 kg Most Recent Monitor Data Heart Rate from ECG 70 NIBP 159/73 NIBP BP-Mean 101 Respiration from ECG 22 SpO2 96 I&O: 12/13/19 12/14/19 12/15/19 06:59 06:59 06:59 Intake Total 1865 1320 Output Total 110 90 Balance 1755 1230 Result Diagrams: 12/14/19 05:00 12/14/19 05:00 Phys Exam - Physical Examination Constitutional: NAD () HEENT: moist MMs Neck: supple short and thickened wheezing with ventilated breath sounds throughout Cardiovascular: RRR, no significant murmur Gastrointestinal: soft distended but improving Musculoskeletal: pulses present generalized edema throughout no withdrawal to pain Deviation from normal: sedated Skin: no rash Dx/Plan (1) SWATI (acute kidney injury) Code(s): N17.9 - ACUTE KIDNEY FAILURE, UNSPECIFIED Status: Acute (2) Acute hypoxemic respiratory failure Code(s): J96.01 - ACUTE RESPIRATORY FAILURE WITH HYPOXIA Status: Acute (3) Anasarca Code(s): R60.1 - GENERALIZED EDEMA Status: Acute (4) COPD exacerbation Code(s): J44.1 - CHRONIC OBSTRUCTIVE PULMONARY DISEASE W (ACUTE) EXACERBATION Status: Acute (5) Community acquired pneumonia of left lower lobe of lung Code(s): J18.9 - PNEUMONIA, UNSPECIFIED ORGANISM Status: Acute (6) Morbid obesity with alveolar hypoventilation Code(s): E66.2 - MORBID (SEVERE) OBESITY WITH ALVEOLAR HYPOVENTILATION Status : Acute - Plan Plan: Patient is a 64 yo female who presents with SOB is intubated in ED and admitted for respiratory failure: Acute hypoxic respiratory failure 2/2 COPD exacerbation, CAP, and obesity hypoventilation disorder -Intubated. Propofol/fentanyl & Precedex for sedation. CXR: atelectasis vs. infiltrate. ABG with respiratory acidosis w/ metabolic compensation likely multifactoral with component of obesity hypoventilation syndrome. Chest CTA: large bilateral laying pleural effusions, partial collapse left upper lobe with endobronchial debris. Passive atelectasis within both lower lobes L>R. - COVID swab NEG - Abx coverage with Ceftriaxone. Procal downtrending. - Solucortef 50mg QID, Duonebs BASIL - CXR stable, continue to monitor. L atelectasis likely due to aspiration. Bronch contraindicated at this time per pulm. - Pulm consulted, appreciate recs/vent mgmt. Current settings: SIMV, TV 450, FiO2 40, Peep 8, RR 12. Sedated. Will attempt to ween off vent slowly. Prognosis poor. ->plan for compassionate extubation today at 1100 - Continue tube feeds - Palliative care consulted -Family meeting @ 0930 on 12/11, discussed goals of care & code status was changed to DNR Anuria Worsening SWATI, suspect ATN - s/p Albumin x2 on 12/09, renal US with kidneys not visualized. CK 436. - D/c'ed lasix/HCTZ - Consulted Nephrology, Dr Maldonado, apprec recs -given Albumin & Lasix with no improvement -start Calcium -Vitamin D level 8.5 (low), supplementation started -hemodialysis initiated on 12/10, has continued daily since - FeNa 0.4%, prerenal, nephrology suspects ATN - minimal output by Escoto cath since 12/10 SVT, resolved - NSR this AM, s/p Adenosine 6mg on 12/09 HTN urgency, improving - Home meds through NG - Hydralazine PRN Hyponatremia - 129 on admission, Continue to monitor. Anasarca likely 2/2 Liver dysfunction 2/2 long time etoh abuse, protein malnutrition - Abd US: cholelithiasis and cirrhosis vs steatosis. - ECHO: EF 60-65% with mild MR & TR. - Albumin given x 2 Transaminitis Abd US: cholelithiasis & cirrhosis vs steatosis. Likely multifactoral fatty liver and cirrhosis due to group home etoh abuse - Avoid medications cleared by liver EtOH abuse Hx - ASE protocol Social: Palliative Care team consulted to discuss goals of care with family. CODE: DNAR PPx: lovenox BID, protonix Diet: Tube feeds Tubes: ETT since 12/03 Lines: RIGHT femoral placed 12/07 Drips: Precedex for sedation Dispo: Guarded. Remains in ICU - ventilated/sedated, palliative care, Nephro, & Pulm all consulted, appreciate recs. Plan for compassionate extubation later this morning. Addendum - Attending - Attending Attestation Date/Time: 12/14/19 6352 I personally evaluated the patient and discussed the management with Dr. Fernandez. I agree with the History, Examination, Assessment and Plan documented above with any addition or exceptions noted below. Patient underwent compassionate extubation this morning with family present. Moving to comfort measures and pursue hospice care tomorrow if she has not yet .
[2019-12-14] MEDS ORDERED: Cholecalciferol 10 MCG/ML (Vitamin D3) 50 ML BOT PO SCH (09:00)
[2019-12-14] MEDS ORDERED: Amlodipine 5 MG TAB PO SCH (09:00)
[2019-12-14] MEDS ORDERED: Lorazepam 2 MG/ML VIAL SLOW IVP PRN (09:58)
[2019-12-14] MEDS ORDERED: Scopolamine 1.5 mg/72 hour Patch TD SCH (10:00)
--- NOTE | 2019-12-14 10:03 | PDOC.PALPN ---
Palliative Progress Note - Subjective Remains intubated, dialysis 12/13/2019 with removal of 7.5 liters. Family is electing to compassionately extubate today as they communicated that she would not want a Trach/Peg. - Objective Vital Signs: Vital Signs - Most Recent Temp Pulse Resp BP Pulse Ox 97.7 F 73 22 H 123/94 H 97 12/14/19 04:00 12/14/19 08:28 12/14/19 07:58 12/14/19 08:28 12/14/19 07:58 - Physical Exam Constitutional: encephalitic, ill appearing HEENT: moist MMs Deviation from normal: adventicious bilaterally Cardiovascular: RRR Gastrointestinal: soft Deviation from normal: obese Genitourinary: escoto catheter Musculoskeletal: edema present, diffuse muscle atrophy Neurology: moves all 4 limbs Skin: fragile Deviation from normal: sedation, encephalopathy - Assessment (1) Palliative care encounter Code(s): Z51.5 - ENCOUNTER FOR PALLIATIVE CARE Current Visit: Yes Status: Acute (2) SWATI (acute kidney injury) Code(s): N17.9 - ACUTE KIDNEY FAILURE, UNSPECIFIED Current Visit: No Status : Acute (3) Acute hypoxemic respiratory failure Code(s): J96.01 - ACUTE RESPIRATORY FAILURE WITH HYPOXIA Current Visit: No Status: Acute (4) Alcohol withdrawal Code(s): F10.239 - ALCOHOL DEPENDENCE WITH WITHDRAWAL, UNSPECIFIED Current Visit: No Status: Acute Qualifiers: Complication of substance-induced condition: with delirium Qualified Code(s ): F10.231 - Alcohol dependence with withdrawal delirium (5) COPD exacerbation Code(s): J44.1 - CHRONIC OBSTRUCTIVE PULMONARY DISEASE W (ACUTE) EXACERBATION Current Visit: No Status: Acute (6) Morbid obesity with alveolar hypoventilation Code(s): E66.2 - MORBID (SEVERE) OBESITY WITH ALVEOLAR HYPOVENTILATION Current Visit: No Status: Acute (7) Tobacco abuse Code(s): Z72.0 - TOBACCO USE Current Visit: No Status: Chronic - Plan Plan: Compassionate extubation secondary to family expressing she would not desire a Trach/Peg. Family to bedside at 11am. Family educated by Palliative Care in relation to process of removing et tube, and that it is unknown how Ms Harvey will do, but that comfort care will be provided. Plan to transition to medical floor after extubation if needed with consideration of [facility] depending on patient status. Medications ordered for comfort Spiritual care aware. Communicated with Dr Fernandez Please also see Elba Hernandez emt/paramedic in note section. [35] minutes spent on this encounter with >50% of the time in counseling and coordination of care. - ROS Non Response: due to endotracheal tube, due to mental status
[2019-12-14] MEDS: Morphine 4 MG/ML VIAL SLOW IVP PRN ×4 (11:17→22:27)
--- NOTE | 2019-12-14 22:12 | PRG ---
DATE OF SERVICE: 12/14/2019 SUBJECTIVE: Ms. Harvey' family apparently was contacted by the surgeons and they declined PEG or trach. She was terminally extubated today. OBJECTIVE: VITAL SIGNS: She is afebrile. Heart rate is in the 60s, respiratory rate is 20, oximetry is 92%, and blood pressure 115/64. LUNGS: Unchanged. HEART: Unchanged. ABDOMEN: Unchanged. She has been transferred to the floor for comfort care. We will sign off. Job ID: [id number]
--- NOTE | 2019-12-15 05:44 | PRG ---
DATE OF SERVICE: 12/14/2019 SERVICE: Nephrology. SUBJECTIVE: A 64-year-old female, came in for followup for acute renal failure. The patient was initiated on hemodialysis 3 days ago. Had dialysis yesterday with ultrafiltration. The patient is not responsive. Family is thinking about compassionate extubation. OBJECTIVE: VITAL SIGNS: Temperature 98.5, pulse 72, respiratory rate 24, SpO2 of 96% on ventilator, FiO2 40%, blood pressure is 123/94. I and O in the last 24 hours showed total intake of 1320 with total output of 7490 with urine of 90 mL and ultrafiltration 7400. GENERAL: Obese female, somnolent. HEENT: Normocephalic, atraumatic. ET tube is in place. CARDIOVASCULAR: Regular rhythm and rate with normal heart sounds one and two. RESPIRATORY: Ventilator transmitted breath sounds heard in all lung zones. GI: Obese, soft, nondistended. UROGENITAL: Best catheter is in place draining some little or no urine. MUSCULOSKELETAL: Left groin temporary dialysis catheter as well as right groin triple-lumen catheter noted. Moderate edema of the extremities noted. 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 Responds to stimulation, however. DIAGNOSTIC DATA: CBC showed WBC count of 19.7, hemoglobin of 11.7, platelet of 358. Chemistry showed sodium 131, potassium 4.7, chloride 93, CO2 of 26, BUN 64, creatinine 3.24, glucose 134, calcium is 8.2, total bilirubin 2.0, AST 184, ALT 170, alkaline phosphatase 69, total protein 6.0, albumin 3.5. ASSESSMENT: 1. Acute renal failure with acute tubular necrosis: The patient is hemodialysis dependent, has had treatment in the last 3 days. 2. Anasarca: Due to congestive heart failure, possible liver pathology and chronic kidney disease. Better with hemodialysis with UF. The patient is currently anuric making only 90 mL of urine in the last 24 hours. 3. Hypertension: Control is better with addition of amlodipine. 4. Acute respiratory failure superimposed on chronic respiratory failure, remaining on ventilator. 5. Acute encephalopathy related to sedatives, chronic kidney disease, and liver pathology. 6. Abnormal liver enzymes. 7. Morbid obesity. DISCUSSION/PLAN: Elementary School Teacher has recommended trach and PEG. It seems family and relatives are not inclined to do this and are planning to do compassionate extubation. We will hold up on further treatment for now. We will observe and see how patient responds post-extubation. Job ID: [id number]
[2019-12-15 07:47] VITALS: BP 88/51; TEMP 98
--- NOTE | 2019-12-17 23:20 | DIS ---
DATE OF ADMISSION: 12/04/2019 DATE OF DISCHARGE: 12/15/2019 RESIDENT: Vianca Fernandez DO ADMITTING ATTENDING: Ti Nicolas MD DISCHARGE ATTENDING: Sheldon Epps MD CONSULTS: 1. Nephrology, Kash Matta Obi, MD. 2. Pulmonology, Louie Salcido MD. 3. Hospice. 4. Palliative care. 5. General surgery, Hai Laboy DO. PROCEDURES: 1. Intubation in ED on December 04, 2019. 2. Chest x-ray on December 04, 2019: Persistent linear and patchy parenchymal density in the expected location of the lingula, consider persistent atelectasis versus pneumonia. 3. CTA chest on December 04, 2019: Large bilateral layering pleural effusions. Partial collapse of left upper lobe with endobronchial debris. Passive atelectasis within both lower lobes, greatest in the left lower lobe. Numerous bilateral old rib fractures. 4. Chest x-ray on December 05, 2019: Chest is overall stable. Endotracheal tube and nasogastric tube in place. No other interval change. 5. Chest x-ray on December 08, 2019: Development of small focal area of airspace disease involving the right mid lung zone. No additional significant interval change. 6. Central line placement to right femoral on December 08, 2019. 7. Renal ultrasound on December 09, 2019: Right and left kidneys are not visualized. Bladder is decompressed. 8. Hemodialysis initiated on December 11, 2019, temporary dialysis catheter placed by Dr. Laboy on December 11, 2019. 9. Chest x-ray on December 13, 2019: Persistent airspace opacities within the mid lung zones bilaterally, which is related to bilateral pneumonia. No other interval change. 10. Extubation on December 14, 2019. PRIMARY DIAGNOSES: 1. Acute hypoxic respiratory failure secondary to chronic obstructive pulmonary disease exacerbation. 2. Community-acquired pneumonia. 3. Obesity hypoventilation disorder. SECONDARY DIAGNOSES: 1. Anuria, suspected due to acute tubular necrosis. 2. Supraventricular tachycardia, resolved. 3. Hypertensive urgency. 4. Hyponatremia. 5. Anasarca. 6. Transaminitis. 7. History of alcohol abuse. DISCHARGE MEDICATIONS: The patient discharged to inpatient hospice, medications to be continued pending from hospice nurse evaluation. DISCONTINUED MEDICATIONS: None. HISTORY OF PRESENT ILLNESS/HOSPITAL COURSE: The patient is a 64-year-old female , who presented to the [facility] Emergency Department on December 04, 2019. Upon arrival, the patient was intubated in the Emergency Department. Per chart review, the patient had been complaining of progressively worsening shortness of breath, generalized edema in all extremities for the past 2 to 3 weeks. The patient also reported wheezing, abdominal distention, and pain that was generalized. The patient was recently discharged from the hospital on November 01, 2019 with a diagnosis of COPD exacerbation secondary to community-acquired pneumonia. In the Emergency Department, the patient's blood pressure ranged from systolic 230s over diastolic 110s, so nitroglycerin was administered. CT chest and chest x-ray in the Emergency Department showed bilateral pleural effusions and infiltrate versus atelectasis. The patient was swabbed for COVID-19, this ultimately resulted negative. The patient was admitted to the CCU with acute hypoxic hypercapnic respiratory failure likely secondary to COPD exacerbation and community-acquired pneumonia. A component of obesity hypoventilation syndrome was also noted. Pulmonology, Dr. Salcido was consulted for further input on management. The patient was placed on azithromycin and Rocephin antibiotics. She completed both of these antibiotic courses during her stay. The patient was also placed on Solu-Cortef 50 mg q.i.d. and scheduled DuoNeb. The patient was given hydralazine p.r.n. with home blood pressure medications restarted per NG tube. The patient's anasarca was likely due to liver dysfunction from long-time alcohol abuse and protein malnutrition. Over the following few days, the patient's condition continued to worsen. She required central line placement in the right femoral area on December 08, 2019. The patient developed a worsening SWATI. Renal ultrasound was not able to visualize the kidneys. Her pain urea continued to worsen and Dr. Maldonado with Nephrology was consulted on December 10, 2019. He initiated discussion with family to start hemodialysis. Dr. Laboy with General Surgery was consulted for temporary dialysis catheter placement on December 10, hemodialysis was initiated shortly after. For additional note on the stay from the patient's admission of January 02 through December 10, please see the transition of care note by Korin Galeana, dated on December 10, 2019. Palliative Care team was consulted on December 11, 2019 to discuss goals of care and code status with the patient's family. The family meeting was scheduled for December 12, 2019. The patient's brother and three daughters were in attendance. It was discussed with the patient's family at this point moving forward the patient would likely need a trach and PEG tube placement along with a more permanent dialysis catheter placement moving forward. The patient's family members expressed that the patient would not want to be kept on life support measures. It was discussed extensively with the family that the options were to remove the ventilator or to schedule a trach to be placed for more permanent measure. The patient's family members reached a decision on December 13, 2019 to remove the patient from the ventilator and to transition to hospice. The patient was extubated on the morning of December 14, 2019. At that time, dialysis catheter and all other lines were also removed except for a peripheral IV. Hospice evaluated the patient and accepted. The patient's care was transferred to hospice under Dr. Upton on December 15, 2019. DISPOSITION: Stable. DISCHARGE INSTRUCTION: 1. Location: Inpatient hospice. 2. Diet: Per hospice. 3. Follow up per hospice. Job ID: [id number] MTDD
--- NOTE | 2019-12-19 16:19 | EKG ---
Test Reason : Blood Pressure : / mmHG Vent. Rate : 095 BPM Atrial Rate : 095 BPM P-R Int : 152 ms QRS Dur : 064 ms QT Int : 350 ms P-R-T Axes : 064 042 065 degrees QTc Int : 439 ms Normal sinus rhythm Low voltage QRS Cannot rule out Anteroseptal infarct , age undetermined Abnormal ECG Confirmed by JYOTSNA GARCIA, MAGALY Ruth ([id number]), sound editor RUSTY ROBLES ([id number]) on 12/19/2019 4:19:06 PM Referred By: Confirmed By:MAGALY GOYAL MD
== END 2019-12-15 08:11 | disposition hospice, home (50) | DRG 870 ==
LOC: ERS 14:56 → CCU 18:18 → T4-A 12-14 15:40
PROVIDERS: ADMIT Family Medicine; ATTEND Family Medicine
PROC: 0BH17EZ Insertion of Endotracheal Airway into Trachea, Via Natural or Artificial Opening (ICD-10-PCS; principal; 2019-12-04)
PROC: 5A1955Z Respiratory Ventilation, Greater than 96 Consecutive Hours (ICD-10-PCS; 2019-12-04)
PROC: 8E0ZXY6 Isolation (ICD-10-PCS; 2019-12-04)
PROC: 02HV33Z Insertion of Infusion Device into Superior Vena Cava, Percutaneous Approach (ICD-10-PCS; 2019-12-04)
PROC: B548ZZA Ultrasonography of Superior Vena Cava, Guidance (ICD-10-PCS; 2019-12-04)
PROC: 06HY33Z Insertion of Infusion Device into Lower Vein, Percutaneous Approach (ICD-10-PCS; 2019-12-11)
DX: A41.89 Other specified sepsis (principal); J15.9 Unspecified bacterial pneumonia; J96.21 Acute and chronic respiratory failure with hypoxia; R40.2312 Coma scale, best motor response, none, at arrival to emergency department; R40.2112 Coma scale, eyes open, never, at arrival to emergency department; R40.2212 Coma scale, best verbal response, none, at arrival to emergency department; N17.0 Acute kidney failure with tubular necrosis; Z68.41 Body mass index [BMI] 40.0-44.9, adult; J44.0 Chronic obstructive pulmonary disease with (acute) lower respiratory infection; E46 Unspecified protein-calorie malnutrition; J44.1 Chronic obstructive pulmonary disease with (acute) exacerbation; E66.2 Morbid (severe) obesity with alveolar hypoventilation; E87.1 Hypo-osmolality and hyponatremia; J98.11 Atelectasis; N17.9 Acute kidney failure, unspecified; I47.1 Supraventricular tachycardia; I50.32 Chronic diastolic (congestive) heart failure; F10.231 Alcohol dependence with withdrawal delirium; G93.40 Encephalopathy, unspecified; Z20.828 Contact with and (suspected) exposure to other viral communicable diseases; Z66 Do not resuscitate; Z51.5 Encounter for palliative care; R65.20 Severe sepsis without septic shock; G89.29 Other chronic pain; M25.552 Pain in left hip; Z96.642 Presence of left artificial hip joint; F41.9 Anxiety disorder, unspecified; F32.9 Major depressive disorder, single episode, unspecified; I08.1 Rheumatic disorders of both mitral and tricuspid valves; K76.89 Other specified diseases of liver; D53.9 Nutritional anemia, unspecified; I16.0 Hypertensive urgency; E55.9 Vitamin D deficiency, unspecified; I11.0 Hypertensive heart disease with heart failure; E83.51 Hypocalcemia; E87.5 Hyperkalemia; E83.39 Other disorders of phosphorus metabolism; Z79.51 Long term (current) use of inhaled steroids; Z79.899 Other long term (current) drug therapy; Z78.1 Physical restraint status; Z87.891 Personal history of nicotine dependence
CPT/HCPCS: 31500; 36415; 36416; 51702; 71045; 71275; 76770; 80053; 81001; 81003; 81015; 82140; 82306; 82550; 82570; 82728; 82805; 83605; 83615; 83735; 83880; 83930; 83935; 84100; 84145; 84156; 84300; 84443; 84484; 84540; 85007; 85025; 85027; 85379; 86140; 86704; 86706; 86803; 87040; 87086; 87340; 87635; 90935; 93005; 93010; 94002; 94003; 94640; 94760; 96365; 96367; 96368; 96375; 96376; 99292; C1751; G0257; J0153; J0360; J0456; J0696; J1100; J1200; J1642; J1644; J1650; J1720; J1815; J1940; J2060; J2250; J2270; J2704; J2920; J3010; J3360; J3475; J3490; J7050; J7611; J7620; P9047; Q9967; S0028; U0003

== ENCOUNTER 2019-12-15 08:17 | Inpatient (IN) | payer OTHER ==
[2019-12-15] MEDS ORDERED: Lorazepam 2 MG/ML VIAL SLOW IVP PRN (09:17)
[2019-12-15] MEDS: Morphine 2 MG/ML VIAL SLOW IVP PRN ×2 (11:22→15:32)
[2019-12-15 12:12] VITALS: BMI 44.6
[2019-12-15 15:18] VITALS: BP 73/37; TEMP 97.8
--- NOTE | 2019-12-19 12:08 | DIS ---
DATE OF ADMISSION: 12/15/2019 DATE OF DISCHARGE: 12/15/2019 DISCHARGE DIAGNOSES: 1. Acute hypoxic respiratory failure. 2. Chronic obstructive pulmonary disease. 3. Pneumonia. 4. Renal failure. 5. Supraventricular tachycardia. 6. Hyponatremia. 7. History of alcohol use. HISTORY OF PRESENT ILLNESS: This is a 64-year-old female, who presented to the hospital with respiratory failure, was intubated and after exhaustive that the patient would not benefit from any treatment and was admitted to Hospice, the patient was discharged home on hospice, so family would be able to spend more time with her. DISPOSITION: To home. DISCHARGE INSTRUCTIONS: Hospice. DIET: As tolerated, comfort feeding. Overall prognosis was poor. CONDITION ON DISCHARGE: Poor as the patient was a hospice patient. Job ID: [id number]
== END 2019-12-15 16:12 | disposition hospice, home (50) | DRG 951 ==
LOC: T4-A 08:17
PROVIDERS: ADMIT Internal Medicine Nephrology; ATTEND Internal Medicine Nephrology
DX: Z51.5 Encounter for palliative care (principal); J96.01 Acute respiratory failure with hypoxia; J18.9 Pneumonia, unspecified organism; E66.2 Morbid (severe) obesity with alveolar hypoventilation; I47.1 Supraventricular tachycardia; J44.0 Chronic obstructive pulmonary disease with (acute) lower respiratory infection; E87.1 Hypo-osmolality and hyponatremia; J44.1 Chronic obstructive pulmonary disease with (acute) exacerbation; T17.890A Other foreign object in other parts of respiratory tract causing asphyxiation, initial encounter; E87.2 Acidosis; Z68.41 Body mass index [BMI] 40.0-44.9, adult; I10 Essential (primary) hypertension; E78.5 Hyperlipidemia, unspecified; F10.11 Alcohol abuse, in remission; N19 Unspecified kidney failure
CPT/HCPCS: J2060; J2270